=== PATIENT | male | born 1975 | race Caucasian/White ===

== ENCOUNTER 2017-09-27 23:03 | Emergency (ER) | payer SELFPAY ==
[2017-09-27 23:04] VITALS: BP 118/59; PULSE 113; RESP 16; TEMP 37.3; O2SAT 96; BMI 29.4
[2017-09-27 23:05] VITALS: BP 118/59; PULSE 113; RESP 16; TEMP 37.3; O2SAT 96; BMI 29.4
--- NOTE | 2017-09-27 23:08 | ED.SEIZURE ---
HPI - Seizure General Chief Complaint: Seizure Stated Complaint: Seizure Time Seen by Provider: 09/27/17 23:05 Source: patient and EMS Mode of arrival: EMS Limitations: no limitations History of Present Illness HPI Narrative: Patient is a 41 year male presents after a witnessed seizure. He was at the [employer], a local [place] where he works. He was outside smoking a cigarette when the he had full seizure. He was lowered to the ground postictal for EMS. Glucose was he 150 for them. No head injury. He says he has not started any new medications no drugs or alcohol. He does admit to drinking but on he does not drink every day. MD complaint: seizure Related Data Allergies Allergy/AdvReac Type Severity Reaction Status Date / Time No Known Drug Allergies Allergy Verified 09/28/17 00:00 Review of Systems Review of Systems All systems reviewed & are unremarkable except as noted in HPI and below Constitutional Denies chills, Denies fever(s), Denies lethargy and Denies weakness Eyes Denies change in vision, Denies eye discharge, Denies irritation and Denies loss of vision ENT Ears, Nose, Mouth, and Throat: Denies dizziness Gastrointestinal Gastrointestinal: Denies abdominal pain, Denies change in bowel habits, Denies diarrhea, Denies nausea and Denies vomiting Genitourinary Denies urinary incontinence Integumentary/Breasts Comments: Abrasions on right knee Neurologic Reports as per HPI, Denies dizziness, Denies loss of vision, Reports convulsions, Reports seizure-like activity and Denies weakness PFSH Social History alcohol intake: current Exam Initial Vital Signs Initial Vital Signs: Vital Signs Temperature 99.1 F 09/27/17 23:04 Pulse Rate 113 H 09/27/17 23:04 Respiratory Rate 16 09/27/17 23:04 Blood Pressure 118/59 L 09/27/17 23:04 Pulse Oximetry 96 09/27/17 23:04 GENERAL: Alert well-appearing HEENT: Head atraumatic,EOMI, pupils reactive, face symmetric, neck is supple no vertebral tenderness CARDIOVASCULAR: Regular rate and rhythm without murmurs, rubs or gallops. RESPIRATORY: Breath sounds equal bilaterally, no wheezes rales or rhonchi. ABDOMEN: Soft, nontender. Normoactive bowel sounds all 4 quadrants. No guarding or rebound. EXTREMITIES: Normal range of motion, no clubbing or edema. Neurovascularly intact NEUROLOGICAL: Alert and oriented x4.Normal gait and speech. Cranial nerves II through XII grossly intact. [Good [id number], good [id number], strength equal bilaterally, no dysarthria or aphasia, sensation in tact to soft touch bilaterally, no visual changes, no facial droop] SKIN: Warm, dry, no laceration, no petechiae, no rashes or lesions. Skin abrasion noted on right knee Course Orders Ordered: Discontinued Medications Sodium Chloride (Normal Saline 0.9%) 1,000 mls @ 1,000 mls/hr IV BOLUS ONE Stop: 09/28/17 00:04 Last Infusion: 09/28/17 00:40 Dose: 1,000 mls/hr Admin: 09/27/17 23:30 Dose: 1,000 mls/hr Sodium Chloride (Normal Saline 0.9%) 1,000 mls @ 1,000 mls/hr IV BOLUS ONE Stop: 09/28/17 00:37 Last Infusion: 09/28/17 02:16 Dose: 1,000 mls/hr Admin: 09/28/17 00:50 Dose: 1,000 mls/hr Vital Signs - 8 hr 09/27/17 23:04 09/27/17 23:05 09/28/17 01:59 Temperature 99.1 F 99.1 F Pulse Rate 113 H 113 H 94 H Respiratory Rate 16 16 Blood Pressure 118/59 L 118/59 L Blood Pressure [Left Arm] 147/71 H Pulse Oximetry 96 96 MDM - Seizure Lab Data Result diagrams: 09/27/17 22:45 09/27/17 22:45 Lab Results 09/27/17 09/27/17 09/28/17 Range/Units 22:45 22:45 01:20 WBC 10.8 (4.5-11.0) X10^3/uL RBC 3.39 L (4.5-5.9) X10^6/uL Hgb 11.9 L (13.5-17.5) g/dL Hct 35.9 L (41-53) % MCV 105.9 H (80-100) fL MCH 35.1 H (26-34) PG MCHC 33.1 (30-36) % RDW 14.6 (11.6-14.8) % Plt Count 43 L (150-400) X10^3/uL Neut % (Auto) 59.6 (50-75) % Lymph % (Auto) 27.5 (25-40) % [place] % (Auto) 11.5 (3-14) % Eos % (Auto) 0.5 L (2-4) % Baso % (Auto) 0.9 (0-2) % Neut # (Auto) 6500 H (1203-1794) /uL Plt Morphology Comment Large platelets seen RBC Morphology Not Reportable Macrocytosis 1+ H Sodium 144 (137-145) mmol/L Potassium 3.6 (3.4-5.1) mmol/L Chloride 103 (98-107) mmol/L Carbon Dioxide 14 L (22-32) mmol/L BUN 14 (9-20) mg/dL Creatinine 0.80 (0.66-1.25) mg/dL Estimated GFR > 60.0 (>60) mL/min BUN/Creatinine Ratio 17.5 (6-22) Glucose 128 H (70-100) mg/dL Calcium 9.8 (8.4-10.2) mg/dL Urine Color Urine Appearance Urine pH (4.5-8.0) Ur Specific [place] (1.000-1.035) Urine Protein (Negative) Urine Glucose (UA) (Normal) g/dL Urine Ketones (NEGATIVE) Urine Occult Blood (Negative) Urine Nitrate (Negative) Urine Bilirubin (NEGATIVE) Urine Urobilinogen (0.2) E.U./dL Ur Leukocyte Esterase (NEGATIVE) Urine RBC (0-5/HPF) Urine WBC (0-5/HPF) Ur Squamous Epith Cells Amorphous Sediment Urine Bacteria (None) Hyaline Casts (None) Ur Culture Indicated? Micro UA Comment Urine Opiates Screen Negative (Negative) Ur Oxycodone Screen Negative (Negative) Urine Methadone Screen Negative (Negative) Ur Barbiturates Screen Negative (Negative) U Tricyclic Antidepress Negative (Negative) Ur Phencyclidine Scrn Negative (Negative) Ur Amphetamines Screen Negative (Negative) U Methamphetamines Scrn Negative (Negative) Ur MDMA Scrn (Ecstasy) Negative (Negative) U Benzodiazepines Scrn Negative (Negative) Urine Cocaine Screen Negative (Negative) U Marijuana (THC) Screen Negative (Negative) Ethyl Alcohol < 10 mg/dL 09/28/17 Range/Units 01:20 WBC (4.5-11.0) X10^3/uL RBC (4.5-5.9) X10^6/uL Hgb (13.5-17.5) g/dL Hct (41-53) % MCV (80-100) fL MCH (26-34) PG MCHC (30-36) % RDW (11.6-14.8) % Plt Count (150-400) X10^3/uL Neut % (Auto) (50-75) % Lymph % (Auto) (25-40) % [place] % (Auto) (3-14) % Eos % (Auto) (2-4) % Baso % (Auto) (0-2) % Neut # (Auto) (9130-4509) /uL Plt Morphology Comment RBC Morphology Macrocytosis Sodium (137-145) mmol/L Potassium (3.4-5.1) mmol/L Chloride (98-107) mmol/L Carbon Dioxide (22-32) mmol/L BUN (9-20) mg/dL Creatinine (0.66-1.25) mg/dL Estimated GFR (>60) mL/min BUN/Creatinine Ratio (6-22) Glucose (70-100) mg/dL Calcium (8.4-10.2) mg/dL Urine Color Yellow Urine Appearance Clear Urine pH 7.0 (4.5-8.0) Ur Specific [place] 1.020 (1.000-1.035) Urine Protein 1+ H (Negative) Urine Glucose (UA) Negative (Normal) g/dL Urine Ketones Negative (NEGATIVE) Urine Occult Blood Trace-lysed (Negative) Urine Nitrate Negative (Negative) Urine Bilirubin Negative (NEGATIVE) Urine Urobilinogen 2.0 H (0.2) E.U./dL Ur Leukocyte Esterase Negative (NEGATIVE) Urine RBC 0-1/hpf (0-5/HPF) Urine WBC 0-1/hpf (0-5/HPF) Ur Squamous Epith Cells 0-1 /hpf Amorphous Sediment 1+ Urine Bacteria Occasional (0-1) (None) Hyaline Casts 0-1/lpf (None) Ur Culture Indicated? Cult not indicated Micro UA Comment Not Reportable Urine Opiates Screen (Negative) Ur Oxycodone Screen (Negative) Urine Methadone Screen (Negative) Ur Barbiturates Screen (Negative) U Tricyclic Antidepress (Negative) Ur Phencyclidine Scrn (Negative) Ur Amphetamines Screen (Negative) U Methamphetamines Scrn (Negative) Ur MDMA Scrn (Ecstasy) (Negative) U Benzodiazepines Scrn (Negative) Urine Cocaine Screen (Negative) U Marijuana (THC) Screen (Negative) Ethyl Alcohol mg/dL MDM Narrative Medical decision making narrative: Patient is adamant that he does not drink on daily. However his MCV is 105 and he is thrombocytopenic. His states that he has signs and symptoms of gastritis. He has no hematemesis today. He initially was shaking his he said he was cold on he was given warm blankets no longer shaking. Continues to deny alcoholism. We discussed alcohol withdrawal seizures. He does not think this is what that is. All warning signs are discussed with he and his . They verbally understand. Discharge Plan Departure Patient Disposition: Home, Self-Care Clinical Impression: New onset seizure Discharge Date/Time: 09/28/17 02:10 Interventions: ED Discharge Assessment Last Done: 09/28/17 03:01 Instructions: DI for Seizure Disorder -- Adult Activity Restrictions/Additional Instructions: CANNOT DRIVE UNTIL CLEARED BY PRIMARY CARE PROVIDER AND/OR NEUROLOGY *You have been diagnosed with seizure *What to do: Alcohol withdrawal is most common cause of seizures and can be deadly. If you should have more seizures you will need further evaluation such as CT scan and evaluation by Neurology. Be sure to sleep at least 8 hr every night and eat frequent regular meals. *Continue to take medications as directed *Follow up with your primary care provider in 2-3 days *Return to ER if you should have recurrent seizure or any new, worsening or concerning symptoms Referrals: [facility] [Outside]
[2017-09-27 23:21] LABS: Basophils Percent Auto 0.9 % (0-2); Eosinophils Percent Auto 0.5 % (2-4); Hematocrit 35.9 % (41-53); Hemoglobin 11.9 g/dL (13.5-17.5); Lymphocytes Percent Auto 27.5 % (25-40); Mean Corpuscular HGB Conc 33.1 % (30-36); Mean Corpuscular Hemoglobin 35.1 PG (26-34); Mean Corpuscular Volume 105.9 fL (80-100); Monocytes Percent Auto 11.5 % (3-14); Neutrophils Absolute Auto 6500 /uL (3000-5900); Neutrophils Percent Auto 59.6 % (50-75); Platelet Count 43 X10^3/uL (150-400); Red Blood Cell Count 3.39 X10^6/uL (4.5-5.9); Red Cell Distribution Width 14.6 % (11.6-14.8); White Blood Cell Count 10.8 X10^3/uL (4.5-11.0)
[2017-09-27 23:24] LABS: Add Manual Diff / Slide Review SLIDE REVIEW
[2017-09-27 23:26] LABS: BUN Creatinine Ratio 17.5 (6-22); Blood Urea Nitrogen 14 mg/dL (9-20); Calcium 9.8 mg/dL (8.4-10.2); Carbon Dioxide 14 mmol/L (22-32); Chloride 103 mmol/L (98-107); Estimated Glomerular Filt Rate > 60.0 mL/min (>60); Ethanol (ETOH) < 10 mg/dL; Glucose 128 mg/dL (70-100); Sodium 144 mmol/L (137-145)
[2017-09-27 23:27] LABS: HEMOLYSIS 80 (0-50)
[2017-09-27 23:28] LABS: Potassium 3.6 mmol/L (3.4-5.1)
[2017-09-27] MEDS: SODIUM CHLORIDE 0.9% 1,000 ML 1000 ML IV (23:30)
[2017-09-27 23:47] LABS: Macrocytosis 1+
[2017-09-27 23:48] LABS: Platelet Morphology Comment LARGE PLATELETS SEEN
[2017-09-28] MEDS: SODIUM CHLORIDE 0.9% 1,000 ML 1000 ML IV (00:50)
[2017-09-28 01:45] LABS: Appearance Urine UA CLEAR; Bilirubin Urine UA NEGATIVE (NEGATIVE); Color Urine UA YELLOW; Glucose Urine UA NEGATIVE (Normal); Ketones Urine UA NEGATIVE (NEGATIVE); Leukocyte Esterase Urine UA NEGATIVE (NEGATIVE); Nitrite Urine UA Negative (Negative); Occult Blood Urine UA TRACE-LYSED (Negative); Protein Urine UA 1+ (Negative)
[2017-09-28 01:46] LABS: Amorphous Sediment Urine 1+; Bacteria Urine Occasional (0-1); Culture Indicated Urine Cult Not Indicated; Hyaline Casts Urine 0-1/LPF; RBC Urine 0-1/HPF (0-5/HPF); Squamous Epithelial Cell Urine 0-1 /HPF; WBC Urine 0-1/HPF (0-5/HPF)
[2017-09-28 01:55] LABS: Urine Amphetamines Negative (Negative); Urine Barbiturates Negative (Negative); Urine Benzodiazepines Negative (Negative); Urine Cocaine Negative (Negative); Urine MDMA Negative (Negative); Urine Methadone Negative (Negative); Urine Methamphetamines Negative (Negative); Urine Morphine/Opi cutoff 2000 Negative (Negative); Urine Oxycodone Negative (Negative); Urine Phencyclidine Negative (Negative); Urine Tetrahydrocannabinol Negative (Negative); Urine Tricyclic Antidepressant Negative (Negative)
[2017-09-28 01:59] VITALS: BP 147/71; PULSE 94
== END 2017-09-28 02:10 | disposition home or self-care (01) ==
PROVIDERS: Emergency Provider Emergency Medicine
DX: R56.9 Unspecified convulsions (principal)
CPT/HCPCS: 36591; 80048; 80305; 80320; 81001; 81003; 85025; 96360; 96361; 99283; 99284

== ENCOUNTER 2017-11-20 01:07 | Inpatient (IN) | payer OTHER, MEDICAID, SELFPAY ==
[2017-11-20] VITALS (18 sets, daily range): BP systolic 114–174; BP diastolic 53–110; PULSE 85–128; RESP 10–20; TEMP 36.8–37.5; O2SAT 90–100; BMI 28.5; BMI 27.4
--- NOTE | 2017-11-20 | DI.US.S_ITS ---
PROCEDURE: US ABDOMEN COMPLETE INDICATIONS: cirrhosis TECHNIQUE: Real-time scanning was performed of the abdominal and retroperitoneal organs, with image documentation. Study was limited by the degree of cooperation and excessive bowel gas COMPARISON: None. FINDINGS: Liver: The liver measures 16.9 cm and is hyperechoic in echotexture. Gallbladder: Gallbladder is clear with normal wall thickness. Biliary ducts: Intrahepatic bile ducts are non-dilated. Extrahepatic bile duct caliber measures 5 mm. Normal is 6-7 mm or less in diameter, or 10 mm or less post-cholecystectomy. Pancreas: Pancreas is obscured by bowel gas Spleen: Spleen is obscured by bowel gas Kidneys: The right kidney measures approximately 12.2 cm without obstruction the left kidney is obscured by bowel gas Aorta: Non-visualized secondary to bowel gas Iliacs: Obscured by bowel gas IVC: Not seen secondary to bowel gas Miscellaneous: No free abdominal fluid. IMPRESSION: 1. Hepatic steatosis. 2. Normal appearing gallbladder and common bile duct. 3. Right kidney is within normal limits, remainder of exam is obscured by bowel gas Dictated by: Didier Schultz M.D. on 11/20/2017 at 14:59 Approved by: Didier Schultz M.D. on 11/20/2017 at 15:03
[2017-11-20 01:34] LABS: Add Manual Diff / Slide Review NO; Basophils Percent Auto 0.8 % (0-2); Eosinophils Percent Auto 0.8 % (2-4); Lymphocytes Percent Auto 15.5 % (25-40); Mean Corpuscular HGB Conc 32.2 % (30-36); Mean Corpuscular Hemoglobin 29.5 PG (26-34); Mean Corpuscular Volume 91.8 fL (80-100); Monocytes Percent Auto 10.8 % (3-14); Neutrophils Absolute Auto 5900 /uL (3000-5900); Neutrophils Percent Auto 72.1 % (50-75); Platelet Count 63 X10^3/uL (150-400); Red Blood Cell Count 2.36 X10^6/uL (4.5-5.9); Red Cell Distribution Width 15.6 % (11.6-14.8); White Blood Cell Count 8.2 X10^3/uL (4.5-11.0)
[2017-11-20] MEDS: LORazepam 2 MG/ML SYRINGE IV ×2 (01:34→08:51)
[2017-11-20 01:38] LABS: Alanine Aminotransferase 123 IU/L (21-72); Albumin 3.7 g/dL (3.5-5.0); Albumin Globulin Ratio 0.9 (1.0-2.8); Alkaline Phosphatase 80 U/L (38-126); Aspartate Aminotransferase 259 IU/L (17-59); BUN Creatinine Ratio 13.8 (6-22); Bilirubin Total 2.9 mg/dL (0.2-1.3); Blood Urea Nitrogen 11 mg/dL (9-20); Calcium 8.8 mg/dL (8.4-10.2); Carbon Dioxide 22 mmol/L (22-32); Chloride 102 mmol/L (98-107); Estimated Glomerular Filt Rate > 60.0 mL/min (>60); Ethanol (ETOH) < 10 mg/dL; Globulin 3.9 g/dL (1.7-4.1); Glucose 114 mg/dL (70-100); HEMOLYSIS < 15 (0-50); Lipase 232 U/L (23-300); Magnesium 1.6 mg/dL (1.6-2.3); Potassium 3.5 mmol/L (3.4-5.1); Sodium 135 mmol/L (137-145); Total Protein 7.6 g/dL (6.3-8.2)
[2017-11-20 01:42] LABS: Hematocrit 21.6 % (41-53)
[2017-11-20 01:46] LABS: Urine Amphetamines Negative (Negative); Urine Barbiturates Negative (Negative); Urine Benzodiazepines Negative (Negative); Urine Cocaine Negative (Negative); Urine MDMA Negative (Negative); Urine Methadone Negative (Negative); Urine Methamphetamines Negative (Negative); Urine Morphine/Opi cutoff 2000 Negative (Negative); Urine Oxycodone Negative (Negative); Urine Phencyclidine Negative (Negative); Urine Tetrahydrocannabinol Positive (Negative); Urine Tricyclic Antidepressant Negative (Negative)
[2017-11-20] MEDS: LORazepam 2 MG/ML SYRINGE 4 MG IV ×10 (02:08→22:29)
[2017-11-20] MEDS: MAGNESIUM SULFATE 2 GM, FOLIC ACID 1 MG, THIAMINE 100 MG, MULTIVITAMIN 10 ML in SODIUM ... IV (02:26)
[2017-11-20] MEDS: LORazepam 2 MG/ML SYRINGE 8 MG IV (02:33)
[2017-11-20] MEDS: PANTOPRAZOLE 40 MG VIAL IV ×3 (02:36→20:48)
--- NOTE | 2017-11-20 02:49 | PC.NURSE ---
pt had no response to first dose of ativan, provider notified and order received for 4mg ativan. 30 min after 4mg ativan given pt still getting tangled in monitor wires, speaking to people not in the room, pt mumbling incoherently. provider notified and additional 8mg ativan ordered. seizure precautions started. pads on stretcher and suction available.
--- NOTE | 2017-11-20 02:52 | ED.ALCOHOL ---
HPI - Alcohol General Chief Complaint: Toxicology Problem Stated Complaint: Detox Time Seen by Provider: 11/20/17 01:27 Source: patient, old records reviewed and police Mode of arrival: ambulatory Limitations: altered mental status History of Present Illness HPI narrative: Patient is a 42-year-old brought in voluntarily by police. Police report that he was found wondering trying to get into people's cars. He says police were called because he made his stepdaughter mad. He is obviously having hallucinations stating that there is water coming down from the ceiling. He reports his last drink of alcohol was 4 days ago. He drinks a 5th of alcohol daily and has for the last 2 years. He was seen evaluated in September for a seizure thought to be an alcohol withdrawal seizure though the patient denied. He currently is an extremely poor historian and has obvious tremors. MD complaint: alcohol withdrawal Related Data Allergies Allergy/AdvReac Type Severity Reaction Status Date / Time No Known Drug Allergies Allergy Verified 09/28/17 00:00 Review of Systems Review of Systems unobtainable due to mental condition (Hallucinations) [facility] Medical History Alcoholism (Acute) Social History alcohol intake: current Exam Initial Vital Signs Initial Vital Signs: Vital Signs Temperature 98.9 F 11/20/17 01:18 Pulse Rate 128 H 11/20/17 01:18 Respiratory Rate 18 11/20/17 01:18 Blood Pressure 174/78 H 11/20/17 01:18 Pulse Oximetry 100 11/20/17 01:18 Const General: anxious Nutritional Appearance: average body habitus Orientation: alert and awake Limitations: altered mental status HENMT Head: normal to inspection and normocephalic Eyes General: appearance normal, both eyes and all related structures Neck Neck: normal visual inspection, full ROM and no meningeal signs Chest Chest: normal inspection of the chest Resp Effort & Inspection: normal respiratory effort Auscultation: clear to auscultation bilaterally, no rhonchi and no wheezes Cardio Rate: tachycardic Rhythm: regular rhythm Heart Sounds: S1 normal and S2 normal GI Inspection: normal to inspection Palpation: soft, No tender and No ascites Rectal Exam: visual inspection normal and heme positive stool Skin General: ecchymosis (Right thigh) Lesions: no lesions Wounds: no wounds Neuro General: alert, awake and oriented (Person and year and place) Cranial Nerves: CN's II-XI intact bilaterally Speech: speech normal Motor: asterixis Extrem General: normal to inspection, full ROM and capillary refill normal Psych Speech and Movement: agitated and restless Thought Content: hallucinations Course Orders Ordered: ED Orders 11/20/17 EKG-12 Lead Routine 11/20/17 01:20 Complete Blood Count AUTO DIFF Stat Comprehensive Metabolic Panel Stat Ethanol (ETOH) Stat Lipase Stat Magnesium Stat Partial Thromboplastin Time Stat Prothrombin Time INR Stat 11/20/17 01:35 Urine Drug Screen, Rapid Stat 11/20/17 02:11 Packed Cells Stat Type and Screen Stat Magnesium Sulfate 2 gm/ Folic Acid 1 mg/ Thiamine HCl 100 mg / Multivitamins 10 ml/ Sodium Chloride 1,015.2 mls @ 125 mls/hr IV NOW ONE Stop: 11/20/17 09:33 Last Admin: 11/20/17 02:26 Dose: 125 mls/hr Discontinued Medications Lorazepam (Ativan) 2 mg IV NOW ONE Stop: 11/20/17 01:27 Last Admin: 11/20/17 01:34 Dose: 2 mg Lorazepam (Ativan) 4 mg IV NOW ONE Stop: 11/20/17 02:05 Last Admin: 11/20/17 02:08 Dose: 4 mg Lorazepam (Ativan) 8 mg IV NOW ONE Stop: 11/20/17 02:28 Last Admin: 11/20/17 02:33 Dose: 8 mg Pantoprazole Sodium (Protonix) 40 mg IV NOW ONE Stop: 11/20/17 02:29 Last Admin: 11/20/17 02:36 Dose: 40 mg Vital Signs - 8 hr 11/20/17 01:18 11/20/17 03:06 Temperature 98.9 F Pulse Rate 128 H 114 H Respiratory Rate 18 14 Blood Pressure 174/78 H Blood Pressure [Left Arm] 114/66 Pulse Oximetry 100 96 MDM - Alcohol Differential Diagnosis Differential diagnosis: Likely alcohol withdrawal delirium Lab Data Result diagrams: 11/20/17 01:20 11/20/17 01:20 Labs: Lab Results 11/20/17 11/20/17 11/20/17 Range/Units 01:20 01:20 01:20 WBC 8.2 (4.5-11.0) X10^3/uL RBC 2.36 L (4.5-5.9) X10^6/uL Hgb 7.0 L (13.5-17.5) g/dL Hct 21.6 L (41-53) % MCV 91.8 (80-100) fL MCH 29.5 (26-34) PG MCHC 32.2 (30-36) % RDW 15.6 H (11.6-14.8) % Plt Count 63 L (150-400) X10^3/uL Neut % (Auto) 72.1 (50-75) % Lymph % (Auto) 15.5 L (25-40) % [place] % (Auto) 10.8 (3-14) % Eos % (Auto) 0.8 L (2-4) % Baso % (Auto) 0.8 (0-2) % Neut # (Auto) 5900 (0010-4941) /uL PT 24.2 H (10.1-12.7) SECONDS INR 2.2 H (0.9-1.3) APTT 28 (26.4-36.2) SECONDS Sodium 135 L (137-145) mmol/L Potassium 3.5 (3.4-5.1) mmol/L Chloride 102 (98-107) mmol/L Carbon Dioxide 22 (22-32) mmol/L BUN 11 (9-20) mg/dL Creatinine 0.80 (0.66-1.25) mg/dL Estimated GFR > 60.0 (>60) mL/min BUN/Creatinine Ratio 13.8 (6-22) Glucose 114 H (70-100) mg/dL Calcium 8.8 (8.4-10.2) mg/dL Magnesium 1.6 (1.6-2.3) mg/dL Total Bilirubin 2.9 H (0.2-1.3) mg/dL AST 259 H (17-59) IU/L ALT 123 H (21-72) IU/L Alkaline Phosphatase 80 (38-126) U/L Total Protein 7.6 (6.3-8.2) g/dL Albumin 3.7 (3.5-5.0) g/dL Globulin 3.9 (1.7-4.1) g/dL Albumin/Globulin Ratio 0.9 L (1.0-2.8) Lipase 232 (23-300) U/L Urine Opiates Screen (Negative) Ur Oxycodone Screen (Negative) Urine Methadone Screen (Negative) Ur Barbiturates Screen (Negative) U Tricyclic Antidepress (Negative) Ur Phencyclidine Scrn (Negative) Ur Amphetamines Screen (Negative) U Methamphetamines Scrn (Negative) Ur MDMA Scrn (Ecstasy) (Negative) U Benzodiazepines Scrn (Negative) Urine Cocaine Screen (Negative) U Marijuana (THC) Screen (Negative) Ethyl Alcohol < 10 mg/dL Blood Type Antibody Screen Crossmatch 11/20/17 11/20/17 Range/Units 01:35 02:11 WBC (4.5-11.0) X10^3/uL RBC (4.5-5.9) X10^6/uL Hgb (13.5-17.5) g/dL Hct (41-53) % MCV (80-100) fL MCH (26-34) PG MCHC (30-36) % RDW (11.6-14.8) % Plt Count (150-400) X10^3/uL Neut % (Auto) (50-75) % Lymph % (Auto) (25-40) % [place] % (Auto) (3-14) % Eos % (Auto) (2-4) % Baso % (Auto) (0-2) % Neut # (Auto) (4929-6970) /uL PT (10.1-12.7) SECONDS INR (0.9-1.3) APTT (26.4-36.2) SECONDS Sodium (137-145) mmol/L Potassium (3.4-5.1) mmol/L Chloride (98-107) mmol/L Carbon Dioxide (22-32) mmol/L BUN (9-20) mg/dL Creatinine (0.66-1.25) mg/dL Estimated GFR (>60) mL/min BUN/Creatinine Ratio (6-22) Glucose (70-100) mg/dL Calcium (8.4-10.2) mg/dL Magnesium (1.6-2.3) mg/dL Total Bilirubin (0.2-1.3) mg/dL AST (17-59) IU/L ALT (21-72) IU/L Alkaline Phosphatase (38-126) U/L Total Protein (6.3-8.2) g/dL Albumin (3.5-5.0) g/dL Globulin (1.7-4.1) g/dL Albumin/Globulin Ratio (1.0-2.8) Lipase (23-300) U/L Urine Opiates Screen Negative (Negative) Ur Oxycodone Screen Negative (Negative) Urine Methadone Screen Negative (Negative) Ur Barbiturates Screen Negative (Negative) U Tricyclic Antidepress Negative (Negative) Ur Phencyclidine Scrn Negative (Negative) Ur Amphetamines Screen Negative (Negative) U Methamphetamines Scrn Negative (Negative) Ur MDMA Scrn (Ecstasy) Negative (Negative) U Benzodiazepines Scrn Negative (Negative) Urine Cocaine Screen Negative (Negative) U Marijuana (THC) Screen Positive H (Negative) Ethyl Alcohol mg/dL Blood Type A Positive Antibody Screen Negative Crossmatch See Detail ECG Data Attestation: I personally reviewed and interpreted this ECG as follows: Prior ECG tracings: not available for review Interpretation: Sinus tachycardia rate 121. None ST depression noted in precordial leads no acute ST elevations no priors to compare MDM Narrative Medical decision making narrative: Initial [id number] Patient is awake and alert but obviously hallucinating and has diffuse tremors. Immediately IV fluids started and 2 mg of Ativan given. He continues to pull out his lines hallucinate and be agitated. For mg of Ativan given. Been antibiotics started. His heart rate increased to the 150s, and now talking more nonsense, continuing to pull at IV lines. 8 mg of Ativan given. Finally he has become sonorous but does still awake and cough. Noted to be anemic with significant decrease in his hemoglobin and hematocrit. He did say he was having some dark stools. He is guaiac positive. I attempted to call contact of listed in the computer however the name did not match the phone number. I did not leave a message. Police said that family is aware of where he is. Patient's heart rate improved after final dose of Ativan in the 114. He is in sinus rhythm. Dr. Aburto has been updated on patient's symptoms and test results agrees with ICU admission. Discussion with Dr. Aburto about blood transfusion. His hemoglobin is under 8 he remains tachycardic despite now no longer tremorous or anxious. Attempted calling the family to get consent, patient does not have capacity to make informed decisions. Blood transfusion will be started with implied consent. Discharge Plan Departure Patient Disposition: Admitted As Inpatient Clinical Impression: Alcohol withdrawal delirium, Acute GI bleeding, Anemia Admit Date/Time: 11/20/17 03:34 Admit Provider: Sunday Aburto
--- NOTE | 2017-11-20 02:54 | PC.NURSE ---
bloodwork shows anemia, pt asked about blood in stool and stated he has seen blood in stool for couple weeks. provider ordered protonix and type and screen.
[2017-11-20 03:01] LABS: INR 2.2 (0.9-1.3); Prothrombin Time 24.2 SECONDS (10.1-12.7)
[2017-11-20 03:04] LABS: PTT Partial Thromboplastin Tim 28 SECONDS (26.4-36.2)
--- NOTE | 2017-11-20 03:07 | PC.NURSE ---
pt sleeping, loudly deeply snoring.
--- NOTE | 2017-11-20 03:21 | PC.NURSE ---
second line placed for blood transfusion
--- NOTE | 2017-11-20 05:38 | PM.HP.1 ---
History of Present Illness Date Patient Seen: 11/20/17 Time Patient Seen: 04:35 Chief complaint: Detox Narrative: Patient was brought in by the police department. Patient was found in a confused state appearing to try and break in a car. Patient actually walked in to the emergency room. No evidence or suspicion of head trauma. Imaging was not done by ER physician on admission. Patient was noted to be delirious upon arrival to the ER. Patient's hemoglobin was 7.0 and provided transfusion obtuse 2 units of packed RBC. Patient was admitted to the ICU for alcohol withdrawal syndrome treatment. Patient History Medical History Alcoholism (Acute) Family & Social History Family History: Reviewed 11/20/17 by Sunday Aburto MD Social History: household members other Safety & Behavioral: Feels Safe in Current Yes Environment Been Physically Hurt or Unwilling to Answer Threatened By a Person Suicidal Ideation Description None Suicide Plan Description No Plan Tobacco & Substance use: Smoking Status Unknown if ever smoked alcohol intake current alcohol intake frequency 3 or more drinks per day Substance Use Type marijuana Meds Allergies Allergy/AdvReac Type Severity Reaction Status Date / Time No Known Drug Allergies Allergy Verified 09/28/17 00:00 Review of Systems Review of Systems Patient is in a comatose state unable to answer questions Exam Vital Signs (past 8 hours): - 11/20/17 01:18 11/20/17 03:06 11/20/17 04:12 Temperature 98.9 F 98.4 F Pulse Rate 128 H 114 H 103 H Respiratory Rate 18 14 20 Blood Pressure 174/78 H 133/61 H Blood Pressure [Left Arm] 114/66 Pulse Oximetry 100 96 100 11/20/17 04:52 11/20/17 05:08 Temperature 99.5 F 99.3 F Pulse Rate 103 H 110 H Respiratory Rate 14 15 Blood Pressure 133/61 H 154/110 H Blood Pressure [Left Arm] Pulse Oximetry Oxygen Delivery Method Room Air Narrative Exam Narrative: General appearance Patient in delirium tremens alcohol withdrawal syndrome. Skin No rashes or lesions evident nonjaundiced Eyes pupils are equal round and reactive to light Respiratory Upper airway transmitted sounds noted fair air movement is noted no crackles at bases noted Cardiovascular Tachycardia noted regular rhythm no murmurs pulses +3 to extremities Gastrointestinal Abdomen is soft nonprotuberant positive bowel sounds noted no bruits Musculoskeletal Motor strength cannot be assessed. Range of motion passively appears normal. No clubbing noted Neurologic Cranial nerve assessment cannot be assessed at this time. No lateralizing neurologic deficit noted. Patient in delirium tremens Lymph nodes No lymphadenopathy to neck or axilla Objective Labs Result Diagrams: 11/20/17 01:20 11/20/17 01:20 Labs: Laboratory Results - last 24 hr 11/20/17 11/20/17 11/20/17 01:20 01:20 01:20 WBC 8.2 RBC 2.36 L Hgb 7.0 L Hct 21.6 L MCV 91.8 MCH 29.5 MCHC 32.2 RDW 15.6 H Plt Count 63 L Neut % (Auto) 72.1 Lymph % (Auto) 15.5 L [place] % (Auto) 10.8 Eos % (Auto) 0.8 L Baso % (Auto) 0.8 Neut # (Auto) 5900 PT 24.2 H INR 2.2 H APTT 28 Sodium 135 L Potassium 3.5 Chloride 102 Carbon Dioxide 22 BUN 11 Creatinine 0.80 Estimated GFR > 60.0 BUN/Creatinine Ratio 13.8 Glucose 114 H Calcium 8.8 Magnesium 1.6 Total Bilirubin 2.9 H AST 259 H ALT 123 H Alkaline Phosphatase 80 Total Protein 7.6 Albumin 3.7 Globulin 3.9 Albumin/Globulin Ratio 0.9 L Lipase 232 Nasal Screen MRSA (PCR) Urine Opiates Screen Ur Oxycodone Screen Urine Methadone Screen Ur Barbiturates Screen U Tricyclic Antidepress Ur Phencyclidine Scrn Ur Amphetamines Screen U Methamphetamines Scrn Ur MDMA Scrn (Ecstasy) U Benzodiazepines Scrn Urine Cocaine Screen U Marijuana (THC) Screen Ethyl Alcohol < 10 Blood Type Antibody Screen Crossmatch 11/20/17 11/20/17 11/20/17 01:35 02:11 04:10 WBC RBC Hgb Hct MCV MCH MCHC RDW Plt Count Neut % (Auto) Lymph % (Auto) [place] % (Auto) Eos % (Auto) Baso % (Auto) Neut # (Auto) PT INR APTT Sodium Potassium Chloride Carbon Dioxide BUN Creatinine Estimated GFR BUN/Creatinine Ratio Glucose Calcium Magnesium Total Bilirubin AST ALT Alkaline Phosphatase Total Protein Albumin Globulin Albumin/Globulin Ratio Lipase Nasal Screen MRSA (PCR) Negative for mrsa Urine Opiates Screen Negative Ur Oxycodone Screen Negative Urine Methadone Screen Negative Ur Barbiturates Screen Negative U Tricyclic Antidepress Negative Ur Phencyclidine Scrn Negative Ur Amphetamines Screen Negative U Methamphetamines Scrn Negative Ur MDMA Scrn (Ecstasy) Negative U Benzodiazepines Scrn Negative Urine Cocaine Screen Negative U Marijuana (THC) Screen Positive H Ethyl Alcohol Blood Type A Positive Antibody Screen Negative Crossmatch See Detail Assessment & Plan Plan: Assessment/Plan Narrative: 1. Delirium tremens alcohol withdrawal syndrome Ativan to be provided in 2-4 mg doses with CIWA score between 8-20. Repeat CIWA score every 1-2 hours. Per CIWA score exceeding 20 phenobarbital at 130 mg IV every 30 min to be repeated as necessary. Neurologic checks every 2 hr. Continuous oximetry to monitor. Greene catheter to gravity. Haldol to be avoided since potentially lowers seizure threshold. If patient maintains a CIWA score less than 848 consecutive hours without Ativan administration then the CIWA protocol can be discontinued. Due to risk of infection in patients with cirrhosis and GI bleeding Cipro 400 mg IV q.12 hours provided. 2. Acute GI bleeding Initial hemoglobin 7.0 when seen in the emergency room. Patient given 2 units of packed RBCs by ER physician. In view of alcohol history and suspected cirrhosis and esophageal varices will provide octreotide with a 50 mcg loading dose and 50 mcg infusion per hour this is to be continued for the next 2-5 days. Hemoglobin hematocrit repeat every 4 hr. Protonix 40 mg IV q.12 hours 3. Alcohol abuse Note patient with elevated INR on admission reflective of acute hepatic dysfunction. Note albumin level 3.7 on admission. Will continue to monitor labs every morning Times spent to manage patient admission is 80 min Time Spent With Patient Time with patient: Greater than 35 minutes (80 min) Quality VTE Deep Vein Thrombosis/Pulmonary Embolism Present on Admission: No
[2017-11-20] MEDS: PHENobarbital sodium 130 MG/ML VIAL IV ×6 (05:55→14:31)
[2017-11-20] MEDS: OCTREOTIDE 500 MCG in SODIUM CHLORIDE 0.9% 100 ML 10.1 ML IV (08:30)
[2017-11-20] MEDS: CIPROFLOXACIN 400 MG/200 ML PIGGYBACK 200 MG IV (08:31)
[2017-11-20] MEDS: OCTREOTIDE 100 MCG/ML VIAL 50 MCG IV (10:08)
[2017-11-20 11:04] LABS: Hematocrit 23.6 % (41-53); Hemoglobin 7.9 g/dL (13.5-17.5)
--- NOTE | 2017-11-20 11:09 | RT ---
shift supervisor film processing RT Nan identified patient as possibly needing an RT consult. Spoke with RN Linsey who says there are no needs at this time. Patient resting peacefully. On 2 liters nasal cannula with a sat of 95 while sleeping. Patient is snoring but easily arousable. No issues with secretion clearance. BBS clear.
[2017-11-20 11:31] LABS: Magnesium 2.3 mg/dL (1.6-2.3)
[2017-11-20] MEDS: SODIUM CHLORIDE 0.9% 1,000 ML 150 ML IV ×2 (11:47→18:02)
--- NOTE | 2017-11-20 12:09 | CM.DANOTE ---
Reviewed EMR: Patient admitted for alcohol withdrawal. MIS check: Not in system. Patient had ER visit in September for seizure thought to be alcohol withdrawal which patient denied. No other visits found. Patient currently with CIWA of 25. Not appropriate for CD assessment. SW to try again tomorrow.
--- NOTE | 2017-11-20 14:52 | PC.NURSE ---
pt becomes easily agitated and scores a ciwa of 25 x 2 this shift- receiving doses of both iv loraz and iv phenobarb-frequently for his behavior and inability to reason with pt. lungs clear, no edema, dangelo patent and banana bag completed infusion -abd u/s completed -remains npo
[2017-11-21 00:02] VITALS: BP 145/85; PULSE 90; RESP 12; TEMP 37.4; O2SAT 100
[2017-11-21] MEDS: LORazepam 2 MG/ML SYRINGE 4 MG IV ×12 (00:04→19:19)
[2017-11-21] MEDS: SODIUM CHLORIDE 0.9% 1,000 ML 150 ML IV ×2 (01:15→17:24)
[2017-11-21 04:00] VITALS: BP 148/57; PULSE 93; RESP 19; TEMP 37.1; O2SAT 100
[2017-11-21] MEDS: LORazepam 2 MG/ML SYRINGE IV ×2 (05:06→06:09)
[2017-11-21 05:13] LABS: Add Manual Diff / Slide Review NO; Basophils Percent Auto 0.8 % (0-2); Eosinophils Percent Auto 1.4 % (2-4); Hemoglobin 8.5 g/dL (13.5-17.5); Lymphocytes Percent Auto 15.8 % (25-40); Mean Corpuscular HGB Conc 32.8 % (30-36); Mean Corpuscular Hemoglobin 29.9 PG (26-34); Monocytes Percent Auto 9.5 % (3-14); Neutrophils Absolute Auto 5700 /uL (3000-5900); Neutrophils Percent Auto 72.5 % (50-75); Platelet Count 50 X10^3/uL (150-400); Red Blood Cell Count 2.86 X10^6/uL (4.5-5.9); Red Cell Distribution Width 15.7 % (11.6-14.8); White Blood Cell Count 7.8 X10^3/uL (4.5-11.0)
[2017-11-21 05:20] LABS: Alanine Aminotransferase 97 IU/L (21-72); Albumin 2.7 g/dL (3.5-5.0); Albumin Globulin Ratio 0.8 (1.0-2.8); Alkaline Phosphatase 55 U/L (38-126); Aspartate Aminotransferase 186 IU/L (17-59); Bilirubin Total 3.1 mg/dL (0.2-1.3); Blood Urea Nitrogen 9 mg/dL (9-20); Calcium 7.4 mg/dL (8.4-10.2); Carbon Dioxide 25 mmol/L (22-32); Chloride 107 mmol/L (98-107); Estimated Glomerular Filt Rate > 60.0 mL/min (>60); Globulin 3.4 g/dL (1.7-4.1); Glucose 103 mg/dL (70-100); HEMOLYSIS < 15 (0-50); Potassium 3.4 mmol/L (3.4-5.1); Sodium 137 mmol/L (137-145); Total Protein 6.1 g/dL (6.3-8.2)
--- NOTE | 2017-11-21 06:50 | PC.NURSE ---
NOC Shift: Pt continues to have CIWA scores 15 to 22 controlled with Ativan 2 to 4mg IV per CIWA scale per Dr. Patel. Pt becoming more appropriate at times, able to follow direction, calm with direction. Able to sit up and feed self w/cues. VSS, SR on tele. No active bleeding noted thru shift H&H improved this AM with RBC transfusion yesterday. Remains ICU status.
[2017-11-21 07:33] VITALS: BP 148/74; PULSE 93; RESP 12; O2SAT 99
[2017-11-21] MEDS: SODIUM CHLORIDE 0.9% 1,000 ML 50 ML IV (08:57)
[2017-11-21] MEDS: PANTOPRAZOLE 40 MG VIAL IV (10:20)
[2017-11-21 10:55] VITALS: BP 142/85; PULSE 104; RESP 16; TEMP 38.2; O2SAT 100
--- NOTE | 2017-11-21 11:07 | PC.NURSE ---
PT RECEIVING IV LORAZ ALMOST Q 1.5 HOURS THIS AM DUE TO INCREASED AGITATION AND UNWILLINGNESS TO COOPERATE WITH CARE PLAN OF ETOH WITHDRAWL- CARROLL OF CASE MGMT SPOKE WITH PT FOR APPROX 20-25 MINUTES - THEN HE BECAME DISGRUNTLED AND ATTEMPTED TO LEAVE BY GETTING UP FROM BED X 2 AND STUMBLING FORWARD - HE MANIPULATED IV TUBING _ RIPPING OR BITING IT -RESULTING IN BLOOD SPEWING OVER BEDDING AND FLOOR, IV SITE MAINTAINED AND REQUIRED NEW DRESSING AND NEW TUBING SET UP, NS CONTINUES TO INFUSE- TAKING DIET WELL NO NAUSEA- UPDATE TO ERAN AT BEDSIDE
--- NOTE | 2017-11-21 11:53 | CM.DANOTE ---
Discharge Planning/Care Management CM Discharge Assessment Start: 11/21/17 11:47 Freq: Status: Active Protocol: Document 11/21/17 11:47 (Rec: 11/21/17 11:48 [id number]) Discharge Planning Assessment Assigned Top Stitcher [employer]AMP CLEANER Advance Directives? No History Provided By Patient Significant Other Medical Record Has Patient been admitted in last 30 No days? Prior Living Arrangements House Household Members significant other family children other Comment Mother, Fiance and stepdaughter/15. Type of transporation used prior to Drives own vehicle admit Independent with ADL's Yes Is patient alert and oriented? Yes Discharge Plan Home Referrals Initiated None needed Additional Comment Home w/ OP CD services vs IP CD Whiteboard Updated in Patient Room with Yes name and ext. # of Top Stitcher Review Status In Process Next Review Date 11/22/17 Next Review Type Continued Stay Review Counter Tacker Consult Start: 11/21/17 11:48 Freq: Status: Active Protocol: Document 11/21/17 11:48 (Rec: 11/21/17 11:53 [id number]) Counter Tacker Consult [employer] CLE[employer]ER Assessment Type Substance Abuse Reason for CARBON LAMP CLEANER Referral Patient is a 42-year-old brought in voluntarily by police, having hallucinations stating that there is water coming down from the ceiling. Patient drinks a 5th of alcohol daily and has for the last 2 years. Referred by ED Presenting Problem alcohol withdrawal VOA/CMS check Yes: Not in system Suicidal thoughts No Past Suicidal thoughts No Current Suicidal thoughts No Prior Suicide attempts No Current plan for self harm No Access to guns and weapons No Thoughts of harm to others No Past thoughts of harm to others No Current thoughts of harming others No Prior attempts to harm others No Current plan to harm others No Current Risk factors Financial difficulties Marital and family difficulties Risk factor comments Works at [email or web address]. No [place], family difficulties with fiance and 15 year old step- daughter. Relevant Medical History Brought into ED on 09/27 after a witnessed seizure thought to be due to alcohol withdrawal, patient denied. Crisis Plan to be determined Additional Comment Still pending. Call from ICU/patient may be ready for assessment: Met with patient: Patient was sitting up in bed. Notified patient of SW role and patient understood. Patient was able to tell SW where he was and why he was at . Patient unsure of date. Throughout conversation patient remained alert and goal oriented. Speech was slurred and short. Patient stayed on topic and participated in assessment. Patient stated he has had a long history with CD beginning when he was young in [place]. 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 Roughly 7 years ago he moved to [place] and shortly was arrested for a DUI. Patient stated he has always been able to control how much he drinks. In past 7 years patient reports he has done AA multiple times with no success. Denies any IP/OP Services. He has tried quitting cold turkey often. Patient states his seizure in September was from another time he had tried to stop drinking. Patient said his fiance has started asking him to slow down with drinking about two months ago. Patient is unsure why his fiance is asking him now to stop as he doesn't see what she sees. While discussing this admission, Patient's last memory was on Monday going to work: He reports that he works at the [employer] from [id number] and has an end of shift drink everyday. He left work and went home and had a 5th of Butch. Originally patient stated he only had 2-3 shots, but then said he always drinks the whole bottle. He woke up Monday wanting to quit drinking and but doesn't remember after that but does remembers agreeing to go to the hospital. ED reports states patient was brought in by police voluntarily after being found trying to break into cars. MH: Denies any current or past thoughts or plans to harm himself or others. Legal: patient denies any current legal troubles. Family: Patient lives with his mom, pedro and step-daughter/15. Assessment: Discussed OP/IP with patient. Patient began to speak about his time in [place] and past experiences with AA. Refuses to do either. Patient originally states he may be agreeable to IP CD, but wanted to talk to hannahmathew first. Patient was starting to become more agitated during conversation and asked SW to get him some clothes. Patient began shuffling in the bed and asking to go home. SW notified RN. SW called pedro who stated she is willing to support any decision patient makes, but is worried about the financial aspect of OP/IP services. Patient is currently self-pay pending review from admissions for possible [facility] qualification. Pedro reports they do have difficulty with there 15 years old daughter but nothing out of the realm of being 15 and hating everyone. Pedro reports on Monday morning patient was wanting to stop drinking and she brought him pedialyte and chicken noodle soup. She works often and comes home after patient is asleep. She said patient does throw up often and she finds empty bottles of whiskey under the bed. Plan: Crisis line reports two open male CD beds reserved for involuntary patients. They recommended SW call the [facility] line at to access those beds. At this time SW is unsure if patient qualifies for [facility] and/or willing to enter IP CD. Patients CIWA increased to 22. SW would need to reassess patient when CIWA returns low.
[2017-11-21 12:07] VITALS: BMI 27.4
[2017-11-21 16:00] VITALS: BP 140/78; PULSE 92; RESP 12; TEMP 36.3; O2SAT 98
--- NOTE | 2017-11-21 17:51 | P.PN_ITS ---
Subjective Date Patient Seen: 11/21/17 Time Patient Seen: 11:47 Interval history: THIS GENTLEMAN IS ADMITTED WITH A HISTORY OF I A.M. ACUTE INTOXICATION WITH ALCOHOL TREATED WITH IV ATIVAN AND IV PHENOBARBITAL AND HAS IMPROVED QUITE A BIT DAYS MORE COMMUNICATIVE DOES NOT HAVE ANY SHAKES HE HAD SEVERE ANEMIA REQUIRING BLOOD TRANSFUSION ALSO HAS ACUTE HEPATITIS WITH BLACK CONTINUE TO MONITOR HIS LABS AND DISCHARGE DISPOSITION BASED ON THE Exam Vital Signs (past 8 hours): - 11/21/17 10:55 11/21/17 16:00 Temperature 100.7 F H 97.3 F L Pulse Rate 104 H 92 H Respiratory Rate 16 12 Blood Pressure 142/85 H 140/78 H Pulse Oximetry 100 98 Oxygen Delivery Method Nasal Cannula Oxygen Flow Rate 0 Const General: cooperative, healthy appearing, comfortable and well developed Orientation: alert and awake [facility] Head: normal to inspection, normocephalic and atraumatic Eyes General: appearance normal, both eyes and all related structures Eyelids: eyelids normal Conjunctivae: conjunctivae normal Sclera: sclerae normal Pupils: PERRL EOM: EOM intact bilaterally Neck Neck: normal visual inspection Resp Effort & Inspection: normal respiratory effort and able to speak in complete sentences Auscultation: clear to auscultation bilaterally Cardio Palpation: normal PMI Rate: tachycardic Rhythm: regular rhythm Heart Sounds: S1 normal and S2 normal GI Inspection: normal to inspection Palpation: soft Back/Spine/Pelvis Back: normal to inspection Skin General: no rashes or lesions noted Neuro General: alert, awake and oriented x3 Cranial Nerves: CN's II-XI intact bilaterally Cognition: normal cognition Speech: speech normal Motor: muscle tone normal throughout Sensory Exam: no sensory deficits noted Extrem General: normal to inspection and no calf tenderness Psych Appearance: grossly normal Mood: congruent mood Affect: normal affect Attitude: cooperative Thought Process: normal Thought Content: normal Judgment: judgment good Objective Labs Result Diagrams: 11/21/17 04:34 11/21/17 04:34 Labs: Laboratory Results - last 24 hr 11/21/17 11/21/17 04:34 04:34 WBC 7.8 RBC 2.86 L Hgb 8.5 L Hct 26.0 L MCV 91.0 MCH 29.9 MCHC 32.8 RDW 15.7 H Plt Count 50 L Neut % (Auto) 72.5 Lymph % (Auto) 15.8 L [place] % (Auto) 9.5 Eos % (Auto) 1.4 L Baso % (Auto) 0.8 Neut # (Auto) 5700 Sodium 137 Potassium 3.4 Chloride 107 Carbon Dioxide 25 BUN 9 Creatinine 0.60 L Estimated GFR > 60.0 BUN/Creatinine Ratio 15.0 Glucose 103 H Calcium 7.4 L Total Bilirubin 3.1 H AST 186 H ALT 97 H Alkaline Phosphatase 55 Total Protein 6.1 L Albumin 2.7 L Globulin 3.4 Albumin/Globulin Ratio 0.8 L Assessment & Plan Plan: Assessment/Plan Narrative: 1. ACUTE ALCOHOLIC INTOXICATION S RECEIVED IV ATIVAN AND PHENOBARBITAL AND TIME IN MULTI VITAMINS AND IV FLUIDS IS MUCH IMPROVED 2. ACUTE HEPATITIS WILL CHECK HIS LIVER PROFILE AND INR 3. ANEMIA CONTINUE TO MONITOR THE HEMOGLOBIN Time Spent With Patient Time with patient: 25 - 35 minutes Quality VTE Deep Vein Thrombosis/Pulmonary Embolism Present on Admission: No
[2017-11-21] MEDS: HALOPERIDOL 5 MG/ML VIAL IV (19:04)
--- NOTE | 2017-11-22 00:11 | PC.NURSE ---
chelsie note pt heard snoring, then was standing at side of bed with bed alarm ringing. Pt very unsteady on feet. Pt says he wants to go home, that we are not doing anything for him, he is just going to go home and lay down, he as already been here for 7 hours. Pt knows he is at [facility], but is completely disoriented to time. Pt does not understand that he is in alcohol withdrawl. 4 mg IV ativan given for CIWA score of 19. Pt found on his knees once, next to bed, with bed alarm ringing. Pt does not understand that his gait is impaired. Called hospitalist to inform of above. New order for haldol seen. Pt still impulsive, gets OOB, unsteady on feet. Pt annoyed that he is not allowed to leave, but he gets back in bed on his own. Mentation clearing some. Pt drinking water with no s/s aspiration, but is uncoordinated, dropped water bottle. Pt up to BSC twice, only flatus, no stool.
[2017-11-22 00:14] VITALS: BP 150/84; PULSE 101; RESP 15; TEMP 38; O2SAT 98
[2017-11-22] MEDS: SODIUM CHLORIDE 0.9% 1,000 ML 150 ML IV ×2 (00:19→06:48)
[2017-11-22] MEDS: PANTOPRAZOLE 40 MG VIAL IV ×3 (00:19→22:07)
[2017-11-22] MEDS: LORazepam 2 MG/ML SYRINGE 4 MG IV (00:20)
[2017-11-22 04:02] VITALS: BP 138/72; PULSE 95; RESP 16; TEMP 37; O2SAT 95
[2017-11-22 05:08] LABS: Add Manual Diff / Slide Review NO; Basophils Percent Auto 1.1 % (0-2); Eosinophils Percent Auto 1.9 % (2-4); Hematocrit 24.8 % (41-53); Hemoglobin 8.1 g/dL (13.5-17.5); Lymphocytes Percent Auto 15.9 % (25-40); Mean Corpuscular HGB Conc 32.8 % (30-36); Mean Corpuscular Hemoglobin 29.8 PG (26-34); Mean Corpuscular Volume 90.9 fL (80-100); Monocytes Percent Auto 13.7 % (3-14); Neutrophils Absolute Auto 4500 /uL (3000-5900); Neutrophils Percent Auto 67.4 % (50-75); Platelet Count 55 X10^3/uL (150-400); Red Blood Cell Count 2.72 X10^6/uL (4.5-5.9); Red Cell Distribution Width 16.2 % (11.6-14.8); White Blood Cell Count 6.6 X10^3/uL (4.5-11.0)
[2017-11-22 05:16] LABS: INR 2.3 (0.9-1.3); Prothrombin Time 25.9 SECONDS (10.1-12.7)
[2017-11-22 05:23] LABS: Alanine Aminotransferase 84 IU/L (21-72); Albumin 2.5 g/dL (3.5-5.0); Albumin Globulin Ratio 0.7 (1.0-2.8); Alkaline Phosphatase 59 U/L (38-126); Aspartate Aminotransferase 127 IU/L (17-59); BUN Creatinine Ratio 11.7 (6-22); Bilirubin Total 2.3 mg/dL (0.2-1.3); Blood Urea Nitrogen 7 mg/dL (9-20); Calcium 6.9 mg/dL (8.4-10.2); Carbon Dioxide 26 mmol/L (22-32); Chloride 104 mmol/L (98-107); Estimated Glomerular Filt Rate > 60.0 mL/min (>60); Globulin 3.4 g/dL (1.7-4.1); Glucose 103 mg/dL (70-100); HEMOLYSIS < 15 (0-50); Potassium 3.1 mmol/L (3.4-5.1); Sodium 136 mmol/L (137-145); Total Protein 5.9 g/dL (6.3-8.2)
[2017-11-22 05:24] LABS: Alanine Aminotransferase 79 IU/L (21-72); Albumin 2.4 g/dL (3.5-5.0); Albumin Globulin Ratio 0.8 (1.0-2.8); Alkaline Phosphatase 60 U/L (38-126); Aspartate Aminotransferase 123 IU/L (17-59); Bilirubin Conjugated 0.1 md/dL (0.0-0.3); Bilirubin Total 2.3 mg/dL (0.2-1.3); Globulin 3.2 g/dL (1.7-4.1); HEMOLYSIS < 15 (0-50); Total Protein 5.6 g/dL (6.3-8.2)
--- NOTE | 2017-11-22 06:54 | PC.NURSE ---
NOC Shift: Pt slept through most of shift following one dosage of Ativan for CIWA of 19. Wakes to name w/a start, orients with cues to place, RN. Sat up to eat some food, drink the went back to sleep. SR IESHA on tele. Had 1:1 sitter thru shift, not needed at this time. Continue to monitor.
--- NOTE | 2017-11-22 10:08 | CM.DPC ---
Addendum entered by ODALIS Case 11/22/17 14:52: ADD: Per RN, AD Counselors met bedside with pt and were able to help get the pt connected with [employer] for medical insurance. SW called [facility] at 1430 and still no open male detox beds. Plan: SW to continue calling [facility] towards getting a pt a detox bed for discharge likely tomorrow and CD resources and supports for ongoing ETOH needs. BF Original Note: Addendum entered by ODALIS Case 11/22/17 11:35: ADD: SW met bedside with pt and explained role and pt was sitting bedside slowly eating breakfast and pt confirmed that he recalled speaking with SW yesterday regarding CD resources and treatment. Pt confirms that he cannot financially afford to pay privately for treatment and would be agreeable to [facility] Counselors determining if he qualifies for Medicaid or [employer]. SW called and emailed [facility] Counsel[facility] group and asked if they can see the pt today for insurance barriers. Pt states that his preference would be outpt treatment for ETOH rather than Inpt tx if he is able to get onto insurance. SW discussed [facility] for detox and support with possible outpt or inpt treatment and SW confirmed that [facility] is free and available for anyone in the community who needs their services. Pt states that he would be willing to consider [facility] at d/c to help with additional support and stabilization. SW provided him with the brochure and called [facility] and currently they do not have any male detox beds but anticipate openings later this afternoon. SW discussed DPOA and pt confirms that he does not have DPOA assigned and SW discussed the importance and provided pt with DPOA brochure and pwk to review at his convenience. Pt states his will be bedside after work today around 1600. SW updated RN and pt may be stable for d/c this afternoon if he remains stable. Plan: LARS to follow closely for [facility] Counsel[facility] to hopefully determine if pt qualifies for health insurance and to call [facility] this afternoon to determine if any open male detox beds available. ODALIS Case Original Note: DCP Cont: Per MD and RN, holding some of pt's meds today to help pt to become more alert towards determining d/c planning needs and ambulation. Per RN, likely best for bedside discussion regarding CD resources later this morning when pt more alert. Plan: SW to meet bedside with pt for ongoing discussion of CD resources and ETOH treatment later today when pt more alert. ODALIS Case
[2017-11-22 10:39] VITALS: PULSE 96; RESP 12; O2SAT 95
[2017-11-22 10:50] VITALS: BP 134/68; PULSE 80; RESP 20; O2SAT 95
--- NOTE | 2017-11-22 10:56 | PC.NURSE ---
pt waking up and seems clumsy but able to feed self and is fairly easy to direct- he is quiet and he is hopeful to be d/c'd today- speaking with firewall engineer at present-will remove dangelo catheter following this discussion and increase mobility\
[2017-11-22] MEDS: POTASSIUM CHLORIDE 20 MEQ TAB 40 MEQ PO (11:39)
[2017-11-22] MEDS: SODIUM CHLORIDE 0.9% 1,000 ML 75 ML IV (13:33)
[2017-11-22 15:35] VITALS: BP 123/74; PULSE 107; RESP 20; TEMP 37.8; O2SAT 99
--- NOTE | 2017-11-22 17:15 | PM.PN.1 ---
Subjective Date Patient Seen: 11/22/17 Time Patient Seen: 11:15 Interval history: IN WITH ALCOHOL INTOXICATION AND ALSO SOME SEIZURE-LIKE ACTIVITIES WAS GIVEN IV ATIVAN AND PHENOBARBITAL AND IMPROVED QUITE A BIT TODAY HE IS MOSTLY SLEEPY BUT ANSWERS QUESTIONS NOT IN ANY DISTRESS OR ANY PAIN Exam Vital Signs (past 8 hours): - 11/22/17 10:39 11/22/17 10:50 11/22/17 15:35 Temperature 100.1 F H Pulse Rate 96 H 80 107 H Respiratory Rate 12 20 20 Blood Pressure 134/68 H 123/74 H Pulse Oximetry 95 95 99 Oxygen Delivery Method Room Air Oxygen Flow Rate 0 Const General: cooperative Other: SLEEPY BUT AROUSABLE HENMT Head: normal to inspection, normocephalic and atraumatic Ears: hearing grossly normal bilaterally Nose: external nose normal Face and sinus: normal facial exam Eyes General: appearance normal, both eyes and all related structures Alignment and Position: alignment normal Eyelids: eyelids normal Conjunctivae: conjunctivae normal Sclera: sclerae normal Pupils: PERRL EOM: EOM intact bilaterally Chest Chest: normal inspection of the chest Resp Effort & Inspection: normal respiratory effort and able to speak in complete sentences Auscultation: clear to auscultation bilaterally Cardio Rate: regular rate Rhythm: regular rhythm Heart Sounds: S1 normal and S2 normal GI Inspection: normal to inspection Palpation: soft Back/Spine/Pelvis Back: normal to inspection and No back tenderness Skin General: no rashes or lesions noted Neuro General: other (SLEEPY BUT AROUSABLE NIL FOCAL DEFICITS) Extrem General: normal to inspection Objective Labs Result Diagrams: 11/22/17 04:44 11/22/17 04:44 Labs: Laboratory Results - last 24 hr 11/22/17 11/22/17 11/22/17 04:44 04:44 04:44 WBC 6.6 RBC 2.72 L Hgb 8.1 L Hct 24.8 L MCV 90.9 MCH 29.8 MCHC 32.8 RDW 16.2 H Plt Count 55 L Neut % (Auto) 67.4 Lymph % (Auto) 15.9 L [place] % (Auto) 13.7 Eos % (Auto) 1.9 L Baso % (Auto) 1.1 Neut # (Auto) 4500 PT 25.9 H INR 2.3 H Sodium 136 L Potassium 3.1 L Chloride 104 Carbon Dioxide 26 BUN 7 L Creatinine 0.60 L Estimated GFR > 60.0 BUN/Creatinine Ratio 11.7 Glucose 103 H Calcium 6.9 L Total Bilirubin 2.3 H Conjugated Bilirubin Unconjugated Bilirubin AST 127 H ALT 84 H Alkaline Phosphatase 59 Total Protein 5.9 L Albumin 2.5 L Globulin 3.4 Albumin/Globulin Ratio 0.7 L 11/22/17 04:44 WBC RBC Hgb Hct MCV MCH MCHC RDW Plt Count Neut % (Auto) Lymph % (Auto) [place] % (Auto) Eos % (Auto) Baso % (Auto) Neut # (Auto) PT INR Sodium Potassium Chloride Carbon Dioxide BUN Creatinine Estimated GFR BUN/Creatinine Ratio Glucose Calcium Total Bilirubin 2.3 H Conjugated Bilirubin 0.1 Unconjugated Bilirubin 1.0 AST 123 H ALT 79 H Alkaline Phosphatase 60 Total Protein 5.6 L Albumin 2.4 L Globulin 3.2 Albumin/Globulin Ratio 0.8 L Assessment & Plan Plan: Assessment/Plan Narrative: Alcohol Withdrawl improving will monitor lytes and liver profile Time Spent With Patient Time with patient: less than 15 minutes Quality VTE Deep Vein Thrombosis/Pulmonary Embolism Present on Admission: No
--- NOTE | 2017-11-22 19:27 | PC.NURSE ---
1915-Patient assisted to the BS. Patient is very unsteady on his feet. Patient able to follow simple direction but he is tremulous and his movements are jerky. Patient shruthi is at bedside. She states patient is getting frustrated and agitated that she could not take him with her when she was leaving. Akua Meredith will medicate per protocol.
[2017-11-22 19:31] VITALS: BP 111/67; PULSE 86; RESP 18; TEMP 37.2
[2017-11-23 00:10] VITALS: BP 137/76; PULSE 91; RESP 20; TEMP 37.3; O2SAT 97
[2017-11-23] MEDS: LORazepam 2 MG/ML SYRINGE IV (00:10)
[2017-11-23] MEDS: SODIUM CHLORIDE 0.9% 1,000 ML 75 ML IV (03:18)
[2017-11-23 05:46] LABS: Add Manual Diff / Slide Review NO; Basophils Percent Auto 1.6 % (0-2); Eosinophils Percent Auto 1.5 % (2-4); Hematocrit 24.6 % (41-53); Mean Corpuscular HGB Conc 32.7 % (30-36); Mean Corpuscular Hemoglobin 29.7 PG (26-34); Mean Corpuscular Volume 90.7 fL (80-100); Monocytes Percent Auto 16.2 % (3-14); Neutrophils Absolute Auto 3200 /uL (3000-5900); Neutrophils Percent Auto 57.7 % (50-75); Platelet Count 62 X10^3/uL (150-400); Red Blood Cell Count 2.71 X10^6/uL (4.5-5.9); Red Cell Distribution Width 15.6 % (11.6-14.8); White Blood Cell Count 5.6 X10^3/uL (4.5-11.0)
[2017-11-23 05:54] LABS: Alanine Aminotransferase 76 IU/L (21-72); Albumin 2.5 g/dL (3.5-5.0); Albumin Globulin Ratio 0.8 (1.0-2.8); Alkaline Phosphatase 58 U/L (38-126); Aspartate Aminotransferase 104 IU/L (17-59); Bilirubin Total 2.1 mg/dL (0.2-1.3); Bilirubin Unconjugated 1.1 mg/dL (0.0-1.1); Blood Urea Nitrogen 6 mg/dL (9-20); Carbon Dioxide 25 mmol/L (22-32); Chloride 106 mmol/L (98-107); Estimated Glomerular Filt Rate > 60.0 mL/min (>60); Globulin 3.3 g/dL (1.7-4.1); Glucose 81 mg/dL (70-100); HEMOLYSIS < 15 (0-50); Potassium 3.5 mmol/L (3.4-5.1); Sodium 136 mmol/L (137-145); Total Protein 5.8 g/dL (6.3-8.2)
[2017-11-23 08:21] VITALS: BP 140/87; PULSE 87; RESP 16; TEMP 37.8; O2SAT 100
--- NOTE | 2017-11-23 08:49 | PM.PN.1 ---
Subjective Date Patient Seen: 11/23/17 Time Patient Seen: 16:52 Interval history: This gentleman is admitted with acute alcoholic intoxication and seizure like symptoms was treated with IV Ativan and IV phenobarbital and and this slowly recovered from his acute alcoholic intoxication Appears in no acute distress now but did not communicate with me at all today his fimathewe was his bedside and said he did talk to her Exam Vital Signs (past 8 hours): - 11/23/17 08:21 Temperature 100.1 F H Pulse Rate 87 Respiratory Rate 16 Blood Pressure 140/87 H Pulse Oximetry 100 Oxygen Delivery Method Room Air Oxygen Flow Rate 0 Const General: cooperative, healthy appearing, comfortable and well developed Orientation: alert and awake HENNY Head: normal to inspection, normocephalic and atraumatic Ears: hearing grossly normal bilaterally Nose: external nose normal Face and sinus: normal facial exam Eyes General: appearance normal, both eyes and all related structures Eyelids: eyelids normal Conjunctivae: conjunctivae normal Sclera: sclerae normal Pupils: PERRL EOM: EOM intact bilaterally Neck Neck: normal visual inspection Thyroid: thyroid normal Resp Effort & Inspection: normal respiratory effort and able to speak in complete sentences Auscultation: clear to auscultation bilaterally Cardio Rate: regular rate Rhythm: regular rhythm Heart Sounds: S1 normal and S2 normal GI Inspection: normal to inspection Palpation: soft Back/Spine/Pelvis Back: normal to inspection and No back tenderness Skin General: no rashes or lesions noted Neuro General: alert and awake Motor: muscle tone normal throughout Extrem Left lower extremity: normal to inspection Objective Labs Result Diagrams: 11/23/17 05:22 11/23/17 05:22 Labs: Laboratory Results - last 24 hr 11/23/17 11/23/17 05:22 05:22 WBC 5.6 RBC 2.71 L Hgb 8.0 L Hct 24.6 L MCV 90.7 MCH 29.7 MCHC 32.7 RDW 15.6 H Plt Count 62 L Neut % (Auto) 57.7 Lymph % (Auto) 23.0 L Mcdonough % (Auto) 16.2 H Eos % (Auto) 1.5 L Baso % (Auto) 1.6 Neut # (Auto) 3200 Sodium 136 L Potassium 3.5 Chloride 106 Carbon Dioxide 25 BUN 6 L Creatinine 0.50 L Estimated GFR > 60.0 BUN/Creatinine Ratio 12.0 Glucose 81 Calcium 7.0 L Total Bilirubin 2.1 H Conjugated Bilirubin 0.0 Unconjugated Bilirubin 1.1 AST 104 H ALT 76 H Alkaline Phosphatase 58 Total Protein 5.8 L Albumin 2.5 L Globulin 3.3 Albumin/Globulin Ratio 0.8 L Assessment & Plan Plan: Assessment/Plan Narrative: Acute on Chronic Anemia 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
[2017-11-23] MEDS: PANTOPRAZOLE 40 MG VIAL IV ×2 (10:04→19:50)
--- NOTE | 2017-11-23 11:34 | CM.DPC ---
DCP Cont: Per MD, pt is medically stabilizing but still quite unsteady and PT ordered to eval pt's ability to mobilize. SW called [facility] again to inquire about an open male detox bed and currently they are still full. SW met bedside with pt and explained role again and pt was sleeping soundly and still seemed to have difficulty with movements but was able to communicate and stated that he would like to go home today. SW discussed needing to make sure that he was safe with mobility prior to d/c. SW updated pt that [facility] is still full and pt states that he is agreeable to SW setting up a CD assessment in the outpt setting towards getting enrolled in either outpt or inpt treatment pending the assessment. Pt states that his shruthi works evenings and therefore could be available during the day to provide transport to CD assessment and pt confirms that if assessment is scheduled that he would follow through with the appointment. Pt confirms that he is not interested in SW pursuing Inpt CD tx at this time. SW provided the pt with the information for outpt CD assessment providers and the information for [facility] in [place] and their address and hours for Walk In CD assessment protocol. Pt agreeable with SW contacting his fimathew with this information. SW attempted to call [facility] and left voicemail requesting call back. Pt has [facility] detox and [facility] brochures bedside for follow up after discharge. Plan: SW to follow for PT eval to determine if pt safe for d/c home today with shruthi. SW following for return call from [facility] to update her on the CD assessment towards enrolling in CD treatment and information on [facility]. ODALIS Case
--- NOTE | 2017-11-23 14:19 | PT.IIE ---
Current Diagnoses Alcohol dependence with withdrawal delirium (11/20/17) Medical History (Last Reviewed 11/20/17 @ 05:38 by Sunday Aburto MD) Alcoholism (Acute) Physical Therapy Inpatient Evaluation/Re-Eval M1 PT/OT-IP Prior Functional Status Start: 11/23/17 15:26 Freq: NEEDED Status: Active Protocol: Document 11/23/17 14:19 MDD (Rec: 11/23/17 15:43 MDD [id number]) Medical Review Prior Functional Status Medical History Reviewed Yes Communication normal Mobility and Gait independent with no AD Activities of Daily Living and IADL's independent Social History Household Members significant other family children other Living Arrangements Apartment/Condo Number of Floors (Floors) 3 or More Floors Number of Stairs To Enter/Railing? Pt lives in 3rd floor apartment (requiring 3 flights of stairs with B handrails - unknown total number). 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 He makes some mention of hitting his head, but is unable to further explain. M2 PT-IP Current Condition Start: 11/23/17 15:26 Freq: NEEDED Status: Active Protocol: Document 11/23/17 14:19 MDD (Rec: 11/23/17 15:43 MDD [id number]) Physical Therapy Current Condition Current Condition Evaluation Date 11/23/17 Treatment Diagnosis acute alcohol intoxication Onset Date 11/20/17 Precautions Other Precautions dangelo catheter M3 PT-IP Subjective Start: 11/23/17 15:26 Freq: NEEDED Status: Active Protocol: Document 11/23/17 14:19 MDD (Rec: 11/23/17 15:43 MDD [id number]) Subjective Physical Therapy Visit Type Type Initial Evaluation Visit Start Time 14:00 Visit Stop Time 14:19 Total Visit Minutes 19 Therapy Pain Assessment Pain Present Pain Present Denied Pain M4 PT-IP Mobility and Gait Start: 11/23/17 15:26 Freq: NEEDED Status: Active Protocol: Document 11/23/17 14:19 MDD (Rec: 11/23/17 15:43 MDD [id number]) PT-Bed Mobility Assessment Rolling Type of Rolling Roll to Left Level of Assist Standby Assistance Supine to Sit Supine to Sit Standby Assistance Scooting Scooting to Edge of Bed Contact Guard Assistance PT-Transfer Assessment Sit to and From Stand Sit to and from Stand Contact Guard Assistance Equipment Transfer Assistive Device Gait Belt Front Wheeled Walker Transfer Ability Level of Assist Moderate Assistance Comments Mobility Comments Pt very unsteady on his feet Gait Assessment Gait Gait Assistance Required: Moderate Assistance Distance (Feet) (feet) 10 Assistive Devices Assistive Device Gait Belt Front Wheeled Walker Gait Deviations General Gait Pattern Ataxic Decreased Feet Clearance Flexed Trunk Wide Based Gait Factors Limiting Gait Function Factors Limiting Gait Function Difficulty Following Directions Incoordination Poor Balance Poor Safety Awareness Comments Gait Comments Pt very impulsive with gait, has difficulty following direction, difficulty coordinating movement with use of walker. Heavy assist with walker positioning. PT-Balance Assessment Sitting Balance and Reactions Static Sitting Balance Ability Good Dynamic Sitting Balance Ability Fair Standing Balance and Reactions Static Standing Balance Ability Fair Dynamic Standing Balance Ability Poor Device Used FWW Balance Tests Romberg 30 seconds flexed posture, increased postural sway CGA M5 PT-IP Objective Assessments Start: 11/23/17 15:26 Freq: NEEDED Status: Active Protocol: Document 11/23/17 14:19 MDD (Rec: 11/23/17 15:43 [facility] [id number]) Orientation Orientation/Cognition Level of Alertness Confusional State Orientation Name Date Situation Language Function Ability Garbled Speech Safety Awareness Decreased Safety Awareness Gross Range of Motion Lower Extremity ROM Assessment Within Functional Limits Strength Lower Extremity Strength Assessment Within Functional Limits Coordination Assessment Assessment Finger to Nose Test Minimal Impairment Heel on Mcpherson Test Moderate Impairment M6 PT-IP Treatment Start: 11/23/17 15:26 Freq: NEEDED Status: Active Protocol: Document 11/23/17 14:19 MDD (Rec: 11/23/17 15:43 [facility] [id number]) Physical Therapy Treatment Education Education Provided Precautions Safety M7 PT-IP Assessment and Plan Start: 11/23/17 15:26 Freq: NEEDED Status: Active Protocol: Document 11/23/17 14:19 MDD (Rec: 11/23/17 15:43 [facility] [id number]) PT Summary Assessment and Plan Potential Rehabilitation Potential Fair Status of Condition at Evaluation Evolving Summary Impairments Strength Balance Coordination Cognition Transfers Gait Progress Towards Goals Slow Progress due to Medical Issues Assessment Summary Pt demonstrates severe balance deficits this day. Requires mod-max A for safety with gait for short distances using FWW . Pt is very impulsive and does not seem aware of these deficits. He presents with very high fall risk. Advise bed and chair alarms. Nursing advised to assist with transfers only, no gait at this time. This is well below pt's prior functional baseline. He is not considered safe to d/c home at this time. Goals Bed Mobility Goal Independent Transfer Goal Independent Gait Goal Independent Gait Distance 100 feet Other Goals Ascend/descend 3 flights of stairs with B railings. Days to Meet Goals 3 Frequency of Treatment Frequency Of Treatment Once a Day Treatment Plan Physical Therapy Treatment Plan Transfer Training Gait Training Therapeutic Exercise Coordination Retraining Recommendations To Nursing Amount of Assist Needed 1 Person Assist Discharge Recommendations PT Discharge Recommendations Home SNF Rehab Other Discharge Recommendations Pt unsafe to return home currently, but may improve significantly as medical condition stabilizes and he clears cognitively.
[2017-11-23 15:05] VITALS: BP 138/79; PULSE 90; RESP 16; TEMP 36.4; O2SAT 100
[2017-11-23] MEDS: PHYTONADIONE (VIT K1) 5 MG TABLET PO (19:49)
[2017-11-23] MEDS: SODIUM CHLORIDE 0.9% FLUSH 10 ML IV (19:51)
[2017-11-23 20:20] VITALS: BP 154/88; PULSE 98; RESP 20; TEMP 37; O2SAT 100
--- NOTE | 2017-11-23 22:36 | PC.NURSE ---
Addendum entered by Cher Wisdom R.N. 11/23/17 23:29: this ad writer noticed an error to an earlier CIWA @ 2030 documentation. It reads 9 and should be an 8. Pt refused ativan for this CIWA score of 8. Original Note: Addendum entered by Cher Wisdom R.N. 11/23/17 22:40: 2135- pt found on knees next to bed, urine on floor. Put pt on BSC, changed gown and bed linen. Found bruise to left side of forehead with swelling. Denied pain. Bed alarm on, but pt able to put side rail down and get OOB indep, once feet hit floor unable to stand. Noncompliant with call light or calling out. Rocco Duarte notified of fall, QMM filed. Pt informed if tries to get OOB, would call rashid Durham to come and sit overnight with pt. Unknown if pt processed this information. Original Note: Ivonne shift- Pt quite impulsive whten needing to urinate, will take bed railing down and get OOB quickly, unable to stand or walk indep, 2-3PA, FWW with cueing, gait belt, four times this shift, with bedding changed and gown. 3 small BM's this shift, dark green in color. LFA IV drsg replaced. Demonstrates no coordination with FWW, or walking, needs to be held up by staff.
[2017-11-24 01:37] VITALS: BP 113/63; PULSE 93; RESP 16; TEMP 37; O2SAT 99
[2017-11-24 03:58] LABS: Add Manual Diff / Slide Review NO; Basophils Percent Auto 3.3 % (0-2); Eosinophils Percent Auto 3.9 % (2-4); Hematocrit 26.6 % (41-53); Hemoglobin 8.6 g/dL (13.5-17.5); INR 2.3 (0.9-1.3); Lymphocytes Percent Auto 22.9 % (25-40); Mean Corpuscular HGB Conc 32.5 % (30-36); Mean Corpuscular Hemoglobin 29.6 PG (26-34); Mean Corpuscular Volume 90.9 fL (80-100); Monocytes Percent Auto 17.5 % (3-14); Neutrophils Absolute Auto 2400 /uL (3000-5900); Neutrophils Percent Auto 52.4 % (50-75); Platelet Count 73 X10^3/uL (150-400); Red Blood Cell Count 2.92 X10^6/uL (4.5-5.9); Red Cell Distribution Width 15.5 % (11.6-14.8); White Blood Cell Count 4.5 X10^3/uL (4.5-11.0)
[2017-11-24 04:02] LABS: Alanine Aminotransferase 73 IU/L (21-72); Albumin 2.8 g/dL (3.5-5.0); Albumin Globulin Ratio 0.8 (1.0-2.8); Alkaline Phosphatase 74 U/L (38-126); Aspartate Aminotransferase 107 IU/L (17-59); Bilirubin Total 1.9 mg/dL (0.2-1.3); Bilirubin Unconjugated 0.9 mg/dL (0.0-1.1); Globulin 3.5 g/dL (1.7-4.1); HEMOLYSIS < 15 (0-50); Total Protein 6.3 g/dL (6.3-8.2)
[2017-11-24 06:49] VITALS: BP 137/87; PULSE 93; RESP 18; TEMP 37.3; O2SAT 100
[2017-11-24] MEDS: PANTOPRAZOLE 40 MG VIAL IV ×2 (09:45→22:43)
--- NOTE | 2017-11-24 13:30 | PT.IPTN ---
Current Diagnoses Alcohol dependence with withdrawal delirium (11/20/17) Physical Therapy Treatment Note M2 PT-IP Current Condition Start: 11/23/17 15:26 Freq: NEEDED Status: Active Protocol: Document 11/23/17 14:19 MDD (Rec: 11/23/17 15:43 MDD [id number]) Physical Therapy Current Condition Current Condition Evaluation Date 11/23/17 Treatment Diagnosis acute alcohol intoxication Onset Date 11/20/17 Precautions Other Precautions dangelo catheter M3 PT-IP Subjective Start: 11/23/17 15:26 Freq: NEEDED Status: Active Protocol: Document 11/24/17 13:30 MDD (Rec: 11/24/17 15:44 MDD [id number]) Subjective Physical Therapy Visit Type Type Administrative Note Notes Nursing reports pt is not appropriate for PT this day. He has been sleeping most of the day, gets up to urinate and returns to bed. Very unsteady on his feet and not cognitively at baseline. PT will continue to moniter and assess for appropriateness of treatment tomorrow. M4 PT-IP Mobility and Gait Start: 11/23/17 15:26 Freq: NEEDED Status: Active Protocol: Document 11/23/17 14:19 MDD (Rec: 11/23/17 15:43 MDD [id number]) PT-Bed Mobility Assessment Rolling Type of Rolling Roll to Left Level of Assist Standby Assistance Supine to Sit Supine to Sit Standby Assistance Scooting Scooting to Edge of Bed Contact Guard Assistance PT-Transfer Assessment Sit to and From Stand Sit to and from Stand Contact Guard Assistance Equipment Transfer Assistive Device Gait Belt Front Wheeled Walker Transfer Ability Level of Assist Moderate Assistance Comments Mobility Comments Pt very unsteady on his feet Gait Assessment Gait Gait Assistance Required: Moderate Assistance Distance (Feet) (feet) 10 Assistive Devices Assistive Device Gait Belt Front Wheeled Walker Gait Deviations General Gait Pattern Ataxic Decreased Feet Clearance Flexed Trunk Wide Based Gait Factors Limiting Gait Function Factors Limiting Gait Function Difficulty Following Directions Incoordination Poor Balance Poor Safety Awareness Comments Gait Comments Pt very impulsive with gait, has difficulty following direction, difficulty coordinating movement with use of walker. Heavy assist with walker positioning. PT-Balance Assessment Sitting Balance and Reactions Static Sitting Balance Ability Good Dynamic Sitting Balance Ability Fair Standing Balance and Reactions Static Standing Balance Ability Fair Dynamic Standing Balance Ability Poor Device Used FWW Balance Tests Romberg 30 seconds flexed posture, increased postural sway CGA M5 PT-IP Objective Assessments Start: 11/23/17 15:26 Freq: NEEDED Status: Active Protocol: Document 11/23/17 14:19 MDD (Rec: 11/23/17 15:43 MDD [id number]) Orientation Orientation/Cognition Level of Alertness Confusional State Orientation Name Date Situation Language Function Ability Garbled Speech Safety Awareness Decreased Safety Awareness Gross Range of Motion Lower Extremity ROM Assessment Within Functional Limits Strength Lower Extremity Strength Assessment Within Functional Limits Coordination Assessment Assessment Finger to Nose Test Minimal Impairment Heel on Mcpherson Test Moderate Impairment M6 PT-IP Treatment Start: 11/23/17 15:26 Freq: NEEDED Status: Active Protocol: Document 11/23/17 14:19 MDD (Rec: 11/23/17 15:43 MDD [id number]) Physical Therapy Treatment Education Education Provided Precautions Safety M7 PT-IP Assessment and Plan Start: 11/23/17 15:26 Freq: NEEDED Status: Active Protocol: Document 11/23/17 14:19 MDD (Rec: 11/23/17 15:43 [facility] [id number]) PT Summary Assessment and Plan Potential Rehabilitation Potential Fair Status of Condition at Evaluation Evolving Summary Impairments Strength Balance Coordination Cognition Transfers Gait Progress Towards Goals Slow Progress due to Medical Issues Assessment Summary Pt demonstrates severe balance deficits this day. Requires mod-max A for safety with gait for short distances using FWW . Pt is very impulsive and does not seem aware of these deficits. He presents with very high fall risk. Advise bed and chair alarms. Nursing advised to assist with transfers only, no gait at this time. This is well below pt's prior functional baseline. He is not considered safe to d/c home at this time. Goals Bed Mobility Goal Independent Transfer Goal Independent Gait Goal Independent Gait Distance 100 feet Other Goals Ascend/descend 3 flights of stairs with B railings. Days to Meet Goals 3 Frequency of Treatment Frequency Of Treatment Once a Day Treatment Plan Physical Therapy Treatment Plan Transfer Training Gait Training Therapeutic Exercise Coordination Retraining Recommendations To Nursing Amount of Assist Needed 1 Person Assist Discharge Recommendations PT Discharge Recommendations Home SNF Rehab Other Discharge Recommendations Pt unsafe to return home currently, but may improve significantly as medical condition stabilizes and he clears cognitively.
--- NOTE | 2017-11-24 14:34 | DI.CT.S_ITS ---
PROCEDURE: CT HEAD/BRAIN WO CON INDICATIONS: fall, bump on right frontal head TECHNIQUE: Noncontrast 4.5 mm thick angled axial sections acquired from the foramen magnum to the vertex, with coronal and sagittal reformats. For radiation dose reduction, the following was used: automated exposure control, adjustment of mA and/or kV according to patient size. COMPARISON: None. FINDINGS: Image quality: Excellent. CSF spaces: Basal cisterns are patent. No extra-axial fluid collections. Ventricles are normal in size and shape. Brain: No midline shift. No intracranial masses or hemorrhage. Geller-white matter interface is normal. Skull and face: Calvarium and visualized facial bones are intact, without suspicious lesions. Sinuses: Right posterior maxillary sinus retention cyst. Visualized sinuses and mastoids are otherwise clear. IMPRESSION: No acute intracranial abnormality. Dictated by: Anthony Monteiro M.D. on 11/24/2017 at 15:03 Approved by: Anthony Monteiro M.D. on 11/24/2017 at 15:04
[2017-11-24 15:45] VITALS: BP 128/76; PULSE 88; RESP 12; TEMP 37.3; O2SAT 99
--- NOTE | 2017-11-24 16:54 | PT.IPTN ---
Current Diagnoses Alcohol dependence with withdrawal delirium (11/20/17) Physical Therapy Treatment Note M2 PT-IP Current Condition Start: 11/23/17 15:26 Freq: NEEDED Status: Active Protocol: Document 11/23/17 14:19 MDD (Rec: 11/23/17 15:43 MDD [id number]) Physical Therapy Current Condition Current Condition Evaluation Date 11/23/17 Treatment Diagnosis acute alcohol intoxication Onset Date 11/20/17 Precautions Other Precautions dangelo catheter M3 PT-IP Subjective Start: 11/23/17 15:26 Freq: NEEDED Status: Active Protocol: Document 11/24/17 16:00 LJ (Rec: 11/24/17 16:53 LJ [email or web address]) Subjective Physical Therapy Visit Type Type Treatment Note Visit Start Time 16:00 Visit Stop Time 16:30 Total Visit Minutes 30 Therapy Pain Assessment Pain When Pain Assessed During Mobility Pain Present Pain Present Denied Pain M4 PT-IP Mobility and Gait Start: 11/23/17 15:26 Freq: NEEDED Status: Active Protocol: Document 11/24/17 16:00 LJ (Rec: 11/24/17 16:53 LJ [id number]) PT-Bed Mobility Assessment Rolling Type of Rolling Log Rolling Level of Assist Standby Assistance Sit to Supine Sit to Supine Standby Assistance 1 Person Assistance Scooting Scooting Up and Down in Bed Standby Assistance PT-Transfer Assessment Sit to and From Stand Sit to and from Stand Contact Guard Assistance 1 Person Assistance Equipment Transfer Assistive Device Gait Belt Front Wheeled Walker Orthotic/Prosthetic Devices or Brace: No Transfers Transfer Destination Bed Transfer Technique Lateral Scoot Transfer Ability Level of Assist Contact Guard Assistance 1 Person Assistance Gait Assessment Gait Gait Assistance Required: Moderate Assistance 1 Person Assist Assistive Devices Assistive Device Gait Belt Front Wheeled Walker Gait Deviations General Gait Pattern Decreased Stride Length Decreased Feet Clearance Narrow Based Gait Factors Limiting Gait Function Factors Limiting Gait Function Decreased Activity Tolerance Difficulty Following Directions Incoordination Poor Balance Poor Safety Awareness Comments Gait Comments Pt able to ambulate with mod to max cues for foot positioning, lifting knees, and direction to avoid running into pinon and furniture. Pt unsteady requiring tactile adjustment by therapist. Gait distance 40' out of room and back. PT-Balance Assessment Sitting Balance and Reactions Static Sitting Balance Ability Fair Dynamic Sitting Balance Ability Poor Standing Balance and Reactions Static Standing Balance Ability Fair Dynamic Standing Balance Ability Fair Comments Other Balance Tests/Deviations/Treatment Pt lost balance at EOB during : TKEs. When questioned he was able to verbalize that he felt off balance and was able to self correct with tactile cues . M5 PT-IP Objective Assessments Start: 11/23/17 15:26 Freq: NEEDED Status: Active Protocol: Document 11/23/17 14:19 MDD (Rec: 11/23/17 15:43 MDD [id number]) Orientation Orientation/Cognition Level of Alertness Confusional State Orientation Name Date Situation Language Function Ability Garbled Speech Safety Awareness Decreased Safety Awareness Gross Range of Motion Lower Extremity ROM Assessment Within Functional Limits Strength Lower Extremity Strength Assessment Within Functional Limits Coordination Assessment Assessment Finger to Nose Test Minimal Impairment Heel on Mcpherson Test Moderate Impairment M6 PT-IP Treatment Start: 11/23/17 15:26 Freq: NEEDED Status: Active Protocol: Document 11/24/17 16:00 LJ (Rec: 11/24/17 16:53 LJ [id number]) Physical Therapy Treatment Exercises Exercises Ankle Pumps Gluteal Sets Quad Sets Heel Slides Straight Leg Raises Seated Knee Flexion/Extension Education Education Provided Safety Other Treatments Other Treatment Performed Pt weak and unable to perform SLRs independently. Performed bridging x 2 for positioning in bed. M7 PT-IP Assessment and Plan Start: 11/23/17 15:26 Freq: NEEDED Status: Active Protocol: Document 11/24/17 16:00 LJ (Rec: 11/24/17 16:53 LJ [id number]) PT Summary Assessment and Plan Potential Rehabilitation Potential Fair Status of Condition at Evaluation Unstable Summary Impairments Strength Balance Coordination Cognition Gait Activity Tolerance Progress Towards Goals Slow Progress due to Medical Issues Assessment Summary Pt willing to participate in treatment. Loss of balance in sitting at EOB x2 when performing LE exercises. Gait performance was unsteady requiring mod-max cues for step length and direction as well as navigating. Pt closed eyes often during gait and fell asleep during bed mobility exercises. Able to rouse back to wakefulness. Instructed pt to remain in bed and not attempt to get up without assistance. Frequency of Treatment Frequency Of Treatment Once a Day Treatment Plan Physical Therapy Treatment Plan Bed Mobility Training Transfer Training Gait Training Therapeutic Exercise Balance Retraining Coordination Retraining Recommendations To Nursing Amount of Assist Needed 2 Person Assist
--- NOTE | 2017-11-24 17:54 | P.PN_ITS ---
Subjective Date Patient Seen: 11/24/17 Time Patient Seen: 09:20 Interval history: This is a 42-year-old alcoholic male presenting with use acute alcohol withdrawal symptoms and alcohol withdrawal seizures. Consult is a good symptom control, remains essentially bedridden and somnolent. Sitter is present at the bedside. It remains intermittently impulsive, and trying to get out of bed unattended. Exam Vital Signs (past 8 hours): - 11/24/17 15:45 Temperature 99.1 F Pulse Rate 88 Respiratory Rate 12 Blood Pressure 128/76 H Pulse Oximetry 99 Oxygen Delivery Method Room Air Oxygen Flow Rate 0 Narrative Exam Narrative: Constitutional: Well-developed overweight male resting in his bed elevated he is somnolent but is responsive to verbal stimulation HEENT: Somewhat dry oral mucosa otherwise unremarkable Neck: Supple, no lymphadenopathy, no jugular venous distention Pulmonary: Distant breath sounds, no rales, crepitations or wheezing Cardiovascular: Regular rhythm and rate, no murmur Gastrointestinal: Abdomen is soft, nontender, nondistended, bowel sounds present, no discernible organomegaly Extremities: Warm to touch, no edema Neurological: Remains nonfocal, no seizure activity since admission. Skin: No skin lesions, no rashes Objective Labs Result Diagrams: 11/24/17 03:42 11/23/17 05:22 Labs: Laboratory Results - last 24 hr 11/24/17 11/24/17 11/24/17 03:42 03:42 03:42 WBC 4.5 RBC 2.92 L Hgb 8.6 L Hct 26.6 L MCV 90.9 MCH 29.6 MCHC 32.5 RDW 15.5 H Plt Count 73 L Neut % (Auto) 52.4 Lymph % (Auto) 22.9 L Johnston % (Auto) 17.5 H Eos % (Auto) 3.9 Baso % (Auto) 3.3 H Neut # (Auto) 2400 L PT 26.0 H INR 2.3 H Total Bilirubin 1.9 H Conjugated Bilirubin 0.0 Unconjugated Bilirubin 0.9 AST 107 H ALT 73 H Alkaline Phosphatase 74 Ammonia Total Protein 6.3 Albumin 2.8 L Globulin 3.5 Albumin/Globulin Ratio 0.8 L 11/24/17 03:42 WBC RBC Hgb Hct MCV MCH MCHC RDW Plt Count Neut % (Auto) Lymph % (Auto) Johnston % (Auto) Eos % (Auto) Baso % (Auto) Neut # (Auto) PT INR Total Bilirubin Conjugated Bilirubin Unconjugated Bilirubin AST ALT Alkaline Phosphatase Ammonia 22.0 Total Protein Albumin Globulin Albumin/Globulin Ratio Assessment & Plan Plan: Assessment/Plan Narrative: 1. Acute alcohol withdrawal of his alcohol withdrawal seizures: Essentially resolved 2. Alcoholism, chronic ongoing problem 3. Major depression 4. Obesity 5. Alcoholic steatohepatitis /possible liver cirrhosis is impaired synthetic function. On admission with elevated INR level 6. Chronic thrombocytopenia 7. Anemia, acute on chronic, microcytic: Required PRBC transfusion on admission Plan: 1. Continue current management per CIWA A protocol, symptomatic and supportive care 2. Case management consult regarding disposition options. Quality VTE Deep Vein Thrombosis/Pulmonary Embolism Present on Admission: No
[2017-11-24] MEDS: SODIUM CHLORIDE 0.9% 1,000 ML 75 ML IV (22:43)
[2017-11-24 23:17] VITALS: BP 127/81; PULSE 91; RESP 18; TEMP 37.2; O2SAT 97
[2017-11-25 06:41] LABS: Add Manual Diff / Slide Review NO; Basophils Percent Auto 2.6 % (0-2); Eosinophils Percent Auto 2.6 % (2-4); Hemoglobin 8.5 g/dL (13.5-17.5); Lymphocytes Percent Auto 21.6 % (25-40); Mean Corpuscular HGB Conc 32.8 % (30-36); Mean Corpuscular Hemoglobin 29.5 PG (26-34); Monocytes Percent Auto 19.9 % (3-14); Neutrophils Absolute Auto 2400 /uL (3000-5900); Neutrophils Percent Auto 53.3 % (50-75); Platelet Count 78 X10^3/uL (150-400); Red Blood Cell Count 2.89 X10^6/uL (4.5-5.9); Red Cell Distribution Width 15.7 % (11.6-14.8); White Blood Cell Count 4.5 X10^3/uL (4.5-11.0)
[2017-11-25 06:43] LABS: INR 2.3 (0.9-1.3); Prothrombin Time 25.9 SECONDS (10.1-12.7)
[2017-11-25 06:46] LABS: Alanine Aminotransferase 70 IU/L (21-72); Albumin 2.5 g/dL (3.5-5.0); Albumin Globulin Ratio 0.7 (1.0-2.8); Alkaline Phosphatase 67 U/L (38-126); Aspartate Aminotransferase 104 IU/L (17-59); Bilirubin Total 1.8 mg/dL (0.2-1.3); Blood Urea Nitrogen 6 mg/dL (9-20); Calcium 7.5 mg/dL (8.4-10.2); Carbon Dioxide 29 mmol/L (22-32); Chloride 105 mmol/L (98-107); Estimated Glomerular Filt Rate > 60.0 mL/min (>60); Globulin 3.4 g/dL (1.7-4.1); Glucose 89 mg/dL (70-100); HEMOLYSIS < 15 (0-50); Magnesium 1.8 mg/dL (1.6-2.3); Potassium 3.4 mmol/L (3.4-5.1); Sodium 139 mmol/L (137-145); Total Protein 5.9 g/dL (6.3-8.2)
[2017-11-25 07:00] VITALS: BP 144/75; PULSE 78; RESP 14; TEMP 36.6; O2SAT 100
[2017-11-25] MEDS: PANTOPRAZOLE 40 MG VIAL IV ×2 (09:08→21:29)
[2017-11-25] MEDS: SODIUM CHLORIDE 0.9% 1,000 ML 75 ML IV (12:07)
--- NOTE | 2017-11-25 13:12 | PC.NURSE ---
Pt mostly sleeping. Not participating in conversation, standing to use urinal. CIWA score = 2.
--- NOTE | 2017-11-25 14:20 | PT.IPTN ---
Current Diagnoses Alcohol dependence with withdrawal delirium (11/20/17) Physical Therapy Treatment Note M2 PT-IP Current Condition Start: 11/23/17 15:26 Freq: NEEDED Status: Active Protocol: Document 11/23/17 14:19 MDD (Rec: 11/23/17 15:43 MDD [id number]) Physical Therapy Current Condition Current Condition Evaluation Date 11/23/17 Treatment Diagnosis acute alcohol intoxication Onset Date 11/20/17 Precautions Other Precautions dangelo catheter M3 PT-IP Subjective Start: 11/23/17 15:26 Freq: NEEDED Status: Active Protocol: Document 11/25/17 14:20 GGD (Rec: 11/25/17 16:13 GGD [id number]) Subjective Physical Therapy Visit Type Type Treatment Note Visit Start Time 14:20 Visit Stop Time 14:35 Total Visit Minutes 15 Physical Therapy Visit Comments Patient Comments Pt willing to get up and walk. M4 PT-IP Mobility and Gait Start: 11/23/17 15:26 Freq: NEEDED Status: Active Protocol: Document 11/25/17 14:20 GGD (Rec: 11/25/17 16:13 GGD [id number]) PT-Bed Mobility Assessment Rolling Level of Assist Standby Assistance Sit to Supine Sit to Supine Standby Assistance Scooting Scooting to Edge of Bed Standby Assistance PT-Transfer Assessment Sit to and From Stand Sit to and from Stand Contact Guard Assistance 1 Person Assistance Equipment Transfer Assistive Device Gait Belt Front Wheeled Walker Transfers Transfer Destination Bed Transfer Ability Level of Assist Contact Guard Assistance 1 Person Assistance Gait Assessment Gait Gait Assistance Required: Contact Guard Assist Distance (Feet) (feet) 70 Assistive Devices Assistive Device None Gait Belt Front Wheeled Walker Gait Deviations General Gait Pattern Decreased Stride Length Decreased Feet Clearance Narrow Based Gait Factors Limiting Gait Function Factors Limiting Gait Function Decreased Activity Tolerance Difficulty Following Directions Incoordination Poor Balance Poor Safety Awareness Comments Gait Comments Pt ambulated 35 feet with FWW and then 35 feet without FWW. He need min A for FWW management and cues. He need close CGA for gait without assistive device. Stair Climbing Assessment Evaluation Level of Assist On Stairs Contact Guard Assistance Devices Stair Climbing Assistive Devices Right Railing Technique/Endurance Stair Climbing Direction Ascend and Descend Stair Climbing Technique Step to Step Number of Steps Climbed 3 Query Text: Stair Climbing Set # Repetitions (reps) 1 Comments Stair Climbing Comments Pt needed cues for stair mobility. He was unable to recall number of stairs or hand rails at home. M5 PT-IP Objective Assessments Start: 11/23/17 15:26 Freq: NEEDED Status: Active Protocol: Document 11/23/17 14:19 MDD (Rec: 11/23/17 15:43 MDD [id number]) Orientation Orientation/Cognition Level of Alertness Confusional State Orientation Name Date Situation Language Function Ability Garbled Speech Safety Awareness Decreased Safety Awareness Gross Range of Motion Lower Extremity ROM Assessment Within Functional Limits Strength Lower Extremity Strength Assessment Within Functional Limits Coordination Assessment Assessment Finger to Nose Test Minimal Impairment Heel on Mcpherson Test Moderate Impairment M6 PT-IP Treatment Start: 11/23/17 15:26 Freq: NEEDED Status: Active Protocol: Document 11/24/17 16:00 LJ (Rec: 11/24/17 16:53 LJ [email or web address]) Physical Therapy Treatment Exercises Exercises Ankle Pumps Gluteal Sets Quad Sets Heel Slides Straight Leg Raises Seated Knee Flexion/Extension Education Education Provided Safety Other Treatments Other Treatment Performed Pt weak and unable to perform SLRs independently. Performed bridging x 2 for positioning in bed. M7 PT-IP Assessment and Plan Start: 11/23/17 15:26 Freq: NEEDED Status: Active Protocol: Document 11/25/17 14:20 GGD (Rec: 11/25/17 16:13 GGD [id number]) PT Summary Assessment and Plan Summary Assessment Summary Pt was unsteady with gait, but no LOB. He had diffculty managing FWW with gait and walked into pinon even after cuing. He did better with ambulation without assistive device, but was unsteady and is a fall risk. He not safe to go home alone. Frequency of Treatment Frequency Of Treatment Once a Day Treatment Plan Physical Therapy Treatment Plan Bed Mobility Training Transfer Training Gait Training Therapeutic Exercise Balance Retraining Coordination Retraining Recommendations To Nursing Amount of Assist Needed 1 Person Assist Discharge Recommendations PT Discharge Recommendations Home with 31/10 Assist SNF Rehab
[2017-11-25 15:08] VITALS: BP 140/85; PULSE 83; RESP 16; TEMP 37.2; O2SAT 100
--- NOTE | 2017-11-25 16:14 | OT.IP.EVAL ---
Current Diagnoses Alcohol dependence with withdrawal delirium (11/20/17) Past Medical History (Last Reviewed 11/20/17 @ 05:38 by Sunday Aburto MD) Alcoholism (Acute) Occupational Therapy Inpatient Evaluation/Re-Eval M1 PT/OT-IP Prior Functional Status Start: 11/23/17 15:26 Freq: NEEDED Status: Active Protocol: Document 11/23/17 14:19 MDD (Rec: 11/23/17 15:43 MDD [id number]) Medical Review Prior Functional Status Medical History Reviewed Yes Communication normal Mobility and Gait independent with no AD Activities of Daily Living and IADL's independent Social History Household Members significant other family children other Living Arrangements Apartment/Condo Number of Floors (Floors) 3 or More Floors Number of Stairs To Enter/Railing? Pt lives in 3rd floor apartment (requiring 3 flights of stairs with B handrails - unknown total number). 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 He makes some mention of hitting his head, but is unable to further explain. M1 PT/OT-IP Prior Functional Status Start: 11/25/17 15:41 Freq: NEEDED Status: Active Protocol: Document 11/25/17 15:45 [facility] (Rec: 11/25/17 16:14 [facility] [id number]) Medical Review Prior Functional Status Medical History Reviewed Yes Communication normal Mobility and Gait independent with no AD Activities of Daily Living and IADL's independent Social History Household Members significant other family children other Living Arrangements Apartment/Condo Number of Floors (Floors) 3 or More Floors Number of Stairs To Enter/Railing? Pt lives in 3rd floor apartment (requiring 3 flights of stairs with B handrails - unknown total number). 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 He makes some mention of hitting his head, but is unable to further explain. M2 OT-IP Current Condition Start: 11/25/17 15:41 Freq: Status: Active Protocol: Document 11/25/17 15:45 [facility] (Rec: 11/25/17 16:14 [facility] [email or web address]) Occupational Therapy Current Condition Current Condition Evaluation Date 11/25/17 Treatment Diagnosis Acute Alcohol Intoxication Diagnosis Onset Date 11/20/17 Post Operative Precautions Other Precautions dangelo catheter M3 OT- IP Subjective and Pain Start: 11/25/17 15:41 Freq: Status: Active Protocol: Document 11/25/17 15:45 [facility] (Rec: 11/25/17 16:14 [facility] [id number]) OT- Subjective Occupational Therapy Visit Type Type Initial Evaluation Visit Start Time 15:15 Visit Stop Time 15:35 Total Visit Minutes 20 Occupational Therapy Visit Comments Patient Comments Pt feels that he is not back to baseline. Complained of blurred vision. OT Pain Assessment Pain When Pain Assessed At Rest Pain Present Pain Present Denied Pain M4 OT- IP ADL's Start: 11/25/17 15:41 Freq: Status: Active Protocol: Document 11/25/17 15:45 [facility] (Rec: 11/25/17 16:14 [facility] [id number]) OT ADL-Grooming General Evaluation Grooming Ability Standby Assistance Areas Needing Assistance Retrieving/Set-up of Grooming Items Comments OT Grooming Comments Vc to point out items on the counter, assist to open toothpaste. Pt tends to sway backwards and needing from CGA to MODA having frequent loss of balance. OT ADL-Oral Care General Eval Oral Care Ability Standby Assistance Areas of Assistance Retrieving/Set-Up of Items OT ADL-Dressing General Eval Lower Body Dressing Ability Minimal Assistance Comments OT Dressing Comments Pt needing assist for orientation for brief, assist to help get over his feet, and MODA for balance while standing to pull up brief over his hips. OT ADL-Toileting General Evaluation Toileting Ability Total Assistance Areas Needing Assistance Manage Clothing Comments OT Toileting Comments Pt not aware that he needed to have brief changed as brief was very saturated. M6 OT- IP Functional Cognition Start: 11/25/17 15:41 Freq: Status: Active Protocol: Document 11/25/17 15:45 [facility] (Rec: 11/25/17 16:14 [facility] [id number]) Cognitive Factors Limiting Selfcare Function Cognitive Ability Level of Alertness Alert Confusional State Patient Orientation Name Attention Span Ability Capable of Focused Attention Unable to Sustain Attention Ability to Follow Commands Able to Follow One Step Commands with Increased Time Able to Follow One Step Commands with Repetition Memory Description Short Term Impaired Working Impaired Safety Awareness Underestimates Need for Assistance Problem Solving Ability Unable to Identify Errors Needs Assist to Identify Solutions Cognitive Comments Cognitive Assessment Comments Pt easily distracted and needing step by step commands to get through task of ADl's for completeness and for safety awareness. OT- Vision and Hearing OT- Hearing Assessment OT- Hearing Assessment WFL OT- Vision Assessment Vision History Blurred Vision Visual Attentiveness Impaired Occular Pursuits Impaired Horizontal Vision Assessment Comments Delayed response for scanning, not able to read the clock and reading the time backwards . M7 OT- IP Mobility and Balance Start: 11/25/17 15:41 Freq: Status: Active Protocol: Document 11/25/17 15:45 [facility] (Rec: 11/25/17 16:14 [facility] [id number]) OT- Bed Mobility Assessment Rolling Type of Rolling Roll to Left Level of Assistance Standby Assistance Supine to Sit Supine to Sit Assist Standby Assistance Sit to Supine Sit to Supine Assist Standby Assistance Scooting Scooting to Edge of Bed Standby Assistance Scooting Up and Down in Bed Standby Assistance OT-Transfer Assessment Sit to and From Stand Sit to and from Stand Standby Assistance Contact Guard Assistance Minimal Assistance Transfers Transfer Ability Contact Guard Assistance Minimal Assistance Moderate Assistance Technique Transfer Destination Bed Transfer Technique Stand Step Pivot Devices Transfer Assistive Devices None Gait Belt Front Wheeled Walker Comments Mobility Comments Pt not wanting to use the walker and from CGA to MODA as having lose of balance and not able to correct himself and needing therapist to assist for safety. OT- Balance Assessment Sitting Balance and Reactions Static Sitting Balance Ability Normal Dynamic Sitting Balance Ability Fair Standing Balance and Reactions Static Standing Balance Ability Poor Dynamic Standing Balance Ability Poor M8 OT- IP Objective Assessments Start: 11/25/17 15:41 Freq: Status: Active Protocol: Document 11/25/17 15:45 [facility] (Rec: 11/25/17 16:14 [facility] [id number]) OT Gross Range of Motion Upper Extremity Range of Motion Assessment Within Functional Limits OT Strength Upper Extremity Strength Assessment Within Functional Limits OT- Coordination Assessment Upper Extremity Finger to Nose Test Bilateral UE Impaired Comments Coordination Comments Not able to unscrew cap of toothpaste, increased time for finger to thumb opposition. OT-Muscle Tone Assessment Muscle Tone WNL Yes M9 OT- IP Assessment and Plan Start: 11/25/17 15:41 Freq: Status: Active Protocol: Document 11/25/17 15:45 [facility] (Rec: 08/18/18 16:14 [facility] [email or web address]) OT Summary Assessment and Plan Potential Rehabilitation Potential Fair Analytic Complexity at Evaluation Moderate Summary OT Impairments Range of Motion Strength Balance Coordination Functional Cognition Functional Mobility Grooming Dressing Toileting Bathing Toilet Transfers Shower Transfers Progress Towards Goals Slow Progress due to Medical Issues Slow Progress due to Activity Tolerance Slow Progress due to Cognition Assessment Summary Pt MOD complexity and main barriers are decreased safety awareness, balance, and now needing extensive assist for all ADl and functional mobility. Pt is a high risk of fall and would require 24/7 assist at all times at this time which if fall from his baseline of being independent and no device. Goals Grooming Goal Independent Dressing Goal Standby Assistance Toileting Goal Independent Bathing Goal Contact Guard Assistance Toilet Transfer Goal Independent Shower Transfer Goal Contact Guard Assistance Patient/Caregiver Education Goal Caregiver Independent Assisting Patient Days to Meet Goals 7 Frequency of Treatment Frequency Of Treatment Once a Day Treatment Plan OT Treatment Plan ADL Training Functional Cognition Training Functional Mobility Patient/Family Education Discharge Planning Discharge Recommendations OT Discharge Recommendations Home with 24/7 Assist SNF Rehab Home Equipment Needs To be determined pending progress, as currently far from baseline.
--- NOTE | 2017-11-25 19:33 | PM.PN.1 ---
Subjective Date Patient Seen: 11/25/17 Time Patient Seen: 12:45 Interval history: This is a 42-year-old alcoholic male presenting with use acute alcohol withdrawal symptoms and alcohol withdrawal seizures. Currently with a good symptom control, remains essentially bedridden and somnolent. No new episodes of seizure activity or signs of delirium tremens. Patient remains intermittently impulsive, and trying to get out of bed unattended. He still spends most of the time sleeping but with increased intervals of being awake for meals and getting out of bed to commode. Sitter is still present at the bedside. Exam Vital Signs (past 8 hours): - 11/25/17 15:08 Temperature 98.9 F Pulse Rate 83 Respiratory Rate 16 Blood Pressure 140/85 H Pulse Oximetry 100 Oxygen Delivery Method Room Air Oxygen Flow Rate 0 Narrative Exam Narrative: Constitutional: Well-developed obese and ill appearing male resting in his bed . He sleeps most of the time but is only responds to verbal stimulation, able to communicate. HEENT: with moist oral mucosa otherwise unremarkable Neck: Supple, no lymphadenopathy, no jugular venous distention Pulmonary: Distant breath sounds, no rales, crepitations or wheezing Cardiovascular: Regular rhythm and rate, no murmur Gastrointestinal: Abdomen is soft, nontender, nondistended, bowel sounds present, no discernible organomegaly Extremities: Warm to touch, no edema Neurological: Remains nonfocal, no seizure activity since admission. Skin: No skin lesions, no rashes Objective Labs Result Diagrams: 11/25/17 06:20 11/25/17 06:20 Labs: Laboratory Results - last 24 hr 11/25/17 11/25/17 11/25/17 06:20 06:20 06:20 WBC 4.5 RBC 2.89 L Hgb 8.5 L Hct 26.0 L MCV 90.0 MCH 29.5 MCHC 32.8 RDW 15.7 H Plt Count 78 L Neut % (Auto) 53.3 Lymph % (Auto) 21.6 L Wagoner % (Auto) 19.9 H Eos % (Auto) 2.6 Baso % (Auto) 2.6 H Neut # (Auto) 2400 L PT 25.9 H INR 2.3 H Sodium 139 Potassium 3.4 Chloride 105 Carbon Dioxide 29 BUN 6 L Creatinine 0.50 L Estimated GFR > 60.0 BUN/Creatinine Ratio 12.0 Glucose 89 Calcium 7.5 L Magnesium 1.8 Total Bilirubin 1.8 H AST 104 H ALT 70 Alkaline Phosphatase 67 Total Protein 5.9 L Albumin 2.5 L Globulin 3.4 Albumin/Globulin Ratio 0.7 L Assessment & Plan Plan: Assessment/Plan Narrative: 1. Acute alcohol withdrawal with alcohol withdrawal seizures: Essentially resolved; no new episodes of seizure activity since admission, noted signs of acute alcohol withdrawal. 2. Alcoholism, chronic ongoing problem: Currently with clinical symptoms of evolving liver cirrhosis, Vernicke Korsakoff encephalopathy,central and peripheral neuropathy affective his gait and ambulation. Continue thiamine supplemention, symptomatic and supportive care, daily PT/OT. Social work consult regarding disposition options. 3. Major depression: As above. His current behavior manifesting as a voluntarily bedridden status with somnolence is suggestive of uncontrolled problem. Patient might benefit from cognitive and psychiatric evaluation 4. Obesity: with clinically suspected sleep apnea, mild benefit from outpatient sleep study when medically stable 5. Alcoholic steatohepatitis /possible evolving alcohol liver cirrhosis with impaired synthetic function: With persistently elevated INR level. Low levels of protein and albumin Continue current symptomatic and supportive 6. Chronic thrombocytopenia: Secondary to above, persistent, complications no signs of occult bleeding 7. Anemia, acute on chronic, microcytic: Required PRBC transfusion on admission. Currently with relativelty stable hemoglobin and hematocrit levels. 8. Deconditioning/debility: Anticipated placement to skilled nurse facility Time Spent With Patient Time with patient: 25 - 35 minutes Quality VTE Deep Vein Thrombosis/Pulmonary Embolism Present on Admission: No
[2017-11-25 23:11] VITALS: BP 147/87; PULSE 86; RESP 12; TEMP 37.1; O2SAT 98
[2017-11-26] MEDS: SODIUM CHLORIDE 0.9% 1,000 ML 75 ML IV (00:51)
--- NOTE | 2017-11-26 03:45 | PC.NURSE ---
shift note Pt has been resting bed, drowsy, difficult to rouse till about 0300. AOx3. Currently, pt sitting in bed, watching TV. No complaints. No N/V CIWA scores 1 and 1 during shift, only noticed slight tremor that is not visible but felt when holding pt's arms.
[2017-11-26 07:00] VITALS: BP 135/79; PULSE 78; RESP 19; TEMP 37.5; O2SAT 99
[2017-11-26] MEDS: PANTOPRAZOLE 20 MG TABLET PO (10:27)
--- NOTE | 2017-11-26 13:22 | PM.PN.1 ---
Subjective Date Patient Seen: 11/26/17 Time Patient Seen: 10:00 Interval history: This is a 42-year-old alcoholic male presenting with use acute alcohol withdrawal symptoms and alcohol withdrawal seizures. Currently with a good symptom control, No new episodes of seizure activity or signs of delirium tremens. With better mentation, OOB and ambulating with assistance, resumed PO intake and tolerating it well. Exam Vital Signs (past 8 hours): - 11/26/17 07:00 Temperature 99.5 F Pulse Rate 78 Respiratory Rate 19 Blood Pressure 135/79 H Pulse Oximetry 99 Oxygen Delivery Method Room Air Oxygen Flow Rate 0 Narrative Exam Narrative: Constitutional: Well-developed obese male resting in NAD . He significantly improved mentation, he is out of bed and ambulating with assistance, and resumed oral intake and tolerated well.. HEENT: with moist oral mucosa otherwise unremarkable Neck: Supple, no lymphadenopathy, no jugular venous distention Pulmonary: Distant breath sounds, no rales, crepitations or wheezing Cardiovascular: Regular rhythm and rate, no murmur Gastrointestinal: Abdomen is soft, nontender, nondistended, bowel sounds present, no discernible organomegaly Extremities: Warm to touch, no edema Neurological: Remains nonfocal, no seizure activity since admission. Skin: No skin lesions, no rashes Objective Imaging CT scan - head: Radiologist's impression: IMPRESSION: No acute intracranial abnormality. Dictated by: Anthony Monteiro M.D. on 11/24/2017 at 15:03 Approved by: Anthony Monteiro M.D. on 11/24/2017 at 15:04 US - abdomen: Radiologist's impression: IMPRESSION: 1. Hepatic steatosis. 2. Normal appearing gallbladder and common bile duct. 3. Right kidney is within normal limits, remainder of exam is obscured by bowel gas Dictated by: Didier Schultz M.D. on 11/20/2017 at 14:59 Approved by: Didier Schultz M.D. on 11/20/2017 at 15:03 Labs Result Diagrams: 11/25/17 06:20 11/25/17 06:20 Labs: Laboratory Results - last 24 hr 11/26/17 05:50 Ammonia 26.0 Assessment & Plan Plan: Assessment/Plan Narrative: 1. Acute alcohol withdrawal with alcohol withdrawal seizures: Essentially resolved; no new episodes of seizure activity since admission, no signs of acute alcohol withdrawal. 2. Alcoholism, chronic ongoing problem: Currently with clinical symptoms of resolving Vernicke Korsakoff encephalopathy, central and peripheral neuropathy affective his gait and ambulation. Continue thiamine supplemention, symptomatic and supportive care, daily PT/OT. Social work consult regarding disposition options. 3. Major depression: As above. Patient might benefit from cognitive and psychiatric evaluation 4. Obesity: with clinically suspected sleep apnea, mild benefit from outpatient sleep study when medically stable 5. Alcoholic steatohepatitis /possible evolving alcohol liver cirrhosis with impaired synthetic function: With persistently elevated INR level. Low levels of protein and albumin Continue current symptomatic and supportive 6. Chronic thrombocytopenia: Secondary to above, persistent, complications no signs of occult bleeding 7. Anemia, acute on chronic, microcytic: Required PRBC transfusion on admission. Currently with relativelty stable hemoglobin and hematocrit levels. 8. Deconditioning/debility: anticipate possible discharge home with HH, PT/OT Time Spent With Patient Time with patient: 25 - 35 minutes Quality VTE Deep Vein Thrombosis/Pulmonary Embolism Present on Admission: No
--- NOTE | 2017-11-26 14:09 | PC.NURSE ---
day shift pt denies pain. awake more today than previously. able to take shower this afternoon with DECK MECHANIC assistance. walked several times in the hallways, after the first time able to walk without FWW. pt in chair with chair alarm in place. call light within reach. pt able to verbalize that he will use call light. sitter d/c. will continue to monitor.
--- NOTE | 2017-11-26 14:15 | PT.IPTN ---
Current Diagnoses Alcohol dependence with withdrawal delirium (11/20/17) Physical Therapy Treatment Note M2 PT-IP Current Condition Start: 11/23/17 15:26 Freq: NEEDED Status: Active Protocol: Document 11/26/17 14:15 RCC (Rec: 11/26/17 15:26 RCC [id number]) Physical Therapy Current Condition Current Condition Evaluation Date 11/23/17 Treatment Diagnosis acute alcohol intoxication Onset Date 11/20/17 Precautions Other Precautions dangelo catheter M3 PT-IP Subjective Start: 11/23/17 15:26 Freq: NEEDED Status: Active Protocol: Document 11/26/17 14:15 RCC (Rec: 11/26/17 15:26 RCC [id number]) Subjective Physical Therapy Visit Type Type Treatment Note Visit Start Time 14:00 Visit Stop Time 14:15 Total Visit Minutes 15 Number of IT SUPPORT MANAGER Visits 0 Physical Therapy Visit Comments Patient Comments pt notes that his balance still feels off, and his hip flexors feel like jello after this walk. M4 PT-IP Mobility and Gait Start: 11/23/17 15:26 Freq: NEEDED Status: Active Protocol: Document 11/26/17 14:15 RCC (Rec: 11/26/17 15:26 RCC [id number]) PT-Transfer Assessment Sit to and From Stand Sit to and from Stand Standby Assistance Equipment Transfer Assistive Device Gait Belt Transfers Transfer Destination Chair Transfer Technique Stand Step Pivot Transfer Ability Level of Assist Contact Guard Assistance Comments Mobility Comments ataxic movements, still legged (decreased knee ROM with stepping). Gait Assessment Gait Gait Assistance Required: Contact Guard Assist Distance (Feet) (feet) 500 Assistive Devices Assistive Device Gait Belt Gait Deviations General Gait Pattern Ataxic Decreased Feet Clearance Wide Based Gait Factors Limiting Gait Function Factors Limiting Gait Function Decreased Activity Tolerance Decreased Strength Poor Balance Poor Safety Awareness Comments Gait Comments Pt ambulated close to the pinon for preparation for potential falling, and demonstrated ataxic movement, but did not have loss of balance with gait. M5 PT-IP Objective Assessments Start: 11/23/17 15:26 Freq: NEEDED Status: Active Protocol: Document 11/23/17 14:19 MDD (Rec: 11/23/17 15:43 MDD [id number]) Orientation Orientation/Cognition Level of Alertness Confusional State Orientation Name Date Situation Language Function Ability Garbled Speech Safety Awareness Decreased Safety Awareness Gross Range of Motion Lower Extremity ROM Assessment Within Functional Limits Strength Lower Extremity Strength Assessment Within Functional Limits Coordination Assessment Assessment Finger to Nose Test Minimal Impairment Heel on Mcpherson Test Moderate Impairment M6 PT-IP Treatment Start: 11/23/17 15:26 Freq: NEEDED Status: Active Protocol: Document 11/24/17 16:00 LJ (Rec: 11/24/17 16:53 LJ [id number]) Physical Therapy Treatment Exercises Exercises Ankle Pumps Gluteal Sets Quad Sets Heel Slides Straight Leg Raises Seated Knee Flexion/Extension Education Education Provided Safety Other Treatments Other Treatment Performed Pt weak and unable to perform SLRs independently. Performed bridging x 2 for positioning in bed. M7 PT-IP Assessment and Plan Start: 11/23/17 15:26 Freq: NEEDED Status: Active Protocol: Document 11/26/17 14:15 RCC (Rec: 11/26/17 15:26 RCC [id number]) PT Summary Assessment and Plan Summary Impairments Strength Balance Gait Activity Tolerance Assessment Summary Pt continues to have unsteady gait with increased risk for falls. Pt did not require an assistive device this session, but does ambulate close to pinon and objects to attempt to grab at them if necessary when losing balance. Pt is more indep. and is not longer 1:1 with nursing staff. Goals Bed Mobility Goal Independent Transfer Goal Independent Gait Goal Independent Gait Distance 100 feet Other Goals Ascend/descend 3 flights of stairs with B railings. Days to Meet Goals 3 Frequency of Treatment Frequency Of Treatment Once a Day Recommendations To Nursing Amount of Assist Needed 1 Person Assist Discharge Recommendations PT Discharge Recommendations Home with 24/ Assist SNF Rehab
--- NOTE | 2017-11-26 15:21 | CM.DPC ---
DCP Cont: Pt up and walking the halls today. Dr Barnes will likely keep pt until tomorrow. Once medically cleared, pt will DC home with spouse and w/outpt CD resources (that have already been provided). SONIA
[2017-11-26 16:23] VITALS: BP 131/67; PULSE 85; RESP 17; TEMP 37.1; O2SAT 100
[2017-11-26 23:44] VITALS: BP 120/65; PULSE 77; RESP 12; TEMP 36.8; O2SAT 99
[2017-11-27 06:16] LABS: Add Manual Diff / Slide Review NO; Basophils Percent Auto 2.2 % (0-2); Eosinophils Percent Auto 2.1 % (2-4); Hematocrit 26.1 % (41-53); Hemoglobin 8.5 g/dL (13.5-17.5); Mean Corpuscular HGB Conc 32.6 % (30-36); Mean Corpuscular Hemoglobin 29.1 PG (26-34); Mean Corpuscular Volume 89.1 fL (80-100); Monocytes Percent Auto 16.9 % (3-14); Neutrophils Absolute Auto 3200 /uL (3000-5900); Neutrophils Percent Auto 58.8 % (50-75); Platelet Count 87 X10^3/uL (150-400); Red Blood Cell Count 2.94 X10^6/uL (4.5-5.9); Red Cell Distribution Width 15.7 % (11.6-14.8); White Blood Cell Count 5.4 X10^3/uL (4.5-11.0)
[2017-11-27 06:23] LABS: Alanine Aminotransferase 71 IU/L (21-72); Albumin 2.6 g/dL (3.5-5.0); Albumin Globulin Ratio 0.7 (1.0-2.8); Alkaline Phosphatase 69 U/L (38-126); Aspartate Aminotransferase 123 IU/L (17-59); BUN Creatinine Ratio 11.7 (6-22); Bilirubin Total 1.7 mg/dL (0.2-1.3); Blood Urea Nitrogen 7 mg/dL (9-20); Calcium 7.9 mg/dL (8.4-10.2); Carbon Dioxide 29 mmol/L (22-32); Chloride 103 mmol/L (98-107); Estimated Glomerular Filt Rate > 60.0 mL/min (>60); Globulin 3.5 g/dL (1.7-4.1); Glucose 152 mg/dL (70-100); HEMOLYSIS < 15 (0-50); Magnesium 1.7 mg/dL (1.6-2.3); Potassium 3.7 mmol/L (3.4-5.1); Sodium 139 mmol/L (137-145); Total Protein 6.1 g/dL (6.3-8.2)
[2017-11-27] MEDS: PANTOPRAZOLE 20 MG TABLET PO (06:37)
[2017-11-27 07:25] VITALS: BP 127/72; PULSE 76; RESP 16; TEMP 36.7; O2SAT 100
[2017-11-27] MEDS: THIAMINE 100 MG TABLET PO (09:36)
--- NOTE | 2017-11-27 10:53 | OT.IP.TRT ---
Current Diagnoses Alcohol dependence with withdrawal delirium (11/20/17) Occupational Therapy Treatment Note M2 OT-IP Current Condition Start: 11/25/17 15:41 Freq: Status: Active Protocol: Document 11/25/17 15:45 [facility] (Rec: 11/25/17 16:14 [facility] [id number]) Occupational Therapy Current Condition Current Condition Evaluation Date 11/25/17 Treatment Diagnosis Acute Alcohol Intoxication Diagnosis Onset Date 11/20/17 Post Operative Precautions Other Precautions dangelo catheter M3 OT- IP Subjective and Pain Start: 11/25/17 15:41 Freq: Status: Active Protocol: Document 11/27/17 10:43 [facility] (Rec: 11/27/17 10:53 [facility] [id number]) OT- Subjective Occupational Therapy Visit Type Type Treatment Note Visit Start Time 08:55 Visit Stop Time 09:05 Total Visit Minutes 10 Occupational Therapy Visit Comments Patient Comments Pt states feels that he is thinking better but still groogy. Pt not wanting to get up but willing to do cognitive assessment of SLUMS. OT Pain Assessment Pain When Pain Assessed At Rest Pain Present Pain Present Denied Pain M4 OT- IP ADL's Start: 11/25/17 15:41 Freq: Status: Active Protocol: Document 11/25/17 15:45 [facility] (Rec: 11/25/17 16:14 [facility] [id number]) OT ADL-Grooming General Evaluation Grooming Ability Standby Assistance Areas Needing Assistance Retrieving/Set-up of Grooming Items Comments OT Grooming Comments Vc to point out items on the counter, assist to open toothpaste. Pt tends to sway backwards and needing from CGA to MODA having frquent loss of balance. OT ADL-Oral Care General Eval Oral Care Ability Standby Assistance Areas of Assistance Retrieving/Set-Up of Items OT ADL-Dressing General Eval Lower Body Dressing Ability Minimal Assistance Comments OT Dressing Comments Pt needing assist for orientation for brief, assist to help get over his feet, and MODA for balance while standing to pull up brief over his hips. OT ADL-Toileting General Evaluation Toileting Ability Total Assistance Areas Needing Assistance Manage Clothing Comments OT Toileting Comments Pt not aware that he needed to have brief changed as brief was very saturated. M6 OT- IP Functional Cognition Start: 11/25/17 15:41 Freq: Status: Active Protocol: Document 11/27/17 10:43 [facility] (Rec: 11/27/17 10:53 [facility] [id number]) Cognitive Factors Limiting Selfcare Function Cognitive Ability Level of Alertness Alert Patient Orientation Name Age Birthday Month Date Year Day of Week Place Situation Attention Span Ability Capable of Focused Attention Capable of Sustained Attention Ability to Follow Commands Able to Follow Multi-Step Commands Memory Description Short Term Impaired Working Impaired Safety Awareness Underestimates Need for Assistance Problem Solving Ability Unable to Identify Errors Needs Assist to Identify Solutions Executive Function Ability Unable to Remember Details Cognitive Tests SLUMS Pt scored 19/30 which implies cognitive deficit and would benefit from assist at home with medication, money management, and safety awareness. Cognitive Comments Cognitive Assessment Comments Pt would benefit from assist at home due to decreased safety awareness and short term memory. M8 OT- IP Objective Assessments Start: 11/25/17 15:41 Freq: Status: Active Protocol: Document 11/25/17 15:45 [facility] (Rec: 11/25/17 16:14 [facility] [id number]) OT Gross Range of Motion Upper Extremity Range of Motion Assessment Within Functional Limits OT Strength Upper Extremity Strength Assessment Within Functional Limits OT- Coordination Assessment Upper Extremity Finger to Nose Test Bilateral UE Impaired Comments Coordination Comments Not able to unscrew cap of toothpaste, increased time for finger to thumb opposition. OT-Muscle Tone Assessment Muscle Tone WNL Yes M9 OT- IP Assessment and Plan Start: 11/25/17 15:41 Freq: Status: Active Protocol: Document 11/27/17 10:43 [facility] (Rec: 11/27/17 10:53 [facility] [id number]) OT Summary Assessment and Plan Summary Progress Towards Goals Slow Progress due to Medical Issues Slow Progress due to Cognition Assessment Summary Pt doing better with following commands however would benefit from 24/7 assist due to decreased STM, safety awareness, and still a little unstable on his feet during dynamic movements. Goals Grooming Goal Independent Dressing Goal Standby Assistance Toileting Goal Independent Bathing Goal Standby Assistance Toilet Transfer Goal Independent Shower Transfer Goal Standby Assistance Patient/Caregiver Education Goal Caregiver Independent Assisting Patient Days to Meet Goals 2 Frequency of Treatment Frequency Of Treatment Once a Day Treatment Plan OT Treatment Plan ADL Training Functional Cognition Training Functional Mobility Patient/Family Education Discharge Planning Other Treatment Recommendations and Next Family training, shower. Treatment Focus Discharge Recommendations OT Discharge Recommendations Home with 24/7 Assist
--- NOTE | 2017-11-27 11:56 | P.DS_ITS ---
History of Present Illness Date Patient Seen: 11/27/17 Time Patient Seen: 08:45 Chief complaint: DT and alcohol w/al seizures Narrative: This is a 42-year-old alcoholic male presenting with acute alcohol withdrawal symptoms and alcohol withdrawal seizures. Currently with a good symptom control, No new episodes of seizure activity or signs of delirium tremens. With better mentation, OOB and ambulating with assistance, resumed PO intake and tolerating it well. Discharge Providers Date of admission: 11/20/17 03:34 Consults: 11/20/17 04:28 Consult to Slasher Tender Helper Routine Comment: 11/20/17 04:33 Consult to Dietitian, Adult Routine Comment: Reason For Exam: ETOH 11/23/17 09:45 Consult to Physical Therapy Evaluate & Treat Comment: Physician Instructions: Evaluate and Treat 11/25/17 14:51 Consult to Occupational Therapy Evaluate & Treat Comment: Physician Instructions: Evaluate and treat 11/26/17 13:31 Consult to Speech Therapy Evaluate & Treat Comment: Physician Instructions: cogntiive evaluation Discharge provider: Wilbert Barnes MD Summary Discharge Diagnosis: 1. Acute alcohol withdrawal with alcohol withdrawal seizures: Essentially resolved; no new episodes of seizure activity since admission, no signs of acute alcohol withdrawal. 2. 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 Continue thiamine supplemention, strongly encouraged to quit drinking. 3. Major depression: As above. Started on tx with Zoloft. 4. Obesity: with clinically suspected sleep apnea, mild benefit from outpatient sleep study per PCP referral. 5. Alcoholic steatohepatitis /possible evolving alcohol liver cirrhosis with impaired synthetic function: With elevated INR level at 2.0-2.5 level. Low levels of protein and albumin. Management as above. 6. Chronic thrombocytopenia: Secondary to above, persistent, no signs of occult bleeding 7. Anemia, acute on chronic, macrocytic: Required PRBC transfusion on admission. Currently with stable hemoglobin and hematocrit levels. 8. Deconditioning/debility: anticipate possible discharge home with HH, PT/OT Hospital Course: This is a 42-year-old alcoholic male presenting with use acute alcohol withdrawal symptoms and alcohol withdrawal seizures. While in hospital managed by acute alcohol withdrawal protocol with good response. No seizure activity since admission. No signs of ongoing alcohol withdrawal at the time of discharge. Case management to provide with resources available in the community for alcoholics Status at Discharge Functional status at discharge: independent ambulation Overall status at discharge: patient is progressing back to baseline Time Spent with Patient Greater than 30 minutes Exam Vital Signs (past 8 hours): - 11/27/17 07:25 Temperature 98.0 F Pulse Rate 76 Respiratory Rate 16 Blood Pressure 127/72 H Pulse Oximetry 100 Oxygen Delivery Method Room Air Oxygen Flow Rate 0 Narrative Exam Narrative: Constitutional: Well-developed obese male in NAD . He is out of bed and ambulating , and resumed oral intake and tolerated well.. HEENT: with moist oral mucosa otherwise unremarkable Neck: Supple, no lymphadenopathy, no jugular venous distention Pulmonary: Distant breath sounds, no rales, crepitations or wheezing Cardiovascular: Regular rhythm and rate, no murmur Gastrointestinal: Abdomen is soft, nontender, nondistended, bowel sounds present, no discernible organomegaly Extremities: Warm to touch, no edema Neurological: Remains nonfocal, no seizure activity since admission. Skin: No skin lesions, no rashes Objective Imaging US - abdomen: Radiologist's impression: US - abdomen: Radiologist's impression: IMPRESSION: 1. Hepatic steatosis. 2. Normal appearing gallbladder and common bile duct. 3. Right kidney is within normal limits, remainder of exam is obscured by bowel gas Dictated by: Didier Schultz M.D. on 11/20/2017 at 14:59 Approved by: Didier Schultz M.D. on 11/20/2017 at 15:03 Labs Result Diagrams: 11/27/17 05:56 11/27/17 05:56 Labs: Laboratory Results - last 24 hr 11/27/17 11/27/17 05:56 05:56 WBC 5.4 RBC 2.94 L Hgb 8.5 L Hct 26.1 L MCV 89.1 MCH 29.1 MCHC 32.6 RDW 15.7 H Plt Count 87 L Neut % (Auto) 58.8 Lymph % (Auto) 20.0 L Faulkner % (Auto) 16.9 H Eos % (Auto) 2.1 Baso % (Auto) 2.2 H Neut # (Auto) 3200 Sodium 139 Potassium 3.7 Chloride 103 Carbon Dioxide 29 BUN 7 L Creatinine 0.60 L Estimated GFR > 60.0 BUN/Creatinine Ratio 11.7 Glucose 152 H Calcium 7.9 L Magnesium 1.7 Total Bilirubin 1.7 H AST 123 H ALT 71 Alkaline Phosphatase 69 Total Protein 6.1 L Albumin 2.6 L Globulin 3.5 Albumin/Globulin Ratio 0.7 L Discharge Plan Discharge Plan Patient Disposition: Home Discharge comment: Strongly encouraged to quit drinking. Patient to resume follow up with his PCP next week Provider Discharge Instructions Diet: Diet as Tolerated Activity: as tolerated Discharge Data Attending Provider: Sunday Aburto Admit Date/Time: 11/20/17 03:34 Quality VTE Deep Vein Thrombosis/Pulmonary Embolism Present on Admission: No
--- NOTE | 2017-11-27 12:05 | OT.IP.TRT ---
Current Diagnoses Alcohol dependence with withdrawal delirium (11/20/17) Occupational Therapy Treatment Note M2 OT-IP Current Condition Start: 11/25/17 15:41 Freq: Status: Active Protocol: Document 11/25/17 15:45 [facility] (Rec: 11/25/17 16:14 [facility] [id number]) Occupational Therapy Current Condition Current Condition Evaluation Date 11/25/17 Treatment Diagnosis Acute Alcohol Intoxication Diagnosis Onset Date 11/20/17 Post Operative Precautions Other Precautions dangelo catheter M3 OT- IP Subjective and Pain Start: 11/25/17 15:41 Freq: Status: Active Protocol: Document 11/27/17 11:56 [facility] (Rec: 11/27/17 12:05 [facility] [id number]) OT- Subjective Occupational Therapy Visit Type Type Treatment Note Visit Start Time 11:15 Visit Stop Time 11:55 Total Visit Minutes 40 Occupational Therapy Visit Comments Patient Comments Pt's in for family training , therefore another OT session added for the day as pt being discharged today. OT Pain Assessment Pain When Pain Assessed At Rest Pain Present Pain Present Denied Pain M4 OT- IP ADL's Start: 11/25/17 15:41 Freq: Status: Active Protocol: Document 11/27/17 11:56 [facility] (Rec: 11/27/17 12:05 [facility] [id number]) OT ADL-Grooming General Evaluation Grooming Ability Independent OT ADL-Dressing General Eval Upper Body Dressing Ability Standby Assistance Comments OT Dressing Comments Pt able to realize that he has to sit before donning brief, for [facility]. Pt's to bring in clean clothes later. OT ADL-Toileting General Evaluation Toileting Ability Standby Assistance OT ADL-Bathing Bathing Type Bathing Type Shower General Evaluation Bathing Ability Standby Assistance Devices Bathing Equipment Shower Chair with Arms Grab Bars Comments OT Bathing Comments Pt needing to sit for part of the shower. M6 OT- IP Functional Cognition Start: 11/25/17 15:41 Freq: Status: Active Protocol: Document 11/27/17 11:56 [facility] (Rec: 11/27/17 12:05 [facility] [id number]) Cognitive Factors Limiting Selfcare Function Cognitive Ability Level of Alertness Alert Patient Orientation Name Age Birthday Month Date Year Day of Week Place Situation Attention Span Ability Capable of Focused Attention Capable of Sustained Attention Ability to Follow Commands Able to Follow Multi-Step Commands Memory Description Short Term Impaired Working Impaired Safety Awareness Underestimates Need for Assistance Problem Solving Ability Unable to Identify Errors Needs Assist to Identify Solutions Executive Function Ability Unable to Remember Details Cognitive Comments Cognitive Assessment Comments Spoke to regarding pt may benefit from doing cognitive games, have assist with IADL's. Later spoke to pt and suggested outpt MANAGER FILTER and OT. OT- Vision and Hearing OT- Hearing Assessment OT- Hearing Assessment WFL M7 OT- IP Mobility and Balance Start: 11/25/17 15:41 Freq: Status: Active Protocol: Document 11/27/17 11:56 [facility] (Rec: 11/27/17 12:05 [facility] [id number]) OT-Transfer Assessment Sit to and From Stand Sit to and from Stand Independent Transfers Transfer Ability Independent Comments Mobility Comments Able to do stairs with use of one rail with SBA. Pt has three flights at home and suggested to rest in between and use both rails. safety belt given to pt and showed how she can assist if needed. OT- Balance Assessment Sitting Balance and Reactions Static Sitting Balance Ability Normal Dynamic Sitting Balance Ability Normal Standing Balance and Reactions Static Standing Balance Ability Good Dynamic Standing Balance Ability Fair M8 OT- IP Objective Assessments Start: 11/25/17 15:41 Freq: Status: Active Protocol: Document 11/25/17 15:45 [facility] (Rec: 11/25/17 16:14 [facility] [id number]) OT Gross Range of Motion Upper Extremity Range of Motion Assessment Within Functional Limits OT Strength Upper Extremity Strength Assessment Within Functional Limits OT- Coordination Assessment Upper Extremity Finger to Nose Test Bilateral UE Impaired Comments Coordination Comments Not able to unscrew cap of toothpaste, increased time for finger to thumb opposition. OT-Muscle Tone Assessment Muscle Tone WNL Yes M9 OT- IP Assessment and Plan Start: 11/25/17 15:41 Freq: Status: Active Protocol: Document 11/27/17 11:56 [facility] (Rec: 11/27/17 12:05 [facility] [id number]) OT Summary Assessment and Plan Summary Progress Towards Goals Slow Progress due to Medical Issues Slow Progress due to Cognition Assessment Summary Pt doing much better with mobility and main barrier is STM, problem solving, and dynamic balance. Pt would benefit from 24/7 assist at home initially and also outpt MANAGER FILTER and OT. Goals Days to Meet Goals 1 Frequency of Treatment Frequency Of Treatment Once a Day Discharge Recommendations OT Discharge Recommendations Home with 24/7 Assist
--- NOTE | 2017-11-27 12:59 | CM.DPC ---
DCP Discharge Home with Resources Per MD, pt is medically stable to d/c home today. Per PT/OT, pt has progressed and practiced stair training with spouse/fiance present and pt stable for d/c home. SW met bedside with pt and spouse/fiance and explained role and pt did not remember this SW from last week. SW discussed possible option of Inpt CD tx and [facility] for further stabilization and pt states that his preference is to d/c home today and both pt and fiance are agreeable with this plan and feel that pt is stable enough for d/c home. SW discussed previous plan of outpt CD Assessment at possibly [facility] in [place] and pt states he is still agreeable to getting a CD Assessment towards recommendations for alcohol treatment. SW reminded them of the walk-in hours for [facility] and provided them with the brochures for [facility] and [facility] again and fiance is agreeable to providing the transportation to the assessment and is appreciative and supportive of treatment and support for the pt. LARS updated RN. Plan: Patient to d/c home later today via [facility] POV and they have resource information for following up on completing a CD assessment towards treatment recommendations. Agnes Miles, INVASIVE MANAGER
--- NOTE | 2017-11-27 14:06 | PC.NURSE ---
Patient resting in bed comfortably. Patient showered with OT, waiting for his significant other to bring him back some clothes, patient was cleared by PT and was able to complete stairs. IV was discontinued intact, and patient waiting for his girlfriend to come back to pick him up. Will need to wait for her to review discharge instructions.
--- NOTE | 2017-11-27 15:44 | PT.IPTN ---
Current Diagnoses Alcohol dependence with withdrawal delirium (11/20/17) Physical Therapy Treatment Note M2 PT-IP Current Condition Start: 11/23/17 15:26 Freq: NEEDED Status: Active Protocol: Document 11/26/17 14:15 RCC (Rec: 11/26/17 15:26 RCC [id number]) Physical Therapy Current Condition Current Condition Evaluation Date 11/23/17 Treatment Diagnosis acute alcohol intoxication Onset Date 11/20/17 Precautions Other Precautions dangelo catheter M3 PT-IP Subjective Start: 11/23/17 15:26 Freq: NEEDED Status: Active Protocol: Document 11/27/17 10:40 LJ (Rec: 11/27/17 15:43 LJ [email or web address]) Subjective Physical Therapy Visit Type Type Treatment Note Visit Start Time 10:40 Visit Stop Time 11:05 Total Visit Minutes 25 Therapy Pain Assessment Pain When Pain Assessed During Mobility Pain Present Pain Present Denied Pain M4 PT-IP Mobility and Gait Start: 11/23/17 15:26 Freq: NEEDED Status: Active Protocol: Document 11/27/17 10:40 LJ (Rec: 11/27/17 15:43 LJ [email or web address]) Gait Assessment Gait Deviations General Gait Pattern Decreased Stride Length Decreased Feet Clearance Factors Limiting Gait Function Factors Limiting Gait Function Decreased Strength Comments Gait Comments Pt performed balance test with no LOB and demonstrated understanding of all instructions. PT-Balance Assessment Sitting Balance and Reactions Static Sitting Balance Ability Good Dynamic Sitting Balance Ability Good Standing Balance and Reactions Static Standing Balance Ability Normal Dynamic Standing Balance Ability Good Balance Tests Escobar Balance Test Score 56/56 Query Text:Score Comments Other Balance Tests/Deviations/Treatment Pt performed well on Escobar : Balance test and requires no AD for discharge M5 PT-IP Objective Assessments Start: 11/23/17 15:26 Freq: NEEDED Status: Active Protocol: Document 11/23/17 14:19 MDD (Rec: 11/23/17 15:43 MDD [id number]) Orientation Orientation/Cognition Level of Alertness Confusional State Orientation Name Date Situation Language Function Ability Garbled Speech Safety Awareness Decreased Safety Awareness Gross Range of Motion Lower Extremity ROM Assessment Within Functional Limits Strength Lower Extremity Strength Assessment Within Functional Limits Coordination Assessment Assessment Finger to Nose Test Minimal Impairment Heel on Mcpherson Test Moderate Impairment M6 PT-IP Treatment Start: 11/23/17 15:26 Freq: NEEDED Status: Active Protocol: Document 11/24/17 16:00 LJ (Rec: 11/24/17 16:53 HEMAL [email or web address]) Physical Therapy Treatment Exercises Exercises Ankle Pumps Gluteal Sets Quad Sets Heel Slides Straight Leg Raises Seated Knee Flexion/Extension Education Education Provided Safety Other Treatments Other Treatment Performed Pt weak and unable to perform SLRs independently. Performed bridging x 2 for positioning in bed. M7 PT-IP Assessment and Plan Start: 11/23/17 15:26 Freq: NEEDED Status: Active Protocol: Document 11/27/17 10:40 HEMAL (Rec: 11/27/17 15:43 HEMAL [email or web address]) PT Summary Assessment and Plan Potential Rehabilitation Potential Good Status of Condition at Evaluation Stable Goals Bed Mobility Goal Independent Transfer Goal Independent Gait Goal Independent Frequency of Treatment Frequency Of Treatment Once a Day Recommendations To Nursing Amount of Assist Needed Independent Discharge Recommendations PT Discharge Recommendations Home with 31/10 Assist SNF Rehab
--- NOTE | 2017-11-27 15:51 | PC.NURSE ---
Discharge instructions and home care handouts reviewed with patient and his significant other. They state understanding and have no further questions or concerns at this time. IV dc'd intact. Prescriptions (3) given to patient to fill at pharmacy of choice. Patient's significant other instructed to call [facility] tonight or tomorrow to schedule a follow up appointment with PCP for next week. Patient states he has all the paperwork for his outpatient therapies. Patient escorted out via wheelchair with all belongings by DIRECTOR OF RESOURCE DEVELOPMENT to go home.
== END 2017-11-27 15:57 | disposition home or self-care (01) | DRG 775 ==
LOC: ED 03:33 → ICU 06:40 → AC 11-23 15:13
PROVIDERS: Hospitalist; Internal Medicine; Admitting Provider Internal Medicine; Emergency Provider Emergency Medicine; Visit Provider Internal Medicine
DX: F10.231 Alcohol dependence with withdrawal delirium (principal); K29.21 Alcoholic gastritis with bleeding; D62 Acute posthemorrhagic anemia; K72.01 Acute and subacute hepatic failure with coma; K70.10 Alcoholic hepatitis without ascites; F32.9 Major depressive disorder, single episode, unspecified; D50.9 Iron deficiency anemia, unspecified; G40.89 Other seizures; W06.XXXA Fall from bed, initial encounter; Y92.230 Patient room in hospital as the place of occurrence of the external cause; D69.59 Other secondary thrombocytopenia; F10.251 Alcohol dependence with alcohol-induced psychotic disorder with hallucinations; K70.30 Alcoholic cirrhosis of liver without ascites; G62.1 Alcoholic polyneuropathy; G47.30 Sleep apnea, unspecified; D69.6 Thrombocytopenia, unspecified
CPT/HCPCS: 36415; 36430; 36591; 70450; 76700; 80053; 80076; 80305; 80320; 82140; 83690; 83735; 85014; 85018; 85025; 85610; 85730; 86850; 86900; 86901; 86927; 87797; 93005; 93010; 96374; 96375; 96376; 97110; 97112; 97116; 97127; 97161; 97166; 97530; 97535; 99283; 99284; P9016; C9113; J0744; J1630; J2060; J2354; J2560; J3475

== ENCOUNTER 2018-01-03 07:17 | Emergency (ER) | payer OTHER, MEDICAID, SELFPAY ==
[2017-11-20 13:53] VITALS: BMI 27.4
[2018-01-03] VITALS (11 sets, daily range): BP systolic 118–179; BP diastolic 48–89; PULSE 83–148; RESP 12–26; TEMP 36.9; O2SAT 96–100
--- NOTE | 2018-01-03 07:26 | ED.FALL ---
HPI - Fall General Chief Complaint: Trauma Stated Complaint: seizure/ETOH Time Seen by Provider: 01/03/18 07:25 Source: EMS Mode of arrival: EMS Limitations: altered mental status History of Present Illness HPI Narrative: 42-year-old male brought in by EMS after they were called for the patient being found down on the side of the road. This was an unwitnessed fall. He was found by people passing by. When EMS arrived they noted the patient to be a known alcoholic and known to have had alcohol withdrawal seizures. Patient did have a hematoma on the left side of his head. They placed him in a cervical collar. On the way to the hospital the patient appeared to have seizure-like activity. He was given 5 mg of Versed IV which stop the activity. Unknown length of time patient was down. Related Data Previous Rx's Medication Instructions Recorded pantoprazole 20 mg PO 0700 #30 tab 11/27/17 sertraline 50 mg PO DAILY #30 tab 11/27/17 thiamine HCl (vitamin B1) 100 mg PO DAILY #30 tab 11/27/17 Allergies Allergy/AdvReac Type Severity Reaction Status Date / Time No Known Drug Allergies Allergy Verified 01/03/18 07:28 Review of Systems Review of Systems unobtainable due to mental condition Exam Initial Vital Signs Initial Vital Signs: Vital Signs Temperature 98.5 F 01/03/18 07:29 Pulse Rate 148 H 01/03/18 07:29 Respiratory Rate 26 H 01/03/18 07:29 Blood Pressure 146/70 H 01/03/18 07:29 Pulse Oximetry 96 01/03/18 07:29 Const General: well developed and well groomed Orientation: obtunded Limitations: altered mental status HENMT Head: contusion (5 cm round contusion left parietal area. Abrasions overlying this area. No active bleeding.) and No palpable skull fracture Ears: TM's normal bilaterally Nose: external nose normal Mouth: moist mucous membranes Eyes Other: Pupils 4 mm minimally reactive bilateral Neck Other: In cervical collar placed by EMS Chest Chest: No crepitus Resp Effort & Inspection: normal respiratory effort Auscultation: rhonchi (Bilateral) Other: Patient is maintaining airway on his own. Cardio Rate: tachycardic Rhythm: regular rhythm Pulses: radial pulses present bilaterally GI Inspection: non-distended Palpation: soft and No rigid Other: Somewhat decreased rectal tone which could be secondary to the Versed. No gross blood External: normal external exam and circumcised Back/Spine/Pelvis Back: No crepitance Cervical Spine: No step off deformity Thoracic/Lumbar Spine: other (No step-off deformities) Skin Trauma: abrasion (Left parietal region of scalp) Neuro Other: Patient is nonresponsive to painful stimuli. Has not moved his extremities to command or spontaneously. Extrem General: capillary refill normal Other: No gross deformities Psych Appearance: grossly normal [facility] Medical History Alcoholism (Acute) Surgical History No pertinent past surgical history (Acute) Social History household members: significant other, family, children and other Smoking Status: Unknown if ever smoked alcohol intake: current Procedures Intubation Time out performed: Yes sedative: Etomidate Mg Given: 20 paralytic: Succinylcholine Mg Given: 120 Laryngoscope: Titus ET Tube Size: 7.5 ET Tube Uncuffed: No Tube Secured Depth (cm): 23 Tube Secured Location: teeth Tube Placement Confirmation: Visualized tube passing through cords, Equal breath sounds bilaterally, No breath sounds over epigastrium, Confirmation by capnometry and Chest Xray Patient Tolerated Procedure: Well and No complications Intubation Complications: none Scores GCS Vijay coma scale eye opening: None [place]ijay coma scale verbal response: Sounds [place] coma scale motor response: None [place] coma scale total score: 4 Course Orders Ordered: ED Orders 01/03/18 07:25 XR chest 1V Stat 01/03/18 07:30 CT cervical spine wo con Stat CT head/brain wo con Stat 01/03/18 07:31 EKG-12 Lead Stat 01/03/18 08:01 CT facial bones wo con Stat 01/03/18 08:36 XR chest 1V Stat 01/03/18 08:40 Acetaminophen Stat Arterial Blood Gas Stat Complete Blood Count AUTO DIFF Stat Comprehensive Metabolic Panel Stat Ethanol (ETOH) Stat Lipase Stat Partial Thromboplastin Time Stat Prothrombin Time INR Stat Salicylate Stat Type and Screen Stat Discontinued Medications Sodium Chloride (Normal Saline 0.9%) 1,000 mls @ 1,000 mls/hr IV BOLUS ONE Stop: 01/03/18 08:15 Last Admin: 01/03/18 07:42 Dose: 1,000 mls/hr Vital Signs - 8 hr 01/03/18 07:29 01/03/18 08:00 01/03/18 08:15 Temperature 98.5 F Pulse Rate 148 H 122 H 119 H Respiratory Rate 26 H 25 H 22 Blood Pressure 146/70 H Blood Pressure [Left Arm] 179/89 H 164/66 H Pulse Oximetry 96 98 MDM - Fall Medical Records Attestation: I reviewed the patient's medical records. Lab Data Result diagrams: 01/03/18 08:40 01/03/18 08:40 Imaging Data Chest x-ray: Radiologist's impression: [address] [address] XRay Report Signed Patient: Geovani Melendez [facility]#: [id number] : 1975Acct:[id number] Age/Sex: 42 / MDate of Service: 01/03/18 Loc: ED Accession Number: [id number] Procedure: XR chest 1V Ordering Provider: Prince Beth D.O. PROCEDURE: XR CHEST 1V INDICATIONS: fall TECHNIQUE: One view of the chest was acquired. COMPARISON: None. FINDINGS: Surgical changes and devices: None. Lungs and pleura: No pleural effusions or pneumothorax. Lungs are clear. Mediastinum: Mediastinal contours appear normal. Heart size is normal. Bones and chest wall: No suspicious bony lesions. Overlying soft tissues appear unremarkable. IMPRESSION: No acute process. Dictated by: Anthony Monteiro M.D. on 01/03/2018 at 8:24 Approved by: Anthony Monteiro M.D. on 01/03/2018 at 8:24 CT cervical spine: Radiologist's impression: [address] [address] [address] Scan Report Signed Patient: Geovani Melendez [facility]#: [id number] : 1975Acct:[id number] Age/Sex: 42 / MDate of Service: 01/03/18 Loc: ED Accession Number: [id number] Procedure: CT cervical spine wo con Ordering Provider: Prince Beth D.O. PROCEDURE: CT CERVICAL SPINE WO CON INDICATIONS: Fall altered mental status TECHNIQUE: Noncontrast 3 mm thick sections acquired from the skull base to the T4 level. Sagittal and coronal reformats were then constructed. For radiation dose reduction, the following was used: automated exposure control, adjustment of mA and/or kV according to patient size. COMPARISON: None. FINDINGS: Image quality: Excellent. Bones: There are motion artifacts the level of C4. No fractures or dislocations. A nondisplaced temporal styloid process fracture is noted. Visualized superior ribs are intact. Soft tissues: Prevertebral soft tissues are normal in thickness. No paravertebral hematomas. No apical pneumothoraces. IMPRESSION: 1. Suboptimal exam secondary to motion artifacts. 2. A nondisplaced temporal styloid process fracture. 3. No definite fractures is cervical spine. Dictated by: Isabela Nunez M.D. on 01/03/2018 at 7:59 Approved by: Isabela Nunez M.D. on 01/03/2018 at 8:08 CT scan - head: Radiologist's impression: PROCEDURE: CT HEAD/BRAIN WO CON INDICATIONS: Fall altered mental status TECHNIQUE: Noncontrast 4.5 mm thick angled axial sections acquired from the foramen magnum to the vertex, with coronal and sagittal reformats. For radiation dose reduction, the following was used: automated exposure control, adjustment of mA and/or kV according to patient size. COMPARISON: [facility], CT, CT HEAD/BRAIN WO CON, 11/24/2017, 14:32. FINDINGS: Image quality: Excellent. CSF spaces: Hyperdense acute extra-axial blood seen at the anterior left temporal lobe, along the right frontoparietal region. There are punctate hemorrhages seen within the anterior right temporal lobe. Additional subcentimeter hyperdensity seen in the right parietal lobe white matter image 25 series 2 also suspicious for acute parenchymal bleed. There is a questionable lucent focus, possibly air, seen in the anterior right frontal region image 22 series 3 Brain: No midline shift. No intracranial masses or hemorrhage. Geller-white matter interface is normal. Skull and face: Calvarium and visualized facial bones are intact, without suspicious lesions. Severe left parietal scalp hematoma Sinuses: There is complete opacification of the right maxillary sinus and fluid opacification involving the left maxillary and left sphenoid sinus. A suspected fracture of the lateral wall of the left orbit. IMPRESSION: Small, multifocal intra-parenchymal and extra-axial areas of acute intracranial hemorrhage as detailed above. No evidence of midline shift or herniation Severe opacification of the paranasal sinuses, which may represent chronic sinus disease as above this was apparent on the prior CT from 11/24/17 although if clinically warranted, maxillofacial CT could be performed. Of note, there is a tiny possible focus of air in the anterior right frontal region which could be related to skull or facial fracture. Recommend maxillofacial CT Severe left parietal scalp hematoma Critical findings and recommendations were immediately and personally telephoned to Dr. Beth in the emergency department at 0803 hours on 01/03/18. Dictated by: Antonio Bhat M.D. on 01/03/2018 at 7:52 Approved by: Antonio Bhat M.D. on 01/03/2018 at 8:04 ECG Data Attestation: I personally reviewed and interpreted this ECG as follows: Prior ECG tracings: available for review Interpretation: Sinus tachycardia Ventricular rate of 150 Normal axis Normal QRS Normal QTC Nonspecific ST T wave changes comparison EKG dated 11/20/2017 Sinus tachycardia Ventricular rate of 121 Normal axis Normal QTC Nonspecific ST T wave changes Today's EKG unchanged from prior MDM Narrative Medical decision making narrative: Have an unknown mechanism of injury however I have a strong suspicion that the patient fell. We are suspecting that this was secondary to alcohol use however his alcohol level is not back currently. Upon arrival patient had no external signs of injury except for a left-sided scalp contusion. He was sent for head CT which shows intraparenchymal and also extra-axial blood. There is also suspicion for a facial fractures. Upon returning from the CT scan he did develop a contusion around his left eye. Upon returning from the CT patient became combative and was thrashing around. For very short period of time he had to be restrained. We attempted 50 of Benadryl 5 of Haldol and 2 of Ativan. I then repeated another 2 of Ativan. This did not seem to calm the patient down. He was not directable. Secondary to his known injuries and also how combative he was I felt the need to intubate the patient for sedation to protect both himself and staff members. He was intubated using 20 of etomidate and 120 of succinylcholine. Sedation was maintained with propofol. Follow-up post intubation chest x-ray shows the ET tube in a good position. Secured at 23 at the teeth. Images were pushed to [facility]. I discussed the case with Dr. Tang who accepts the patient in transport. Secondary to the reported seizure prior to arrival here in the emergency department and also his intracranial hemorrhaging patient was given 1 g of Keppra IV. Most of the labs were pending at the time of completion of this note. Will transport the patient by air if able. If unable will transport by ALS ground transport. Patient's was here for a very short period of time. She was informed of the need for the intubation and also the need for the transport. She expressed understanding and agreement. Discharge Plan Departure Patient Disposition: [facility] Clinical Impression: Intracranial hemorrhage, Closed fracture of maxillary bone, Contusion of scalp, Fall, Altered mental status Prescriptions: No Action thiamine HCl (vitamin B1) 100 mg Tablet 100 mg PO DAILY Qty: 30 RF: 0 pantoprazole 20 mg Tablet,Delayed Release (Dr/Ec) 20 mg PO 0700 Qty: 30 RF: 0 sertraline 50 mg tablet 50 mg PO DAILY Qty: 30 RF: 0
--- NOTE | 2018-01-03 07:29 | ED_ITS ---
HPI - Fall General Chief Complaint: Trauma Stated Complaint: seizure/ETOH Time Seen by Provider: 01/03/18 07:25 Source: EMS Mode of arrival: EMS Limitations: altered mental status History of Present Illness HPI Narrative: 42-year-old male brought in by EMS after they were called for the patient being found down on the side of the road. This was an unwitnessed fall. He was found by people passing by. When EMS arrived they noted the patient to be a known alcoholic and known to have had alcohol withdrawal seizures. Patient did have a hematoma on the left side of his head. They placed him in a cervical collar. On the way to the hospital the patient appeared to have seizure-like activity. He was given 5 mg of Versed IV which stop the activity. Unknown length of time patient was down. Related Data Previous Rx's Medication Instructions Recorded pantoprazole 20 mg PO 0700 #30 tab 11/27/17 sertraline 50 mg PO DAILY #30 tab 11/27/17 thiamine HCl (vitamin B1) 100 mg PO DAILY #30 tab 11/27/17 Allergies Allergy/AdvReac Type Severity Reaction Status Date / Time No Known Drug Allergies Allergy Verified 01/03/18 07:28 Review of Systems Review of Systems unobtainable due to mental condition Exam Initial Vital Signs Initial Vital Signs: Vital Signs Temperature 98.5 F 01/03/18 07:29 Pulse Rate 148 H 01/03/18 07:29 Respiratory Rate 26 H 01/03/18 07:29 Blood Pressure 146/70 H 01/03/18 07:29 Pulse Oximetry 96 01/03/18 07:29 Const General: well developed and well groomed Orientation: obtunded Limitations: altered mental status HENMT Head: contusion (5 cm round contusion left parietal area. Abrasions overlying this area. No active bleeding.) and No palpable skull fracture Ears: TM's normal bilaterally Nose: external nose normal Mouth: moist mucous membranes Eyes Other: Pupils 4 mm minimally reactive bilateral Neck Other: In cervical collar placed by EMS Chest Chest: No crepitus Resp Effort & Inspection: normal respiratory effort Auscultation: rhonchi (Bilateral) Other: Patient is maintaining airway on his own. Cardio Rate: tachycardic Rhythm: regular rhythm Pulses: radial pulses present bilaterally GI Inspection: non-distended Palpation: soft and No rigid Other: Somewhat decreased rectal tone which could be secondary to the Versed. No gross blood External: normal external exam and circumcised Back/Spine/Pelvis Back: No crepitance Cervical Spine: No step off deformity Thoracic/Lumbar Spine: other (No step-off deformities) Skin Trauma: abrasion (Left parietal region of scalp) Neuro Other: Patient is nonresponsive to painful stimuli. Has not moved his extremities to command or spontaneously. Extrem General: capillary refill normal Other: No gross deformities Psych Appearance: grossly normal [facility] Medical History Alcoholism (Acute) Surgical History No pertinent past surgical history (Acute) Social History household members: significant other, family, children and other Smoking Status: Unknown if ever smoked alcohol intake: current Procedures Intubation Time out performed: Yes sedative: Etomidate Mg Given: 20 paralytic: Succinylcholine Mg Given: 120 Laryngoscope: Titus ET Tube Size: 7.5 ET Tube Uncuffed: No Tube Secured Depth (cm): 23 Tube Secured Location: teeth Tube Placement Confirmation: Visualized tube passing through cords, Equal breath sounds bilaterally, No breath sounds over epigastrium, Confirmation by capnometry and Chest Xray Patient Tolerated Procedure: Well and No complications Intubation Complications: none Scores GCS Vijay coma scale eye opening: None Vijay coma scale verbal response: Sounds Sophia coma scale motor response: None Sophia coma scale total score: 4 Course Orders Ordered: ED Orders 01/03/18 07:25 XR chest 1V Stat 01/03/18 07:30 CT cervical spine wo con Stat CT head/brain wo con Stat 01/03/18 07:31 EKG-12 Lead Stat 01/03/18 08:01 CT facial bones wo con Stat 01/03/18 08:36 XR chest 1V Stat 01/03/18 08:40 Acetaminophen Stat Arterial Blood Gas Stat Complete Blood Count AUTO DIFF Stat Comprehensive Metabolic Panel Stat Ethanol (ETOH) Stat Lipase Stat Partial Thromboplastin Time Stat Prothrombin Time INR Stat Salicylate Stat Type and Screen Stat Discontinued Medications Sodium Chloride (Normal Saline 0.9%) 1,000 mls @ 1,000 mls/hr IV BOLUS ONE Stop: 01/03/18 08:15 Last Admin: 01/03/18 07:42 Dose: 1,000 mls/hr Vital Signs - 8 hr 01/03/18 07:29 01/03/18 08:00 01/03/18 08:15 Temperature 98.5 F Pulse Rate 148 H 122 H 119 H Respiratory Rate 26 H 25 H 22 Blood Pressure 146/70 H Blood Pressure [Left Arm] 179/89 H 164/66 H Pulse Oximetry 96 98 MDM - Fall Medical Records Attestation: I reviewed the patient's medical records. Lab Data Result diagrams: 01/03/18 08:40 01/03/18 08:40 Imaging Data Chest x-ray: Radiologist's impression: [address] [address] XRay Report Signed Patient: Geovani Melendez [facility]#: [id number] : 1975Acct:[id number] Age/Sex: 42 / MDate of Service: 01/03/18 Loc: ED Accession Number: [id number] Procedure: XR chest 1V Ordering Provider: Prince Beth D.O. PROCEDURE: XR CHEST 1V INDICATIONS: fall TECHNIQUE: One view of the chest was acquired. COMPARISON: None. FINDINGS: Surgical changes and devices: None. Lungs and pleura: No pleural effusions or pneumothorax. Lungs are clear. Mediastinum: Mediastinal contours appear normal. Heart size is normal. Bones and chest wall: No suspicious bony lesions. Overlying soft tissues appear unremarkable. IMPRESSION: No acute process. Dictated by: Anthony Monteiro M.D. on 01/03/2018 at 8:24 Approved by: Anthony Monteiro M.D. on 01/03/2018 at 8:24 CT cervical spine: Radiologist's impression: [address] [address] [address] Scan Report Signed Patient: Geovani Melendez [facility]#: [id number] : 1975Acct:[id number] Age/Sex: 42 / MDate of Service: 01/03/18 Loc: ED Accession Number: [id number] Procedure: CT cervical spine wo con Ordering Provider: Prince Beth D.O. PROCEDURE: CT CERVICAL SPINE WO CON INDICATIONS: Fall altered mental status TECHNIQUE: Noncontrast 3 mm thick sections acquired from the skull base to the T4 level. Sagittal and coronal reformats were then constructed. For radiation dose reduction, the following was used: automated exposure control, adjustment of mA and/or kV according to patient size. COMPARISON: None. FINDINGS: Image quality: Excellent. Bones: There are motion artifacts the level of C4. No fractures or dislocations. A nondisplaced temporal styloid process fracture is noted. Visualized superior ribs are intact. Soft tissues: Prevertebral soft tissues are normal in thickness. No paravertebral hematomas. No apical pneumothoraces. IMPRESSION: 1. Suboptimal exam secondary to motion artifacts. 2. A nondisplaced temporal styloid process fracture. 3. No definite fractures is cervical spine. Dictated by: Isabela Nunez M.D. on 01/03/2018 at 7:59 Approved by: Isabela Nunez M.D. on 01/03/2018 at 8:08 CT scan - head: Radiologist's impression: PROCEDURE: CT HEAD/BRAIN WO CON INDICATIONS: Fall altered mental status TECHNIQUE: Noncontrast 4.5 mm thick angled axial sections acquired from the foramen magnum to the vertex, with coronal and sagittal reformats. For radiation dose reduction, the following was used: automated exposure control, adjustment of mA and/or kV according to patient size. COMPARISON: [facility], CT, CT HEAD/BRAIN WO CON, 11/24/2017, 14:32. FINDINGS: Image quality: Excellent. CSF spaces: Hyperdense acute extra-axial blood seen at the anterior left temporal lobe, along the right frontoparietal region. There are punctate hemorrhages seen within the anterior right temporal lobe. Additional subcentimeter hyperdensity seen in the right parietal lobe white matter image 25 series 2 also suspicious for acute parenchymal bleed. There is a questionable lucent focus, possibly air, seen in the anterior right frontal region image 22 series 3 Brain: No midline shift. No intracranial masses or hemorrhage. Geller-white matter interface is normal. Skull and face: Calvarium and visualized facial bones are intact, without suspicious lesions. Severe left parietal scalp hematoma Sinuses: There is complete opacification of the right maxillary sinus and fluid opacification involving the left maxillary and left sphenoid sinus. A suspected fracture of the lateral wall of the left orbit. IMPRESSION: Small, multifocal intra-parenchymal and extra-axial areas of acute intracranial hemorrhage as detailed above. No evidence of midline shift or herniation Severe opacification of the paranasal sinuses, which may represent chronic sinus disease as above this was apparent on the prior CT from 11/24/17 although if clinically warranted, maxillofacial CT could be performed. Of note, there is a tiny possible focus of air in the anterior right frontal region which could be related to skull or facial fracture. Recommend maxillofacial CT Severe left parietal scalp hematoma Critical findings and recommendations were immediately and personally telephoned to Dr. Beth in the emergency department at 0803 hours on 01/03/18. Dictated by: Antonio Bhat M.D. on 01/03/2018 at 7:52 Approved by: Antonio Bhat M.D. on 01/03/2018 at 8:04 ECG Data Attestation: I personally reviewed and interpreted this ECG as follows: Prior ECG tracings: available for review Interpretation: Sinus tachycardia Ventricular rate of 150 Normal axis Normal QRS Normal QTC Nonspecific ST T wave changes comparison EKG dated 11/20/2017 Sinus tachycardia Ventricular rate of 121 Normal axis Normal QTC Nonspecific ST T wave changes Today's EKG unchanged from prior MDM Narrative Medical decision making narrative: Have an unknown mechanism of injury however I have a strong suspicion that the patient fell. We are suspecting that this was secondary to alcohol use however his alcohol level is not back currently. Upon arrival patient had no external signs of injury except for a left-sided scalp contusion. He was sent for head CT which shows intraparenchymal and also extra-axial blood. There is also suspicion for a facial fractures. Upon returning from the CT scan he did develop a contusion around his left eye. Upon returning from the CT patient became combative and was thrashing around. For very short period of time he had to be restrained. We attempted 50 of Benadryl 5 of Haldol and 2 of Ativan. I then repeated another 2 of Ativan. This did not seem to calm the patient down. He was not directable. Secondary to his known injuries and also how combative he was I felt the need to intubate the patient for sedation to protect both himself and staff members. He was intubated using 20 of etomidate and 120 of succinylcholine. Sedation was maintained with propofol. Follow-up post intubation chest x-ray shows the ET tube in a good position. Secured at 23 at the teeth. Images were pushed to [facility]. I discussed the case with Dr. Tang who accepts the patient in transport. Secondary to the reported seizure prior to arrival here in the emergency department and also his intracranial hemorrhaging patient was given 1 g of Keppra IV. Most of the labs were pending at the time of completion of this note. Will transport the patient by air if able. If unable will transport by ALS ground transport. Patient's was here for a very short period of time. She was informed of the need for the intubation and also the need for the transport. She expressed understanding and agreement. Discharge Plan Departure Patient Disposition: [facility] Clinical Impression: Intracranial hemorrhage, Closed fracture of maxillary bone, Contusion of scalp , Fall, Altered mental status Prescriptions: No Action thiamine HCl (vitamin B1) 100 mg Tablet 100 mg PO DAILY Qty: 30 RF: 0 pantoprazole 20 mg Tablet,Delayed Release (Dr/Ec) 20 mg PO 0700 Qty: 30 RF: 0 sertraline 50 mg tablet 50 mg PO DAILY Qty: 30 RF: 0
[2018-01-03] MEDS: SODIUM CHLORIDE 0.9% 1,000 ML 1000 ML IV (07:42)
[2018-01-03] MEDS: LORazepam 2 MG/ML SYRINGE IV (08:00)
[2018-01-03] MEDS: diphenhydrAMINE 50 MG/ML VIAL IM (08:15)
[2018-01-03] MEDS: HALOPERIDOL 5 MG/ML VIAL IM (08:20)
[2018-01-03] MEDS: LORazepam 2 MG/ML SYRINGE IM (08:25)
--- NOTE | 2018-01-03 08:36 | DI.RAD.S_ITS ---
PROCEDURE: XR CHEST 1V INDICATIONS: post intubation TECHNIQUE: One view of the chest was acquired. COMPARISON: [facility], CR, XR CHEST 1V, 01/03/2018, 7:18. FINDINGS: Surgical changes and devices: The tip of the endotracheal tube is 5.5 cm above ashleigh. Lungs and pleura: No pleural effusions or pneumothorax. Lungs are clear. Mediastinum: Mediastinal contours appear normal. Heart size is normal. Bones and chest wall: No suspicious bony lesions. Overlying soft tissues appear unremarkable. IMPRESSION: The endotracheal tube tip is 5.5 cm above ashleigh. Dictated by: Isabela Nunez M.D. on 01/03/2018 at 9:05 Approved by: Isabela Nunez M.D. on 01/03/2018 at 9:06
[2018-01-03] MEDS: ETOMIDATE 2 MG/ML VIAL 20 MG IV (08:45)
[2018-01-03] MEDS: SUCCINYLCHOLINE 200 MG/10 ML VIAL 120 MG IV (08:46)
[2018-01-03] MEDS: PROPOFOL 1,000 MG/100 ML VIAL 2.1 MG IV (08:47)
[2018-01-03 09:08] LABS: Hematocrit 26.1 % (41-53); Hemoglobin 8.5 g/dL (13.5-17.5); Mean Corpuscular HGB Conc 32.5 % (30-36); Mean Corpuscular Hemoglobin 26.4 PG (26-34); Mean Corpuscular Volume 81.1 fL (80-100); Red Blood Cell Count 3.22 X10^6/uL (4.5-5.9); Red Cell Distribution Width 22.6 % (11.6-14.8); White Blood Cell Count 9.2 X10^3/uL (4.5-11.0)
[2018-01-03 09:15] LABS: Add Manual Diff / Slide Review YES
[2018-01-03 09:17] LABS: Acetaminophen < 10 ug/mL (10-30); Alanine Aminotransferase 135 IU/L (21-72); Albumin 3.5 g/dL (3.5-5.0); Albumin Globulin Ratio 0.9 (1.0-2.8); Alkaline Phosphatase 93 U/L (38-126); Aspartate Aminotransferase 300 IU/L (17-59); BUN Creatinine Ratio 12.5 (6-22); Bilirubin Total 3.4 mg/dL (0.2-1.3); Blood Urea Nitrogen 10 mg/dL (9-20); Calcium 8.5 mg/dL (8.4-10.2); Carbon Dioxide 16 mmol/L (22-32); Chloride 103 mmol/L (98-107); Estimated Glomerular Filt Rate > 60.0 mL/min (>60); Ethanol (ETOH) < 10 mg/dL; Glucose 126 mg/dL (70-100); HEMOLYSIS < 15 (0-50); Lipase 300 U/L (23-300); Potassium 3.8 mmol/L (3.4-5.1); Sodium 139 mmol/L (137-145); Total Protein 7.5 g/dL (6.3-8.2)
[2018-01-03 09:18] LABS: Salicylate < 1.0 mg/dL (<20)
--- NOTE | 2018-01-03 09:20 | PC.NURSE ---
Patient became compative and wrestless trying to climb out of bed. MD was called to bedside. 4 staff at bedside trying to obtain blood. MD 2 Ativan IV given- no change, 5mg Haldol given with 50mg benadryl- no change, 2mg Ativan given- no change. MD request intubation. 20mg Etomidate and 120 of Succ given during intubation. RT at assisting, code cart at bedside, two RNs in room. Positive color change and good lung sounds with intubation.
[2018-01-03 09:28] LABS: INR 2.8 (0.9-1.3); Prothrombin Time 30.7 SECONDS (10.1-12.7)
[2018-01-03 09:29] LABS: HCO3 ABG 20 mmol/L (23-27); PCO2 ABG 36.9 mmHg (35-45); TCO2 ABG 21 mmol/L (23-27); pH ABG 7.34 (7.35-7.45)
[2018-01-03 09:30] LABS: Fractionated Inspired Oxygen 75; Oxygen Saturation ABG 100 % (95-100)
[2018-01-03 09:31] LABS: PTT Partial Thromboplastin Tim 27 SECONDS (26.4-36.2)
[2018-01-03] MEDS: levETIRAcetam 1,000 MG in SODIUM CHLORIDE 0.9% 100 ML 440 ML IV (09:40)
--- NOTE | 2018-01-03 09:49 | PC.NURSE ---
Propofolol titrationL 0847 5mg/kg 0855 10mg/kg 0915 25 mcg/kg 0930 30mcg/kg 0930 45mcg/kg 0940 50mcg/kg 0950 65mcg/kg
[2018-01-03 10:02] LABS: Neutrophils Absolute Manual 7268 /uL (3000-5900); Total Cells Counted 100
[2018-01-03 10:07] LABS: Anisocytosis 2+; Hypochromasia 2+; Polychromasia 1+; Target Cells 1+
[2018-01-03 10:10] LABS: Poikilocytosis 1+
[2018-01-03 10:31] LABS: Platelet Count 47 X10^3/uL (150-400)
[2018-01-10 12:13] LABS: PO2 ABG 356 mmHg (80-105)
== END 2018-01-03 10:25 | disposition short-term general hospital (02) ==
PROVIDERS: Emergency Provider Emergency Medicine
DX: I62.9 Nontraumatic intracranial hemorrhage, unspecified (principal); S02.401A Maxillary fracture, unspecified side, initial encounter for closed fracture; S00.03XA Contusion of scalp, initial encounter; R41.82 Altered mental status, unspecified; W19.XXXA Unspecified fall, initial encounter
CPT/HCPCS: 36415; 36600; 70450; 71045; 72125; 80053; 80320; 80329; 82805; 83690; 85025; 85610; 85730; 86850; 86900; 86901; 93005; 94799; 96361; 96365; 96366; 96368; 96372; 96375; 99285; 99291; 99292; G0390; G0480; J0330; J1200; J1630; J1953; J2060; J2704

== ENCOUNTER 2018-01-29 17:23 | Emergency (ER) | payer SELFPAY ==
[2017-11-20 13:53] VITALS: BMI 27.4
[2018-01-03 09:01] VITALS: PULSE 83; RESP 18; O2SAT 98
[2018-01-29] VITALS (11 sets, daily range): BP systolic 93–161; BP diastolic 49–95; PULSE 84–154; RESP 8–25; TEMP 36.7–37.3; O2SAT 99–100; BMI 27.8
--- NOTE | 2018-01-29 20:07 | DI.CT.S_ITS ---
PROCEDURE: CT HEAD/BRAIN WO CON INDICATIONS: recent seizure with head injury, hx of recent intracranial TECHNIQUE: Noncontrast 4.5 mm thick angled axial sections acquired from the foramen magnum to the vertex, with coronal and sagittal reformats. For radiation dose reduction, the following was used: automated exposure control, adjustment of mA and/or kV according to patient size. COMPARISON: [facility], CT, CT HEAD/BRAIN WO CON, 01/03/2018, 7:30. FINDINGS: Image quality: Excellent. CSF spaces: Basal cisterns are patent. No extra-axial fluid collections. Ventricles are normal in size and shape. Brain: Compared to previous study, there is interval development of 8 mm hyperdense area involving the high right frontoparietal region near vertex with moderate amount of surrounding vasogenic edema suggestive of acute intraparenchymal hemorrhage in this region. There is hypodensity involving right temporal lobe within right middle cranial fossa with ill-defined areas of hyperdensity suggestive of acute to subacute hematoma in this area with surrounding vasogenic edema. There is no midline shift. Geller-white matter interface is normal. Skull and face: Calvarium and visualized facial bones are intact, without suspicious lesions. Sinuses: Visualized sinuses and mastoids are clear. IMPRESSION: 1. Interval development of acute appearing intraparenchymal hematoma involving superior right frontal parietal region with moderate amount of surrounding vasogenic edema. 2. Acute to subacute appearing hematoma involving posterior lateral aspect of right temporal lobe with moderate amount of surrounding vasogenic edema. 3. Previously described extra-axial blood in anterior left temporal lobe and along right frontoparietal region are no longer seen. 4. There is no midline shift. No gross intraventricular hemorrhage. Dictated by: Miguel Beauchamp M.D. on 01/29/2018 at 20:58 Approved by: Miguel Beauchamp M.D. on 01/29/2018 at 21:06
[2018-01-29] MEDS: LORazepam 2 MG/ML SYRINGE IV ×2 (20:09→23:04)
[2018-01-29] MEDS: SODIUM CHLORIDE 0.9% 1,000 ML 1000 ML IV (20:15)
--- NOTE | 2018-01-29 20:15 | ED.ALCOHOL ---
HPI - Alcohol General Chief Complaint: Toxicology Problem Stated Complaint: ETOH withdraw Time Seen by Provider: 01/29/18 20:06 Source: patient and family Mode of arrival: ambulatory History of Present Illness HPI narrative: 42-year-old heavy drinker presents with significant other in the chief complaint of withdrawal type symptoms including confusion as well as auditory and visual hallucinations. The patient drinks 1 pt of whiskey daily and his last drink was 5 days ago. Since then he has had multiple falls and is a terrible historian, it is unclear if he has injured his head. He was recently seen under relatively similar circumstances and had intraparenchymal hemorrhage and was subsequently intubated and flown to [facility] for management. Patient reports a seizure 2 days ago MD complaint: alcohol withdrawal Last drink: days (ago) Chronic alcohol use: Yes Previous visits for alcohol intoxication: Yes Recent trauma: Yes Associated symptoms: nausea, seizure, diaphoresis and tremors Treatments prior to arrival: none Related Data Home Medications Medication Instructions Recorded Confirmed acetaminophen 500 mg capsule 500 mg PO Q6H PRN 01/15/18 01/15/18 ferrous sulfate 324 mg (65 mg 324 mg PO DAILY tab 01/15/18 01/15/18 iron) tablet,delayed release melatonin 3 mg tablet 6 mg PO BEDTIME PRN tab 01/15/18 01/15/18 ocular lubricant preserved 1 drop OPHTHALMIC (EYE) .COMPLEX 01/15/18 01/15/18 opthalmic solution pantoprazole 20 mg tablet,delayed 40 mg PO Q12H tab 01/15/18 release polyethylene glycol 3350 17 gram 17 gram PO DAILY 01/15/18 01/15/18 oral powder packet 1 tab PO DAILY 01/15/18 01/15/18 vitamin,calcium,gwxakywu-oumk-xjzup acid tablet sennosides 8.6 mg tablet 17.2 mg PO DAILY PRN tab 01/15/18 01/15/18 trazodone 100 mg tablet 100 mg PO .COMPLEX 01/15/18 01/15/18 Previous Rx's Medication Instructions Recorded tramadol 50 mg tablet 100 mg PO QID PRN 21 Days #168 tab 01/15/18 Allergies Allergy/AdvReac Type Severity Reaction Status Date / Time No Known Drug Allergies Allergy Verified 01/29/18 17:46 Review of Systems Review of Systems All systems reviewed & are unremarkable except as noted in HPI and below Constitutional Denies chills, Denies fever(s), Reports frequent falls, Reports headache(s), Denies lethargy, Reports poor appetite and Denies weakness Eyes Denies change in vision, Denies eye discharge, Denies irritation and Denies loss of vision ENT Ears, Nose, Mouth, and Throat: Denies change in voice, Reports headache(s), Denies neck pain and Denies sore throat Cardiovascular Denies chest pain, Denies irregular heart rhythm, Denies lightheadedness, Reports palpitations, Denies dyspnea, Denies dyspnea on exertion and Denies orthopnea Respiratory Denies cough, Denies dyspnea, Denies dyspnea on exertion and Denies wheezing Gastrointestinal Gastrointestinal: Reports abdominal pain, Denies change in bowel habits, Denies diarrhea, Denies nausea and Reports vomiting Genitourinary Denies hematuria, Denies flank pain, Denies urinary incontinence and Denies urinary urgency Musculoskeletal Reports abnormal gait and Denies neck pain Integumentary/Breasts Denies pruritus, Denies erythema, Denies rash and Denies wounds Neurologic Reports abnormal gait, Denies confusion, Reports frequent falls, Reports headache(s), Denies loss of vision and Denies weakness Psychiatric Denies anxiety, Denies confusion, Denies depression, Denies homicidal ideation and Denies suicidal ideation Endocrine Reports palpitations Hematologic/Lymphatic Reports easy bruising Allergic/Immunologic Denies wheezing [facility] Medical History Alcoholism (Acute) Surgical History No pertinent past surgical history (Acute) Social History household members: significant other, family, children and other Smoking Status: Current every day smoker alcohol intake: former Exam Narrative Exam Narrative: AOx3, GCS 15, agitated. Initial Vital Signs Initial Vital Signs: Vital Signs Temperature 99.1 F 01/29/18 17:40 Pulse Rate 100 H 01/29/18 17:40 Respiratory Rate 24 01/29/18 17:40 Blood Pressure 128/66 01/29/18 17:40 Pulse Oximetry 100 01/29/18 17:40 Const General: well developed, acute distress and disheveled Nutritional Appearance: well nourished Orientation: alert, awake, oriented x3 and not confused HENKY Head: normocephalic and atraumatic Ears: external ears normal and TM's normal bilaterally Nose: external nose normal and No nasal discharge Face and sinus: sinuses nontender, face symmetric, no sinus tenderness and No dry mucous membranes Mouth: oral mucosae normal, moist mucous membranes and malodorous breath Teeth and gingiva: poor dentition Throat: tonsils normal and uvula midline Eyes General: appearance normal, both eyes and all related structures Eyelids: eyelids normal Conjunctivae: conjunctivae normal Sclera: sclerae normal Pupils: PERRL EOM: EOM intact bilaterally Neck Neck: normal visual inspection, trachea midline, No lymphadenopathy, No midline deformity and No JVD Lymphatic: No lymphedema Chest Chest: normal inspection of the chest Resp Effort & Inspection: normal respiratory effort, able to speak in complete sentences, no respiratory distress and no use of accessory muscles Auscultation: clear to auscultation bilaterally, no rales, no rhonchi and no wheezes Cardio Rate: regular rate Rhythm: regular rhythm Heart Sounds: no click, no gallops, no murmurs and no rubs Pulses: normal peripheral pulses GI Inspection: non-distended Palpation: soft, no hepatosplenomegaly, No guarding, No pulsatile mass and No tender Auscultation: normal bowel sounds Back/Spine/Pelvis Back: No CVA tenderness Cervical Spine: cervical ROM normal and No pain with cervical ROM Thoracic/Lumbar Spine: thoracic and lumbar spine normal to inspection Skin General: no rashes or lesions noted, No jaundice and No petechiae Trauma: no lacerations or abrasions Other: multiple purple/red bruises on left side Neuro General: alert, oriented x3, gait normal and no focal motor deficits Speech: speech normal Gait: normal gait Extrem General: full ROM, no clubbing, cyanosis or edema, no pedal edema and no calf tenderness Psych Appearance: well kempt Mental Status: mental status grossly normal Attitude: cooperative Thought Content: normal and suicidality Judgment: judgment good Procedures Intubation Time out performed: Yes sedative: Ketamine Mg Given: 85 paralytic: Rocuronium Mg Given: 85 Laryngoscope: other (GlideScope) ET Tube Size: 7.5 ET Tube Uncuffed: No Tube Secured Depth (cm): 24 Tube Secured Location: lips Tube Placement Confirmation: Visualized tube passing through cords, Equal breath sounds bilaterally, No breath sounds over epigastrium, Confirmation by capnometry and Chest Xray Patient Tolerated Procedure: Well Intubation Complications: none Course Additional Information: [place] for Alcohol Withdrawal from [employer] on 01/29/2018 All calculations should be rechecked by clinician prior to use RESULT SUMMARY: 21 points Patients with scores ?20 frequently require medication for withdrawal, and may also require admission to the ICU for observation for seizures or development of delirium tremens, and more frequent medication dosing. INPUTS: Nausea/vomiting ?> 3 = (More severe symptoms) Tremor ?> 2 = (More severe symptoms) Paroxysmal sweats ?> 2 = (More severe symptoms) Anxiety ?> 2 = (More severe symptoms) Agitation ?> 2 = (More severe symptoms) Tactile disturbances ?> 2 = Mild itching, pin and needles, burning, or numbness Auditory disturbances ?> 2 = Mild harshness or ability or frighten Visual disturbances ?> 2 = Mild sensitivity Headache/fullness in head ?> 3 = Moderate Orientation/clouding of sensorium ?> 1 = Can't do serial additions or is uncertain about date Orders Ordered: ED Orders 01/29/18 20:07 CT head/brain wo con Stat 01/29/18 20:10 Complete Blood Count AUTO DIFF Stat Comprehensive Metabolic Panel Stat Ethanol (ETOH) Stat Hepatic (Liver) Panel Stat Lipase Stat Magnesium Stat 01/29/18 20:55 Urinalysis and Microscopic Stat Urine Drug Screen, Rapid Stat 01/29/18 22:45 XR chest 1V Stat 01/29/18 22:46 Type and Screen Stat Discontinued Medications Fentanyl (Sublimaze) 100 mcg IV NOW ONE Stop: 01/29/18 23:40 Last Admin: 01/29/18 23:44 Dose: 100 mcg Sodium Chloride (Normal Saline 0.9%) 1,000 mls @ 1,000 mls/hr IV BOLUS ONE Stop: 01/29/18 21:05 Last Admin: 01/29/18 20:15 Dose: 1,000 mls/hr Thiamine HCl 100 mg/ Dextrose 51 mls @ 204 mls/hr IV NOW ONE Stop: 01/29/18 20:07 Last Infusion: 01/29/18 21:25 Dose: 0 mls/hr Admin: 01/29/18 21:03 Dose: 204 mls/hr Levetiracetam 1,000 mg/ Sodium (Chloride) 110 mls @ 440 mls/hr IV NOW ONE Stop: 01/29/18 22:34 Last Infusion: 01/29/18 23:57 Dose: 0 mls/hr Admin: 01/29/18 23:44 Dose: 440 mls/hr Propofol (Propofol) 1,000 mg in 100 mls @ 2.572 mls/hr IV TITRATE GREER; Protocol Last Titration: 01/30/18 01:17 Dose: 0 mcg/kg/min, 0 mls/hr Admin: 01/29/18 22:55 Dose: 20 mcg/kg/min, 10.287 mls/hr Ketamine HCl (Ketalar) 85 mg 1 mg/kg (85 mg) IV NOW ONE Stop: 01/29/18 23:40 Last Admin: 01/29/18 23:44 Dose: 85 mg Lorazepam (Ativan) 1 mg IV NOW ONE Stop: 01/29/18 20:08 Last Admin: 01/29/18 20:11 Dose: Lorazepam (Ativan) 2 mg IV NOW ONE Stop: 01/29/18 20:07 Last Admin: 01/29/18 20:09 Dose: 2 mg Lorazepam (Ativan) 2 mg IV NOW ONE Stop: 01/29/18 21:47 Last Admin: 01/29/18 23:04 Dose: 2 mg Propofol (Diprivan) 100 mg IV NOW ONE Stop: 01/30/18 01:31 Last Admin: 01/30/18 01:32 Dose: 100 mg Rocuronium Xenia (Zemuron) 85 mg IV NOW ONE Stop: 01/30/18 00:02 Last Admin: 01/30/18 01:13 Dose: 85 mg Vital Signs - 8 hr 01/29/18 21:01 01/29/18 22:15 01/29/18 22:17 Temperature Pulse Rate 84 89 154 H Respiratory Rate 20 18 8 L Blood Pressure Blood Pressure [Left Arm] 130/62 128/68 128/65 Pulse Oximetry 100 99 100 01/29/18 22:30 01/29/18 22:44 01/29/18 22:45 Temperature Pulse Rate 135 H 124 H 122 H Respiratory Rate 18 25 H 25 H Blood Pressure Blood Pressure [Left Arm] 161/95 H 149/93 H 146/86 H Pulse Oximetry 100 100 100 01/29/18 23:13 01/29/18 23:30 01/29/18 23:45 Temperature Pulse Rate 114 H 114 H 87 Respiratory Rate 25 H 25 H 25 H Blood Pressure Blood Pressure [Left Arm] 113/63 139/93 H 93/49 L Pulse Oximetry 100 100 100 01/29/18 23:58 01/30/18 00:00 01/30/18 00:15 Temperature 98.0 F Pulse Rate 88 89 85 Respiratory Rate 25 H 25 H 25 H Blood Pressure 101/58 L Blood Pressure [Left Arm] 94/56 L 102/53 L Pulse Oximetry 100 100 01/30/18 01:00 01/30/18 01:15 01/30/18 01:28 Temperature Pulse Rate 156 H 108 H 79 Respiratory Rate 25 H 25 H 25 H Blood Pressure Blood Pressure [Left Arm] 171/92 H 113/63 88/51 L Pulse Oximetry 100 100 100 MDM - Alcohol Differential Diagnosis Differential diagnosis: Likely alcohol withdrawal delirium, alcohol withdrawal syndrome and alcohol withdrawal seizure Medical Records Attestation: I reviewed the patient's medical records. Lab Data Attestation: I reviewed the patient's lab results. Result diagrams: 01/29/18 20:10 01/29/18 20:10 Labs: Lab Results 01/29/18 01/29/18 01/29/18 Range/Units 20:10 20:10 20:55 WBC 5.8 (4.5-11.0) X10^3/uL RBC 2.76 L (4.5-5.9) X10^6/uL Hgb 8.5 L (13.5-17.5) g/dL Hct 25.1 L (41-53) % MCV 90.7 (80-100) fL MCH 30.7 (26-34) PG MCHC 33.8 (30-36) % RDW 30.7 H (11.6-14.8) % Plt Count 52 L (150-400) X10^3/uL Neut % (Auto) 54.9 (50-75) % Lymph % (Auto) 28.5 (25-40) % [place] % (Auto) 12.9 (3-14) % Eos % (Auto) 2.9 (2-4) % Baso % (Auto) 0.8 (0-2) % Neut # (Auto) 3200 (5805-8826) /uL Platelet Estimate Decreased on smear RBC Morphology See below Dimorphic RBCs 2+ Polychromasia 1+ H Hypochromasia 1+ H Microcytosis 1+ H Macrocytosis 2+ H Sodium 139 (137-145) mmol/L Potassium 3.5 (3.4-5.1) mmol/L Chloride 102 (98-107) mmol/L Carbon Dioxide 29 (22-32) mmol/L BUN 12 (9-20) mg/dL Creatinine 0.60 L (0.66-1.25) mg/dL Estimated GFR > 60.0 (>60) mL/min BUN/Creatinine Ratio 20.0 (6-22) Glucose 103 H (70-100) mg/dL Calcium 8.3 L (8.4-10.2) mg/dL Magnesium 1.8 (1.6-2.3) mg/dL Total Bilirubin 1.8 H (0.2-1.3) mg/dL Conjugated Bilirubin 0.0 (0.0-0.3) md/dL Unconjugated Bilirubin 0.9 (0.0-1.1) mg/dL AST 282 H (17-59) IU/L ALT 121 H (21-72) IU/L Alkaline Phosphatase 112 (38-126) U/L Total Protein 7.1 (6.3-8.2) g/dL Albumin 3.2 L (3.5-5.0) g/dL Globulin 3.9 (1.7-4.1) g/dL Albumin/Globulin Ratio 0.8 L (1.0-2.8) Lipase 251 (23-300) U/L Urine Color Urine Appearance Urine pH (4.5-8.0) Ur Specific [place] (1.000-1.035) Urine Protein (Negative) Urine Glucose (UA) (Normal) g/dL Urine Ketones (NEGATIVE) Urine Occult Blood (Negative) Urine Nitrate (Negative) Urine Bilirubin (NEGATIVE) Urine Urobilinogen (0.2) E.U./dL Ur Leukocyte Esterase (NEGATIVE) Urine RBC (0-5/HPF) Urine WBC (0-5/HPF) Urine Bacteria (None) Ur Culture Indicated? Micro UA Comment Urine Opiates Screen Negative (Negative) Ur Oxycodone Screen Negative (Negative) Urine Methadone Screen Negative (Negative) Ur Barbiturates Screen Negative (Negative) U Tricyclic Antidepress Negative (Negative) Ur Phencyclidine Scrn Negative (Negative) Ur Amphetamines Screen Negative (Negative) U Methamphetamines Scrn Negative (Negative) Ur MDMA Scrn (Ecstasy) Negative (Negative) U Benzodiazepines Scrn Positive H (Negative) Urine Cocaine Screen Negative (Negative) U Marijuana (THC) Screen Positive H (Negative) Ethyl Alcohol < 10 mg/dL Blood Type Antibody Screen 01/29/18 01/29/18 Range/Units 20:55 22:46 WBC (4.5-11.0) X10^3/uL RBC (4.5-5.9) X10^6/uL Hgb (13.5-17.5) g/dL Hct (41-53) % MCV (80-100) fL MCH (26-34) PG MCHC (30-36) % RDW (11.6-14.8) % Plt Count (150-400) X10^3/uL Neut % (Auto) (50-75) % Lymph % (Auto) (25-40) % [place] % (Auto) (3-14) % Eos % (Auto) (2-4) % Baso % (Auto) (0-2) % Neut # (Auto) (7566-8810) /uL Platelet Estimate RBC Morphology Dimorphic RBCs Polychromasia Hypochromasia Microcytosis Macrocytosis Sodium (137-145) mmol/L Potassium (3.4-5.1) mmol/L Chloride (98-107) mmol/L Carbon Dioxide (22-32) mmol/L BUN (9-20) mg/dL Creatinine (0.66-1.25) mg/dL Estimated GFR (>60) mL/min BUN/Creatinine Ratio (6-22) Glucose (70-100) mg/dL Calcium (8.4-10.2) mg/dL Magnesium (1.6-2.3) mg/dL Total Bilirubin (0.2-1.3) mg/dL Conjugated Bilirubin (0.0-0.3) md/dL Unconjugated Bilirubin (0.0-1.1) mg/dL AST (17-59) IU/L ALT (21-72) IU/L Alkaline Phosphatase (38-126) U/L Total Protein (6.3-8.2) g/dL Albumin (3.5-5.0) g/dL Globulin (1.7-4.1) g/dL Albumin/Globulin Ratio (1.0-2.8) Lipase (23-300) U/L Urine Color Yellow Urine Appearance Clear Urine pH 6.0 (4.5-8.0) Ur Specific [place] 1.010 (1.000-1.035) Urine Protein Negative (Negative) Urine Glucose (UA) Negative (Normal) g/dL Urine Ketones Negative (NEGATIVE) Urine Occult Blood Negative (Negative) Urine Nitrate Negative (Negative) Urine Bilirubin Negative (NEGATIVE) Urine Urobilinogen >=8.0 (0.2) E.U./dL Ur Leukocyte Esterase Negative (NEGATIVE) Urine RBC None seen (0-5/HPF) Urine WBC 0-1/hpf (0-5/HPF) Urine Bacteria None seen (None) Ur Culture Indicated? Cult not indicated Micro UA Comment Not Reportable Urine Opiates Screen (Negative) Ur Oxycodone Screen (Negative) Urine Methadone Screen (Negative) Ur Barbiturates Screen (Negative) U Tricyclic Antidepress (Negative) Ur Phencyclidine Scrn (Negative) Ur Amphetamines Screen (Negative) U Methamphetamines Scrn (Negative) Ur MDMA Scrn (Ecstasy) (Negative) U Benzodiazepines Scrn (Negative) Urine Cocaine Screen (Negative) U Marijuana (THC) Screen (Negative) Ethyl Alcohol mg/dL Blood Type A Positive Antibody Screen Negative Imaging Data CT scan - head: Radiologist's impression: [address] [address] [address] Scan Report Signed Patient: Geovani Melendez [facility]#: [id number] : 1975Acct:[id number] Age/Sex: 42 / MDate of Service: 01/29/18 Loc: ED Accession Number: [id number] Procedure: CT head/brain wo con Ordering Provider: Cade Quintana D.O. PROCEDURE: CT HEAD/BRAIN WO CON INDICATIONS: recent seizure with head injury, hx of recent intracranial TECHNIQUE: Noncontrast 4.5 mm thick angled axial sections acquired from the foramen magnum to the vertex, with coronal and sagittal reformats. For radiation dose reduction, the following was used: automated exposure control, adjustment of mA and/or kV according to patient size. COMPARISON: [facility], CT, CT HEAD/BRAIN WO CON, 01/03/2018, 7:30. FINDINGS: Image quality: Excellent. CSF spaces: Basal cisterns are patent. No extra-axial fluid collections. Ventricles are normal in size and shape. Brain: Compared to previous study, there is interval development of 8 mm hyperdense area involving the high right frontoparietal region near vertex with moderate amount of surrounding vasogenic edema suggestive of acute intraparenchymal hemorrhage in this region. There is hypodensity involving right temporal lobe within right middle cranial fossa with ill-defined areas of hyperdensity suggestive of acute to subacute hematoma in this area with surrounding vasogenic edema. There is no midline shift. Geller-white matter interface is normal. Skull and face: Calvarium and visualized facial bones are intact, without suspicious lesions. Sinuses: Visualized sinuses and mastoids are clear. IMPRESSION: 1. Interval development of acute appearing intraparenchymal hematoma involving superior right frontal parietal region with moderate amount of surrounding vasogenic edema. 2. Acute to subacute appearing hematoma involving posterior lateral aspect of right temporal lobe with moderate amount of surrounding vasogenic edema. 3. Previously described extra-axial blood in anterior left temporal lobe and along right frontoparietal region are no longer seen. 4. There is no midline shift. No gross intraventricular hemorrhage. Dictated by: Miguel Beauchamp M.D. on 01/29/2018 at 20:58 Approved by: Miguel Beauchamp M.D. on 01/29/2018 at 21:06 MDM Narrative Medical decision making narrative: patient denies injury. He states he fell a few days ago, he admits to seizure which is not uncommon for him during withdrawal. During visit he becomes increasingly agitated. Requires multiple doses of ativan and continues to be hard to control. CIWA 21. Head CT notes new bleed. Unclear if increasing agitation is due to bleed or withdrawal, though 5 days into drinking cessation would suggest perhaps the bleed is contributing. Decision to intubate made due to need to control airway and safely transport patient. Discussion at bedside with significant other, she understands. [facility] unable to fly due to fog. [facility] available in just over an hour. Ongoing sedation with Propofol and occasional fentanyl Discharge Plan Departure Patient Disposition: [facility] Clinical Impression: Intraparenchymal hematoma of brain Discharge Date/Time: 01/30/18 00:45 Interventions: ED Discharge Assessment Last Done: 01/30/18 00:45 Prescriptions: No Action ferrous sulfate 324 mg (65 mg iron) tablet,delayed release (DR/EC) 324 mg PO DAILY RF: 0 melatonin 3 mg tablet 6 mg PO BEDTIME PRNRF: 0 prenat.vits,abdoulaye,bep-nhgq-stirj tablet 1 tab PO DAILY RF: 0 ocular lubricant preserved opthalmic solution 1 drop ophthalmic (eye) .COMPLEX RF: 0 pantoprazole 20 mg tablet,delayed release (DR/EC) 40 mg PO Q12H RF: 0 acetaminophen 500 mg capsule 500 mg PO Q6H PRNRF: 0 polyethylene glycol 3350 17 gram powder in packet 17 gram PO DAILY RF: 0 sennosides [Senna Lax] 8.6 mg tablet 17.2 mg PO DAILY PRNRF: 0 trazodone 100 mg tablet 100 mg PO .COMPLEX RF: 0 tramadol 50 mg tablet 100 mg PO QID PRN (Reason: pain) 21 Days Qty: 168 RF: 0
[2018-01-29 20:16] LABS: Add Manual Diff / Slide Review NO; Basophils Percent Auto 0.8 % (0-2); Eosinophils Percent Auto 2.9 % (2-4); Hematocrit 25.1 % (41-53); Hemoglobin 8.5 g/dL (13.5-17.5); Lymphocytes Percent Auto 28.5 % (25-40); Mean Corpuscular HGB Conc 33.8 % (30-36); Mean Corpuscular Hemoglobin 30.7 PG (26-34); Mean Corpuscular Volume 90.7 fL (80-100); Monocytes Percent Auto 12.9 % (3-14); Neutrophils Absolute Auto 3200 /uL (3000-5900); Neutrophils Percent Auto 54.9 % (50-75); Platelet Count 52 X10^3/uL (150-400); Red Blood Cell Count 2.76 X10^6/uL (4.5-5.9); Red Cell Distribution Width 30.7 % (11.6-14.8); White Blood Cell Count 5.8 X10^3/uL (4.5-11.0)
[2018-01-29 20:34] LABS: Alanine Aminotransferase 121 IU/L (21-72); Albumin 3.2 g/dL (3.5-5.0); Albumin Globulin Ratio 0.8 (1.0-2.8); Alkaline Phosphatase 112 U/L (38-126); Aspartate Aminotransferase 282 IU/L (17-59); Bilirubin Total 1.8 mg/dL (0.2-1.3); Bilirubin Unconjugated 0.9 mg/dL (0.0-1.1); Blood Urea Nitrogen 12 mg/dL (9-20); Calcium 8.3 mg/dL (8.4-10.2); Carbon Dioxide 29 mmol/L (22-32); Chloride 102 mmol/L (98-107); Estimated Glomerular Filt Rate > 60.0 mL/min (>60); Ethanol (ETOH) < 10 mg/dL; Globulin 3.9 g/dL (1.7-4.1); Glucose 103 mg/dL (70-100); HEMOLYSIS < 15 (0-50); Lipase 251 U/L (23-300); Magnesium 1.8 mg/dL (1.6-2.3); Potassium 3.5 mmol/L (3.4-5.1); Sodium 139 mmol/L (137-145); Total Protein 7.1 g/dL (6.3-8.2)
[2018-01-29 20:35] LABS: Dimorphic RBC 2+; Hypochromasia 1+; Macrocytosis 2+; Microcytosis 1+; Platelet Estimate Decreased on smear; Polychromasia 1+
[2018-01-29 21:03] LABS: Bacteria Urine None Seen; RBC Urine None Seen (0-5/HPF)
[2018-01-29] MEDS: THIAMINE 100 MG in DEXTROSE 5 % IN WATER 50 ML 204 ML IV (21:03)
[2018-01-29 21:09] LABS: Urine Amphetamines Negative (Negative); Urine Barbiturates Negative (Negative); Urine Benzodiazepines Positive (Negative); Urine Cocaine Negative (Negative); Urine MDMA Negative (Negative); Urine Methadone Negative (Negative); Urine Methamphetamines Negative (Negative); Urine Morphine/Opi cutoff 2000 Negative (Negative); Urine Oxycodone Negative (Negative); Urine Phencyclidine Negative (Negative); Urine Tetrahydrocannabinol Positive (Negative); Urine Tricyclic Antidepressant Negative (Negative)
[2018-01-29 21:11] LABS: Appearance Urine UA CLEAR; Bilirubin Urine UA NEGATIVE (NEGATIVE); Color Urine UA YELLOW; Glucose Urine UA NEGATIVE (Normal); Ketones Urine UA NEGATIVE (NEGATIVE); Leukocyte Esterase Urine UA NEGATIVE (NEGATIVE); Nitrite Urine UA NEGATIVE (Negative); Occult Blood Urine UA NEGATIVE (Negative); Protein Urine UA NEGATIVE (Negative); Urobilinogen Urine UA >=8.0 E.U./dL (0.2)
[2018-01-29 21:16] LABS: Culture Indicated Urine Cult Not Indicated; WBC Urine 0-1/HPF (0-5/HPF)
--- NOTE | 2018-01-29 22:45 | DI.RAD.S_ITS ---
PROCEDURE: XR CHEST 1V INDICATIONS: tube placement TECHNIQUE: One view of the chest was acquired. COMPARISON: None. FINDINGS: Surgical changes and devices: Endotracheal and esophagogastric tubes in normal position. Lungs and pleura: No pleural effusions or pneumothorax. Lungs are clear. Mediastinum: Mediastinal contours appear normal. Heart size is normal. Bones and chest wall: No suspicious bony lesions. Overlying soft tissues appear unremarkable. IMPRESSION: Mildly reduced inspiratory volume. Endotracheal and esophagogastric tube positioning normal. Dictated by: Shukri Huntley M.D. on 01/30/2018 at 8:09 Approved by: Shukri Huntley M.D. on 01/30/2018 at 8:09
[2018-01-29] MEDS: PROPOFOL 1,000 MG/100 ML VIAL 10.287 MG IV (22:55)
--- NOTE | 2018-01-29 23:16 | PC.NURSE ---
Addendum entered by Jared Ross R.N. 01/29/18 23:27: entry 2199 100 mcg Fentanyl IVP should read 2250 100 mcg Fentanyl IVP Original Note: 2199 pt moved into room 2 in preperation for intubation. 2206 85mg ketamine, RAC IPV by Buzz POZO. 2208 85mg Aleksey, RAC IVP by Buzz POZO 2211 Intubated by CURJ, 7.5 tube at 24 at teeth. Bilat lung sounds present. tube secured. RT set up vent [address] by this nurse in LAC, secured with tegaderm and tape, Patent. 2229 Greene placed, 16fr, 10ml baloon, placed by this nurse. 2234 14fr [place] sump og tube placed by this nurse, 100ml bile collected in canister, tube secured to ET tube. 0 100mcg Fentanyl IVP RAC by his nurse. 2300 50mg propafol bolus and infusion set at 20ml/hr LAC
[2018-01-29] MEDS: levETIRAcetam 1,000 MG in SODIUM CHLORIDE 0.9% 100 ML 440 ML IV (23:44)
[2018-01-29] MEDS: KETAMINE 500 MG/5 ML INJ 85 MG IV (23:44)
[2018-01-29] MEDS: fentaNYL 100 MCG/2 ML INJ IV (23:44)
[2018-01-30] VITALS: BP 94/56; PULSE 89; RESP 25; O2SAT 100
[2018-01-30 00:15] VITALS: BP 102/53; PULSE 85; RESP 25; O2SAT 100
[2018-01-30 01:00] VITALS: BP 171/92; PULSE 156; RESP 25; O2SAT 100
[2018-01-30] MEDS: ROCURONIUM 50 MG/5 ML VIAL 85 MG IV (01:13)
[2018-01-30 01:15] VITALS: BP 113/63; PULSE 108; RESP 25; O2SAT 100
--- NOTE | 2018-01-30 01:18 | PC.NURSE ---
propofol continued in transort to [facility]
[2018-01-30 01:28] VITALS: BP 88/51; PULSE 79; RESP 25; O2SAT 100
--- NOTE | 2018-01-30 01:29 | PC.NURSE ---
FFP would not scan. NADIA verbally stopped order, did not want to delay transfer
[2018-01-30] MEDS: PROPOFOL 200 MG/20 ML VIAL 100 MG IV (01:32)
--- NOTE | 2018-01-30 01:33 | PC.NURSE ---
Radiology report came back with intraarenchymal hemmorage. Pt moved to rm 2 and intubated using Aleksey and Ketamine. Jane Houser CURJ and this nurse present for intubation. Propofol hung for sedation and fentanyl given for ain controll. Pt arms restrained with soft restraints to prevent pulling at tubes. Greene placed with 350 output. Ng placed. Xray confirmed tube placment. Keppra given. Transport arrived and pt moved to [facility] stretcher, monitors, IV pump and vent.
== END 2018-01-30 00:45 | disposition short-term general hospital (02) ==
PROVIDERS: Emergency Provider Emergency Medicine
DX: S06.360A Traumatic hemorrhage of cerebrum, unspecified, without loss of consciousness, initial encounter (principal); W19.XXXA Unspecified fall, initial encounter
CPT/HCPCS: 31500; 36415; 36591; 70450; 71045; 80053; 80076; 80305; 80320; 81001; 83690; 83735; 85025; 86850; 86900; 86901; 86927; 94002; 94799; 96361; 96365; 96366; 96375; 96376; 99285; 99291; 99292; J1953; J2060; J2704; J3010

== ENCOUNTER 2018-11-03 19:40 | Emergency (ER) | payer OTHER, MEDICAID, SELFPAY ==
[2017-11-20 13:53] VITALS: BMI 27.4
[2018-01-29 22:44] VITALS: PULSE 129; RESP 25; O2SAT 100
[2018-11-03 19:40] VITALS: BP 135/69; PULSE 122; RESP 17; TEMP 37.1; O2SAT 97; BMI 33.7
--- NOTE | 2018-11-03 19:45 | ED_ITS ---
HPI - Seizure General Chief Complaint: Seizure Stated Complaint: Seizure Time Seen by Provider: 11/03/18 19:42 Source: patient and EMS Mode of arrival: EMS Limitations: no limitations History of Present Illness HPI Narrative: Patient is a 42-year-old male brought in by EMS after it was reported that he had a seizure at the dog park here in [facility]. When EMS arrived they stated that he was confused and postictal becoming somewhat agitated. He was having some midline neck tenderness so he was placed in a cervical collar. EMS reports that he told them that he has had seizures in the past. Related Data Home Medications Medication Instructions Recorded Confirmed acetaminophen 500 mg capsule 500 mg PO Q6H PRN 01/15/18 01/15/18 ferrous sulfate 324 mg (65 mg 324 mg PO DAILY tab 01/15/18 01/15/18 iron) tablet,delayed release melatonin 3 mg tablet 6 mg PO BEDTIME PRN tab 01/15/18 01/15/18 ocular lubricant preserved 1 drop OPHTHALMIC (EYE) .COMPLEX 01/15/18 01/15/18 opthalmic solution pantoprazole 20 mg tablet,delayed 40 mg PO Q12H tab 01/15/18 release polyethylene glycol 3350 17 gram 17 gram PO DAILY 01/15/18 01/15/18 oral powder packet 1 tab PO DAILY 01/15/18 01/15/18 vitamin,calcium,ngoxiizf-nhkq-artif acid tablet sennosides 8.6 mg tablet 17.2 mg PO DAILY PRN tab 01/15/18 01/15/18 trazodone 100 mg tablet 100 mg PO .COMPLEX 01/15/18 01/15/18 Allergies Allergy/AdvReac Type Severity Reaction Status Date / Time No Known Drug Allergies Allergy Verified 11/03/18 19:51 Review of Systems Constitutional Denies fever(s) and Denies headache(s) Eyes Denies blurry vision and Denies change in vision ENT Ears, Nose, Mouth, and Throat: Denies vertigo, Denies dizziness, Denies headache(s) and Denies disequilibrium Cardiovascular Denies chest pain, Denies syncope and Denies dyspnea Respiratory Denies dyspnea Gastrointestinal Gastrointestinal: Denies abdominal pain Musculoskeletal Denies myalgias and Denies arthralgias Integumentary/Breasts Comments: Abrasions to the left knee Neurologic Denies vertigo, Denies dizziness, Denies syncope, Denies headache(s), Reports seizure-like activity, Denies paresthesias and Denies disequilibrium Hematologic/Lymphatic Denies easy bleeding and Denies easy bruising FOR[facility]LY [facility] Medical History Alcoholism (Chronic) Anemia (Chronic) GI bleeding (Chronic 2018) Hepatitis C (Chronic 2018) Liver disease (Chronic 2018) Seizures (Chronic 2017) Substance abuse (Chronic) Chicken pox (Resolved 1983) Fractures (Resolved) Surgical History (Updated 03/19/18 @ 13:28 by Marce Davies) No pertinent past surgical history (Resolved) Family History (Updated 03/19/18 @ 13:25 by Marce Davies) Father Heart attack Mother Mental health problem Grandfather Stomach cancer Grandmother GI bleed Social History household members: significant other, family, children and other Smoking Status: Current every day smoker alcohol intake: former Social History household members: significant other, family, children and other Smoking Status: Current every day smoker alcohol intake: former Exam Initial Vital Signs Initial Vital Signs: Vital Signs Temperature 98.7 F 11/03/18 19:40 Pulse Rate 122 H 11/03/18 19:40 Respiratory Rate 17 11/03/18 19:40 Blood Pressure 135/69 11/03/18 19:40 Pulse Oximetry 97 11/03/18 19:40 Const General: cooperative, comfortable, well developed, well groomed and No acute distress Orientation: alert, awake and oriented x3 HENMT Head: normal to inspection and normocephalic Ears: hearing grossly normal bilaterally Face and sinus: normal facial exam Eyes Pupils: PERRL Resp Effort & Inspection: normal respiratory effort Auscultation: clear to auscultation bilaterally Cardio Rate: tachycardic Rhythm: regular rhythm Pulses: radial pulses present Back/Spine/Pelvis Cervical Spine: No cervical spinal tenderness and No step off deformity Thoracic/Lumbar Spine: No thoraco-lumbar spasm and No thoracic spinal tenderness Skin Other: Superficial abrasion to the left anterior knee Neuro General: alert, awake and oriented x3 Cranial Nerves: CN's II-XI intact bilaterally Cognition: normal cognition Speech: speech normal Gait: normal gait Motor: muscle tone normal throughout Sensory Exam: no sensory deficits noted Extrem General: normal to inspection and capillary refill normal Psych Appearance: grossly normal and well kempt Scores GCS [place] coma scale eye opening: Spontaneous [place] coma scale verbal response: Orientated [place] coma scale motor response: Obey commands [place] coma scale total score: 15 Nexus Score for C-Spine Focal Neurologic deficit present: No Midline spinal tenderness present: No Altered level of conciousness present: No Intoxication present: No Distracting Injury Present: No Nexus Criteria for C-spine: 0 Course Vital Signs - 8 hr 11/03/18 19:40 11/03/18 20:41 Temperature 98.7 F Pulse Rate 122 H 92 H Respiratory Rate 17 11 L Blood Pressure 135/69 Blood Pressure [Right Arm] 137/70 Pulse Oximetry 97 99 MDM - Seizure MDM Narrative Medical decision making narrative: Patient was alert and oriented x3 upon arrival here to the emergency department. His cervical collar was removed after he was cleared by nexus criteria. Review the patient's chart does appear that he potentially has had seizures in the past but it looks like they were attributed to alcohol withdrawal. Patient stated that he was never started on anti seizure medications. Does appear that he has had a intracerebral hemorrhage in the past. Here in the emergency department patient was A&O x3. GCS of 15. Had a normal neurologic exam. Was not clinically intoxicated. He stated that he has not drank alcohol in ?months ?is afebrile. Heart rate improved here in the ER. No other signs of toxic ingestions. Given his normal exam will hold on any radiologic studies for now. He was observed here in the emergency department for period of time without any return of seizure activity. His heart rate did improve. He was instructed that he cannot drive until he is cleared by his primary doctor or neurology. He was given a phone number to establish a primary provider here in the area. Will hold on any anti seizure medications for now. It appears and all of his prior seizures have been associated with alcohol withdrawal. This appears to be his 1st seizure not associated with alcohol. He was given return precautions and follow-up instructions. He expressed understanding and agreement with plan. Discharge Plan Departure Patient Disposition: Home Clinical Impression: Seizure Discharge Date/Time: 11/03/18 22:02 Interventions: ED Discharge Assessment Last Done: 11/03/18 22:01 Instructions: DI for Seizure Disorder -- Adult Activity Restrictions/Additional Instructions: I recommend that you continue to abstain from alcohol. Your not allowed to drive into your cleared by your primary provider or a neurologist. On Monday contact [phone]. This is the health corporate director of human resources here at the hospital who will help you establishing a primary provider. Return to the emergency department for any new or worsening symptoms Prescriptions: No Action ferrous sulfate 324 mg (65 mg iron) tablet,delayed release (DR/EC) 324 mg PO DAILY RF: 0 melatonin 3 mg tablet 6 mg PO BEDTIME PRNRF: 0 prenat.vits,abdoulaye,sio-pozn-ajkca tablet 1 tab PO DAILY RF: 0 ocular lubricant preserved opthalmic solution 1 drop ophthalmic (eye) .COMPLEX RF: 0 pantoprazole 20 mg tablet,delayed release (DR/EC) 40 mg PO Q12H RF: 0 acetaminophen 500 mg capsule 500 mg PO Q6H PRNRF: 0 polyethylene glycol 3350 17 gram powder in packet 17 gram PO DAILY RF: 0 sennosides [Senna Lax] 8.6 mg tablet 17.2 mg PO DAILY PRNRF: 0 trazodone 100 mg tablet 100 mg PO .COMPLEX RF: 0
[2018-11-03 20:41] VITALS: BP 137/70; PULSE 92; RESP 11; O2SAT 99
== END 2018-11-03 22:02 | disposition home or self-care (01) ==
PROVIDERS: Emergency Provider Emergency Medicine
DX: R56.9 Unspecified convulsions (principal)
CPT/HCPCS: 36591; 99282

== ENCOUNTER 2019-06-18 22:27 | Emergency (ER) | payer OTHER, MEDICAID, SELFPAY ==
[2017-11-20 13:53] VITALS: BMI 27.4
[2018-01-29 22:44] VITALS: PULSE 129; RESP 25; O2SAT 100
[2019-06-18 22:27] VITALS: BP 107/59; PULSE 115; RESP 18; TEMP 37.6; O2SAT 94; BMI 29.7
--- NOTE | 2019-06-18 22:30 | DI.CT.S_ITS ---
PROCEDURE: CT HEAD/BRAIN WO CON INDICATIONS: seizure activity, etoh use. TECHNIQUE: Noncontrast 4.5 mm thick angled axial sections acquired from the foramen magnum to the vertex, with coronal and sagittal reformats. For radiation dose reduction, the following was used: automated exposure control, adjustment of mA and/or kV according to patient size. COMPARISON: [facility], CT, CT HEAD/BRAIN WO CON, 01/29/2018, 20:26. [facility], CT, CT HEAD/BRAIN WO CON, 01/03/2018, 7:30. FINDINGS: Image quality: Excellent. CSF spaces: Basal cisterns are patent. No extra-axial fluid collections. Ventricles are normal in size and shape. Brain: No midline shift. No intracranial masses or hemorrhage. Geller-white matter interface is normal. Skull and face: Calvarium and visualized facial bones are intact, without suspicious lesions. Sinuses: Mild right maxillary sinus mucosal thickening. The mastoids are clear. IMPRESSION: 1. No acute intracranial abnormalities. No significant discrepancy with the shift production supervisor radiology preliminary report. Dictated by: Isabela Nunez M.D. on 06/19/2019 at 7:14 Approved by: Isabela Nunez M.D. on 06/19/2019 at 7:16
--- NOTE | 2019-06-18 22:30 | ED.SEIZURE ---
HPI - Seizure General Chief Complaint: Seizure Stated Complaint: seizure Time Seen by Provider: 06/18/19 22:30 Source: patient and EMS Mode of arrival: EMS Limitations: no limitations History of Present Illness HPI Narrative: This is a 43-year-old male who is brought to the emergency department via EMS. Patient was brought in for seizure activity which was witnessed by patient's she witnessed about 20-30 seconds of tonic-clonic activity. The patient has a known seizure disorder. He also has a history of alcohol use, patient denies any recent alcohol use but his told EMS that he had been drinking at least up until yesterday. She did not know feet any alcohol today. Patient alert, appropriate and cooperative here. He does not remember today's events. EMS states that he did have a classic postictal type consciousness which has been improving during their transportation. Patient states he does take a medication he does not remember the name of his seizure medication. He denies taking any other medications regularly. He denies any other current medical issues. He denies any surgeries. He denies any allergies to medications. States he does smoke daily, denies any illicit. At this time he denies any headache, vision changes, no chest pain or shortness of breath, denies any nausea vomiting, no loss of bowel or bladder control. He denies any injuries or pain. He does not believe that he has cut or bit his tongue and does not have any other complaints currently. Related Data Home Medications Medication Instructions Recorded Confirmed acetaminophen 500 mg capsule 500 mg PO Q6H PRN 01/15/18 02/01/19 ferrous sulfate 324 mg (65 mg 324 mg PO DAILY tab 01/15/18 02/01/19 iron) tablet,delayed release melatonin 3 mg tablet 6 mg PO BEDTIME PRN tab 01/15/18 02/01/19 ocular lubricant preserved 1 drop OPHTHALMIC (EYE) .COMPLEX 01/15/18 02/01/19 opthalmic solution pantoprazole 20 mg tablet,delayed 40 mg PO Q12H tab 01/15/18 02/01/19 release polyethylene glycol 3350 17 gram 17 gram PO DAILY 01/15/18 02/01/19 oral powder packet prenat.vits,abdoulaye,yyz-vcjp-wgjdi 1 tab PO DAILY 01/15/18 02/01/19 sennosides 8.6 mg tablet 17.2 mg PO DAILY PRN tab 01/15/18 02/01/19 trazodone 100 mg tablet 100 mg PO .COMPLEX 01/15/18 02/01/19 Allergies Allergy/AdvReac Type Severity Reaction Status Date / Time No Known Drug Allergies Allergy Unverified 06/18/19 22:27 Review of Systems Review of Systems ROS Unobtainable: All systems reviewed & are unremarkable except as noted in HPI and below Patient History Medical History Alcoholism (Chronic) Anemia (Chronic) Chicken pox (Resolved 1983) Fractures (Resolved) GI bleeding (Chronic 2017) Hepatitis C (Chronic 2018) Liver disease (Chronic 2017) Seizures (Chronic 2017) Substance abuse (Chronic) Surgical History No pertinent past surgical history (Resolved) Social History household members: significant other, family, children and other Smoking Status: Current every day smoker alcohol intake: former Smoking Status: Current every day smoker alcohol intake frequency: 3 or more drinks per day Substance Use Type: marijuana Exam Narrative Exam Narrative: GEN: well nourished, well appearing male, alert and oriented x 3, patient appears to be in mild distress. HEENT: Atraumatic, pupils are equal round reactive to light, extraocular movements are intact, nares are clear, TMs are clear with no fluid, there is no conjunctival pallor. Throat is clear without any exudates, erythema, tonsillar enlargement or uvular deviation, no oral lacerations noted. No dental injury. HEART: Regular rate and rhythm without murmur, clicks, rubs. Pulses are equal in upper and lower extremities LUNGS:Lungs clear to auscultation, no wheezes, rales, crackles, chest moves symmetrically, no tachypnea accessory muscle use. ABD:bowel sounds normal, soft, non-tender, no guarding, rebound, rigidity, no masses noted, no hepatosplenomegaly :No CVA tenderness MSCL: Non-tender, no muscle atrophy, muscles strength 5/5 upper and lower extremities, full range of motion. NEURO:CN 2-12 intact, sensation normal, reflexes 2/4 upper and lower extremities SKIN: No rash, no erythema or other skin changes. Initial Vital Signs Initial Vital Signs: Vital Signs Temperature 99.7 F H 06/18/19 22:27 Pulse Rate 115 H 06/18/19 22:27 Respiratory Rate 18 06/18/19 22:27 Blood Pressure 107/59 L 06/18/19 22:27 Pulse Oximetry 94 06/18/19 22:27 Scores GCS [place] coma scale eye opening: Spontaneous [place] coma scale verbal response: Orientated [place] coma scale motor response: Obey commands [place] coma scale total score: 15 Course Orders Ordered: ED Orders 06/18/19 22:15 Basic Metabolic Panel Stat Complete Blood Count AUTO DIFF Stat Ethanol (ETOH) Stat Magnesium Stat Prolactin Stat 06/18/19 22:30 CT head/brain wo con Stat EKG-12 Lead Stat 06/19/19 00:15 Urinalysis and Microscopic Stat Urine Drug Screen, Rapid Stat Discontinued Medications Sodium Chloride (Normal Saline 0.9%) 1,000 mls @ 1,000 mls/hr IV BOLUS ONE Stop: 06/18/19 23:29 Last Infusion: 06/18/19 23:48 Dose: 0 mls/hr Documented by: Admin: 06/18/19 22:39 Dose: 1,000 mls/hr Documented by: SONDRA Vital Signs Vital signs: Vital Signs - 8 hr 06/18/19 22:27 06/18/19 23:50 06/19/19 01:05 Temperature 99.7 F H 99.4 F Pulse Rate 115 H 92 H 92 H Respiratory Rate 18 12 18 Blood Pressure 107/59 L Blood Pressure [Left Arm] 107/59 L 107/59 L Pulse Oximetry 94 96 96 MDM - Seizure Lab Data Attestation: I reviewed the patient's lab results. Result diagrams: 06/18/19 22:15 06/18/19 22:15 Labs: Lab Results 06/18/19 06/18/19 06/19/19 Range/Units 22:15 22:15 00:15 WBC 10.7 (4.5-11.0) X10^3/uL RBC 4.69 (4.5-5.9) X10^6/uL Hgb 15.7 (13.5-17.5) g/dL Hct 46.2 (41-53) % MCV 98.4 (80-100) fL MCH 33.4 (26-34) PG MCHC 33.9 (30-36) % RDW 15.0 H (11.6-14.8) % Plt Count 127 L (150-400) X10^3/uL Neut % (Auto) 46.9 L (50-75) % Lymph % (Auto) 40.8 H (25-40) % Pepin % (Auto) 9.6 (3-14) % Eos % (Auto) 1.5 L (2-4) % Baso % (Auto) 1.2 (0-2) % Neut # (Auto) 5000 (7893-5953) /uL Lymph # (Auto) 4400 (0969-6932) /uL [place] # (Auto) 1000 H (0-900) /uL Eos # (Auto) 200 (0-450) /uL Baso # (Auto) 100 (0-100) /uL Sodium 139 (137-145) mmol/L Potassium 3.6 (3.4-5.1) mmol/L Chloride 100 (98-107) mmol/L Carbon Dioxide 16 L (22-32) mmol/L BUN 12 (9-20) mg/dL Creatinine 0.73 (0.66-1.25) mg/dL Estimated GFR > 60.0 (>60) mL/min BUN/Creatinine Ratio 16.4 (6-22) Glucose 128 H (70-100) mg/dL Calcium 10.1 (8.4-10.2) mg/dL Magnesium 1.8 (1.6-2.3) mg/dL Prolactin 85.3 H (3.7-17.9) ng/mL Urine Color Yellow Urine Appearance Clear Urine pH 7.0 (4.5-8.0) Ur Specific [place] 1.025 (1.000-1.035) Urine Protein 2+ H (Negative) Urine Glucose (UA) Negative (Negative) g/dL Urine Ketones Trace H (NEGATIVE) Urine Occult Blood Negative (Negative) Urine Nitrate Negative (Negative) Urine Bilirubin Negative (NEGATIVE) Urine Urobilinogen 0.2 (0.2) E.U./dL Ur Leukocyte Esterase Negative (NEGATIVE) Urine RBC 0-1/hpf (0-5/HPF) Urine WBC 1-5/hpf (0-5/HPF) Ur Squamous Epith Cells 0-1 /hpf (0-5/HPF) Urine Bacteria Few (2-10) H (None) Hyaline Casts 1-5/lpf (None) Urine Mucus 1+ H (Negative) Urine Sperm Present Ur Culture Indicated? Cult not indicated U Opiates 300ng/mL cut (Negative) Ur Oxycodone Screen (Negative) Urine Methadone Screen (Negative) Ur Barbiturates Screen (Negative) U Tricyclic Antidepress (Negative) Ur Phencyclidine Scrn (Negative) Ur Amphetamines Screen (Negative) U Methamphetamines Scrn (Negative) Ur MDMA Scrn (Ecstasy) (Negative) U Benzodiazepines Scrn (Negative) Urine Cocaine Screen (Negative) U Marijuana (THC) Screen (Negative) Ethyl Alcohol < 10 ( - 10) mg/dL 06/19/19 Range/Units 00:15 WBC (4.5-11.0) X10^3/uL RBC (4.5-5.9) X10^6/uL Hgb (13.5-17.5) g/dL Hct (41-53) % MCV (80-100) fL MCH (26-34) PG MCHC (30-36) % RDW (11.6-14.8) % Plt Count (150-400) X10^3/uL Neut % (Auto) (50-75) % Lymph % (Auto) (25-40) % Pepin % (Auto) (3-14) % Eos % (Auto) (2-4) % Baso % (Auto) (0-2) % Neut # (Auto) (2673-8218) /uL Lymph # (Auto) (4684-8368) /uL [place]in # (Auto) (0-900) /uL Eos # (Auto) (0-450) /uL Baso # (Auto) (0-100) /uL Sodium (137-145) mmol/L Potassium (3.4-5.1) mmol/L Chloride (98-107) mmol/L Carbon Dioxide (22-32) mmol/L BUN (9-20) mg/dL Creatinine (0.66-1.25) mg/dL Estimated GFR (>60) mL/min BUN/Creatinine Ratio (6-22) Glucose (70-100) mg/dL Calcium (8.4-10.2) mg/dL Magnesium (1.6-2.3) mg/dL Prolactin (3.7-17.9) ng/mL Urine Color Urine Appearance Urine pH (4.5-8.0) Ur Specific [place] (1.000-1.035) Urine Protein (Negative) Urine Glucose (UA) (Negative) g/dL Urine Ketones (NEGATIVE) Urine Occult Blood (Negative) Urine Nitrate (Negative) Urine Bilirubin (NEGATIVE) Urine Urobilinogen (0.2) E.U./dL Ur Leukocyte Esterase (NEGATIVE) Urine RBC (0-5/HPF) Urine WBC (0-5/HPF) Ur Squamous Epith Cells (0-5/HPF) Urine Bacteria (None) Hyaline Casts (None) Urine Mucus (Negative) Urine Sperm Ur Culture Indicated? U Opiates 300ng/mL cut Negative (Negative) Ur Oxycodone Screen Negative (Negative) Urine Methadone Screen Negative (Negative) Ur Barbiturates Screen Negative (Negative) U Tricyclic Antidepress Negative (Negative) Ur Phencyclidine Scrn Negative (Negative) Ur Amphetamines Screen Negative (Negative) U Methamphetamines Scrn Negative (Negative) Ur MDMA Scrn (Ecstasy) Negative (Negative) U Benzodiazepines Scrn Negative (Negative) Urine Cocaine Screen Negative (Negative) U Marijuana (THC) Screen Negative (Negative) Ethyl Alcohol ( - 10) mg/dL Imaging Data CT scan - head: Radiologist's Impression: No acute disease. Paraspinal sinus disease noted. ECG Data Attestation: I personally reviewed and interpreted this ECG as follows: Prior ECG tracings: available for review Interpretation: Sinus rhythm rate of 99 NV 169 QRS of 103 QTC of 414. No ST elevation appreciated. Patient has some depression in lateral leads V4 through 6. Patient has prior from 01/03/2018 which appears similar. [facility] Narrative Medical decision making narrative: Patient comes in with witnessed seizure activity per EMS. Family was not at bedside but patient history supports. Patient states he takes an antiepileptic but cannot remember name. Asymptomatic in the department. Patient is alert, appropriate and at baseline. Patient does not have neurologist but states he does have a primary care physician. Discharge Plan Departure Patient Disposition: Home Clinical Impression: Seizure Discharge Date/Time: 06/19/19 01:14 Instructions: DI for Seizure Disorder -- Adult Activity Restrictions/Additional Instructions: Follow up with your physician. Continue to avoid alcohol. Take your seizure medication regularly. Return to the ER for new or worsening symptoms, altered mental status, new confusion, chest pain shortness of breath, persistent vomiting, black or bloody stools, fevers greater 100.4 F or other or concerning symptoms. Prescriptions: No Action ferrous sulfate 324 mg (65 mg iron) tablet,delayed release (DR/EC) 324 mg PO DAILY RF: 0 melatonin 3 mg tablet 6 mg PO BEDTIME PRNRF: 0 prenat.vits,abdoulaye,wzu-mqgd-bnkqn tablet 1 tab PO DAILY RF: 0 ocular lubricant preserved opthalmic solution 1 drop ophthalmic (eye) .COMPLEX RF: 0 pantoprazole 20 mg tablet,delayed release (DR/EC) 40 mg PO Q12H RF: 0 acetaminophen 500 mg capsule 500 mg PO Q6H PRNRF: 0 polyethylene glycol 3350 17 gram powder in packet 17 gram PO DAILY RF: 0 sennosides [Senna Lax] 8.6 mg tablet 17.2 mg PO DAILY PRNRF: 0 trazodone 100 mg tablet 100 mg PO .COMPLEX RF: 0
[2019-06-18] MEDS: SODIUM CHLORIDE 0.9% 1,000 ML 1000 ML IV (22:39)
[2019-06-18 22:40] LABS: Add Manual Diff / Slide Review NO; Basophils Absolute Auto 100 /uL (0-100); Basophils Percent Auto 1.2 % (0-2); Eosinophils Absolute Auto 200 /uL (0-450); Eosinophils Percent Auto 1.5 % (2-4); Hematocrit 46.2 % (41-53); Hemoglobin 15.7 g/dL (13.5-17.5); Lymphocytes Absolute Auto 4400 /uL (1100-4500); Lymphocytes Percent Auto 40.8 % (25-40); Mean Corpuscular HGB Conc 33.9 % (30-36); Mean Corpuscular Hemoglobin 33.4 PG (26-34); Mean Corpuscular Volume 98.4 fL (80-100); Monocytes Absolute Auto 1000 /uL (0-900); Monocytes Percent Auto 9.6 % (3-14); Neutrophils Absolute Auto 5000 /uL (1500-7000); Neutrophils Percent Auto 46.9 % (50-75); Platelet Count 127 X10^3/uL (150-400); Red Blood Cell Count 4.69 X10^6/uL (4.5-5.9); White Blood Cell Count 10.7 X10^3/uL (4.5-11.0)
[2019-06-18 22:50] LABS: BUN Creatinine Ratio 16.4 (6-22); Blood Urea Nitrogen 12 mg/dL (9-20); Calcium 10.1 mg/dL (8.4-10.2); Carbon Dioxide 16 mmol/L (22-32); Chloride 100 mmol/L (98-107); Estimated Glomerular Filt Rate > 60.0 mL/min (>60); Glucose 128 mg/dL (70-100); Magnesium 1.8 mg/dL (1.6-2.3); Sodium 139 mmol/L (137-145)
[2019-06-18 22:52] LABS: Potassium 3.6 mmol/L (3.4-5.1)
[2019-06-18 23:05] LABS: Ethanol (ETOH) < 10 mg/dL
[2019-06-18 23:31] LABS: Prolactin 85.3 ng/mL (3.7-17.9)
[2019-06-18 23:33] LABS: HEMOLYSIS 66 (0-50)
[2019-06-18 23:50] VITALS: BP 107/59; PULSE 92; RESP 12; O2SAT 96
[2019-06-19 00:28] LABS: Appearance Urine UA CLEAR; Bilirubin Urine UA NEGATIVE (NEGATIVE); Color Urine UA YELLOW; Glucose Urine UA NEGATIVE (Negative); Ketones Urine UA TRACE (NEGATIVE); Leukocyte Esterase Urine UA NEGATIVE (NEGATIVE); Nitrite Urine UA NEGATIVE (Negative); Occult Blood Urine UA NEGATIVE (Negative); Protein Urine UA 2+ (Negative); Specific Gravity Urine UA 1.025 (1.000-1.035); Urobilinogen Urine UA 0.2 E.U./dL (0.2)
[2019-06-19 00:30] LABS: Bacteria Urine Few (2-10); Hyaline Casts Urine 1-5/LPF; Mucus Urine 1+ (Negative); RBC Urine 0-1/HPF (0-5/HPF); Squamous Epithelial Cell Urine 0-1 /HPF (0-5/HPF); WBC Urine 1-5/HPF (0-5/HPF)
[2019-06-19 00:31] LABS: Culture Indicated Urine Cult Not Indicated; Sperm Urine PRESENT; UR Morphine/Opiate cutoff 300 Negative (Negative); Ur Creatinine Normal (Normal); Ur Specific Gravity Normal (Normal); Urine Amphetamines Negative (Negative); Urine Barbiturates Negative (Negative); Urine Benzodiazepines Negative (Negative); Urine Cocaine Negative (Negative); Urine MDMA Negative (Negative); Urine Methadone Negative (Negative); Urine Methamphetamines Negative (Negative); Urine Phencyclidine Negative (Negative); Urine Tetrahydrocannabinol Negative (Negative); Urine Tricyclic Antidepressant Negative (Negative); Urine pH Normal (Normal)
[2019-06-19 00:32] LABS: Urine Oxycodone Negative (Negative)
[2019-06-19 01:05] VITALS: BP 107/59; PULSE 92; RESP 18; TEMP 37.4; O2SAT 96
--- NOTE | 2019-06-19 01:14 | PC.NURSE ---
Pt discharged, sent home on foot, unable to reach . Verified with provider, pt ok to walk self home.
== END 2019-06-19 01:14 | disposition home or self-care (01) ==
PROVIDERS: Emergency Provider Emergency Medicine
DX: R56.9 Unspecified convulsions (principal); D64.9 Anemia, unspecified
CPT/HCPCS: 36415; 70450; 80048; 80305; 80320; 81001; 83735; 84146; 85025; 93005; 93010; 96360; 99284

== ENCOUNTER 2019-11-23 07:42 | Inpatient (IN) | payer OTHER, MEDICAID, SELFPAY ==
[2017-11-20 13:53] VITALS: BMI 27.4
[2018-01-29 22:44] VITALS: PULSE 129; RESP 25; O2SAT 100
[2019-11-23] VITALS (45 sets, daily range): BP systolic 114–157; BP diastolic 11–90; PULSE 101–126; RESP 11–46; TEMP 37–37.5; O2SAT 96–100; BMI 29.9; BMI 29.8
--- NOTE | 2019-11-23 08:08 | DI.CT.S_ITS ---
PROCEDURE: CT CHEST ABD PEL W CON INDICATIONS: Trauma TECHNIQUE: After the administration of intravenous contrast, 5 mm thick sections acquired from the lung apices to the symphysis. 2.5 mm thick coronal and sagittal reformats were acquired. Additional 7 mm thick coronal maximum intensity projection (MIP) reformats acquired through the lungs. Optional 10-minute delayed imaging may be performed from the kidneys to the bladder. For radiation dose reduction, the following was used: automated exposure control, adjustment of mA and/or kV according to patient size. COMPARISON: [facility], CT, CT HEAD/BRAIN WO CON, 11/23/2019, 8:09. [facility], CT, CT CERVICAL SPINE WO CON, 11/23/2019, 8:09. FINDINGS: Image quality: Excellent. CHEST: Lungs: Within the right lower lobe, there is an ovoid pulmonary nodule measuring 12 by 7 mm, as on series 11, image 177. Within the inferior aspect of the right upper lobe, there is an additional pulmonary nodule seen, as on series 11, image 190 measuring 5 x 4 mm. Within the left upper lobe, there is a pulmonary nodule seen measuring 6 x 4 mm, as on series 11, image 145. 4 an additional potential pulmonary nodule is seen within the left lower lobe, as on series 11 image 219 measuring 5 mm. Within the lingula, there is a poorly defined pulmonary nodule that measures 6 x 4 mm, as on series 11, image 223. More inferiorly within the lingula, there is a 4 mm nodule, as on series 11, image 239. No pulmonary contusions or lacerations. No acute airspace opacities. No pneumothorax or hemothorax. Central and peripheral airways appear patent and normal in caliber. Mediastinum: No mediastinal hematomas. Heart size is normal. No pericardial effusion. Thoracic aorta and pulmonary arteries demonstrate normal size and enhancement. No mediastinal or hilar adenopathy. Esophagus is normal in caliber. No hiatal hernia. Chest wall: There are fractures on the right involving the anterolateral 6th, 7th, and 8th ribs. There is associated soft tissue hematoma seen. No subcutaneous emphysema. No axillary or supraclavicular adenopathy. Thyroid gland demonstrates no significant abnormality. ABDOMEN: Solid organs: Liver is normal in size and enhancement, without lacerations. Diffuse fatty liver infiltration is noted. Gallbladder wall is not thickened. Biliary system is non-dilated. Pancreas enhances normally, without transection. Spleen is normal in size and enhancement, without lacerations. No adrenal hematomas. Both kidneys enhance normally, without hydronephrosis or lacerations. Peritoneum and bowel: No free fluid or air. Unenhanced bowel loops demonstrate normal wall thickness and caliber. Mild sigmoid diverticulosis is seen, without findings of active diverticulitis. Nodes and vessels: No retroperitoneal or mesenteric adenopathy. Aorta and inferior vena cava are normal in size and enhancement. Miscellaneous: No ventral hernias. PELVIS: Genitourinary: Bladder wall thickness is normal. Miscellaneous: No inguinal hernias or adenopathy. Bones: Pelvic ring and hip joints appear intact. No vertebral compression fractures. Focal L4-5 degenerative changes seen, with vacuum disc phenomenon. Milder degenerative changes are seen elsewhere. IMPRESSION: Right anterolateral rib fractures, with associated soft tissue hematoma. No associated pneumothorax. No significant additional acute post-traumatic abnormality is detected. Numerous pulmonary nodules are seen. In this young patient, a benign cause such as granulomatous exposure is statistically the most likely. However, metastatic disease is possible. Please consider a dedicated PET-CT for further evaluation. Incidental note is made of: Fatty liver infiltration Focal L4-5 degenerative change Diverticulosis, without active diverticulitis Note: Findings and recommendations discussed by telephone with Dr. Kaur at 8:14 a.m. [place] time on November 23, 2019. Dictated by: Mario Alberto Hall M.D. on 11/23/2019 at 8:04 Approved by: Mario Alberto Hall M.D. on 11/23/2019 at 8:16
--- NOTE | 2019-11-23 08:08 | DI.CT.S_ITS ---
PROCEDURE: CT CERVICAL SPINE WO CON INDICATIONS: Trauma TECHNIQUE: Noncontrast 3 mm thick sections acquired from the skull base to the T4 level. Sagittal and coronal reformats were then constructed. For radiation dose reduction, the following was used: automated exposure control, adjustment of mA and/or kV according to patient size. COMPARISON: [facility], CT, CT CERVICAL SPINE WO CON, 01/03/2018, 7:30. FINDINGS: Image quality: Excellent. Bones: No fractures or dislocations. Visualized superior ribs are intact. Cervical spondylosis. Prominent bilateral uncovertebral joint hypertrophy at C4-C5, C5-C6 and C6-C7 with associated bilateral foraminal narrowing. Canal stenosis at C4-C5 through C6-C7. Soft tissues: Prevertebral soft tissues are normal in thickness. No paravertebral hematomas. No apical pneumothoraces. IMPRESSION: 1. No evidence of acute cervical fracture or dislocation. 2. Cervical spondylitic change. Multilevel canal stenosis. Multilevel foraminal stenosis. Dictated by: David Renee M.D. on 11/23/2019 at 8:54 Approved by: David Renee M.D. on 11/23/2019 at 8:57
--- NOTE | 2019-11-23 08:08 | DI.CT.S_ITS ---
PROCEDURE: CT HEAD/BRAIN WO CON INDICATIONS: Trauma TECHNIQUE: Noncontrast 4.5 mm thick angled axial sections acquired from the foramen magnum to the vertex, with coronal and sagittal reformats. For radiation dose reduction, the following was used: automated exposure control, adjustment of mA and/or kV according to patient size. COMPARISON: [facility], CT, CT HEAD/BRAIN WO CON, 06/18/2019, 22:54. FINDINGS: Image quality: Excellent. CSF spaces: Basal cisterns are patent. No extra-axial fluid collections. Ventricles are normal in size and shape. Brain: No midline shift. No intracranial masses or hemorrhage. Geller-white matter interface is normal. Skull and face: Calvarium and visualized facial bones are intact, without suspicious lesions. Sinuses: Small bilateral maxillary sinus mucous retention cysts. Visualized sinuses and mastoids are otherwise clear. IMPRESSION: Negative for acute stroke, hemorrhage, or mass. No evidence of significant intracranial sequelae of acute trauma. Dictated by: David Renee M.D. on 11/23/2019 at 8:53 Approved by: David Renee M.D. on 11/23/2019 at 8:54
[2019-11-23 08:18] LABS: INR 1.4 (0.9-1.3); Prothrombin Time 16.4 SECONDS (10.1-12.7)
--- NOTE | 2019-11-23 08:19 | ED_ITS ---
HPI - Trauma General Chief Complaint: Trauma Stated Complaint: Put a hole all the way through my tongue Time Seen by Provider: 11/23/19 07:50 Source: patient Mode of arrival: Ambulatory Limitations: no limitations History of Present Illness HPI narrative: Patient is a 44-year-old male who presents with a variety of complaints. He feels initially like something is stuck in his tongue he did it hard to eat yesterday he thinks well he fell off of a roof about 19 ft. He was trying to put in a window when he lost his balance and fell backwards. He possibly hit his head and lost consciousness unknown for how long. He complains of both his shoulders hurting and his tongue. He denies any nausea or vomiting he now says his abdomen tenses up when he tries to move. His right ribs also hurt. complaint: fall Onset (ago): day(s) Loss of Consciousness: yes Related Data Home Medications Medication Instructions Recorded Confirmed acetaminophen 500 mg capsule 500 mg PO Q6H PRN 01/15/18 11/23/19 ferrous sulfate 324 mg (65 mg 324 mg PO DAILY tab 01/15/18 11/23/19 iron) tablet,delayed release ocular lubricant preserved 1 drop OPHTHALMIC (EYE) .COMPLEX 01/15/18 11/23/19 opthalmic solution Allergies Allergy/AdvReac Type Severity Reaction Status Date / Time No Known Drug Allergies Allergy Unverified 06/18/19 22:27 Review of Systems Review of Systems ROS Unobtainable: All systems reviewed & are unremarkable except as noted in HPI and below Constitutional Constitutional: Denies chills, Denies fever(s), Denies headache(s), Denies lethargy and Denies weakness ENT Ears, Nose, Mouth, and Throat: Reports as per HPI, Denies dysphagia, Denies otalgia, Denies facial pain, Denies headache(s), Reports mouth lesions, Reports mouth pain and Denies nasal trauma Cardiovascular Cardiovascular: Denies chest pain, Denies irregular heart rhythm, Denies lightheadedness, Denies palpitations and Denies orthopnea Respiratory Respiratory: Reports pain on inspiration Gastrointestinal Gastrointestinal: Reports abdominal pain, Denies constipation, Denies dysphagia, Denies nausea and Denies vomiting Musculoskeletal Musculoskeletal: Reports as per HPI, Denies back pain, Denies myalgias and Reports arthralgias (Bilateral shoulders) Integumentary/Breasts Skin/Breast: Denies pruritus, Denies erythema, Denies rash and Denies wounds Neurologic Neurologic: Denies headache(s) and Denies weakness Endocrine Endocrine: Denies palpitations Patient History Medical History (Updated 11/23/19 @ 13:59 by Blank Kaur DO) Alcoholism (Chronic) Anemia (Chronic) Chicken pox (Resolved 1983) Fractures (Resolved) GI bleeding (Chronic 2017) Hepatitis C (Chronic 2018) Liver disease (Chronic 2018) Seizures (Chronic 2018) Substance abuse (Chronic) Surgical History No pertinent past surgical history (Resolved) Family History (Updated 03/19/18 @ 13:25 by Marce Davies) Father Heart attack Mother Mental health problem Grandfather Stomach cancer Grandmother GI bleed Social History household members: significant other, family, children and other Smoking Status: Current every day smoker alcohol intake: former Smoking Status: Current every day smoker alcohol intake frequency: 3 or more drinks per day Substance Use Type: marijuana Exam Initial Vital Signs Initial Vital Signs: Vital Signs Temperature 98.6 F 11/23/19 07:55 Pulse Rate 126 H 11/23/19 07:55 Respiratory Rate 18 11/23/19 07:55 Blood Pressure 138/90 11/23/19 07:55 Pulse Oximetry 97 11/23/19 07:55 GENERAL: Alert well-appearing male and in no acute distress. HEENT: Head atraumatic,EOMI, pupils reactive, face symmetric, tongue is quite enlarged and appears to have been bitten on the left side, dried blood noted in the left external ear no hemotympanum noted bilaterally. Neck: Full flexion extension and rotation without [id number] placed Tongue has significant amount of swelling on the left side no laceration no acute bleeding CARDIOVASCULAR: Tachycardic regular without murmurs, rubs or gallops. RESPIRATORY: Breath sounds equal bilaterally, no wheezes rales or rhonchi. No paradoxical movement right posterior ribs 7-9 have contusion ABDOMEN: Soft, nontender. Normoactive bowel sounds all 4 quadrants. No guarding or rebound. Back: No vertebral tenderness or step-off EXTREMITIES: Normal range of motion, no clubbing or edema. Neurovascularly intact. Decreased range of motion to shoulders bilaterally however no clavicle step-offs sensation over deltoid intact bilaterally NEUROLOGICAL: Alert and oriented x4.Normal gait and speech. Cranial nerves II through XII grossly intact. Barrel Rifler Broach strength equal SKIN: Abrasions noted is on his left flank and right posterior ribs at level 6 Course Orders Ordered: ED Orders 11/23/19 08:00 Complete Blood Count AUTO DIFF Stat Comprehensive Metabolic Panel Stat Creatine Kinase Stat Ethanol (ETOH) Stat Lipase Stat Partial Thromboplastin Time Stat Prothrombin Time INR Stat Type and Screen Stat 11/23/19 08:07 EKG-12 Lead Stat 11/23/19 08:08 CT cervical spine wo con Stat CT chest abd pel w con Stat CT head/brain wo con Stat 11/23/19 09:18 XR shoulder LT min 2V Stat XR shoulder RT min 2V Stat 11/23/19 09:21 Ictotest Urine Stat Urinalysis and Microscopic Stat Urine Culture Stat Sodium Chloride (Normal Saline 0.9%) 1,000 mls @ 150 mls/hr IV CONT GREER Last Infusion: 11/23/19 11:42 Dose: 150 mls/hr Documented by: Admin: 11/23/19 09:13 Dose: 150 mls/hr Documented by: FLY Consultations Consultation #1: Dr. Esquivel agrees to consultation Time: 10:41 Consultation #2: Dr. Martinez accepts patient for admission Vital Signs Vital signs: Vital Signs - 8 hr 11/23/19 07:55 11/23/19 08:35 11/23/19 08:39 Temperature 98.6 F Pulse Rate 126 H 109 H 111 H Respiratory Rate 18 14 13 Blood Pressure 138/90 145/82 H 114/58 L Pulse Oximetry 97 100 98 11/23/19 08:40 11/23/19 08:45 11/23/19 08:50 Temperature Pulse Rate 109 H 109 H 109 H Respiratory Rate 13 15 14 Blood Pressure 142/79 H 138/81 136/85 Pulse Oximetry 99 100 99 11/23/19 08:55 11/23/19 09:00 11/23/19 09:05 Temperature Pulse Rate 108 H 108 H 107 H Respiratory Rate 14 13 32 H Blood Pressure 143/83 H 146/88 H Pulse Oximetry 100 100 100 11/23/19 09:10 11/23/19 09:15 11/23/19 09:20 Temperature Pulse Rate 111 H 108 H 117 H Respiratory Rate 23 14 14 Blood Pressure Pulse Oximetry 99 100 99 11/23/19 09:25 11/23/19 09:30 11/23/19 09:35 Temperature Pulse Rate 109 H 106 H 103 H Respiratory Rate 14 14 Blood Pressure Pulse Oximetry 100 100 96 11/23/19 09:40 11/23/19 09:45 11/23/19 09:50 Temperature Pulse Rate 103 H 110 H 124 H Respiratory Rate 15 13 18 Blood Pressure Pulse Oximetry 100 100 99 11/23/19 09:55 Temperature Pulse Rate 110 H Respiratory Rate 20 Blood Pressure Pulse Oximetry 99 MDM - Trauma Lab Data Attestation: I reviewed the patient's lab results. Result diagrams: 11/23/19 08:00 11/23/19 08:00 Labs: Lab Results 11/23/19 11/23/19 11/23/19 Range/Units 08:00 08:00 08:00 WBC 17.4 H (4.5-11.0) X10^3/uL RBC 4.25 L (4.5-5.9) X10^6/uL Hgb 14.4 (13.5-17.5) g/dL Hct 41.1 (41-53) % MCV 96.8 (80-100) fL MCH 33.8 (26-34) PG MCHC 34.9 (30-36) % RDW 13.9 (11.6-14.8) % Plt Count 67 L (150-400) X10^3/uL Neut % (Auto) Not Reportable Lymph % (Auto) Not Reportable [place] % (Auto) Not Reportable Eos % (Auto) Not Reportable Baso % (Auto) Not Reportable Lymph # (Auto) Not Reportable [place] # (Auto) Not Reportable Baso # (Auto) Not Reportable Total Counted 100 Seg Neutrophils % 49.0 (38-70) % Band Neutrophils % 37.0 H (3-7) % Lymphocytes % (Manual) 4.0 L (25-45) % Monocytes % (Manual) 10.0 (2-11) % Neutrophils # (Manual) 04696 H (3116-5708) /uL Toxic Vacuolation Present H Dohle Bodies 3+ H Platelet Estimate Decreased on smear RBC Morphology Normal morphology PT 16.4 H (10.1-12.7) SECONDS INR 1.4 H (0.9-1.3) APTT 27 (26.4-36.2) SECONDS Sodium 128 L (137-145) mmol/L Potassium 3.3 L (3.4-5.1) mmol/L Chloride 88 L (98-107) mmol/L Carbon Dioxide 30 (22-32) mmol/L BUN 19 (9-20) mg/dL Creatinine 1.06 (0.66-1.25) mg/dL Estimated GFR > 60.0 (>60) mL/min BUN/Creatinine Ratio 17.9 (6-22) Glucose 181 H (70-100) mg/dL Calcium 8.9 (8.4-10.2) mg/dL Total Bilirubin 3.6 H (0.2-1.3) mg/dL AST 904 H (17-59) IU/L ALT 294 H (<50) IU/L Alkaline Phosphatase 100 (38-126) U/L Total Creatine Kinase (55-170) U/L Total Protein 7.8 (6.3-8.2) g/dL Albumin 3.8 (3.5-5.0) g/dL Globulin 4.0 (1.7-4.1) g/dL Albumin/Globulin Ratio 1.0 (1.0-2.8) Lipase 270 (23-300) U/L Urine Color Urine Appearance Urine pH (4.5-8.0) Ur Specific Jones (1.000-1.035) Urine Protein (Negative) Urine Glucose (UA) (Negative) g/dL Urine Ketones (NEGATIVE) Urine Occult Blood (Negative) Urine Nitrate (Negative) Urine Bilirubin (NEGATIVE) Ur Bilirubin Confirm (Negative) Urine Urobilinogen (0.2) E.U./dL Ur Leukocyte Esterase (NEGATIVE) Urine RBC (0-5/HPF) Urine WBC (0-5/HPF) Ur Squamous Epith Cells (0-5/HPF) Amorphous Sediment Urine Bacteria (None) Ur Culture Indicated? Ethyl Alcohol < 10 ( - 10) mg/dL Blood Type Antibody Screen 11/23/19 11/23/19 11/23/19 Range/Units 08:00 08:00 09:21 WBC (4.5-11.0) X10^3/uL RBC (4.5-5.9) X10^6/uL Hgb (13.5-17.5) g/dL Hct (41-53) % MCV (80-100) fL MCH (26-34) PG MCHC (30-36) % RDW (11.6-14.8) % Plt Count (150-400) X10^3/uL Neut % (Auto) Lymph % (Auto) [place] % (Auto) Eos % (Auto) Baso % (Auto) Lymph # (Auto) [place] # (Auto) Baso # (Auto) Total Counted Seg Neutrophils % (38-70) % Band Neutrophils % (3-7) % Lymphocytes % (Manual) (25-45) % Monocytes % (Manual) (2-11) % Neutrophils # (Manual) (9440-7096) /uL Toxic Vacuolation Dohle Bodies Platelet Estimate RBC Morphology PT (10.1-12.7) SECONDS INR (0.9-1.3) APTT (26.4-36.2) SECONDS Sodium (137-145) mmol/L Potassium (3.4-5.1) mmol/L Chloride (98-107) mmol/L Carbon Dioxide (22-32) mmol/L BUN (9-20) mg/dL Creatinine (0.66-1.25) mg/dL Estimated GFR (>60) mL/min BUN/Creatinine Ratio (6-22) Glucose (70-100) mg/dL Calcium (8.4-10.2) mg/dL Total Bilirubin (0.2-1.3) mg/dL AST (17-59) IU/L ALT (<50) IU/L Alkaline Phosphatase (38-126) U/L Total Creatine Kinase 22594 H (55-170) U/L Total Protein (6.3-8.2) g/dL Albumin (3.5-5.0) g/dL Globulin (1.7-4.1) g/dL Albumin/Globulin Ratio (1.0-2.8) Lipase (23-300) U/L Urine Color Dark yellow Urine Appearance Slightly cloudy Urine pH 6.5 (4.5-8.0) Ur Specific Jones <=1.005 (1.000-1.035) Urine Protein 2+ H (Negative) Urine Glucose (UA) Trace H (Negative) g/dL Urine Ketones Negative (NEGATIVE) Urine Occult Blood 3+ H (Negative) Urine Nitrate Negative (Negative) Urine Bilirubin 1+ H (NEGATIVE) Ur Bilirubin Confirm Positive H (Negative) Urine Urobilinogen 4.0 H (0.2) E.U./dL Ur Leukocyte Esterase Trace H (NEGATIVE) Urine RBC 0-1/hpf (0-5/HPF) Urine WBC 1-5/hpf (0-5/HPF) Ur Squamous Epith Cells 0-1 /hpf (0-5/HPF) Amorphous Sediment 1+ Urine Bacteria Few (2-10) H (None) Ur Culture Indicated? Specimen cultured Ethyl Alcohol ( - 10) mg/dL Blood Type A Positive Antibody Screen Negative Imaging Data CT scan - head: Radiologist's Impression: PROCEDURE: CT HEAD/BRAIN WO CON INDICATIONS: Trauma TECHNIQUE: Noncontrast 4.5 mm thick angled axial sections acquired from the foramen magnum to the vertex, with coronal and sagittal reformats. For radiation dose reduction, the following was used: automated exposure control, adjustment of mA and/or kV according to patient size. COMPARISON: [facility], CT, CT HEAD/BRAIN WO CON, 06/18/2019, 22:54. FINDINGS: Image quality: Excellent. CSF spaces: Basal cisterns are patent. No extra-axial fluid collections. Ventricles are normal in size and shape. Brain: No midline shift. No intracranial masses or hemorrhage. Geller-white matter interface is normal. Skull and face: Calvarium and visualized facial bones are intact, without suspicious lesions. Sinuses: Small bilateral maxillary sinus mucous retention cysts. Visualized sinuses and mastoids are otherwise clear. IMPRESSION: Negative for acute stroke, hemorrhage, or mass. No evidence of significant intracranial sequelae of acute trauma. Dictated by: David Renee M.D. on 11/23/2019 at 8:53 CT - cervical spine: Radiologist's Impression: PROCEDURE: CT CERVICAL SPINE WO CON INDICATIONS: Trauma TECHNIQUE: Noncontrast 3 mm thick sections acquired from the skull base to the T4 level. Sagittal and coronal reformats were then constructed. For radiation dose reduction, the following was used: automated exposure control, adjustment of mA and/or kV according to patient size. COMPARISON: [facility], CT, CT CERVICAL SPINE WO CON, 01/03/2018, 7:30. FINDINGS: Image quality: Excellent. Bones: No fractures or dislocations. Visualized superior ribs are intact. Cervical spondylosis. Prominent bilateral uncovertebral joint hypertrophy at C4-C5, C5- C6 and C6-C7 with associated bilateral foraminal narrowing. Canal stenosis at C4-C5 through C6-C7. Soft tissues: Prevertebral soft tissues are normal in thickness. No paraverte bral hematomas. No apical pneumothoraces. IMPRESSION: 1. No evidence of acute cervical fracture or dislocation. 2. Cervical spondylitic change. Multilevel canal stenosis. Multilevel foraminal stenosis. Dictated by: David Renee M.D. on 11/23/2019 at 8:54 Approved by: David Renee M.D. on 11/23/2019 at 8:57 CT scan - abdomen/pelvis: Radiologist's Impression: PROCEDURE: CT CHEST ABD PEL W CON INDICATIONS: Trauma TECHNIQUE: After the administration of intravenous contrast, 5 mm thick sections acquired from the lung apices to the symphysis. 2.5 mm thick coronal and sagittal reformats were acquired. Additional 7 mm thick coronal maximum intensity projection (MIP) reformats acquired through the lungs. Optional 10-minute delayed imaging may be performed from the kidneys to the bladder. For radiation dose reduction, the following was used: automated exposure control, adjustment of mA and/or kV according to patient size. COMPARISON: [facility], CT, CT HEAD/BRAIN WO CON, 11/23/2019, 8:09. [facility], CT, CT CERVICAL SPINE WO CON, 11/23/2019, 8:09. FINDINGS: Image quality: Excellent. CHEST: Lungs: Within the right lower lobe, there is an ovoid pulmonary nodule measuring 12 by 7 mm, as on series 11, image 177. Within the inferior aspect of the right upper lobe, there is an additional pulmonary nodule seen, as on series 11, image 190 measuring 5 x 4 mm. Within the left upper lobe, there is a pulmonary nodule seen measuring 6 x 4 mm, as on series 11, image 145. 4 an additional potential pulmonary nodule is seen within the left lower lobe, as on series 11 image 219 measuring 5 mm. Within the lingula, there is a poorly defined pulmonary nodule that measures 6 x 4 mm, as on series 11, image 223. More inferiorly within the lingula, there is a 4 mm nodule, as on series 11, image 239. No pulmonary contusions or lacerations. No acute airspace opacities. No pneumothorax or hemothorax. Central and peripheral airways appear patent and normal in caliber. Mediastinum: No mediastinal hematomas. Heart size is normal. No pericardial effusion. Thoracic aorta and pulmonary arteries demonstrate normal size and enhancement. No mediastinal or hilar adenopathy. Esophagus is normal in caliber. No hiatal hernia. Chest wall: There are fractures on the right involving the anterolateral 6th, 7th, and 8th ribs. There is associated soft tissue hematoma seen. No subcutaneous emphysema. No axillary or supraclavicular adenopathy. Thyroid gland demonstrates no significant abnormality. ABDOMEN: Solid organs: Liver is normal in size and enhancement, without lacerations. Diffuse fatty liver infiltration is noted. Gallbladder wall is not thickened. Biliary system is non-dilated. Pancreas enhances normally, without transection. Spleen is normal in size and enhancement, without lacerations. No adrenal hematomas. Both kidneys en gi normally, without hydronephrosis or lacerations. Peritoneum and bowel: No free fluid or air. Unenhanced bowel loops demonstrate normal wall thickness and caliber. Mild sigmoid diverticulosis is seen, without findings of active diverticulitis. Nodes and vessels: No retroperitoneal or mesenteric adenopathy. Aorta and inferior vena cava are normal in size and enhancement. Miscellaneous: No ventral hernias. PELVIS: Genitourinary: Bladder wall thickness is normal. Miscellaneous: No inguinal hernias or adenopathy. Bones: Pelvic ring and hip joints appear intact. No vertebral compression fractures. Focal L4-5 degenerative changes seen, with vacuum disc phenomenon. Milder degenerative changes are seen elsewhere. IMPRESSION: Right anterolateral rib fractures, with associated soft tissue hematoma. No associated pneumothorax. No significant additional acute post-traumatic abnormality is detected. Numerous pulmonary nodules are seen. In this young patient, a benign cause such as granulomatous exposure is statistically the most likely. However, metastatic disease is possible. Please consider a dedicated PET-CT for further evaluation. Incidental note is made of: Fatty liver infiltration Focal L4-5 degenerative change Diverticulosis, without active diverticulitis Note: Findings and recommendations discussed by telephone with Dr. Kaur at 8:14 a.m. [place] time on November 23, 2019. Dictated by: Mario Alberto Hall M.D. on 11/23/2019 at 8:04 Extremity x-ray #1: Radiologist's Impression: PROCEDURE: XR SHOULDER LT MIN 2V INDICATIONS: pain fall TECHNIQUE: 2 views of the shoulder were acquired. COMPARISON: [facility], CR, XR SHOULDER RT MIN 2V, 11/23/2019, 9:51. [facility], CT, CT CHEST ABD PEL W CON, 11/23/2019, 8:09. FINDINGS: Bones: No fractures or dislocations. No suspicious bony lesions. Visualized ribs appear intact. Soft tissues: No suspicious soft tissue calcifications. The visualized lung demonstrates an unremarkable appearance. IMPRESSION: Unremarkable plain films for age. Dictated by: Mario Alberto Hall M.D. on 11/23/2019 at 9:34 Approved by: Mario Alberto Hall M.D. on 11/23/2019 at 9:34 Extremity x-ray #2: Radiologist's Impression: PROCEDURE: XR SHOULDER RT MIN 2V INDICATIONS: pain fall TECHNIQUE: 2 views of the shoulder were acquired. COMPARISON: [facility], CT, CT CHEST ABD PEL W CON, 11/23/2019, 8:09. [facility], CR, XR SHOULDER LT MIN 2V, 11/23/2019, 9:51. FINDINGS: Bones: No fractures or dislocations. No suspicious bony lesions. Visualized ribs appear intact. The known right-sided rib fractures are not definitely seen on this study. Soft tissues: No suspicious soft tissue calcifications. The visualized lung demonstrates an unremarkable appearance. IMPRESSION: Normal plain films, without fracture or dislocation. Dictated by: Mario Alberto Hall M.D. on 11/23/2019 at 9:32 Approved by: Mario Alberto Hall M.D. on 11/23/2019 at 9:34 ECG Data Attestation: I personally reviewed and interpreted this ECG as follows: Prior ECG tracings: available for review Interpretation: Sinus tachycardia rate 132 p.r. interval 150 QRS [address] changes mild artifact noted MDM Narrative Medical decision making narrative: The patient initially complained of a hole in his tongue while eating sausage, eventually became to he fell 19 ft off his roof yesterday. He is found to have rib fractures 6 7 and 8 and also rhabdomyolysis with a CPK of 60,000. He complains mostly of shoulder pain with difficulty raising his arms x-rays are negative I suspect this pain is due to rh abdomyolysis. Patient also has a history of alcohol abuse and previous alcohol withdrawal seizures. Unclear if patient had seizure yesterday when he fell although he adamantly denies. He states his last drink was 3 days ago. He is also found to be slightly hyponatremic with a sodium of 128 previously he had normal sodium levels. Patient is started on normal saline of 150 an hour. And agrees to stay in the hospital. Discharge Plan Departure Patient Disposition: Admitted As Inpatient Clinical Impression: Traumatic rhabdomyolysis Qualifiers: Encounter type: initial encounter Qualified Code(s): T79.6XXA - Traumatic ischemia of muscle, initial encounter Fracture of rib Qualifiers: Encounter type: initial encounter Rib fracture type: multiple ribs Fracture type: closed Laterality: right Qualified Code(s): S22.41XA - Multiple fractures of ribs, right side, initial encounter for closed fracture Discharge Date/Time: 11/23/19 11:45 Admit Date/Time: 11/23/19 11:35 Admit Provider: Sadie Martinez
--- NOTE | 2019-11-23 08:20 | PC.NURSE ---
Patient initial complaint, hole in his tounge, appears to be related to his fall. He states he did not notice it until eating sausage this morning and food was compacted in the hole and it was bleeding.
[2019-11-23 08:21] LABS: PTT Partial Thromboplastin Tim 27 SECONDS (26.4-36.2)
[2019-11-23 08:22] LABS: Hematocrit 41.1 % (41-53); Hemoglobin 14.4 g/dL (13.5-17.5); Mean Corpuscular HGB Conc 34.9 % (30-36); Mean Corpuscular Hemoglobin 33.8 PG (26-34); Mean Corpuscular Volume 96.8 fL (80-100); Platelet Count 67 X10^3/uL (150-400); Red Blood Cell Count 4.25 X10^6/uL (4.5-5.9); Red Cell Distribution Width 13.9 % (11.6-14.8); White Blood Cell Count 17.4 X10^3/uL (4.5-11.0)
[2019-11-23 08:24] LABS: Add Manual Diff / Slide Review YES
[2019-11-23 08:25] LABS: Alanine Aminotransferase 294 IU/L (<50); Albumin 3.8 g/dL (3.5-5.0); Alkaline Phosphatase 100 U/L (38-126); BUN Creatinine Ratio 17.9 (6-22); Bilirubin Total 3.6 mg/dL (0.2-1.3); Blood Urea Nitrogen 19 mg/dL (9-20); Calcium 8.9 mg/dL (8.4-10.2); Carbon Dioxide 30 mmol/L (22-32); Chloride 88 mmol/L (98-107); Estimated Glomerular Filt Rate > 60.0 mL/min (>60); Ethanol (ETOH) < 10 mg/dL; Glucose 181 mg/dL (70-100); HEMOLYSIS < 15 (0-50); Lipase 270 U/L (23-300); Potassium 3.3 mmol/L (3.4-5.1); Sodium 128 mmol/L (137-145); Total Protein 7.8 g/dL (6.3-8.2)
[2019-11-23 08:34] LABS: Aspartate Aminotransferase 904 IU/L (17-59)
--- NOTE | 2019-11-23 08:38 | PC.NURSE ---
denies c,t,l spine tenderness upon palpation when log rolled with provider and three staff. Patient remains in collar.
--- NOTE | 2019-11-23 08:47 | PC.NURSE ---
seizure precautions initiated due to patient history and presentation. Known history of ETOH withdrawl symptoms including seizure. Reports three days since last drink.
[2019-11-23 09:02] LABS: Dohle Bodies 3+; Neutrophils Absolute Manual 14964 /uL (3000-5900); Platelet Estimate Decreased on smear; RBC Morphology Normal Morphology; Total Cells Counted 100; Toxic Vacuolation Present
--- NOTE | 2019-11-23 09:09 | PC.NURSE ---
c collar cleared by Dr Venegas [id number], patient demonstrated full range of motion and reports no pain.
[2019-11-23] MEDS: SODIUM CHLORIDE 0.9% 1,000 ML 150 ML IV (09:13)
--- NOTE | 2019-11-23 09:18 | DI.RAD.S_ITS ---
PROCEDURE: XR SHOULDER RT MIN 2V INDICATIONS: pain fall TECHNIQUE: 2 views of the shoulder were acquired. COMPARISON: [facility], CT, CT CHEST ABD PEL W CON, 11/23/2019, 8:09. [facility], CR, XR SHOULDER LT MIN 2V, 11/23/2019, 9:51. FINDINGS: Bones: No fractures or dislocations. No suspicious bony lesions. Visualized ribs appear intact. The known right-sided rib fractures are not definitely seen on this study. Soft tissues: No suspicious soft tissue calcifications. The visualized lung demonstrates an unremarkable appearance. IMPRESSION: Normal plain films, without fracture or dislocation. Dictated by: Mario Alberto Hall M.D. on 11/23/2019 at 9:32 Approved by: Mario Alberto Hall M.D. on 11/23/2019 at 9:34
--- NOTE | 2019-11-23 09:18 | DI.RAD.S_ITS ---
PROCEDURE: XR SHOULDER LT MIN 2V INDICATIONS: pain fall TECHNIQUE: 2 views of the shoulder were acquired. COMPARISON: [facility], CR, XR SHOULDER RT MIN 2V, 11/23/2019, 9:51. [facility], CT, CT CHEST ABD PEL W CON, 11/23/2019, 8:09. FINDINGS: Bones: No fractures or dislocations. No suspicious bony lesions. Visualized ribs appear intact. Soft tissues: No suspicious soft tissue calcifications. The visualized lung demonstrates an unremarkable appearance. IMPRESSION: Unremarkable plain films for age. Dictated by: Mario Alberto Hall M.D. on 11/23/2019 at 9:34 Approved by: Mario Alberto Hall M.D. on 11/23/2019 at 9:34
[2019-11-23 09:30] LABS: Bilirubin Urine UA 1+ (NEGATIVE); Glucose Urine UA TRACE g/dL (Negative); Ketones Urine UA NEGATIVE (NEGATIVE); Leukocyte Esterase Urine UA TRACE (NEGATIVE); Nitrite Urine UA NEGATIVE (Negative); Occult Blood Urine UA 3+ (Negative); Protein Urine UA 2+ (Negative); Specific Gravity Urine UA <=1.005 (1.000-1.035); pH Urine UA 6.5 (4.5-8.0)
[2019-11-23 09:34] LABS: Color Urine UA Dark Yellow
[2019-11-23 09:35] LABS: Appearance Urine UA Slightly Cloudy
[2019-11-23 09:39] LABS: Amorphous Sediment Urine 1+; Ictotest Urine Positive (Negative); RBC Urine 0-1/HPF (0-5/HPF); Squamous Epithelial Cell Urine 0-1 /HPF (0-5/HPF); WBC Urine 1-5/HPF (0-5/HPF)
[2019-11-23 09:40] LABS: Bacteria Urine Few (2-10); Culture Indicated Urine Specimen Cultured
[2019-11-23 10:22] LABS: Creatine Kinase 60392 U/L (55-170)
--- NOTE | 2019-11-23 12:15 | P.CONS_ITS ---
History of Present Illness Consult details Date Patient Seen: 11/23/19 Time Patient Seen: 12:16 Chief complaint: Put a hole all the way through my tongue Reason for consult: Trauma, rib fractures Requesting provider: Blank Kaur Narrative: This is a 44-year-old man who presented to the ER with c/o tongue swelling. He says he fell from a ladder on the day prior, landed on his right shoulder and bit a hole through his tongue. In the ER he was found to have a damaged and edematous tongue, three rib fractures, transaminitis, hyperbilirubinemia, and evidence of rhabomyolysis (CK 60,392). He is being admitted for rhabdo. He denies any pain in his ribs or SOB. He says both of his shoulder caps hurt quite a bit, right greater than left. ROS: Constitutional: Denies chills, Denies fever(s), Denies headache(s), Denies lethargy and Denies weakness Ears, Nose, Mouth, and Throat: Reports as per HPI, Denies dysphagia, Denies otalgia, Denies facial pain, Denies headache(s), Reports mouth lesions, Reports mouth pain and Denies nasal trauma Cardiovascular: Denies chest pain, Denies irregular heart rhythm, Denies lightheadedness, Denies palpitations and Denies orthopnea Respiratory: Denies SOB, minimal discomfort with deep inspiration Gastrointestinal: Denies abdominal pain, Denies constipation, Denies dysphagia, Denies nausea and Denies vomiting Musculoskeletal: Reports as per HPI, Denies back pain, Denies myalgias and Reports arthralgias (Bilateral shoulders) Skin/Breast: Denies pruritus, Denies erythema, Denies rash and Denies wounds Neurologic: Denies headache(s) and Denies weakness Endocrine: Denies palpitations PE: GENERAL: Alert well-appearing male and in no acute distress. HEENT: Head atraumatic,EOMI, pupils reactive, face symmetric, moist mucous membranes, dried blood noted in the left external ear Neck: Full flexion extension and rotation without pain Tongue has significant amount of swelling and maceration on the left side no lacerations and no acute bleeding CARDIOVASCULAR: Tachycardic regular without murmurs, rubs or gallops. RESPIRATORY: Breathing comfortably on room air; no TTP on bilateral chest wall palpation. ABDOMEN: Soft, nontender. Normoactive bowel sounds all 4 quadrants. Non distended. No surgical scars. Back: No vertebral tenderness or step-off EXTREMITIES: Normal range of motion, no clubbing or edema. Neurovascularly intact. Decreased range of motion to shoulders bilaterally however no clavicle step-offs sensation over deltoid intact bilaterally NEUROLOGICAL: Alert and oriented x4.Normal gait and speech. Cranial nerves II through XII grossly intact. Engineering Writer strength equal SKIN: Warm, dry, no laceration, no petechiae, no rashes or lesions. Meds Home Medications and Allergies Home Medications Medication Instructions Recorded Confirmed Type acetaminophen 500 mg capsule 500 mg PO Q6H PRN 01/15/18 02/01/19 History ferrous sulfate 324 mg (65 mg 324 mg PO DAILY tab 01/15/18 02/01/19 History iron) tablet,delayed release melatonin 3 mg tablet 6 mg PO BEDTIME PRN tab 01/15/18 02/01/19 History ocular lubricant preserved 1 drop OPHTHALMIC (EYE) .COMPLEX 01/15/18 02/01/19 History opthalmic solution pantoprazole 20 mg tablet,delayed 40 mg PO Q12H tab 01/15/18 02/01/19 History release polyethylene glycol 3350 17 gram 17 gram PO DAILY 01/15/18 02/01/19 History oral powder packet prenat.vits,abdoulaye,cuy-aail-vbrjt 1 tab PO DAILY 01/15/18 02/01/19 History sennosides 8.6 mg tablet 17.2 mg PO DAILY PRN tab 01/15/18 02/01/19 History trazodone 100 mg tablet 100 mg PO .COMPLEX 01/15/18 02/01/19 History Allergies Allergy/AdvReac Type Severity Reaction Status Date / Time No Known Drug Allergies Allergy Unverified 06/18/19 22:27 Exam Vital Signs (past 8 hours): - 11/23/19 07:55 11/23/19 08:35 11/23/19 08:39 Temperature 98.6 F Pulse Rate 126 H 109 H 111 H Respiratory Rate 18 14 13 Blood Pressure 138/90 145/82 H 114/58 L Pulse Oximetry 97 100 98 11/23/19 08:40 11/23/19 08:45 11/23/19 08:50 Temperature Pulse Rate 109 H 109 H 109 H Respiratory Rate 13 15 14 Blood Pressure 142/79 H 138/81 136/85 Pulse Oximetry 99 100 99 11/23/19 08:55 11/23/19 09:00 11/23/19 09:05 Temperature Pulse Rate 108 H 108 H 107 H Respiratory Rate 14 13 32 H Blood Pressure 143/83 H 146/88 H Pulse Oximetry 100 100 100 11/23/19 09:10 11/23/19 09:15 11/23/19 09:20 Temperature Pulse Rate 111 H 108 H 117 H Respiratory Rate 23 14 14 Blood Pressure Pulse Oximetry 99 100 99 11/23/19 09:25 11/23/19 09:30 11/23/19 09:35 Temperature Pulse Rate 109 H 106 H 103 H Respiratory Rate 14 14 Blood Pressure Pulse Oximetry 100 100 96 11/23/19 09:40 11/23/19 09:45 11/23/19 09:50 Temperature Pulse Rate 103 H 110 H 124 H Respiratory Rate 15 13 18 Blood Pressure Pulse Oximetry 100 100 99 11/23/19 09:55 Temperature Pulse Rate 110 H Respiratory Rate 20 Blood Pressure Pulse Oximetry 99 Oxygen Delivery Method Room Air Objective Imaging CT scan - head: Radiologist's impression: CT scan - head: Radiologist's Impression: PROCEDURE: CT HEAD/BRAIN WO CON INDICATIONS: Trauma TECHNIQUE: Noncontrast 4.5 mm thick angled axial sections acquired from the foramen magnum to the vertex, with coronal and sagittal reformats. For radiation dose reduction, the following was used: automated exposure control, adjustment of mA and/or kV according to patient size. COMPARISON: [facility], CT, CT HEAD/BRAIN WO CON, 06/18/2019, 22:54. FINDINGS: Image quality: Excellent. CSF spaces: Basal cisterns are patent. No extra-axial fluid collections. Vent ricles are normal in size and shape. Brain: No midline shift. No intracranial masses or hemorrhage. Geller-white matter interface is normal. Skull and face: Calvarium and visualized facial bones are intact, without suspicious lesions. Sinuses: Small bilateral maxillary sinus mucous retention cysts. Visualized sinuses and mastoids are otherwise clear. IMPRESSION: Negative for acute stroke, hemorrhage, or mass. No evidence of significant intracranial sequelae of acute trauma. Dictated by: David Renee M.D. on 11/23/2019 at 8:53 CT - cervical spine: Radiologist's Impression: PROCEDURE: CT CERVICAL SPINE WO CON INDICATIONS: Trauma TECHNIQUE: Noncontrast 3 mm thick sections acquired from the skull base to the T4 level. Sagittal and coronal reformats were then constructed. For radiation dose reduction, the following was used: automated exposure control, adjustment of mA and/or kV according to patient size. COMPARISON: [facility], CT, CT CERVICAL SPINE WO CON, 01/03/2018, 7:30. FINDINGS: Image quality: Excellent. Bones: No fractures or dislocations. Visualized superior ribs are intact. Cervical spondylosis. Prominent bilateral uncovertebral joint hypertrophy at C4-C5, C5- C6 and C6-C7 with associated bilateral foraminal narrowing. Canal stenosis at C4-C5 through C6-C7. Soft tissues: Prevertebral soft tissues are normal in thickness. No paravertebral hematomas. No apical pneumothoraces. IMPRESSION: 1. No evidence of acute cervical fracture or dislocation. 2. Cervical spondylitic change. Multilevel canal stenosis. Multilevel foraminal stenosis. Dictated by: David Renee M.D. on 11/23/2019 at 8:54 Approved by: David Renee M.D. on 11/23/2019 at 8:57 ECG Data Attestation: I personally reviewed and interpreted this ECG as follows: Prior ECG tracings: available for review Interpretation: Sinus tachycardia rate 132 p.r. interval 150 QRS [address] changes mild artifact noted Labs Result Diagrams: 11/23/19 08:00 11/23/19 08:00 Labs: Laboratory Results - last 24 hr 11/23/19 11/23/19 11/23/19 08:00 08:00 08:00 WBC 17.4 H RBC 4.25 L Hgb 14.4 Hct 41.1 MCV 96.8 MCH 33.8 MCHC 34.9 RDW 13.9 Plt Count 67 L Neut % (Auto) Not Reportable Lymph % (Auto) Not Reportable [place] % (Auto) Not Reportable Eos % (Auto) Not Reportable Baso % (Auto) Not Reportable Lymph # (Auto) Not Reportable [place] # (Auto) Not Reportable Baso # (Auto) Not Reportable Total Counted 100 Seg Neutrophils % 49.0 Band Neutrophils % 37.0 H Lymphocytes % (Manual) 4.0 L Monocytes % (Manual) 10.0 Neutrophils # (Manual) 10938 H Toxic Vacuolation Present H Dohle Bodies 3+ H Platelet Estimate Decreased on smear RBC Morphology Normal morphology PT 16.4 H INR 1.4 H APTT 27 Sodium 128 L Potassium 3.3 L Chloride 88 L Carbon Dioxide 30 BUN 19 Creatinine 1.06 Estimated GFR > 60.0 BUN/Creatinine Ratio 17.9 Glucose 181 H Calcium 8.9 Total Bilirubin 3.6 H AST 904 H ALT 294 H Alkaline Phosphatase 100 Total Creatine Kinase Total Protein 7.8 Albumin 3.8 Globulin 4.0 Albumin/Globulin Ratio 1.0 Lipase 270 Urine Color Urine Appearance Urine pH Ur Specific [place] Urine Protein Urine Glucose (UA) Urine Ketones Urine Occult Blood Urine Nitrate Urine Bilirubin Ur Bilirubin Confirm Urine Urobilinogen Ur Leukocyte Esterase Urine RBC Urine WBC Ur Squamous Epith Cells Amorphous Sediment Urine Bacteria Ur Culture Indicated? Ethyl Alcohol < 10 Blood Type Antibody Screen 11/23/19 11/23/19 11/23/19 08:00 08:00 09:21 WBC RBC Hgb Hct MCV MCH MCHC RDW Plt Count Neut % (Auto) Lymph % (Auto) [place] % (Auto) Eos % (Auto) Baso % (Auto) Lymph # (Auto) [place] # (Auto) Baso # (Auto) Total Counted Seg Neutrophils % Band Neutrophils % Lymphocytes % (Manual) Monocytes % (Manual) Neutrophils # (Manual) Toxic Vacuolation Dohle Bodies Platelet Estimate RBC Morphology PT INR APTT Sodium Potassium Chloride Carbon Dioxide BUN Creatinine Estimated GFR BUN/Creatinine Ratio Glucose Calcium Total Bilirubin AST ALT Alkaline Phosphatase Total Creatine Kinase 42287 H Total Protein Albumin Globulin Albumin/Globulin Ratio Lipase Urine Color Dark yellow Urine Appearance Slightly cloudy Urine pH 6.5 Ur Specific [place] <=1.005 Urine Protein 2+ H Urine Glucose (UA) Trace H Urine Ketones Negative Urine Occult Blood 3+ H Urine Nitrate Negative Urine Bilirubin 1+ H Ur Bilirubin Confirm Positive H Urine Urobilinogen 4.0 H Ur Leukocyte Esterase Trace H Urine RBC 0-1/hpf Urine WBC 1-5/hpf Ur Squamous Epith Cells 0-1 /hpf Amorphous Sediment 1+ Urine Bacteria Few (2-10) H Ur Culture Indicated? Specimen cultured Ethyl Alcohol Blood Type A Positive Antibody Screen Negative Assessment & Plan Assessment and plan (1) Traumatic rhabdomyolysis: Qualifiers: Encounter type: initial encounter Qualified Code(s): T79.6XXA - Traumatic ischemia of muscle, initial encounter Status: Acute (2) Hepatitis C: Status: Chronic (3) Transaminitis: Status: Acute (4) Hyperbilirubinemia: Status: Acute (5) Rib fractures: Status: Acute (6) Injury of tongue: Status: Acute Assessment & Plan narrative: 44 yo man with history of hepatitis C, who came into the ER due to a fall from ladder one day ago, presents with c/o tongue injury, found to have rib fractures, transaminitis, and rhabdomyolysis. Plan: Agree with admit to medicine for rhabdo, hydration Ok for gen diet and DVT ppx from surgical standpoint Ambulate as tolerated Rib fracture protocol (monitor sats; encourage cough and deep breathing, incentive spirometer, PO/IV pain med and lidocaine patches for pain control) COVID-19 COVID-19 status: Result pending Result date/Date tested (Pos, Neg/Pending): 11/23/19 Time Spent With Patient Time with patient: 25 - 35 minutes
--- NOTE | 2019-11-23 13:14 | PC.ADMIT ---
Addendum entered by Nataliya Wade R.N. 11/23/19 13:23: STATES HE DOESN'T HAVE A PCP. I WAS SUPPOSED TO FIND ONE WHEN I DISCHARGED LAST TIME AND I DIDN'T. Original Note: [address] Admission Note: The patient,Geovani Melendez,44 y/o, was given written information regarding hospital policies, unit procedures and contact persons. Patient's smoking status: Current every day smoker. Vital Signs - 8 hr 11/23/19 07:55 11/23/19 08:35 11/23/19 08:39 Temperature 98.6 F Pulse Rate 126 H 109 H 111 H Respiratory Rate 18 14 13 Blood Pressure 138/90 145/82 H 114/58 L Pulse Oximetry 97 100 98 11/23/19 08:40 11/23/19 08:45 11/23/19 08:50 Temperature Pulse Rate 109 H 109 H 109 H Respiratory Rate 13 15 14 Blood Pressure 142/79 H 138/81 136/85 Pulse Oximetry 99 100 99 11/23/19 08:55 11/23/19 09:00 11/23/19 09:05 Temperature Pulse Rate 108 H 108 H 107 H Respiratory Rate 14 13 32 H Blood Pressure 143/83 H 146/88 H Pulse Oximetry 100 100 100 11/23/19 09:10 11/23/19 09:15 11/23/19 09:20 Temperature Pulse Rate 111 H 108 H 117 H Respiratory Rate 23 14 14 Blood Pressure Pulse Oximetry 99 100 99 11/23/19 09:25 11/23/19 09:30 11/23/19 09:35 Temperature Pulse Rate 109 H 106 H 103 H Respiratory Rate 14 14 Blood Pressure Pulse Oximetry 100 100 96 11/23/19 09:40 11/23/19 09:45 11/23/19 09:50 Temperature Pulse Rate 103 H 110 H 124 H Respiratory Rate 15 13 18 Blood Pressure Pulse Oximetry 100 100 99 11/23/19 09:55 Temperature Pulse Rate 110 H Respiratory Rate 20 Blood Pressure Pulse Oximetry 99 PATIENT ADMITTED TO 206. HE IS ALERT, CONVERSANT, PLEASANT AND COOPERATIVE. STATES HE FELL OFF HIS 19FT ROOF YESTERDAY. THEN, WHEN ASKED IF HE'S HAD ANY VISION CHANGES, STATES HE DID FOR A COUPLE DAYS AFTER THE FALL, BUT IT HAS RESOLVED. DENIES HEADACHE. STATES HE DID HIT HIS HEAD AND LOST CONSCIOUSNESS FOR ABOUT 15-20 MIN. HE HAS A SMALL SCAB ON THE TOP RIGHT SIDE OF HEAD. HR IS REGULAR, DENIES CP, DENIES DIFFICULTY BREATHING. HAS RIB FX'S WHICH HURT ONLY WHEN HE MOVES, DENIES WORSENING PAIN WITH DEEP BREATHS. HE HAS MULTIPLE BRUISES AND ABRASIONS. SEE SKIN ASSESSMENT. HE STATES HIS ARMS AND LEGS HURT 5/10 AT REST UP TO 10/10 W/ MVMT. SEIZURE PADS ARE IN PLACE. HE STATED THAT HIS LAST DRINK WAS MONDAY. RE-ORIENTED TO TODAY IS MONDAY, STATES IT CAN'T BE MONDAY! THEN STATES, IT WAS LAST MONDAY THEN. IN REPORT FROM ER, LAST DRINK WAS 3 DAYS AGO. PATIENT STATES HE HAS CUT DOWN TO 1-2 BEERS A DAY. BED ALARM IS ON. IVF INFUSING. REPORT GIVEN TO PRIMARY NURSE RENNY.
--- NOTE | 2019-11-23 14:15 | PM.HP.1 ---
History of Present Illness History of Present Illness Date Patient Seen: 11/23/19 Chief complaint: Put a hole all the way through my tongue Narrative: The patient is a 44-year-old male with a history of seizure disorder, substance abuse, anemia who was working on a roof a week ago when he fell off the roof. He believes it was about 19 ft high. The patient was on the ground for 20 minutes following the fall. He says his head hit the ground twice. He bit his tongue fairly hard. Over the past week he has had significant pain including pain of the tongue pain involving his right ribs as well as generalized aching. He has not taken any medications for this. Patient apparently did into something today and had excruciating pain with bleeding. His encouraged him to come into the emergency room for evaluation. In the emergency room the patient had an extensive incomplete workup to include a head CT which was negative. Cervical spine CT which showed no evidence of fracture. X-rays of both shoulders which showed no fractures. CT of the chest abdomen and pelvis which was significant for right rib fractures involving the 6 7th and 8th rib with associated hematoma. There was no intra-abdominal pathology noted. Patient was found to have significant laceration of the right tongue. In addition his CPK was markedly elevated at over 60,000. the patient is admitted to the hospital at this time for acute rhabdomyolysis. Patient denies any headache blurred vision or double vision. He denies any shortness of breath or chest pain. He has no nausea vomiting or diarrhea. He denies any hematemesis melena or bright red blood per rectum. His major complaint is pain over the mouth and generalized aching with pain over the right ribs. Patient History Medical History Alcoholism (Chronic) Anemia (Chronic) Chicken pox (Resolved 1983) Fractures (Resolved) GI bleeding (Chronic 2017) Hepatitis C (Chronic 2017) Liver disease (Chronic 2017) Seizures (Chronic 2017) Substance abuse (Chronic) Surgical History No pertinent past surgical history (Resolved) Family & Social History Family History Father Heart attack Mother Mental health problem Grandfather Stomach cancer Grandmother GI bleed Social History: household members significant other,family,other,children Prior Living Arrangements Apartment/Condo Safety & Behavioral: Feels Safe in Current Yes Environment Been Physically Hurt or No Threatened By a Person Suicidal Ideation Description None Suicide Plan Description No Plan Tobacco & Substance use: Tobacco type cigarettes Smoking Status Current every day smoker Smoking packs per day 0.5 alcohol intake former alcohol intake frequency 3 or more drinks per day Substance Use Type marijuana Meds Home Medications and Allergies Home Medications Medication Instructions Recorded Confirmed Type acetaminophen 500 mg capsule 500 mg PO Q6H PRN 01/15/18 11/23/19 History ferrous sulfate 324 mg (65 mg 324 mg PO DAILY tab 01/15/18 11/23/19 History iron) tablet,delayed release ocular lubricant preserved 1 drop OPHTHALMIC (EYE) .COMPLEX 01/15/18 11/23/19 History opthalmic solution Allergies Allergy/AdvReac Type Severity Reaction Status Date / Time No Known Drug Allergies Allergy Unverified 06/18/19 22:27 Review of Systems Review of Systems ROS: Yes All systems reviewed with the patient and are negative except as otherwise documented Exam Vital Signs (past 8 hours): - 11/23/19 07:55 11/23/19 08:35 11/23/19 08:39 Temperature 98.6 F Pulse Rate 126 H 109 H 111 H Respiratory Rate 18 14 13 Blood Pressure 138/90 145/82 H 114/58 L Pulse Oximetry 97 100 98 11/23/19 08:40 11/23/19 08:45 11/23/19 08:50 Temperature Pulse Rate 109 H 109 H 109 H Respiratory Rate 13 15 14 Blood Pressure 142/79 H 138/81 136/85 Pulse Oximetry 99 100 99 11/23/19 08:55 11/23/19 09:00 11/23/19 09:05 Temperature Pulse Rate 108 H 108 H 107 H Respiratory Rate 14 13 32 H Blood Pressure 143/83 H 146/88 H Pulse Oximetry 100 100 100 11/23/19 09:10 11/23/19 09:15 11/23/19 09:20 Temperature Pulse Rate 111 H 108 H 117 H Respiratory Rate 23 14 14 Blood Pressure Pulse Oximetry 99 100 99 11/23/19 09:25 11/23/19 09:30 11/23/19 09:35 Temperature Pulse Rate 109 H 106 H 103 H Respiratory Rate 14 14 Blood Pressure Pulse Oximetry 100 100 96 11/23/19 09:40 11/23/19 09:45 11/23/19 09:50 Temperature Pulse Rate 103 H 110 H 124 H Respiratory Rate 15 13 18 Blood Pressure Pulse Oximetry 100 100 99 11/23/19 09:55 11/23/19 13:21 Temperature 98.6 F Pulse Rate 110 H 104 H Respiratory Rate 20 16 Blood Pressure 152/90 H Pulse Oximetry 99 100 Oxygen Delivery Method Room Air Oxygen Flow Rate 0 Narrative Exam Narrative: pleasant white male lying in bed somewhat uncomfortable HEENT: Normocephalic atraumatic, extraocular muscles are intact, oropharynx reveals maceration bruising of the tongue. There is blistering and multiple abrasions with ulceration on the left lateral portion of the time neck: Supple without adenopathy lungs: Clear to auscultation cardiac exam tachycardic, regular rate and rhythm normal S1-S2 abdomen: Soft, nontender, nondistended, without hepatosplenomegaly extremities: No edema skin exam: The patient has an abrasion over the right knee, multiple bruises over the right back and right lateral back as well. There is minimal abrasion over the epigastric area. Neuro exam: His cranial nerves are intact, speech is fluent, strength is symmetric equal, sensation is grossly intact, gait is not assessed Objective Labs Result Diagrams: 11/23/19 08:00 11/23/19 08:00 Labs: Laboratory Results - last 24 hr 11/23/19 11/23/19 11/23/19 08:00 08:00 08:00 WBC 17.4 H RBC 4.25 L Hgb 14.4 Hct 41.1 MCV 96.8 MCH 33.8 MCHC 34.9 RDW 13.9 Plt Count 67 L Neut % (Auto) Not Reportable Lymph % (Auto) Not Reportable [place] % (Auto) Not Reportable Eos % (Auto) Not Reportable Baso % (Auto) Not Reportable Lymph # (Auto) Not Reportable [place] # (Auto) Not Reportable Baso # (Auto) Not Reportable Total Counted 100 Seg Neutrophils % 49.0 Band Neutrophils % 37.0 H Lymphocytes % (Manual) 4.0 L Monocytes % (Manual) 10.0 Neutrophils # (Manual) 51388 H Toxic Vacuolation Present H Dohle Bodies 3+ H Platelet Estimate Decreased on smear RBC Morphology Normal morphology PT 16.4 H INR 1.4 H APTT 27 Sodium 128 L Potassium 3.3 L Chloride 88 L Carbon Dioxide 30 BUN 19 Creatinine 1.06 Estimated GFR > 60.0 BUN/Creatinine Ratio 17.9 Glucose 181 H Calcium 8.9 Total Bilirubin 3.6 H AST 904 H ALT 294 H Alkaline Phosphatase 100 Total Creatine Kinase Total Protein 7.8 Albumin 3.8 Globulin 4.0 Albumin/Globulin Ratio 1.0 Lipase 270 Urine Color Urine Appearance Urine pH Ur Specific [place] Urine Protein Urine Glucose (UA) Urine Ketones Urine Occult Blood Urine Nitrate Urine Bilirubin Ur Bilirubin Confirm Urine Urobilinogen Ur Leukocyte Esterase Urine RBC Urine WBC Ur Squamous Epith Cells Amorphous Sediment Urine Bacteria Ur Culture Indicated? Ethyl Alcohol < 10 Blood Type Antibody Screen 11/23/19 11/23/19 11/23/19 08:00 08:00 09:21 WBC RBC Hgb Hct MCV MCH MCHC RDW Plt Count Neut % (Auto) Lymph % (Auto) [place] % (Auto) Eos % (Auto) Baso % (Auto) Lymph # (Auto) [place] # (Auto) Baso # (Auto) Total Counted Seg Neutrophils % Band Neutrophils % Lymphocytes % (Manual) Monocytes % (Manual) Neutrophils # (Manual) Toxic Vacuolation Dohle Bodies Platelet Estimate RBC Morphology PT INR APTT Sodium Potassium Chloride Carbon Dioxide BUN Creatinine Estimated GFR BUN/Creatinine Ratio Glucose Calcium Total Bilirubin AST ALT Alkaline Phosphatase Total Creatine Kinase 72480 H Total Protein Albumin Globulin Albumin/Globulin Ratio Lipase Urine Color Dark yellow Urine Appearance Slightly cloudy Urine pH 6.5 Ur Specific [place] <=1.005 Urine Protein 2+ H Urine Glucose (UA) Trace H Urine Ketones Negative Urine Occult Blood 3+ H Urine Nitrate Negative Urine Bilirubin 1+ H Ur Bilirubin Confirm Positive H Urine Urobilinogen 4.0 H Ur Leukocyte Esterase Trace H Urine RBC 0-1/hpf Urine WBC 1-5/hpf Ur Squamous Epith Cells 0-1 /hpf Amorphous Sediment 1+ Urine Bacteria Few (2-10) H Ur Culture Indicated? Specimen cultured Ethyl Alcohol Blood Type A Positive Antibody Screen Negative Assessment & Plan Assessment & Plan narrative: impression 1. 44-year-old male status post fall from a roof admitted to the hospital with acute rhabdomyolysis - patient with a markedly elevated CPK of 60,000 - currently on IV hydration with normal saline - consider bicarbonate if serum bicarb is less than 30 and pH is 7.5 or less - will check ABG to confirm and consider IV bicarb - will monitor CPK - goal is to continue IV hydration until CPK is less than 5,000 - creatinine is normal, UA does reveal hematuria, will continue to monitor 2. status post fall from a roof - patient with rib fractures involving 6 7 and 8 on the right - no cervical injury, no intra-abdominal injury, no shoulder injury - continue tylenol, and as needed low-dose narcotic for pain - given rib fracture, will start incentive spirometry, encourage deep breathing, add lidocaine patch per surgery 3. hyponatremia - etiology unclear - continue IV hydration with normal saline, will follow-up serum sodium in the morning 4. hypokalemia - will replace 5. tongue laceration - likely related to fall - mechanical soft diet - Magic mouthwash for pain 6. nicotine dependent - smoking cessation counseling offered - patient declines nicotine patch at this time 7. will start Lovenox for DVT prophylaxis, patient reports he is a full code, his is his surrogate decision maker. Patient will be admitted as an inpatient, anticipate IV hydration and correction of rhabdo to take greater than 2 days.
[2019-11-23 14:36] LABS: HCO3 ABG 27 mmol/L (22-26); PCO2 ABG 28.1 mmHg (35-45); PO2 ABG 83 mmHg (80-100); TCO2 ABG 28 mmol/L (21-31); pH ABG 7.59 (7.35-7.45)
[2019-11-23 14:37] LABS: Fractionated Inspired Oxygen 21; Oxygen Saturation ABG 98 % (95-100)
[2019-11-23] MEDS: POTASSIUM CHLORIDE 20 MEQ/15 ML UDC 40 MEQ PO (14:45)
[2019-11-23] MEDS: LIDOCAINE PATCH 1 EACH ADH..PATCH TOP (14:45)
[2019-11-23] MEDS: ENOXAPARIN 40 MG/0.4 ML SYRINGE SUBCUT (14:45)
[2019-11-23] MEDS: KCL 40 MEQ IN NS 1,000 ML 84 MEQ IV (14:46)
[2019-11-23 17:33] LABS: COVID19 -Nasal RAPID Negative (Negative)
[2019-11-23 18:05] LABS: Creatine Kinase 36694 U/L (55-170)
[2019-11-23] MEDS: HYDROCODONE/ACET 5/325 TABLET 1 TAB PO (20:15)
--- NOTE | 2019-11-23 22:02 | PC.NURSE ---
notified physician regarding patient's CIWA 5 and HR 115-120. pt has been refusing pain meds and finally he got up to the bathroom and was in excruciating pain. facial grimace and moaning. HR 150's. pt was put back to bed. pt took norco for pain. heart rate is currently 106-115.
[2019-11-24] VITALS (27 sets, daily range): BP systolic 94–147; BP diastolic 58–94; PULSE 114–145; RESP 14–21; TEMP 36.6–39.1; O2SAT 95–100
[2019-11-24] MEDS: IBUPROFEN 600 MG TABLET PO (01:16)
--- NOTE | 2019-11-24 01:48 | PC.NURSE ---
Patient ripped off telemetry unit got out of bed wandering in [address] looking for the picnic table I sleep under. Unable to redirect. ICU called reported that patient heart rate up into the 170's prior to taking off the telemetry. Shukri LANGE notified of patients increased confusion and heart rate and is currently with patient. Stat EKG ordered. 1:1 sitter assigned. Per Nurse Kiah patient had ripped out IV about an hour ago and she was unable to get restarted, another nurse will be starting IV.
--- NOTE | 2019-11-24 02:10 | PC.NURSE ---
Patient back in bed. STAT EKG done. IV restarted and IV fluids restarted. Telemetry reattached. 1:1 staff with patient.
[2019-11-24] MEDS: SODIUM CHLORIDE 0.9% 500 ML IV ×3 (03:02→23:53)
[2019-11-24] MEDS: LORazepam 1 MG TABLET PO ×2 (05:30→07:01)
[2019-11-24 06:36] LABS: Hematocrit 36.7 % (41-53); Hemoglobin 12.6 g/dL (13.5-17.5); Mean Corpuscular HGB Conc 34.5 % (30-36); Mean Corpuscular Hemoglobin 33.4 PG (26-34); Mean Corpuscular Volume 96.9 fL (80-100); Red Blood Cell Count 3.79 X10^6/uL (4.5-5.9); Red Cell Distribution Width 14.6 % (11.6-14.8); White Blood Cell Count 11.4 X10^3/uL (4.5-11.0)
[2019-11-24 06:38] LABS: Add Manual Diff / Slide Review YES
[2019-11-24 06:59] LABS: Alanine Aminotransferase 200 IU/L (<50); Albumin Globulin Ratio 0.9 (1.0-2.8); Alkaline Phosphatase 95 U/L (38-126); Aspartate Aminotransferase 540 IU/L (17-59); BUN Creatinine Ratio 20.8 (6-22); Blood Urea Nitrogen 16 mg/dL (9-20); Carbon Dioxide 26 mmol/L (22-32); Chloride 95 mmol/L (98-107); Estimated Glomerular Filt Rate > 60.0 mL/min (>60); Globulin 3.4 g/dL (1.7-4.1); Glucose 124 mg/dL (70-100); HEMOLYSIS < 15 (0-50); Potassium 3.8 mmol/L (3.4-5.1); Sodium 129 mmol/L (137-145); Total Protein 6.4 g/dL (6.3-8.2)
[2019-11-24] MEDS: LORazepam 2 MG/ML INJ IV ×6 (07:15→12:03)
[2019-11-24 07:19] LABS: Neutrophils Absolute Manual 9576 /uL (3000-5900); RBC Morphology Normal Morphology; Total Cells Counted 100
[2019-11-24 07:20] LABS: Dohle Bodies 3+; Platelet Estimate Decreased on smear; Toxic Granulation Present; Toxic Vacuolation Present
[2019-11-24 07:33] LABS: Platelet Count 70 X10^3/uL (150-400)
[2019-11-24] MEDS: KCL 40 MEQ IN NS 1,000 ML 84 MEQ IV (08:24)
[2019-11-24] MEDS: ENOXAPARIN 40 MG/0.4 ML SYRINGE SUBCUT (09:48)
[2019-11-24] MEDS: LIDOCAINE PATCH 1 EACH ADH..PATCH TOP (09:49)
--- NOTE | 2019-11-24 10:10 | PM.PN.1 ---
Subjective Subjective Date Patient Seen: 11/24/19 Time Patient Seen: 10:11 Interval history: No acute events over night. The patient is sound asleep right now, and has just received a significant dose of Ativan per his CIWA scale. The nurse tells me he was awake and alert about an hour prior to my visit, and was complaining of no rib pain. He was complaining of shoulder pain, and acid the lidocaine patch could be placed on a shoulder rather than his ribs. Exam Vital Signs (past 8 hours): - 11/24/19 02:18 11/24/19 05:30 11/24/19 06:00 Temperature 98.9 F Pulse Rate 126 H 123 H 129 H Respiratory Rate 20 20 Blood Pressure 127/86 130/78 141/90 H Pulse Oximetry 99 11/24/19 07:30 11/24/19 07:45 11/24/19 07:49 Temperature 99.2 F Pulse Rate 138 H 135 H 135 H Respiratory Rate 20 18 14 Blood Pressure 129/78 132/73 132/73 Pulse Oximetry 96 11/24/19 07:50 11/24/19 08:06 11/24/19 08:18 Temperature Pulse Rate 135 H 136 H Respiratory Rate 14 Blood Pressure 132/73 113/62 Pulse Oximetry 96 11/24/19 08:20 11/24/19 09:04 Temperature Pulse Rate 136 H 135 H Respiratory Rate 14 14 Blood Pressure 113/62 137/65 Pulse Oximetry Oxygen Delivery Method Room Air Oxygen Flow Rate 0 Narrative Exam Narrative: PE: GENERAL: Sound asleep, breathing comfortably, satting well on room air HEENT: Head atraumatic,EOMI, face symmetric, moist mucous membranes; poor dentition Neck: Atraumatic, symmetric CARDIOVASCULAR: Tachycardic regular rate and rhythm RESPIRATORY: Breathing comfortably on room air; no TTP on bilateral chest wall palpation. ABDOMEN: Soft, nontender. Non distended. No surgical scars. EXTREMITIES: No lower extremity edema, no visible ecchymoses SKIN: Warm, dry, no laceration, no petechiae, no rashes or lesions. Objective Labs Result Diagrams: 11/24/19 06:00 11/24/19 06:00 Labs: Laboratory Results - last 24 hr 11/23/19 11/23/19 11/23/19 08:00 14:23 16:25 WBC RBC Hgb Hct MCV MCH MCHC RDW Plt Count Neut % (Auto) Lymph % (Auto) Stephenson % (Auto) Eos % (Auto) Baso % (Auto) Lymph # (Auto) Stephenson # (Auto) Baso # (Auto) Total Counted Seg Neutrophils % Band Neutrophils % Lymphocytes % (Manual) Monocytes % (Manual) Metamyelocytes % Neutrophils # (Manual) Toxic Granulation Toxic Vacuolation Dohle Bodies Platelet Estimate Plt Morphology Comment RBC Morphology ABG pH 7.59 H ABG pCO2 28.1 L ABG pO2 83 ABG HCO3 27 H ABG Total CO2 28 ABG O2 Saturation 98 ABG Base Excess 5.0 H FiO2 21 Sodium Potassium Chloride Carbon Dioxide BUN Creatinine Estimated GFR BUN/Creatinine Ratio Glucose Calcium Total Bilirubin AST ALT Alkaline Phosphatase Total Creatine Kinase 22885 H Total Protein Albumin Globulin Albumin/Globulin Ratio COVID-19 PCR Negative 11/23/19 11/23/19 11/24/19 17:09 17:09 06:00 WBC 11.4 H RBC 3.79 L Hgb 12.6 L Hct 36.7 L MCV 96.9 MCH 33.4 MCHC 34.5 RDW 14.6 Plt Count 70 L Neut % (Auto) Not Reportable Lymph % (Auto) Not Reportable Stephenson % (Auto) Not Reportable Eos % (Auto) Not Reportable Baso % (Auto) Not Reportable Lymph # (Auto) Not Reportable Stephenson # (Auto) Not Reportable Baso # (Auto) Not Reportable Total Counted 100 Seg Neutrophils % 31.0 L Band Neutrophils % 53.0 H Lymphocytes % (Manual) 7.0 L Monocytes % (Manual) 8.0 Metamyelocytes % 1.0 H Neutrophils # (Manual) 9576 H Toxic Granulation Present H Toxic Vacuolation Present H Dohle Bodies 3+ H Platelet Estimate Decreased on smear Plt Morphology Comment RBC Morphology Normal morphology ABG pH ABG pCO2 ABG pO2 ABG HCO3 ABG Total CO2 ABG O2 Saturation ABG Base Excess FiO2 Sodium Potassium Chloride Carbon Dioxide BUN Creatinine Estimated GFR BUN/Creatinine Ratio Glucose Calcium Total Bilirubin AST ALT Alkaline Phosphatase Total Creatine Kinase Cancelled 52052 H Total Protein Albumin Globulin Albumin/Globulin Ratio COVID-19 PCR 11/24/19 06:00 WBC RBC Hgb Hct MCV MCH MCHC RDW Plt Count Neut % (Auto) Lymph % (Auto) Stephenson % (Auto) Eos % (Auto) Baso % (Auto) Lymph # (Auto) Stephenson # (Auto) Baso # (Auto) Total Counted Seg Neutrophils % Band Neutrophils % Lymphocytes % (Manual) Monocytes % (Manual) Metamyelocytes % Neutrophils # (Manual) Toxic Granulation Toxic Vacuolation Dohle Bodies Platelet Estimate Plt Morphology Comment RBC Morphology ABG pH ABG pCO2 ABG pO2 ABG HCO3 ABG Total CO2 ABG O2 Saturation ABG Base Excess FiO2 Sodium 129 L Potassium 3.8 Chloride 95 L Carbon Dioxide 26 BUN 16 Creatinine 0.77 Estimated GFR > 60.0 BUN/Creatinine Ratio 20.8 Glucose 124 H Calcium 8.0 L Total Bilirubin 3.0 H AST 540 H ALT 200 H Alkaline Phosphatase 95 Total Creatine Kinase Total Protein 6.4 Albumin 3.0 L Globulin 3.4 Albumin/Globulin Ratio 0.9 L COVID-19 PCR Assessment & Plan Assessment and plan (1) Traumatic rhabdomyolysis: Qualifiers: Encounter type: initial encounter Qualified Code(s): T79.6XXA - Traumatic ischemia of muscle, initial encounter Status: Acute (2) Hepatitis C: Status: Chronic (3) Transaminitis: Status: Acute (4) Hyperbilirubinemia: Status: Acute (5) Rib fractures: Status: Acute (6) Injury of tongue: Status: Acute Assessment & Plan narrative: 44 yo man with history of hepatitis C, who came into the ER due to a fall from ladder presenting with c/o tongue injury, found to have rib fractures, transaminitis, and rhabdomyolysis. Plan: Hydration and rhabdo management per hospitalist Ok for gen diet and DVT ppx from surgical standpoint Ambulate as tolerated Rib fracture protocol (monitor sats; encourage cough and deep breathing, incentive spirometer, PO/IV pain med and lidocaine patches for pain control) No need to keep the patient in the hospital for his rib fractures, as he is having no pain and no respiratory compromise. Once he is stable in terms of his rhabdomyolysis he may be discharged, with close follow up to his primary doctor COVID-19 COVID-19 status: Result pending Result date/Date tested (Pos, Neg/Pending): 11/23/19 Time Spent With Patient Time with patient: 25 - 35 minutes
--- NOTE | 2019-11-24 10:48 | CM.DANOTE ---
DCP Brief Assessment: EMR reviewed: Patient was admitted for rhabdomyolysis. PCP is not listed. CM/RN attempted to meet with patient at the bedside by patient was disoriented and unable to participate in CM/RN evaluation. CM/Rn spoke with patients nurse and reviewed patients EMR. patient currently lives with his Jyoti Melendez in there home here in [place]. Patient is currently going threw Alcohol withdrawal and has a CIWA score of 16. Patient is sleeping due to large adivan dose. CM department will need to follow up with patient for detailed D/C plan once patient is further out of withdrawal process. CM/Rn attempted to call patients - was unable to reach but left VM to call CM back. I: [facility] healthy options and medicaid. Plan: Unknown at this time will depend on process of Alcohol withdrawal. Susan Hart RN Discharge Planning/Care Management CM Discharge Assessment Start: 11/24/19 10:44 Freq: Status: Active Protocol: Document 11/24/19 10:44 HS (Rec: 11/24/19 10:48 HS [id number]) Discharge Planning Assessment Assigned Health Psychologist Susan Hart RN DPOA/Assigned Designee Name Jyoti Melendez (Spouse) Contact Information [phone] Advance Directives? No History Provided By Medical Record Has Patient been admitted in last 30 No days? Prior Living Arrangements Apartment/Condo Household Members significant other Type of transporation used prior to Drives own vehicle admit Independent with ADL's Yes Is patient alert and oriented? No: Patients CIWA score 16- pt disorented Caregiver for Another No Comment Unknow will need to evaluate when patient is farther out of withdrawl from Alcohol Discharge Plan Home Whiteboard Updated in Patient Room with Yes name and ext. # of Health Psychologist Review Status In Process Next Review Type Continued Stay Review
--- NOTE | 2019-11-24 11:34 | PC.NURSE ---
Addendum entered by Mary Britt R.N. 11/24/19 15:21: Dr. Martinez notified of Patient's Vital signs 94/53 P 143. No change in medications. I was able to give the Librium at 1400. Original Note: On shift change, patient very combative, aggravated, confused and hallucinating. Patient had CIWA 0f 12, 14. Patient has been given mulitiple doses of IV ativan 2-4mg. Patient is resting, but when awake, patient is agitate. New IV Started in Right AC. Patient is alert to self and age. He states, I am trying to give them my credit cards, pulling at the call light. Patient BP 101/63 HR 140's. Patient has no nausea or pain. Patients hands are tremulous. Patient has a 1:1 sitter. Lung sounds Dim in the bases, patient is on room air at 96%. Dr. Martinez notified of patient's VS. Dr. Martinez has initiated Librium, not able to give medication yet due to patient sleeping.
[2019-11-24] MEDS: SODIUM CHLORIDE 0.9% FLUSH 10 ML IV ×2 (12:06→12:20)
[2019-11-24] MEDS: KCL 40 MEQ IN NS 1,000 ML 125 MEQ IV (12:19)
[2019-11-24] MEDS: chlordiazePOXIDE 25 MG CAPSULE 50 MG PO ×2 (14:03→20:34)
[2019-11-24] MEDS: PHENobarbital 130 MG/ML VIAL IV (14:46)
[2019-11-24] MEDS: MAGNESIUM SULFATE 2 GM, FOLIC ACID 1 MG, THIAMINE 100 MG, MULTIVITAMIN 10 ML in SODIUM ... IV (16:14)
--- NOTE | 2019-11-24 16:24 | DI.RAD.S_ITS ---
PROCEDURE: XR CHEST 1V INDICATIONS: fever TECHNIQUE: One view of the chest was acquired. COMPARISON: Merged With [facility], CT, CT CHEST ABD PEL W CON, 11/23/2019, 8:09. Merged With [facility], CR, XR CHEST 1V, 01/29/2018, 22:54. FINDINGS: Surgical changes and devices: None. Lungs and pleura: An incomplete inspiratory result is noted, causing a crowded appearance to the lung markings. No focal infiltrates are seen. No pneumothorax or significant pleural effusions are seen. Mediastinum: Mediastinal contours appear normal. Heart size is normal. Bones and chest wall: No suspicious bony lesions. Age-appropriate bony degenerative changes are seen. The known right-sided rib fractures are not well seen on this study. Overlying soft tissues appear unremarkable. IMPRESSION: Limited portable chest examination, without a significant cardiopulmonary abnormality identified. If clinically appropriate, a short-term followup chest series (with PA and lateral views) performed in deep inspiration is suggested for further evaluation. Dictated by: Mario Alberto Hall M.D. on 11/24/2019 at 15:48 Approved by: Mario Alberto Hall M.D. on 11/24/2019 at 15:49
[2019-11-24] MEDS: ACETAMINOPHEN 325 MG TABLET 650 MG PO (16:29)
[2019-11-24] MEDS: HYDROCODONE/ACET 5/325 TABLET 1 TAB PO (17:14)
[2019-11-24 17:31] LABS: Lactate (Lactic Acid) 2.8 mmol/L (0.7-2.1)
[2019-11-24 17:33] LABS: Alanine Aminotransferase 186 IU/L (<50); Albumin 3.1 g/dL (3.5-5.0); Albumin Globulin Ratio 0.9 (1.0-2.8); Alkaline Phosphatase 91 U/L (38-126); Aspartate Aminotransferase 408 IU/L (17-59); BUN Creatinine Ratio 24.1 (6-22); Blood Urea Nitrogen 19 mg/dL (9-20); Carbon Dioxide 23 mmol/L (22-32); Chloride 98 mmol/L (98-107); Estimated Glomerular Filt Rate > 60.0 mL/min (>60); Globulin 3.5 g/dL (1.7-4.1); Glucose 112 mg/dL (70-100); HEMOLYSIS < 15 (0-50); Potassium 3.8 mmol/L (3.4-5.1); Sodium 132 mmol/L (137-145); Total Protein 6.6 g/dL (6.3-8.2)
[2019-11-24 17:36] LABS: Add Manual Diff / Slide Review YES; Hematocrit 37.6 % (41-53); Mean Corpuscular HGB Conc 34.5 % (30-36); Mean Corpuscular Hemoglobin 33.5 PG (26-34); Mean Corpuscular Volume 96.9 fL (80-100); Platelet Count 80 X10^3/uL (150-400); Red Blood Cell Count 3.88 X10^6/uL (4.5-5.9); Red Cell Distribution Width 14.3 % (11.6-14.8); White Blood Cell Count 12.2 X10^3/uL (4.5-11.0)
[2019-11-24 17:47] LABS: Creatine Kinase 11661 U/L (55-170)
--- NOTE | 2019-11-24 17:56 | P.PN_ITS ---
Subjective Subjective Date Patient Seen: 11/24/19 Interval history: The patient is a 44-year-old male admitted to the hospital 1 week following a fall from a 19 ft roof. Sustained rib fractures on the left, shoulder pain, significant rhabdomyolysis. Overnight the patient developed delirium tremens. He has been confused, agitated, tachycardic most of the day. Patient spiked a fever to 101. He has been intermittently awake. Patient has received several doses of Ativan and remains tachycardic he developed hypotension and is currently receiving IV hydration P Exam Vital Signs (past 8 hours): - 11/24/19 10:41 11/24/19 11:19 11/24/19 11:25 Temperature Pulse Rate 145 H 142 H Respiratory Rate 14 Blood Pressure 112/70 112/62 101/60 Pulse Oximetry 11/24/19 11:26 11/24/19 11:35 11/24/19 11:50 Temperature 99.8 F H Pulse Rate 142 H 140 H 143 H Respiratory Rate 14 16 Blood Pressure 101/61 101/61 94/72 Pulse Oximetry 96 11/24/19 12:13 11/24/19 12:21 11/24/19 12:23 Temperature 98.9 F Pulse Rate 140 H 140 H Respiratory Rate 16 16 Blood Pressure 104/71 104/71 Pulse Oximetry 95 95 11/24/19 14:15 11/24/19 14:45 11/24/19 15:17 Temperature 100 F H 102.3 F H Pulse Rate 133 H 129 H 132 H Respiratory Rate 20 20 20 Blood Pressure 109/58 L 103/59 L 102/60 Pulse Oximetry 97 97 97 11/24/19 16:50 Temperature 99.3 F Pulse Rate Respiratory Rate Blood Pressure Pulse Oximetry Oxygen Delivery Method Room Air Oxygen Flow Rate 0 Narrative Exam Narrative: Ill-appearing male confused and at times agitated Lungs: Decreased breath sounds bilaterally Cardiac exam: Tachycardic regular rate and rhythm normal S1-S2 Abdomen: Soft and nontender Flank: Right flank with bruising, left arm with bruising, tender to palpation Extremities: No edema Objective Labs Result Diagrams: 11/24/19 17:06 11/24/19 17:06 Labs: Laboratory Results - last 24 hr 11/23/19 11/24/19 11/24/19 17:09 06:00 06:00 WBC 11.4 H RBC 3.79 L Hgb 12.6 L Hct 36.7 L MCV 96.9 MCH 33.4 MCHC 34.5 RDW 14.6 Plt Count 70 L Neut % (Auto) Not Reportable Lymph % (Auto) Not Reportable [place] % (Auto) Not Reportable Eos % (Auto) Not Reportable Baso % (Auto) Not Reportable Lymph # (Auto) Not Reportable [place] # (Auto) Not Reportable Baso # (Auto) Not Reportable Total Counted 100 Seg Neutrophils % 31.0 L Band Neutrophils % 53.0 H Lymphocytes % (Manual) 7.0 L Monocytes % (Manual) 8.0 Metamyelocytes % 1.0 H Neutrophils # (Manual) 9576 H Toxic Granulation Present H Toxic Vacuolation Present H Dohle Bodies 3+ H Platelet Estimate Decreased on smear Plt Morphology Comment RBC Morphology Normal morphology Sodium 129 L Potassium 3.8 Chloride 95 L Carbon Dioxide 26 BUN 16 Creatinine 0.77 Estimated GFR > 60.0 BUN/Creatinine Ratio 20.8 Glucose 124 H Lactate Calcium 8.0 L Total Bilirubin 3.0 H AST 540 H ALT 200 H Alkaline Phosphatase 95 Total Creatine Kinase 84655 H Total Protein 6.4 Albumin 3.0 L Globulin 3.4 Albumin/Globulin Ratio 0.9 L 11/24/19 11/24/19 11/24/19 17:06 17:06 17:06 WBC 12.2 H RBC 3.88 L Hgb 13.0 L Hct 37.6 L MCV 96.9 MCH 33.5 MCHC 34.5 RDW 14.3 Plt Count 80 L Neut % (Auto) Not Reportable Lymph % (Auto) Not Reportable [place] % (Auto) Not Reportable Eos % (Auto) Not Reportable Baso % (Auto) Not Reportable Lymph # (Auto) Not Reportable [place] # (Auto) Not Reportable Baso # (Auto) Not Reportable Total Counted Seg Neutrophils % Band Neutrophils % Lymphocytes % (Manual) Monocytes % (Manual) Metamyelocytes % Neutrophils # (Manual) Toxic Granulation Toxic Vacuolation Dohle Bodies Platelet Estimate Plt Morphology Comment RBC Morphology Sodium 132 L Potassium 3.8 Chloride 98 Carbon Dioxide 23 BUN 19 Creatinine 0.79 Estimated GFR > 60.0 BUN/Creatinine Ratio 24.1 H Glucose 112 H Lactate 2.8 H Calcium 8.0 L Total Bilirubin 3.0 H AST 408 H ALT 186 H Alkaline Phosphatase 91 Total Creatine Kinase Total Protein 6.6 Albumin 3.1 L Globulin 3.5 Albumin/Globulin Ratio 0.9 L 11/24/19 17:06 WBC RBC Hgb Hct MCV MCH MCHC RDW Plt Count Neut % (Auto) Lymph % (Auto) [place] % (Auto) Eos % (Auto) Baso % (Auto) Lymph # (Auto) [place] # (Auto) Baso # (Auto) Total Counted Seg Neutrophils % Band Neutrophils % Lymphocytes % (Manual) Monocytes % (Manual) Metamyelocytes % Neutrophils # (Manual) Toxic Granulation Toxic Vacuolation Dohle Bodies Platelet Estimate Plt Morphology Comment RBC Morphology Sodium Potassium Chloride Carbon Dioxide BUN Creatinine Estimated GFR BUN/Creatinine Ratio Glucose Lactate Calcium Total Bilirubin AST ALT Alkaline Phosphatase Total Creatine Kinase 93516 H D Total Protein Albumin Globulin Albumin/Globulin Ratio Assessment & Plan Assessment & Plan narrative: Impression 1. 44-year-old male admitted to the hospital following a fall from a 19 ft Room -patient sustained multiple rib fracture, -head CT negative, cervical spine CT negative for acute fracture, CT of abdomen and pelvis showed no intra-abdominal pathology, shoulder xrays no evidence of fracture. Fall is over 1 week ago -repeat chest x-ray shows no evidence of pneumonia -patient spiked a fever today to 101 -lactate elevated at 2.8 -patient was hypotensive and tachycardic earlier today -blood cultures pending, initial urine culture suggest Staph aureus 10, 000 CFU, final culture pending -start Zosyn 3.375 IV q.6, bolus 1 L of fluid, continue Tylenol, await culture, repeat lactate 2. Rhabdomyolysis -CPK down to 11,000 from 60,000 -continue aggressive IV hydration -follow electrolytes and creatinine closely 3. Alcohol withdrawal with delirium tremens/acute metabolic encephalopathy -continue Librium 50 Q 6 -continue Ativan 2 mg q.4 hours as needed -patient received 1 dose phenobarbital with no significant improvement -will continue to monitor closely -banana bag 4. History of hepatitis-C -LFTs elevated, now improving -will continue to monitor closely 5. Seizure disorder -will continue alcohol withdrawal protocol based on CIWA scoring as above - no seizures during this admission 6. History of polysubstance abuse -will continue to monitor closely 7. Tongue laceration following fall -continue Magic mouthwash 8. Anemia -continue iron sulfate
[2019-11-24] MEDS: LACTATED RINGERS 500 ML 1000 ML IV ×2 (17:58→17:59)
[2019-11-24] MEDS: PIPERACILLIN-TAZO 3.375 GM/50 ML FROZ.PIGGY IV ×2 (18:03→23:30)
[2019-11-24 18:05] LABS: Neutrophils Absolute Manual 9638 /uL (3000-5900); RBC Morphology Normal Morphology; Total Cells Counted 100
[2019-11-24 19:12] LABS: Reflexed Lactate in 2 Hours Y
[2019-11-24 19:30] LABS: Lactate 2HR (Lactic Acid Rflx) 2.7 mmol/L (0.7-2.1)
--- NOTE | 2019-11-24 21:49 | PC.NURSE ---
pt has been mostly asleep all day. He ate his dinner then he quickly went back to sleep with heart rate still lingering in 130's. Pt was given 1L LR bolus per . he was also given norco for Lt. arm pain. around 2029 he woke up and started to remove his tele, administered librium and he quickly went back to sleep. pt is incontinent. seizure precautions. febrile, administered tylenol. Lt. foot erythema and warm to touch, Dr. Martinez aware. 1:1. bed alarm active.
[2019-11-24 21:56] LABS: Lactate (Lactic Acid) 2.1 mmol/L (0.7-2.1)
[2019-11-24 22:14] LABS: Procalcitonin 3.49 ng/mL (<0.5)
[2019-11-25] VITALS (49 sets, daily range): BP systolic 85–141; BP diastolic 48–65; PULSE 100–138; RESP 7–223; TEMP 36.3–37.9; O2SAT 91–100
--- NOTE | 2019-11-25 00:38 | PM.EVENT ---
Event Note Date Patient Seen: 11/24/19 Time Patient Seen: 23:00 Event Note: Patient re-evaluation: 11/24/2019 at 11:00 p.m. The patient remains minimally responsive, will open eyes and complained of pain with movement of his left arm, he has redness of the left foot with a developing swelling over the distal metatarsal. The patient remains consistently sinus tachycardia in the 130s up to 140s. He has received a 500 cc IV bolus with no improvement in heart rate. Patient spiked a temperature up to 102.3 earlier this afternoon is 98.5 at time of assessment. Repeat labs at 5:00 p.m. find elevating white blood cell count at 12.2 with a bandemia improving from 50 % to 43 % with meta myelocytes, myelocytes elevated neutrophils, toxic granulation, toxic vacuolization and Dohle bodies. Repeat lactated 1900 was 2.7 and was again repeated repeated at 2100 and was down to 2.1. Procalcitonin assessed at the same time and found to be 3.49. Severe sepsis with end-organ dysfunction, including cardiovascular and neurological systems. -patient dropped his blood pressure the course of the morning dropping to 94/71 at 11:00 a.m. responsive to fluid resuscitation. -patient with persistent sinus tachycardia into the 130s to 140s, no longer responsive to fluid resuscitation. The patient's presentation is complicated by trauma and repeat chest x-ray this afternoon was of limited quality due to the patient's lack deep inspiration secondary to chest wall pain from fractured ribs however notes crowded appearance but no acute cardiopulmonary findings. -patient's altered mental status multifactorial related to toxic metabolic encephalopathy secondary to sepsis, ETOH withdrawal on receiving Librium and phenobarbital and lorazepam. -the patient has received 500 cc bolus with no change in heart rate however improvement in blood pressure from 110s to 140s, will repeat incremental 500 boluses x1 L and reassess. -patient is transferred to the ICU for close monitoring. Cellulitis with abscess left foot -redness and warmth dorsum left foot with swelling with apparent flocculent fluid collection over the distal 1st metatarsal that have developed within the last 24 hours. -blood cultures have been drawn in the patient is receiving Zosyn 3.375 g IV every 6 hours. -procalcitonin at 9:00 p.m. is 3.49, rule repeat in the morning. -will request Podiatry consult. Current smoker, chronic -patient with wheezing on examination, maintaining adequate oxygenation. -chest x-ray reveals no evidence of pulmonary edema or infiltrates. -will reassess post 500 cc boluses for worsening pulmonary congestion. -request respiratory therapy consult to evaluate and treat -ordered Xopenex nebulizer every 2 hours as needed for shortness of breath or wheezing.
--- NOTE | 2019-11-25 00:52 | PC.NURSE ---
Transferred to ICU, bedside report to Tiana POZO. Transferred by stretcher, patient not awake or alert. Did cuss when straightening his arm for IVF , but no other verballizing to me.
[2019-11-25] MEDS: LACTATED RINGERS 500 ML 1000 ML IV (00:53)
--- NOTE | 2019-11-25 00:54 | PC.NURSE ---
Addendum entered by Alba Bowie R.N. 11/25/19 02:47: 0245 Lab called to notify this nurse that pt MRSA results came back positive. Contact isolation initiated, cart place at door, provider and charge nurse updated on pt status. Bed low and locked, call light within reach, will continue to monitor. Original Note: 0025 Pt arrived to ICU via bed from Room 206, Provider Isidro GARDNER requested move to ICU status due to s/s of sepsis. HR 143 BP 141/59 temp 99.8. Pt sleeping currently but rouses to voice. LR infusing 500 bolus as ordered. Pt connected to monitoring, seizure pads in place, report received from SÁNCHEZ Dupont. Bed low and locked, call light within reach, will continue to treat and monitor as ordered.
[2019-11-25] MEDS: LACTATED RINGERS 1,000 ML 1000 ML IV (01:10)
[2019-11-25] MEDS: LEVALBUTEROL 1.25 MG/0.5 ML NEB INH (01:12)
[2019-11-25] MEDS: chlordiazePOXIDE 25 MG CAPSULE 50 MG PO ×3 (02:20→14:51)
[2019-11-25] MEDS: LACTATED RINGERS 1,000 ML 150 ML IV (02:32)
[2019-11-25] MEDS: IBUPROFEN 600 MG TABLET PO ×2 (04:08→12:45)
[2019-11-25] MEDS: LORazepam 1 MG TABLET PO (04:08)
[2019-11-25] MEDS: HYDROCODONE/ACET 5/325 TABLET 1 TAB PO ×2 (04:09→08:45)
[2019-11-25 04:45] LABS: Hematocrit 33.4 % (41-53); Hemoglobin 11.4 g/dL (13.5-17.5); Mean Corpuscular HGB Conc 34.1 % (30-36); Mean Corpuscular Hemoglobin 33.2 PG (26-34); Mean Corpuscular Volume 97.3 fL (80-100); Platelet Count 76 X10^3/uL (150-400); Red Blood Cell Count 3.44 X10^6/uL (4.5-5.9); Red Cell Distribution Width 14.9 % (11.6-14.8); White Blood Cell Count 13.2 X10^3/uL (4.5-11.0)
[2019-11-25 04:47] LABS: Add Manual Diff / Slide Review YES
[2019-11-25 04:52] LABS: Alanine Aminotransferase 138 IU/L (<50); Albumin 2.4 g/dL (3.5-5.0); Albumin Globulin Ratio 0.8 (1.0-2.8); Alkaline Phosphatase 88 U/L (38-126); Aspartate Aminotransferase 275 IU/L (17-59); BUN Creatinine Ratio 24.4 (6-22); Bilirubin Total 3.1 mg/dL (0.2-1.3); Blood Urea Nitrogen 19 mg/dL (9-20); Calcium 7.3 mg/dL (8.4-10.2); Carbon Dioxide 22 mmol/L (22-32); Chloride 99 mmol/L (98-107); Estimated Glomerular Filt Rate > 60.0 mL/min (>60); Globulin 3.1 g/dL (1.7-4.1); Glucose 93 mg/dL (70-100); HEMOLYSIS < 15 (0-50); Magnesium 1.8 mg/dL (1.6-2.3); Potassium 3.4 mmol/L (3.4-5.1); Sodium 129 mmol/L (137-145); Total Protein 5.5 g/dL (6.3-8.2)
[2019-11-25 05:09] LABS: Procalcitonin 4.22 ng/mL (<0.5)
[2019-11-25] MEDS: PIPERACILLIN-TAZO 3.375 GM/50 ML FROZ.PIGGY IV ×3 (06:02→18:31)
[2019-11-25 06:51] LABS: Enterococcus species Not Detected (Not Detect); Listeria monocytogenes Not Detected (Not Detect); Staphylococcus species Detected (Not Detect)
[2019-11-25 06:53] LABS: Acinetobacter baumannii Not Detected (Not Detect); Candida albicans Not Detected (Not Detect); Candida glabrata Not Detected (Not Detect); Candida krusei Not Detected (Not Detect); Candida parapsilosis Not Detected (Not Detect); Candida tropicalis Not Detected (Not Detect); E. coli Not Detected (Not Detect); Enterobacter cloacae complex Not Detected (Not Detect); Enterobacteriaceae species Not Detected (Not Detect); Haemophilus influenzae Not Detected (Not Detect); Methicillin-resistant gene Detected (Not Detect); Neisseria meningitidis Not Detected (Not Detect); Proteus species Not Detected (Not Detect); Pseudomonas aeruginosa Not Detected (Not Detect); Serratia marcescens Not Detected (Not Detect); Streptococcus agalactiae (Gr B Not Detected (Not Detect); Streptococcus pneumonia Not Detected (Not Detect); Streptococcus pyogenes (Gr A) Not Detected (Not Detect); Streptococcus species Not Detected (Not Detect)
[2019-11-25 07:14] LABS: Neutrophils Absolute Manual 11220 /uL (3000-5900); Total Cells Counted 100
[2019-11-25 07:15] LABS: Dohle Bodies 3+; RBC Morphology Normal Morphology; Toxic Granulation Present
--- NOTE | 2019-11-25 08:37 | DI.CT.S_ITS ---
PROCEDURE: CT LE LT W CON INDICATIONS: Left foot abscess/LE cellulitis TECHNIQUE: Noncontrast 1-1.5 mm axial sections acquired from above the knee joint to the bottom of the calcaneus, with coronal and sagittal reformats. COMPARISON: [facility], CR, XR CHEST 1V, 11/24/2019, 16:26. FINDINGS: Image quality: Excellent. Bones: No acute fracture dislocation. No plain film evidence of osteomyelitis. Soft tissues: Edematous change in the foot. No obvious abscess. No soft tissue gas no radiopaque foreign body. IMPRESSION: Cellulitic change. No obvious abscess. No CT evidence of osteomyelitis Comment: Consider left foot MRI with without contrast. Dictated by: David Renee M.D. on 11/25/2019 at 8:55 Approved by: David Renee M.D. on 11/25/2019 at 8:59
[2019-11-25] MEDS: LIDOCAINE PATCH 1 EACH ADH..PATCH TOP (08:44)
[2019-11-25] MEDS: FOLIC ACID 1 MG TABLET PO (08:45)
[2019-11-25] MEDS: MULTIVITAMIN 1 TABLET 1 TAB PO (08:45)
[2019-11-25] MEDS: THIAMINE 100 MG TABLET PO (08:45)
[2019-11-25] MEDS: VANCOMYCIN 1,000 MG/200 ML PIGGYBACK 200 MG IV ×2 (08:47→16:15)
--- NOTE | 2019-11-25 08:47 | P.CONS_ITS ---
History of Present Illness Consult details Date Patient Seen: 11/25/19 Time Patient Seen: 08:47 Chief complaint: Put a hole all the way through my tongue Reason for consult: dorsal foot abscess, left Requesting provider: Theresa Coker Narrative: 44-year-old male with a complex presentation approximately 1 week after a fall from height. He presented to the ER with pain and was found to have rhabdomyolysis. This found to have rib fractures. Mental status was fluctuating in the hospital with concern for alcohol withdrawal possibly complicating the picture. CKs have improved. However his white cell count and fever bumped yesterday. He is also having hypertension. And then last night was found to have a new development of the swelling and cellulitis over the dorsum of the foot at the 1st metatarsal on the left foot with of fluctuance consistent with an abscess. Previously was found to have Staph in his blood. He has been started on Zosyn. A CT scan of his left foot was ordered by the hospitalist team. This is currently pending. Orthopedic surgery was consulted for possible irrigation richar ridement. Patient is awake lying in bed. He is able to answer some minimal questions endorses some soreness over his left foot in the area of the swelling. An as shortness in his shoulders. Previous radiographs and CT scan negative for fracture of his extremities. Otherwise history from patient is very limited Meds Home Medications and Allergies Home Medications Medication Instructions Recorded Confirmed Type acetaminophen 500 mg capsule 500 mg PO Q6H PRN 01/15/18 11/23/19 History ferrous sulfate 324 mg (65 mg 324 mg PO DAILY tab 01/15/18 11/23/19 History iron) tablet,delayed release ocular lubricant preserved 1 drop OPHTHALMIC (EYE) .COMPLEX 01/15/18 11/23/19 History opthalmic solution Allergies Allergy/AdvReac Type Severity Reaction Status Date / Time No Known Drug Allergies Allergy Unverified 06/18/19 22:27 Review of Systems Review of Systems ROS: Yes unobtainable due to mental status Exam Vital Signs (past 8 hours): - 11/25/19 01:14 11/25/19 02:11 11/25/19 02:15 Temperature Pulse Rate 136 H 134 H 137 H Respiratory Rate 14 14 15 Blood Pressure 122/60 116/58 L Pulse Oximetry 98 97 95 11/25/19 02:20 11/25/19 02:25 11/25/19 02:30 Temperature Pulse Rate 136 H 138 H 135 H Respiratory Rate 14 15 12 Blood Pressure 116/58 L Pulse Oximetry 94 96 98 11/25/19 03:00 11/25/19 03:30 11/25/19 04:00 Temperature 100.3 F H Pulse Rate 134 H 136 H 129 H Respiratory Rate 20 18 13 Blood Pressure 90/61 103/55 L 103/55 L Pulse Oximetry 96 94 95 11/25/19 04:40 11/25/19 04:53 11/25/19 05:01 Temperature Pulse Rate 126 H 124 H Respiratory Rate 14 12 12 Blood Pressure 107/56 L 107/56 L 101/54 L Pulse Oximetry 98 96 11/25/19 06:01 11/25/19 07:00 11/25/19 08:00 Temperature 98.9 F Pulse Rate 121 H 123 H 124 H Respiratory Rate 11 L 19 13 Blood Pressure 106/55 L 111/56 L 114/58 L Pulse Oximetry 96 96 97 Oxygen Delivery Method Room Air Oxygen Flow Rate 0 Narrative Exam Narrative: HEENT exam. Normocephalic patient lying in bed. Weakly answers questions with minimal response but does demonstrate some ankle and arm range of motion when asked. Endorses tenderness the area of swelling on his left foot dorsum Respiratory exam unlabored on room air CV exam sinus tachycardia Musculoskeletal exam: Endorses upper extremity soreness is able to lift his arm up to shoulder height. Nurses tenderness to palpation over his shoulders left g reater than right. No deformities. No step-offs. Demonstrates wrist flexion and extension sensation grossly intact Bilateral lower extremities. Demonstrates right ankle dorsiflexion plantar flexion. No swelling of the right lower extremity. Nontender to palpation. Left lower extremity demonstrates the swelling a faint erythema and fluctuance over the 1st metatarsal shaft. Patient demonstrates active extension and flexion at the 1st MTP joint without difficulty. No wounds. No ascending cellulitis. Demonstrates dorsiflexion plantar flexion of the ankle. Calves are soft. No erythema at the knee or thigh. Objective Imaging CT left lower extremity: Radiologist's impression: IMPRESSION: Cellulitic change. No obvious abscess. No CT evidence of osteomyelitis Comment: Consider left foot MRI with without contrast. Dictated by: David Renee M.D. on 11/25/2019 at 8:55 Approved by: David Renee M.D. on 11/25/2019 at 8:59 Labs Result Diagrams: 11/25/19 04:30 11/25/19 04:30 Labs: Laboratory Results - last 24 hr 11/24/19 11/24/19 11/24/19 16:57 17:06 17:06 WBC 12.2 H RBC 3.88 L Hgb 13.0 L Hct 37.6 L MCV 96.9 MCH 33.5 MCHC 34.5 RDW 14.3 Plt Count 80 L Neut % (Auto) Not Reportable Lymph % (Auto) Not Reportable [place] % (Auto) Not Reportable Eos % (Auto) Not Reportable Baso % (Auto) Not Reportable Lymph # (Auto) Not Reportable [place] # (Auto) Not Reportable Baso # (Auto) Not Reportable Total Counted 100 Seg Neutrophils % 37.0 L Band Neutrophils % 42.0 H Lymphocytes % (Manual) 5.0 L Atypical Lymphs % 1.0 H Monocytes % (Manual) 6.0 Eosinophils % (Manual) 2.0 Metamyelocytes % 6.0 H Myelocytes % 1.0 H Neutrophils # (Manual) 9638 H Toxic Granulation Dohle Bodies RBC Morphology Normal morphology Sodium 132 L Potassium 3.8 Chloride 98 Carbon Dioxide 23 BUN 19 Creatinine 0.79 Estimated GFR > 60.0 BUN/Creatinine Ratio 24.1 H Glucose 112 H Lactate Calcium 8.0 L Magnesium Total Bilirubin 3.0 H AST 408 H ALT 186 H Alkaline Phosphatase 91 Total Creatine Kinase Total Protein 6.6 Albumin 3.1 L Globulin 3.5 Albumin/Globulin Ratio 0.9 L Procalcitonin Nasal Screen MRSA (PCR) A. baumannii (PCR) Not detected Christina albicans (PCR) Not detected C. glabrata (PCR) Not detected C. krusei (PCR) Not detected C. parapsilosis (PCR) Not detected C. tropicalis (PCR) Not detected Enterobacteriac sp PCR Not detected E. cloacae complex PCR Not detected Enterococcus sp PCR Not detected E. coli (PCR) Not detected H. influenzae (PCR) Not detected Klebsiella oxytoca PCR Not detected Klebsiella pneumoniae Not detected List. monocytogenes PCR Not detected N. meningitidis (PCR) Not detected Proteus species (PCR) Not detected Serratia marcescens PCR Not detected Staphylococcus sp PCR Detected H Staph aureus (PCR) Detected H mecA-Methicil Res Gene Detected H Streptococcus sp PCR Not detected Group A Strep (PCR) Not detected Strep agalactiae (PCR) Not detected Strep pneumoniae (PCR) Not detected P. aeruginosa (PCR) Not detected South/B-Vanco Res Genes Not Reportable KPC-Carbap Res Gene PCR Not Reportable 11/24/19 11/24/19 11/24/19 17:06 17:06 19:15 WBC RBC Hgb Hct MCV MCH MCHC RDW Plt Count Neut % (Auto) Lymph % (Auto) [place] % (Auto) Eos % (Auto) Baso % (Auto) Lymph # (Auto) [place] # (Auto) Baso # (Auto) Total Counted Seg Neutrophils % Band Neutrophils % Lymphocytes % (Manual) Atypical Lymphs % Monocytes % (Manual) Eosinophils % (Manual) Metamyelocytes % Myelocytes % Neutrophils # (Manual) Toxic Granulation Dohle Bodies RBC Morphology Sodium Potassium Chloride Carbon Dioxide BUN Creatinine Estimated GFR BUN/Creatinine Ratio Glucose Lactate 2.8 H 2.7 H Calcium Magnesium Total Bilirubin AST ALT Alkaline Phosphatase Total Creatine Kinase 86602 H D Total Protein Albumin Globulin Albumin/Globulin Ratio Procalcitonin Nasal Screen MRSA (PCR) A. baumannii (PCR) Christina albicans (PCR) C. glabrata (PCR) C. krusei (PCR) C. parapsilosis (PCR) C. tropicalis (PCR) Enterobacteriac sp PCR E. cloacae complex PCR Enterococcus sp PCR E. coli (PCR) H. influenzae (PCR) Klebsiella oxytoca PCR Klebsiella pneumoniae List. monocytogenes PCR N. meningitidis (PCR) Proteus species (PCR) Serratia marcescens PCR Staphylococcus sp PCR Staph aureus (PCR) mecA-Methicil Res Gene Streptococcus sp PCR Group A Strep (PCR) Strep agalactiae (PCR) Strep pneumoniae (PCR) P. aeruginosa (PCR) South/B-Vanco Res Genes KPC-Carbap Res Gene PCR 11/24/19 11/24/19 11/25/19 21:40 21:40 01:34 WBC RBC Hgb Hct MCV MCH MCHC RDW Plt Count Neut % (Auto) Lymph % (Auto) [place] % (Auto) Eos % (Auto) Baso % (Auto) Lymph # (Auto) [place] # (Auto) Baso # (Auto) Total Counted Seg Neutrophils % Band Neutrophils % Lymphocytes % (Manual) Atypical Lymphs % Monocytes % (Manual) Eosinophils % (Manual) Metamyelocytes % Myelocytes % Neutrophils # (Manual) Toxic Granulation Dohle Bodies RBC Morphology Sodium Potassium Chloride Carbon Dioxide BUN Creatinine Estimated GFR BUN/Creatinine Ratio Glucose Lactate 2.1 Calcium Magnesium Total Bilirubin AST ALT Alkaline Phosphatase Total Creatine Kinase Total Protein Albumin Globulin Albumin/Globulin Ratio Procalcitonin 3.49 H Nasal Screen MRSA (PCR) Positive for mrsa H A. baumannii (PCR) Christina albicans (PCR) C. glabrata (PCR) C. krusei (PCR) C. parapsilosis (PCR) C. tropicalis (PCR) Enterobacteriac sp PCR E. cloacae complex PCR Enterococcus sp PCR E. coli (PCR) H. influenzae (PCR) Klebsiella oxytoca PCR Klebsiella pneumoniae List. monocytogenes PCR N. meningitidis (PCR) Proteus species (PCR) Serratia marcescens PCR Staphylococcus sp PCR Staph aureus (PCR) mecA-Methicil Res Gene Streptococcus sp PCR Group A Strep (PCR) Strep agalactiae (PCR) Strep pneumoniae (PCR) P. aeruginosa (PCR) South/B-Vanco Res Genes KPC-Carbap Res Gene PCR 11/25/19 11/25/19 11/25/19 04:30 04:30 04:30 WBC 13.2 H RBC 3.44 L Hgb 11.4 L Hct 33.4 L MCV 97.3 MCH 33.2 MCHC 34.1 RDW 14.9 H Plt Count 76 L Neut % (Auto) Not Reportable Lymph % (Auto) Not Reportable [place] % (Auto) Not Reportable Eos % (Auto) Not Reportable Baso % (Auto) Not Reportable Lymph # (Auto) Not Reportable [place] # (Auto) Not Reportable Baso # (Auto) Not Reportable Total Counted 100 Seg Neutrophils % 18.0 L D Band Neutrophils % 67.0 H Lymphocytes % (Manual) 8.0 L Atypical Lymphs % Monocytes % (Manual) 6.0 Eosinophils % (Manual) Metamyelocytes % 1.0 H Myelocytes % Neutrophils # (Manual) 11365 H Toxic Granulation Present H Dohle Bodies 3+ H RBC Morphology Normal morphology Sodium 129 L Potassium 3.4 Chloride 99 Carbon Dioxide 22 BUN 19 Creatinine 0.78 Estimated GFR > 60.0 BUN/Creatinine Ratio 24.4 H Glucose 93 Lactate Calcium 7.3 L Magnesium 1.8 Total Bilirubin 3.1 H AST 275 H ALT 138 H Alkaline Phosphatase 88 Total Creatine Kinase Total Protein 5.5 L Albumin 2.4 L Globulin 3.1 Albumin/Globulin Ratio 0.8 L Procalcitonin 4.22 H Nasal Screen MRSA (PCR) A. baumannii (PCR) Christina albicans (PCR) C. glabrata (PCR) C. krusei (PCR) C. parapsilosis (PCR) C. tropicalis (PCR) Enterobacteriac sp PCR E. cloacae complex PCR Enterococcus sp PCR E. coli (PCR) H. influenzae (PCR) Klebsiella oxytoca PCR Klebsiella pneumoniae List. monocytogenes PCR N. meningitidis (PCR) Proteus species (PCR) Serratia marcescens PCR Staphylococcus sp PCR Staph aureus (PCR) mecA-Methicil Res Gene Streptococcus sp PCR Group A Strep (PCR) Strep agalactiae (PCR) Strep pneumoniae (PCR) P. aeruginosa (PCR) South/B-Vanco Res Genes KPC-Carbap Res Gene PCR Assessment & Plan Assessment and plan (1) Foot abscess, left: Problem details: Left foot dorsal abscess centered over the 1st metatarsal shaft. There is fluctuance faint erythema and tenderness. No ascending erythema. Demonstrates range of motion at the 1st MTP and the ankle. CT scan is pending. Depending on this would consider a bedside I and D versus operative debridement. Patient is ICU status. With superficial limited abscess proceed with bedside I and D and wet to dry dressing changes. Symptoms worsen consider further operative debridement. --CT scan showed no definite abscess however patient has fluctuance small area over the dorsal 1st metatarsal on examination. High suspicion for a small abscess in this area. Elected for bedside I and D. Verbal consent obtained from the patient. This was performed at bedside. Patient tolerated well. Gross purulence was encountered. Cultures were sent. The area was irrigated with sterile saline and packed with iodoform gauze. Recommend daily nursing dressing packing changes. adjust antibiotics for cultures as indicated. May have diet. No further surgery anticipated at this time. Status: Acute
--- NOTE | 2019-11-25 09:47 | PM.PROC.1 ---
Procedures Date/Time Date of procedure: 11/25/19 Time of procedure: 09:48 Abscess I/D Site: foot (Left dorsal foot centered over 1st metatarsal) Side (if applicable): left Anesthetic used: lidocaine 1% (3cc) Technique: incised with #11 blade Amount of fluid (mL): 5 Irrigation: Yes Packing used?: iodoform
--- NOTE | 2019-11-25 12:41 | PC.NURSE ---
CALL FROM [employer] CHECKING ON PT- THEY WISH TO BE OF ASSISTANCE UPON DISCHARGE FROM HOSPITAL AND CAN BE REACHED AT THIS # PAY STATION DEPARTMENT MANAGER IS DEREK
--- NOTE | 2019-11-25 15:02 | OT.IP.EVAL ---
Current Diagnoses Unspecified viral hepatitis C without hepatic coma (11/23/19) Other disorders of bilirubin metabolism (11/23/19) Cutaneous abscess of left foot (11/23/19) Nonspecific elevation of levels of transaminase and lactic acid dehydrogenase [LDH] (11/23/19) Unspecified injury of face, initial encounter (11/23/19) Fracture of one rib, unspecified side, initial encounter for closed fracture (11/23/19) Traumatic ischemia of muscle, initial encounter (11/23/19) Past Medical History (Last Reviewed 11/25/19 @ 08:51 by Charity Damon MD) Alcoholism (Chronic) Anemia (Chronic) Chicken pox (Resolved 1983) Fractures (Resolved) GI bleeding (Chronic 2017) Hepatitis C (Chronic 2017) Liver disease (Chronic 2017) Seizures (Chronic 2017) Substance abuse (Chronic) Surgical History (Last Reviewed 11/25/19 @ 08:51 by Charity Damon MD) No pertinent past surgical history (Resolved) Occupational Therapy Inpatient Evaluation/Re-Eval M1 PT/OT-IP Prior Functional Status Start: 11/25/19 13:10 Freq: NEEDED Status: Active Protocol: Document 11/25/19 15:56 CGR (Rec: 11/25/19 16:19 CGR [email or web address]) Medical Review Prior Functional Status Medical History Reviewed Yes Communication Pt is slow to respond and needs verbal cues to answer questions but is able to verbally respond. Mobility and Gait Pt was likely IND in all functional mobility per chart and pts description of getting onto the roof last week. Activities of Daily Living and IADL's Pt was likely IND in all ADLs and IADLs per chart. Social History Household Members significant other,children Living Arrangements Apartment/Condo Number of Floors (Floors) Two Floors Number of Stairs To Enter/Railing? It appears from google maps that pt can enter from the ground level or second level of the home but his bedroom is on the second level. One step to enter home on ground level from grass to concrete and a flight of stairs to enter top floor with rail on one side ( unsure of which side). Home Environment Standard Height Toilet,Walk in Shower Employment Status Unemployed Additional Social History Comment Pt states he is not currently working. Lives with his sig other (pt unable to give sig others name) and step daughter (Acacia). M2 OT-IP Current Condition Start: 11/25/19 15:56 Freq: Status: Active Protocol: Document 11/25/19 15:56 CGR (Rec: 11/25/19 16:19 CGR [email or web address]) Occupational Therapy Current Condition Current Condition Evaluation Date 11/25/19 Treatment Diagnosis fall from roof, L foot abcess, R rib fx, AMS, laceration of the tongue Diagnosis Onset Date 11/23/19 M3 OT- IP Subjective and Pain Start: 11/25/19 15:56 Freq: Status: Active Protocol: Document 11/25/19 15:56 CGR (Rec: 11/25/19 16:19 CGR [email or web address]) OT- Subjective Occupational Therapy Visit Type Type Initial Evaluation Visit Start Time 14:36 Visit Stop Time 15:02 Total Visit Minutes 26 Notes co-eval with P.T. OT Pain Assessment Pain When Pain Assessed During Mobility Pain Present Pain Present Pain Reported Location Bilateral Leg Scale Used Unable to rate Pain Behaviors Facial Grimacing,Guarding, Wincing Management Techniques Distraction,Modification of Treatment,Re-positioning Bilateral Arm Scale Used uanble to rate Pain Behaviors Facial Grimacing,Guarding, Wincing Management Techniques Modification of Treatment,Re- positioning M4 OT- IP ADL's Start: 11/25/19 15:56 Freq: Status: Active Protocol: Document 11/25/19 15:56 CGR (Rec: 11/25/19 16:19 CGR [email or web address]) OT [id number]-[id number] General Evaluation Self-Feeding Ability Maximum Assistance Areas Needing Assistance Drinking From Cup/Glass Comments OT Self-Feeding Comments Pt needed assist getting pills and water to mouth OT ADL-Grooming Comments OT Grooming Comments Not performed on this date OT ADL-Oral Care Comments Oral Care Comments Not performed on this date OT ADL-Dressing General Eval Upper Body Dressing Ability Maximum Assistance Lower Body Dressing Ability Total Assistance Areas Needing Assistance Socks Comments OT Dressing Comments socks and hospital gown OT ADL-Toileting General Evaluation Toileting Ability Minimal Assistance Devices Toileting Assistive Devices Urinal Comments OT Toileting Comments use of urinal seated in chair. Pt was able to position it with extra time and minimal leaking. OT ADL-Bathing Comments OT Bathing Comments not performed M5 OT- IP IADL's Start: 11/25/19 15:56 Freq: Status: Active Protocol: Document 11/25/19 15:56 CGR (Rec: 11/25/19 16:19 CGR [email or web address]) OT-Instrumental Activities of Daily Living Deficits IADL Deficits Identified Deficits Home Safety Awareness Awareness of Need for Assistance at Home Decreased Awareness Ability to Problem Solve Emergency Unable to Problem Solve Situations M6 OT- IP Functional Cognition Start: 11/25/19 15:56 Freq: Status: Active Protocol: Document 11/25/19 15:56 CGR (Rec: 11/25/19 16:19 CGR [email or web address]) Cognitive Factors Limiting Selfcare Function Cognitive Ability Level of Alertness Alert,Confusional State Patient Orientation Name,Month,Year,Place, Situation Attention Span Ability Capable of Focused Attention, Unable to Sustain Attention Ability to Follow Commands Able to Follow One Step Commands with Increased Time, Able to Follow One Step Commands with Repetition Cognitive Comments Cognitive Assessment Comments Pt is very lethargic throughout session. Formal cog assessment if necessary when pt is more able to stay awake. OT- Vision and Hearing OT- Hearing Assessment OT- Hearing Assessment WFL OT- Vision Assessment Visual Acuity WFL Vision Assessment Comments Pt unable to follow commands for visual testing. M7 OT- IP Mobility and Balance Start: 11/25/19 15:56 Freq: Status: Active Protocol: Document 11/25/19 15:56 CGR (Rec: 11/25/19 16:19 CGR [email or web address]) OT- Bed Mobility Assessment Supine to Sit Supine to Sit Assist Minimal Assistance,2 Person Assistance,Head of Bed Elevated,Bedrails Scooting Scooting to Edge of Bed Minimal Assistance,1 Person Assistance,Head of Bed Elevated,Bedrails OT-Transfer Assessment Sit to and From Stand Sit to and from Stand Maximum Assistance,2 Person Assistance Transfers Transfer Ability Maximum Assistance,2 Person Assistance Technique Transfer Destination Bed,Chair Transfer Technique Stand Step Pivot Devices Transfer Assistive Devices Gait Belt,Front Wheeled Walker Comments Mobility Comments Pt with difficulty standing then unable to coordinate steps and poor safety throughout. OT- Gait Assessment Comments Gait Ability Comments Unable to assess at this time. OT- Balance Assessment Sitting Balance and Reactions Static Sitting Balance Ability Fair Dynamic Sitting Balance Ability Poor M8 OT- IP Objective Assessments Start: 11/25/19 15:56 Freq: Status: Active Protocol: Document 11/25/19 15:56 CGR (Rec: 11/25/19 16:19 CGR [email or web address]) OT Gross Range of Motion Upper Extremity Range of Motion Assessment Bilaterally Impaired ROM Impairments Pt states pain to B shlds R worse than left d/t pain. OT Strength Upper Extremity Strength Assessment Bilaterally Impaired Comments Strength Comments grossly 3+/5 with shld pain noted OT- Coordination Assessment Upper Extremity Finger to Nose Test Bilateral UE Impaired Finger Tapping Test Bilateral UE Impaired Comments Coordination Comments Pt unable to perform coordination activities at this time. OT-Muscle Tone Assessment Muscle Tone WNL Yes OT Sensation Assessment Comments Summary Comments unable to assess sensation d/t pt's cognition at this time. Edema Edema Absent M9 OT- IP Assessment and Plan Start: 11/25/19 15:56 Freq: Status: Active Protocol: Document 11/25/19 15:56 CGR (Rec: 11/25/19 16:19 CGR [email or web address]) OT Summary Assessment and Plan Potential Rehabilitation Potential Good Analytic Complexity at Evaluation High Summary OT Impairments Pain,Range of Motion,Strength, Balance,Coordination, Functional Cognition, Functional Mobility,Self- Feeding,Grooming,Dressing, Toileting,Bathing,Toilet Transfers,Shower Transfers, Activity Tolerance Progress Towards Goals Slow Progress due to Medical Issues,Slow Progress due to Cognition Assessment Summary Pt presents as a high complexity evaluation s/p recent fall from roof, R rib fx 6,7, and 8 with hematoma, laceration of the tongue, dorsal foot abscess now s/p bedside I & D. Pt will benefit from continued OT services. Given pt's age and his PLOF, pt is likely to progress well once his cognition clears. Discharge recommendation at this time would be for SNF but likely to progress to home with assist as pt's condition improves. Goals Self-Feeding Goal Independent Grooming Goal Independent Dressing Goal Independent Toileting Goal Independent Bathing Goal Independent Toilet Transfer Goal Independent Shower Transfer Goal Independent Days to Meet Goals 5 Frequency of Treatment Frequency Of Treatment Once a Day Treatment Plan OT Treatment Plan ADL Training,Functional Cognition Training,Functional Mobility,Patient/Family Education,Discharge Planning Other Treatment Recommendations and Next TBD based on cog level. Treatment Focus Discharge Recommendations OT Discharge Recommendations SNF Rehab Other Discharge Recommendations SNF recommendation at this time but pt is likley to progress quickly once his cognition clears and will likely to appropriate for home with assist. Transportation Needs at Discharge Wheelchair/Cabulance
--- NOTE | 2019-11-25 16:11 | P.PN_ITS ---
Subjective Subjective Date Patient Seen: 11/25/19 Interval history: Geovani Melendez is a 44-year-old male with a past medical history significant for alcohol and hepatitis-C induced liver cirrhosis, seizure disorder, nicotine dependence, and history of polysubstance abuse who presented to the ED complaining of multiple complaints including: Tongue pain and myalgias after a traumatic fall from fall from a roof 19 ft roof 1 week prior to admission. Patient is resting comfortably in bed. He is severely somnolent but easily arousable and will answer questions appropriately and follow commands but then quickly falls back asleep. Patient has MRSA UTI and probable MRSA bacteremia. He developed a abscess on his left foot for which Orthopedic surgery performed and I&D today with wound culture. Continue mechanical soft diet due to tongue injury. Patient is voiding and eliminating without difficulty. Exam Vital Signs (past 8 hours): - 11/25/19 09:00 11/25/19 09:12 11/25/19 10:00 Temperature Pulse Rate 113 H 123 H 113 H Respiratory Rate 12 Blood Pressure 107/58 L Pulse Oximetry 94 96 11/25/19 11:12 11/25/19 11:37 11/25/19 12:00 Temperature 98.3 F Pulse Rate 116 H 120 H 112 H Respiratory Rate 12 14 10 L Blood Pressure 105/58 L Pulse Oximetry 96 98 94 11/25/19 14:11 11/25/19 15:00 11/25/19 15:25 Temperature 97.4 F L Pulse Rate 111 H 113 H 113 H Respiratory Rate 9 L 9 L Blood Pressure 108/58 L 96/55 L 96/55 L Pulse Oximetry 94 96 95 Oxygen Delivery Method Room Air Oxygen Flow Rate 0 Narrative Exam Narrative: General: Middle-aged male lying in bed and in no acute distress, slightly disheveled with poor hygiene, significant somnolence but arousable for 1-2 minutes and falls asleep. HEENT: Normocephalic, atraumatic. External ears without defect. Pupils equal, round, and reactive to light. Anicteric sclerae, moist conjunctivae, and no lid lag. Poor dentition. Neck: Supple with full range of motion. No jugular venous distension. No lymphadenopathy or thyromegaly. Cardiovascular: Regular rhythm, tachycardic, without murmurs, rubs, or gallops appreciated. Pulmonary: Diminished throughout the anterior lung tim but clear to auscultation bilaterally without crackles, wheezes, or rhonchi. Normal r espiratory effort with no use of accessory muscles. Abdomen: Soft, bowel sounds present, nontender, nondistended. Hepatosplenomegaly appreciated. Extremities: No clubbing or cyanosis. Left lower extremity with dressing in place C/D/I status post I&D with erythema and edema surrounding. Skin: Normal temperature, turgor, and texture; no rash, ulcers, or subcutaneous nodules appreciated. Neurological: Significant somnolence but arousable for 1-2 minutes and falls asleep. Answers questions appropriate when aroused and AxO x 3. Objective Labs Result Diagrams: 11/26/19 04:30 11/26/19 04:30 Labs: Laboratory Results - last 24 hr 11/24/19 11/24/19 11/24/19 16:57 17:06 17:06 WBC 12.2 H RBC 3.88 L Hgb 13.0 L Hct 37.6 L MCV 96.9 MCH 33.5 MCHC 34.5 RDW 14.3 Plt Count 80 L Neut % (Auto) Not Reportable Lymph % (Auto) Not Reportable [place] % (Auto) Not Reportable Eos % (Auto) Not Reportable Baso % (Auto) Not Reportable Lymph # (Auto) Not Reportable [place] # (Auto) Not Reportable Baso # (Auto) Not Reportable Total Counted 100 Seg Neutrophils % 37.0 L Band Neutrophils % 42.0 H Lymphocytes % (Manual) 5.0 L Atypical Lymphs % 1.0 H Monocytes % (Manual) 6.0 Eosinophils % (Manual) 2.0 Metamyelocytes % 6.0 H Myelocytes % 1.0 H Neutrophils # (Manual) 9638 H Toxic Granulation Dohle Bodies RBC Morphology Normal morphology Sodium 132 L Potassium 3.8 Chloride 98 Carbon Dioxide 23 BUN 19 Creatinine 0.79 Estimated GFR > 60.0 BUN/Creatinine Ratio 24.1 H Glucose 112 H Lactate Calcium 8.0 L Magnesium Total Bilirubin 3.0 H AST 408 H ALT 186 H Alkaline Phosphatase 91 Total Creatine Kinase Total Protein 6.6 Albumin 3.1 L Globulin 3.5 Albumin/Globulin Ratio 0.9 L Procalcitonin Nasal Screen MRSA (PCR) A. baumannii (PCR) Not detected Christina albicans (PCR) Not detected C. glabrata (PCR) Not detected C. krusei (PCR) Not detected C. parapsilosis (PCR) Not detected C. tropicalis (PCR) Not detected Enterobacteriac sp PCR Not detected E. cloacae complex PCR Not detected Enterococcus sp PCR Not detected E. coli (PCR) Not detected H. influenzae (PCR) Not detected Klebsiella oxytoca PCR Not detected Klebsiella pneumoniae Not detected List. monocytogenes PCR Not detected N. meningitidis (PCR) Not detected Proteus species (PCR) Not detected Serratia marcescens PCR Not detected Staphylococcus sp PCR Detected H Staph aureus (PCR) Detected H mecA-Methicil Res Gene Detected H Streptococcus sp PCR Not detected Group A Strep (PCR) Not detected Strep agalactiae (PCR) Not detected Strep pneumoniae (PCR) Not detected P. aeruginosa (PCR) Not detected South/B-Vanco Res Genes Not Reportable KPC-Carbap Res Gene PCR Not Reportable 11/24/19 11/24/19 11/24/19 17:06 17:06 19:15 WBC RBC Hgb Hct MCV MCH MCHC RDW Plt Count Neut % (Auto) Lymph % (Auto) [place] % (Auto) Eos % (Auto) Baso % (Auto) Lymph # (Auto) [place] # (Auto) Baso # (Auto) Total Counted Seg Neutrophils % Band Neutrophils % Lymphocytes % (Manual) Atypical Lymphs % Monocytes % (Manual) Eosinophils % (Manual) Metamyelocytes % Myelocytes % Neutrophils # (Manual) Toxic Granulation Dohle Bodies RBC Morphology Sodium Potassium Chloride Carbon Dioxide BUN Creatinine Estimated GFR BUN/Creatinine Ratio Glucose Lactate 2.8 H 2.7 H Calcium Magnesium Total Bilirubin AST ALT Alkaline Phosphatase Total Creatine Kinase 37857 H D Total Protein Albumin Globulin Albumin/Globulin Ratio Procalcitonin Nasal Screen MRSA (PCR) A. baumannii (PCR) Christina albicans (PCR) C. glabrata (PCR) C. krusei (PCR) C. parapsilosis (PCR) C. tropicalis (PCR) Enterobacteriac sp PCR E. cloacae complex PCR Enterococcus sp PCR E. coli (PCR) H. influenzae (PCR) Klebsiella oxytoca PCR Klebsiella pneumoniae List. monocytogenes PCR N. meningitidis (PCR) Proteus species (PCR) Serratia marcescens PCR Staphylococcus sp PCR Staph aureus (PCR) mecA-Methicil Res Gene Streptococcus sp PCR Group A Strep (PCR) Strep agalactiae (PCR) Strep pneumoniae (PCR) P. aeruginosa (PCR) South/B-Vanco Res Genes KPC-Carbap Res Gene PCR 11/24/19 11/24/19 11/25/19 21:40 21:40 01:34 WBC RBC Hgb Hct MCV MCH MCHC RDW Plt Count Neut % (Auto) Lymph % (Auto) [place] % (Auto) Eos % (Auto) Baso % (Auto) Lymph # (Auto) [place] # (Auto) Baso # (Auto) Total Counted Seg Neutrophils % Band Neutrophils % Lymphocytes % (Manual) Atypical Lymphs % Monocytes % (Manual) Eosinophils % (Manual) Metamyelocytes % Myelocytes % Neutrophils # (Manual) Toxic Granulation Dohle Bodies RBC Morphology Sodium Potassium Chloride Carbon Dioxide BUN Creatinine Estimated GFR BUN/Creatinine Ratio Glucose Lactate 2.1 Calcium Magnesium Total Bilirubin AST ALT Alkaline Phosphatase Total Creatine Kinase Total Protein Albumin Globulin Albumin/Globulin Ratio Procalcitonin 3.49 H Nasal Screen MRSA (PCR) Positive for mrsa H A. baumannii (PCR) Christina albicans (PCR) C. glabrata (PCR) C. krusei (PCR) C. parapsilosis (PCR) C. tropicalis (PCR) Enterobacteriac sp PCR E. cloacae complex PCR Enterococcus sp PCR E. coli (PCR) H. influenzae (PCR) Klebsiella oxytoca PCR Klebsiella pneumoniae List. monocytogenes PCR N. meningitidis (PCR) Proteus species (PCR) Serratia marcescens PCR Staphylococcus sp PCR Staph aureus (PCR) mecA-Methicil Res Gene Streptococcus sp PCR Group A Strep (PCR) Strep agalactiae (PCR) Strep pneumoniae (PCR) P. aeruginosa (PCR) South/B-Vanco Res Genes KPC-Carbap Res Gene PCR 11/25/19 11/25/19 11/25/19 04:30 04:30 04:30 WBC 13.2 H RBC 3.44 L Hgb 11.4 L Hct 33.4 L MCV 97.3 MCH 33.2 MCHC 34.1 RDW 14.9 H Plt Count 76 L Neut % (Auto) Not Reportable Lymph % (Auto) Not Reportable [place] % (Auto) Not Reportable Eos % (Auto) Not Reportable Baso % (Auto) Not Reportable Lymph # (Auto) Not Reportable [place] # (Auto) Not Reportable Baso # (Auto) Not Reportable Total Counted 100 Seg Neutrophils % 18.0 L D Band Neutrophils % 67.0 H Lymphocytes % (Manual) 8.0 L Atypical Lymphs % Monocytes % (Manual) 6.0 Eosinophils % (Manual) Metamyelocytes % 1.0 H Myelocytes % Neutrophils # (Manual) 46815 H Toxic Granulation Present H Dohle Bodies 3+ H RBC Morphology Normal morphology Sodium 129 L Potassium 3.4 Chloride 99 Carbon Dioxide 22 BUN 19 Creatinine 0.78 Estimated GFR > 60.0 BUN/Creatinine Ratio 24.4 H Glucose 93 Lactate Calcium 7.3 L Magnesium 1.8 Total Bilirubin 3.1 H AST 275 H ALT 138 H Alkaline Phosphatase 88 Total Creatine Kinase Total Protein 5.5 L Albumin 2.4 L Globulin 3.1 Albumin/Globulin Ratio 0.8 L Procalcitonin 4.22 H Nasal Screen MRSA (PCR) A. baumannii (PCR) Christina albicans (PCR) C. glabrata (PCR) C. krusei (PCR) C. parapsilosis (PCR) C. tropicalis (PCR) Enterobacteriac sp PCR E. cloacae complex PCR Enterococcus sp PCR E. coli (PCR) H. influenzae (PCR) Klebsiella oxytoca PCR Klebsiella pneumoniae List. monocytogenes PCR N. meningitidis (PCR) Proteus species (PCR) Serratia marcescens PCR Staphylococcus sp PCR Staph aureus (PCR) mecA-Methicil Res Gene Streptococcus sp PCR Group A Strep (PCR) Strep agalactiae (PCR) Strep pneumoniae (PCR) P. aeruginosa (PCR) South/B-Vanco Res Genes KPC-Carbap Res Gene PCR Assessment & Plan Assessment & Plan narrative: Geovani Melendez is a 44-year-old male with a past medical history significant for alcohol and hepatitis-C induced liver cirrhosis, seizure disorder, nicotine dependence, and history of polysubstance abuse who presented to the ED complaining of multiple complaints including: Tongue pain and myalgias after a traumatic fall from fall from a roof 19 ft roof 1 week prior to admission. 1. Acute sepsis, not present on admission. Resolving. -Patient with worsening leukocytosis with bandemia and procalcitonin, febrile 102.3 F, tachycardic, lactic acidosis 2.8 with end organ dysfunction of metabolic encephalopathy and hypotension responsive to fluids with source MRSA UTI and probable MRSA bacteremia and left foot abscess. -Received early goal directed therapy with IV fluid resuscitation and broad spectrum IV antibiotics. -Continued to trend lactate until normalized. 2. Acute MRSA bacteremia with seeding in urinary tract and left foot with abscess status post I&D, present on admission. Active. -Initial WBC 17.4 trended down and now trending back up to 13.2. Procalcitonin elevated and trending up now 4.22. -Blood cultures preliminarily positive 4:4 bottled for staph likely MRSA. Ordered repeat blood culture daily until infection clearing blood stream and blood cultures negative. -MRSA bacteremia seeding both urine and left foot. Urine culture grew MRSA 10,000 CFU and later 100,000 CFU. Left foot cellulitis with abscess formation and I&D with culture pending performed by ortho. Consulted Orthopedic surgery, Dr. Damon, who performed I&D and we appreciate orthopedic surgery time and recommendation. -Started and continue vancomycin with dosing per pharmacist and continue Zosyn 3.375 IV every 6 hours for now pending foot wound culture. Plan to contact Infectious Disease for further recommendations. 3. Acute rhabdomyolysis, present on admission. Resolving. -Initial CPK 73812. CPK trending down now 2204. -Continue IV fluid hydration with?normal saline 100 mL/hr. -Continue?to monitor electrolytes and creatinine closely. 4. Acute traumatic fall from 19 ft, present on admission. Active.-Patient sustained multiple rib fractures. -CT brain without contrast did not demonstrate any acute intracranial process. -CT cervical spine without contrast did not demonstrate?any evidence of acute cervical fracture or dislocation.?Noted, cervical spondylitic change, multilevel canal stenosis, and multilevel foraminal?stenosis. -CT abdomen and pelvis with contrast did not demonstrate any intra-abdominal pathology with right rib fractures involving the 6th, 7th and 8th ribs with associated hematoma. -X-ray bilateral shoulders with no evidence of fractures. -General surgery was consulted, Dr. Pruitt, who recommendedrib fracture protocol and will continue to: monitor sats; encourage cough and deep breathing, incentive spirometer, PO/IV pain meds and lidocaine patches for pain control, and ambulate as tolerated. We appreciate her time and recommendations. -Continue physical and occupational therapy evaluation and treatment if patient mentating appropriately.?? 5. Alcohol withdrawal with delirium tremens and metabolic encephalopathy, present on admission. -Patient has delirium likely due to metabolic encephalopathy from infection with some secondary contribution from alcohol withdrawal. -Continue CIWA protocol and seizure precautions. Continued Librium taper decreased from 50 mg every 6 hours to every 12 hours then discontinued due to decreased mentation and somnolence. Discontinued as needed ativan for now due to metabolic encephalopathy and increased somnolence. -Continue multivitamin daily, folic acid 1 mg daily and thiamine 100 mg daily. -Received banana bag.?Continue IV fluid hydration with normal saline at 100 mL/hr. As above. 6. History of hepatitis-C and alcohol induced liver cirrhosis, chronic, present on admission. Stable. -Patient has associated thrombocytopenia, hypoalbunemia, and elevated INR. -Initial LFTs elevated with: Total bilirubin 3.6, AST 904, ALT 294, and Alk phos 100. LFTs improving with cessation of alcohol and IV fluid hydration. -Continue to monitor LFTs closely. -Recommend outpatient referral to hepatology or GI. 7. History of seizure disorder. -Patient is not currently on any antiepileptics. Possibly previous alcohol withdrawal seizure? -Continue alcohol withdrawal protocol based on CIWA scoring as above. -No seizures during this admission. 8. History of polysubstance abuse. -Continue to monitor closely. -Counseled patient on cessation of alcohol use.? 9. Acute tongue laceration, secondary to traumatic fall, present on admission. Stable.?? -Continue Magic mouthwash 10. Anemia, present on admission. Stable.?? -Held iron due to acute infection and ? 11. Nicotine dependence, chronic, present on admission. Stable. -Previous provider counseled patient on smoking cessation. -Patient declines nicotine patch at this time. Code status: Full Code,?designates as his surrogate decision maker VTE prophylaxis: Enoxaparin Disposition: Patient remains hospitalized for severe MRSA infection.
[2019-11-25] MEDS: LACTATED RINGERS 1,000 ML 100 ML IV (16:16)
--- NOTE | 2019-11-25 16:20 | PT.IIE ---
Current Diagnoses Unspecified viral hepatitis C without hepatic coma (11/23/19) Other disorders of bilirubin metabolism (11/23/19) Cutaneous abscess of left foot (11/23/19) Nonspecific elevation of levels of transaminase and lactic acid dehydrogenase [LDH] (11/23/19) Unspecified injury of face, initial encounter (11/23/19) Fracture of one rib, unspecified side, initial encounter for closed fracture (11/23/19) Traumatic ischemia of muscle, initial encounter (11/23/19) Surgical History (Last Reviewed 11/25/19 @ 08:51 by Charity Damon MD) No pertinent past surgical history (Resolved) Medical History (Last Reviewed 11/25/19 @ 08:51 by Charity Damon MD) Alcoholism (Chronic) Anemia (Chronic) Chicken pox (Resolved 1983) Fractures (Resolved) GI bleeding (Chronic 2017) Hepatitis C (Chronic 2017) Liver disease (Chronic 2017) Seizures (Chronic 2017) Substance abuse (Chronic) Physical Therapy Inpatient Evaluation/Re-Eval M1 PT/OT-IP Prior Functional Status Start: 11/25/19 13:10 Freq: NEEDED Status: Active Protocol: Document 11/25/19 15:56 CGR (Rec: 11/25/19 16:19 CGR [id number]) Medical Review Prior Functional Status Medical History Reviewed Yes Communication Pt is slow to respond and needs verbal cues to answer questions but is able to verbally respond. Mobility and Gait Pt was likely IND in all functional mobility per chart and pts description of getting onto the roof last week. Activities of Daily Living and IADL's Pt was likely IND in all ADLs and IADLs per chart. Social History Household Members significant other,children Living Arrangements Apartment/Condo Number of Floors (Floors) Two Floors Number of Stairs To Enter/Railing? It appears from google maps that pt can enter from the ground level or second level of the home but his bedroom is on the second level. One step to enter home on ground level from grass to concrete and a flight of stairs to enter top floor with rail on one side ( unsure of which side). Home Environment Standard Height Toilet,Walk in Shower Employment Status Unemployed Additional Social History Comment Pt states he is not currently working. Lives with his sig other (pt unable to give sig others name) and step daughter (Acacia). M2 PT-IP Current Condition Start: 11/25/19 13:10 Freq: NEEDED Status: Active Protocol: Document 11/25/19 15:35 AW (Rec: 11/25/19 16:20 AW [id number]) Physical Therapy Current Condition Current Condition Evaluation Date 11/25/19 Treatment Diagnosis rhabdomyolysis; sepsis; L foot abscess; R rib fractures; diff in walking Onset Date 11/23/19 Precautions Other Precautions seizure precautions; high falls risk M3 PT-IP Subjective Start: 11/25/19 13:10 Freq: NEEDED Status: Active Protocol: Document 11/25/19 15:35 AW (Rec: 11/25/19 16:20 AW [id number]) Subjective Physical Therapy Visit Type Type Initial Evaluation Visit Start Time 14:33 Visit Stop Time 15:02 Total Visit Minutes 29 Notes Co-eval with OT Number of ENTERTAINMENT MUSICIAN Visits 0 Physical Therapy Visit Comments Patient Comments Pt was difficult to rouse and had difficulty attending to task Therapy Pain Assessment Pain When Pain Assessed During Mobility Pain Present Pain Present Pain Reported Location Bilateral Arm Scale Used not quantified Description With Movement Pain Behaviors Facial Grimacing,Guarding, Wincing Pain Management Techniques Modification of Treatment,Re- positioning M4 PT-IP Mobility and Gait Start: 11/25/19 13:10 Freq: NEEDED Status: Active Protocol: Document 11/25/19 15:35 AW (Rec: 11/25/19 16:20 AW [id number]) PT-Bed Mobility Assessment Supine to Sit Supine to Sit Minimal Assistance,2 Person Assistance,Head of Bed Elevated Scooting Scooting to Edge of Bed Minimal Assistance PT-Transfer Assessment Sit to and From Stand Sit to and from Stand Maximum Assistance,2 Person Assistance Equipment Transfer Assistive Device Gait Belt,Front Wheeled Walker Orthotic/Prosthetic Devices or Brace: No Transfers Transfer Destination Chair Transfer Technique Stand Step Pivot Transfer Ability Level of Assist Maximum Assistance,2 Person Assistance Comments Mobility Comments Pt required frequent reorientation to task as he attempted to move to sitting EOB. He required min assist to move his legs as well as min assist to maintain sitting balance due to persistent posterior lean. Once sitting EOB, pt stood with max A x 2 using FWW. He required max verbal and tactile cues for quad activation bilaterally and max A x 2 for step pivot transfer to chair. Movement was poorly-coordinated, slightly ataxic. Pt was positioned in the chair with call light and all needs in reach. Nursing was advised to use a chair alarm. Gait Assessment Gait Gait Assistance Required: Maximum Assistance,2 Person Assist Distance (Feet) 3 Assistive Devices Assistive Device Gait Belt,Front Wheeled Walker Orthotic/Prosthetic Devices or Brace: No Gait Deviations General Gait Pattern Antalgic,Ataxic,Decreased Stride Length,Decreased Feet Clearance,Flexed Trunk,Narrow Based Gait Factors Limiting Gait Function Factors Limiting Gait Function Decreased Activity Tolerance, Decreased Sensation,Decreased Strength,Difficulty Following Directions,Incoordination,Pain ,Poor Balance,Poor Safety Awareness Comments Gait Comments Transfer only. See mobility comments for details. Stair Climbing Assessment Comments Stair Climbing Comments Not assessed. PT-Balance Assessment Sitting Balance and Reactions Static Sitting Balance Ability Fair Dynamic Sitting Balance Ability Fair Standing Balance and Reactions Static Standing Balance Ability Poor Dynamic Standing Balance Ability Poor Device Used FWW M5 PT-IP Objective Assessments Start: 11/25/19 13:10 Freq: NEEDED Status: Active Protocol: Document 11/25/19 15:35 AW (Rec: 11/25/19 16:20 AW [id number]) Orientation Orientation/Cognition Level of Alertness Confusional State Orientation Name,Month,Year,Place Safety Awareness Decreased Safety Awareness Memory Description Short Term Impaired,Correction Impaired Comments Pt not oriented to date and can not recall his 's name . He did recall step-daughter, Acacia'skinny, name. Gross Range of Motion Upper Extremity ROM Assessment Bilaterally Impaired Impairments Shoulder flexion and abduction limited by pain Lower Extremity ROM Assessment Bilaterally Impaired Strength Upper Extremity Strength Assessment Bilaterally Impaired Lower Extremity Strength Assessment Bilaterally Impaired Hip 3-/5 Knee 3+/5 Ankle 3+/5 Comments Strength Comments Limited exam due to pt's poor ability to follow simple commands. Pt unable to perform straight leg raise in supine. Coordination Assessment Gross Coordination Gross Coordination Impaired Sensation Assessment Sensation Gross Sensation WNL Comments Sensation Comments Pt states sensation normal in BLE and BUE but unclear if pt understands the question. M6 PT-IP Treatment Start: 11/25/19 13:10 Freq: NEEDED Status: Active Protocol: Document 11/25/19 15:35 AW (Rec: 11/25/19 16:20 AW [id number]) Physical Therapy Treatment Education Education Provided Safety Other Treatments Other Treatment Performed Discussed plan of care with pt and attempted to teach safety with FWW M7 PT-IP Assessment and Plan Start: 11/25/19 13:10 Freq: NEEDED Status: Active Protocol: Document 11/25/19 15:35 AW (Rec: 11/25/19 16:20 AW [id number]) PT Summary Assessment and Plan Potential Rehabilitation Potential Fair Status of Condition at Evaluation Evolving Summary Impairments Pain,ROM,Strength,Balance, Coordination,Cognition,Bed Mobility,Transfers,Gait, Activity Tolerance Assessment Summary Shukri is a 44yo man seen for PT evaluation 2 days after being admitted following a fall from a ladder resulting in rhabdomyolysis, right-sided rib fractures (ribs 6-8), bilateral shoulder pain. In addition, pt has left foot abscess and underwent I&D of left dorsal 1st metatarsal this morning. Pt is an unreliable historian at this time but is presumed to have been independent with all mobility and ADL's prior to this fall. He was treated at this facility two years ago for alcohol detox and has similar presentation at this current episode of care but possibly related to sepsis. On evaluation, he is confused and lethargic with difficulty following directions. His movement is poorly-coordinated and requires two-person max assist to stand and to transfer. This represents a significant decline compared with baseline function. Home is not a safe discharge plan at this time as pt will require 24/7 assist with all mobility. He may improve significantly as his medical status stabilizes and he clears cognitively. PT will continue to assess and refine recommendation. Goals Bed Mobility Goal Independent Transfer Goal Independent Gait Goal Independent Gait Distance 200 Other Goals - up/down one flight of stairs with unilateral railing IND Days to Meet Goals 10 Frequency of Treatment Frequency Of Treatment Once a Day Treatment Plan Physical Therapy Treatment Plan Bed Mobility Training,Transfer Training,Gait Training, Therapeutic Exercise,Balance Retraining,Discharge Planning, Hot or Cold Pack,Neuromuscular Re-ed,Coordination Retraining Other Recommendations and Next Treatment bed mobility; transfers; gait Focus with FWW and chair follow if able Recommendations To Nursing Amount of Assist Needed 2 Person Assist Discharge Recommendations PT Discharge Recommendations SNF Rehab Other Discharge Recommendations SNF rehab vs home with 24/7 assist and HH Transportation Needs at Discharge Wheelchair/Cabulance
[2019-11-25] MEDS: MAGNESIUM SULFATE 2 GM/50 ML PIGGYBACK IV (19:46)
[2019-11-25 19:50] LABS: UR Morphine/Opiate cutoff 300 Negative (Negative); Ur Creatinine Normal (Normal); Ur Specific Gravity Normal (Normal); Urine Amphetamines Negative (Negative); Urine Barbiturates Negative (Negative); Urine Benzodiazepines Negative (Negative); Urine Cocaine Negative (Negative); Urine MDMA Negative (Negative); Urine Methadone Negative (Negative); Urine Methamphetamines Negative (Negative); Urine Oxycodone Negative (Negative); Urine Phencyclidine Negative (Negative); Urine Tetrahydrocannabinol Negative (Negative); Urine Tricyclic Antidepressant Negative (Negative); Urine pH Normal (Normal)
[2019-11-25] MEDS: POTASSIUM CHLORIDE 40 MEQ in SODIUM CHLORIDE 0.9% 500 ML 130 ML IV (20:42)
[2019-11-25] MEDS: SODIUM CHLORIDE 0.9% 1,000 ML 100 ML IV (21:05)
[2019-11-25] MEDS: SODIUM CHLORIDE 0.9% FLUSH 10 ML IV (21:06)
[2019-11-25 21:14] LABS: Creatine Kinase 2204 U/L (55-170)
[2019-11-25 21:24] LABS: Hemoglobin A1C% w Est Avg Glu 5.2 % (4.0-6.0)
[2019-11-26] VITALS (99 sets, daily range): BP systolic 84–120; BP diastolic 51–66; PULSE 98–118; RESP 6–26; TEMP 36.8; O2SAT 87–99
[2019-11-26] MEDS: PIPERACILLIN-TAZO 3.375 GM/50 ML FROZ.PIGGY IV ×2 (00:43→05:48)
[2019-11-26] MEDS: SODIUM CHLORIDE 0.9% 500 ML 1000 ML IV (01:08)
[2019-11-26] MEDS: VANCOMYCIN 1,000 MG/200 ML PIGGYBACK 200 MG IV ×2 (01:16→09:25)
--- NOTE | 2019-11-26 06:18 | PC.NURSE ---
Auditor/Quality Note-Patient is drowsy and fatigued, oriented to person, place, and situation, cooperative and follows directions, CIWA = 5. ST 100-115, BP remains 90s/50s MAP >65, see vital trends, placed on 2L overnight for apnea SpO2 <92%, lung sounds coarse Lt anterior, has loose cough. NS @ 100ml/hr, 500ml bolus given, K+ rider complete at midnight, scheduled abx given. Assist with urinal while in bed, voided 750ml clear orange urine.
[2019-11-26 06:30] LABS: Hematocrit 31.8 % (41-53); Hemoglobin 10.6 g/dL (13.5-17.5); Mean Corpuscular HGB Conc 33.4 % (30-36); Mean Corpuscular Hemoglobin 33.4 PG (26-34); Mean Corpuscular Volume 100.1 fL (80-100); Platelet Count 84 X10^3/uL (150-400); Red Blood Cell Count 3.17 X10^6/uL (4.5-5.9); Red Cell Distribution Width 15.3 % (11.6-14.8); White Blood Cell Count 16.7 X10^3/uL (4.5-11.0)
[2019-11-26 06:31] LABS: Alanine Aminotransferase 112 IU/L (<50); Albumin 2.2 g/dL (3.5-5.0); Albumin Globulin Ratio 0.7 (1.0-2.8); Alkaline Phosphatase 180 U/L (38-126); Aspartate Aminotransferase 201 IU/L (17-59); BUN Creatinine Ratio 27.9 (6-22); Bilirubin Total 2.5 mg/dL (0.2-1.3); Blood Urea Nitrogen 29 mg/dL (9-20); Calcium 7.3 mg/dL (8.4-10.2); Carbon Dioxide 24 mmol/L (22-32); Chloride 103 mmol/L (98-107); Estimated Glomerular Filt Rate > 60.0 mL/min (>60); Globulin 3.1 g/dL (1.7-4.1); Glucose 73 mg/dL (70-100); HEMOLYSIS < 15 (0-50); Potassium 3.4 mmol/L (3.4-5.1); Sodium 133 mmol/L (137-145); Total Protein 5.3 g/dL (6.3-8.2)
[2019-11-26 06:33] LABS: Add Manual Diff / Slide Review YES
[2019-11-26 07:05] LABS: Procalcitonin 4.55 ng/mL (<0.5)
[2019-11-26 07:08] LABS: Dohle Bodies 3+; Neutrophils Absolute Manual 13360 /uL (3000-5900); Total Cells Counted 100
[2019-11-26 07:09] LABS: Toxic Granulation Present
--- NOTE | 2019-11-26 07:22 | DI.ECHO.S_ITS ---
[facility] +---------+ Hospital +---------+ : : [address] : : : : [id number] : : : : Phone: [phone] Echocardiogram Report + + :Name: VINCE LAUREANO Study Date: 11/26/2019 Height: 71 in : :Hospital Weight: 186 lb : : Gender: Male BSA: 2.0 m2 : :: 1975 Age: 44 yrs BP: 103/54 mmHg: :Reason For Study: MRSA, BACTEREMIA : :Ordering Physician: Ezequiel : :Hospitalist Performed By: Veronique Molina : :Referring: RAJ MIRANDA : + + Interpretation Summary 1) Normal left ventricular size, thickness, wall motion, and systolic function (EF 55-60%). 2) Mildly increased right ventricular size with normal function. 3) No significant valvular abnormalities. No obvious vegetations noted. 4) No prior Echo avaliable for comparison. Procedure: A two-dimensional transthoracic echocardiogram with color flow and Doppler was performed. The study quality was technically adequate. There is no prior echocardiogram noted for this patient. The patient was in sinus tachycardia with heart rates between 104-107 bpm during the exam. Left Ventricle: The left ventricle is normal in size and wall thickness. The ejection fraction is estimated to be 55-60%. Left ventricular global longitudinal strain average is 21.1%. Diastolic function could not be accurately assessed due to tachycardia. Right Ventricle: The right ventricle is mildly dilated. The right ventricular systolic function is normal. Atria: The left atrium is mildly dilated. Right atrial size is normal. Mitral Valve: The mitral valve is normal in structure and function. There is trace mitral regurgitation. Aortic Valve: The aortic valve opens well. There is mild aortic valve sclerosis. There is no aortic valve stenosis. No aortic regurgitation is present. Tricuspid Valve: The tricuspid valve is normal in structure and function. The right ventricular systolic pressure is estimated to be at least 33 mmHg based on an estimated right atrial pressure of 15 mm Hg. There is a trace or physiologic amount of tricuspid regurgitation. Pulmonic Valve: The pulmonic valve is not well visualized. There is no pulmonic valvular regurgitation. Great Vessels: The aortic root is normal size. The dimensions of the ascending aorta are normal. The IVC is dilated (diameter is greater than 2.1 cm) and it collapses less than 50% with a sniff. This suggests a high right atrial pressure of 15 mm Hg. Pericardium/ Pleura There is no pericardial effusion. There is no pleural effusion. MMode/2D Measurements & Calculations LVIDd: 5.2 cm LVOT diam: 2.2 cm LVIDs: 3.7 cm Ao root diam: 2.7 cm FS: 29.0 % asc Aorta Diam: 2.5 cm EPSS: 0.84 cm Ao Arch Diam (Prox Trans): 2.7 cm IVSd: 1.0 cm LVPWd: 0.96 cm LV nunez. diameter/BSA (cm/m^2): 2.6 LV sys. diameter/BSA (cm/m^2): 1.8 LA A2 area: 26.5 cm2 RA long axis: 4.9 cm LA A4 area: 17.4 cm2 RA area: 17.2 cm2 LA length (vol): 5.1 cm RA vol: 51.8 ml LA vol: 76.5 ml RA : 25.3 ml/m2 LA vol index: 37.4 ml/m2 IVC diam: 2.1 cm RVD1 (basal): 4.2 cm TAPSE: 2.6 cm Doppler Measurements & Calculations Ao V2 max: 146.7 cm/sec LVOT Max Levi: 121.3 cm/sec Ao V2 mean: 100.7 cm/sec LV V1 max P.9 mmHg Ao max P.6 mmHg LV V1 VTI: 21.4 cm Ao mean P.7 mmHg MARYANNE(I,D): 3.1 cm2 Ao V2 VTI: 26.2 cm MARYANNE(V,D): 3.1 cm2 sev ratio: 0.82 MARYANNE indexed to BSA (cm^2/m^2): 1.5 MV E max levi: 104.1 cm/sec TR max levi: 265.3 cm/sec Med Peak E' Levi: 11.8 cm/sec TR max P.1 mmHg E/E' med: 8.8 PA V2 max: 90.3 cm/sec Lat Peak E' Levi: 11.0 cm/sec PA V2 mean: 64.1 cm/sec E/E' lat: 9.5 PA mean P.8 mmHg E/e' average: 9.1 PA pr(Accel): 36.6 mmHg SV(LVOT): 79.8 ml Reading Physician:10:09 AM
[2019-11-26 07:35] LABS: Creatine Kinase 1368 U/L (55-170)
[2019-11-26 09:10] LABS: Vancomycin Trough 10.6 ug/mL (10-20)
[2019-11-26] MEDS: ACETAMINOPHEN 325 MG TABLET 650 MG PO (09:25)
[2019-11-26] MEDS: THIAMINE 100 MG TABLET PO (09:25)
[2019-11-26] MEDS: MULTIVITAMIN 1 TABLET 1 TAB PO (09:26)
[2019-11-26] MEDS: SODIUM CHLORIDE 0.9% 1,000 ML 100 ML IV (09:27)
[2019-11-26] MEDS: SODIUM CHLORIDE 0.9% FLUSH 10 ML IV (09:28)
[2019-11-26] MEDS: FOLIC ACID 1 MG TABLET PO (09:28)
[2019-11-26] MEDS: LIDOCAINE PATCH 1 EACH ADH..PATCH TOP (09:29)
[2019-11-26] MEDS: ENOXAPARIN 40 MG/0.4 ML SYRINGE SUBCUT (10:05)
--- NOTE | 2019-11-26 10:33 | CM.DANOTE ---
DCP/Continued: Reviewed chart. Attended AM rounds, Dr. Coker reports that at this time patient requiring higher level of care for infections process. Provider requesting spouse/Jyoti be notified. Placed call to spouse at # [phone] explained role. Spouse agreeable to transfer patient to higher level of care but would like to get medical updated from provider. Dr. Coker notified and provided with contact number for spouse. Spouse does report patient has h/o alcoholism. Spouse reports that patient very sneaky so she is unsure when he had his last drink. Patient has been actively detoxing. Patient also appears to be septic requiring Infectious Disease expertise. P: Anticipate transfer to higher level of care when bed found. ODALIS Cabrera
--- NOTE | 2019-11-26 10:36 | PC.NURSE ---
Addendum entered by Antonio Barlow R.N. 11/26/19 12:50: Called and notified spouse that pt left at 1245 with ALS transport team en route to [facility]. She verbalizes understanding. Addendum entered by Antonio Barlow R.N. 11/26/19 12:47: 1245- Pt left via ALS ground with IVFs infusing on drop wirer at 1245. Report given to marine transport professionals. Called report to SÁNCHEZ Whittington at [facility]. Addendum entered by Antonio Barlow R.N. 11/26/19 11:57: 1105- Rec'd pt back to room from MRI. Per transporter, pt unable to tolerate. States I can't breathe. Relates this to the surgical mask he has to wear. VSS. RA SPO2 96%. RR 18. Called to Dr Coker and updated. Original Note: Pt to MRI via stretcher with DI transporter. VSS. RA. Reviewed with Dr. Coker- pt can go unmonitored to MRI.
--- NOTE | 2019-11-26 11:17 | OT.IPNOTE ---
Pt looking to be transferred to higher level of care, therefore hold from OT treatment.
--- NOTE | 2019-11-26 11:32 | PM.DS.1 ---
History of Present Illness History of Present Illness Date Patient Seen: 11/23/19 Chief complaint: Put a hole all the way through my tongue Narrative: Written by Dr. Martinez: The patient is a 44-year-old male with a history of seizure disorder, substance abuse, anemia who was working on a roof a week ago when he fell off the roof. He believes it was about 19 ft high. The patient was on the ground for 20 minutes following the fall. He says his head hit the ground twice. He bit his tongue fairly hard. Over the past week he has had significant pain including pain of the tongue pain involving his right ribs as well as generalized aching. He has not taken any medications for this. Patient apparently did into something today and had excruciating pain with bleeding. His encouraged him to come into the emergency room for evaluation. In the emergency room the patient had an extensive incomplete workup to include a head CT which was negative. Cervical spine CT which showed no evidence of fracture. X-rays of both shoulders which showed no fractures. CT of the chest abdomen and pelvis which was significant for right rib fractures involving the 6 7th and 8th rib with associated hematoma. There was no intra-abdominal pathology noted. Patient was found to have significant laceration of the right tongue. In addition his CPK was markedly elevated at over 60,000. the patient is admitted to the hospital at this time for acute rhabdomyolysis. Patient denies any headache blurred vision or double vision. He denies any shortness of breath or chest pain. He has no nausea vomiting or diarrhea. He denies any hematemesis melena or bright red blood per rectum. His major complaint is pain over the mouth and generalized aching with pain over the right ribs. Discharge Providers Provider Date of admission: 11/23/19 11:35 Discharge Date: 11/26/19 Consults: 11/24/19 23:45 Consult to Respiratory Therapy Evaluate & Treat Comment: Rib fractures, wheezing, smoker Physician Instructions: Evaluate and treat 11/25/19 02:48 Consult to Orthopedic Surgery Routine Comment: Consulting Provider: Charity Damon Reason for consultation: Cellulitis with abscess left foot Has provider been notified: No 11/25/19 09:51 Consult to Occupational Therapy Evaluate & Treat Comment: Physician Instructions: Evaluate and treat Consult to Physical Therapy Evaluate & Treat Comment: Physician Instructions: Evaluate and Treat Discharge provider: Theresa Coker DO Summary Hospital Course Discharge Diagnosis: 1. Acute sepsis, not present on admission. Resolving. 2. Acute MRSA bacteremia with left foot with abscess status post I&D and UTI, present on admission. Active. 3. Acute rhabdomyolysis, present on admission. Resolving. 4. Acute metabolic encephalopathy with possible alcohol withdrawal and DTs, present on admission. Improving. 5. Acute traumatic fall from 19 ft, present on admission. Stable. 6. History of hepatitis-C and alcohol induced liver cirrhosis with alcoholic hepatitis, acute on chronic, present on admission. Alcoholic hepatitis resolving and cirrhosis stable. 7. History of alcohol withdrawal seizure. 8. History of polysubstance abuse. 9. Acute tongue laceration, secondary to traumatic fall, present on admission. Stable. 10. Anemia, present on admission. Stable. 11. Nicotine dependence, chronic, present on admission. Stable. Hospital Course: Geovani Melendez is a 44-year-old male with a past medical history significant for alcohol and hepatitis-C induced liver cirrhosis, seizure disorder, nicotine dependence, and history of polysubstance abuse who presented to the ED complaining of multiple complaints including: Tongue pain and myalgias after a traumatic fall from fall from a roof 19 ft roof 1 week prior to admission. 1. Acute sepsis, not present on admission. Resolving. -Patient with worsening leukocytosis with bandemia and procalcitonin, febrile 102.3 F, tachycardic, lactic acidosis 2.8 with end organ dysfunction of metabolic encephalopathy and hypotension responsive to fluids with source MRSA bacteremia with left foot abscess and cellulitis of urine and foot and left foot abscess. -Received early goal directed therapy with IV fluid resuscitation and broad spectrum IV antibiotics. -Continued to trend lactate until normalized. 2. Acute MRSA bacteremia with left foot with abscess status post I&D and UTI, present on admission. Active. -Unclear etiology but possibly secondary to left foot cellulitis and abscess versus other source. Patient denies recent IV drug use. Patient's spouse endorses IV drug use remotely 20 years ago. She does not believe he has used IV drugs recently but is unsure and reports it is possible that he has used again as he is ?sneaky.? -Initial WBC 17.4 which was thought initially to be reactive and trended down to 11.4. WBC then spiked and is trending up now 16.7 (likely peaking). Procalcitonin was not obtained on admission but was elevated on 2nd day of admission 11/23 at 3.45 and trending up now 4.55 (likely peaking). -Blood cultures preliminarily positive 4:4 bottled for staph likely MRSA. Blood cultures from 11/25/2019 have no growth to date. Continue to perform repeat blood cultures daily until infection cleared from blood stream and blood cultures are negative. -MRSA bacteremia possibly secondary to left foot cellulitis and abscess versus other source with seeding of urine and UTI. Urine culture grew MRSA 10,000 CFU and later 100,000 CFU. Left foot cellulitis with abscess formation that started 11/23 and I&D with culture preliminarily growing staph aureus performed by ortho. Consulted Orthopedic surgery, Dr. Damon, who performed I&D and we appreciate orthopedic surgery time and recommendation. -Started and continue vancomycin with dosing per pharmacist. Discontinued Zosyn. Discussed case with Infectious Disease at [facility] who recommended transthoracic echocardiogram which did not demonstrate any obvious vegetations and to transfer the patient for higher level of care for infectious disease workup to include: Transesophageal echocardiogram to rule out endocarditis, PET-CT to assess seeding of musculature, and addition of ceftaroline 600 mg every 6 hours in addition to vancomycin. Patient was transferred to [facility] for higher level of care. 3. Acute rhabdomyolysis, present on admission. Resolving. -Initial CPK 67198. CPK trending down now 1368. -Continued aggressive IV fluid hydration. Now on normal saline 100 mL/hr. -Continued to closely monitor creatinine and electrolytes with repletion as necessary. 4. Acute metabolic encephalopathy secondary to infection which and alcohol withdrawal and DTs, present on admission. Improving. -Patient became delirious on 11/23 likely due to metabolic encephalopathy from infection and likely some secondary contribution from alcohol withdrawal with DTs. Patient is rather somnolent but will arouse is alert oriented x3 without focal neurological deficit. Of note, patient's reports he has a closet drinker and has been to inpatient alcohol treatment several times. -Patient reports 2 whiskey (greater than 4 oz) drinks a day. Continued CIWA protocol and seizure precautions. Continued Librium taper decreased from 50 mg every 6 hours to every 12 hours then discontinued, as well as, as needed Ativan due to low CIWA scores and increased somnolence which is now improving. -Continued multivitamin daily, folic acid 1 mg daily and thiamine 100 mg daily. -Received banana bag. Continued IV fluid hydration with normal saline at 100 mL/hr as above. -Continued to treat infection as above. Infectious disease at [facility] recommended MRI brain with and without contrast to assess for septic emboli which was not able to be obtained. 5. Acute traumatic fall from 19 ft, present on admission. Stable. -CT brain without contrast did not demonstrate any acute intracranial process. -CT cervical spine without contrast did not demonstrate any evidence of acute cervical fracture or dislocation. Noted, cervical spondylitic change, multilevel canal stenosis, and multilevel foraminal stenosis. -CT abdomen and pelvis with contrast did not demonstrate any intra-abdominal pathology with right rib fractures involving the 6th, 7th and 8th ribs with associated hematoma. -X-ray bilateral shoulders with no evidence of fractures. -General surgery was consulted, Dr. Pruitt, who recommendedrib fracture protocol and will continue to: monitor sats; encourage cough and deep breathing, incentive spirometer, PO/IV pain meds and lidocaine patches for pain control, and ambulate as tolerated. We appreciate her time and recommendations. -Continued physical and occupational therapy evaluation and treatment if patient mentating appropriately. 6. History of hepatitis-C and alcohol induced liver cirrhosis with alcoholic hepatitis, acute on chronic, present on admission. Alcoholic hepatitis resolving and cirrhosis stable. -Patient has associated thrombocytopenia, hypoalbunemia, and elevated INR. -Initial LFTs elevated with: Total bilirubin 3.6, AST 904, ALT 294, and Alk phos 100. LFTs improving with cessation of alcohol and IV fluid hydration. -Continued to monitor LFTs closely. -Recommend outpatient referral to hepatology or GI. 7. History of alcohol withdrawal seizure. -Patient is not currently on any antiepileptics. -Continued alcohol withdrawal protocol based on CIWA scoring as above. -No seizures during this admission. 8. History of polysubstance abuse. -Patient denies any recent IV drug use. Patient has a history of IV drug use remotely 20 years ago per spouse. She does not believe he has used IV drugs recently but is unsure and reports it is possible that he has used again as he is ?sneaky. ? -Continue to monitor closely. -Counseled patient on cessation of alcohol use. 9. Acute tongue laceration, secondary to traumatic fall, present on admission. Stable. -Continued Magic mouthwash. 10. Anemia, present on admission. Stable. -Held iron due to acute infection and acute phase reactant. 11. Nicotine dependence, chronic, present on admission. Stable. -Counseled patient on smoking cessation. -Patient declined nicotine patch at this time. Exam Vital Signs (past 8 hours): - 11/26/19 03:35 11/26/19 03:40 11/26/19 03:45 Pulse Rate 111 H 113 H 106 H Respiratory Rate 26 H 16 11 L Blood Pressure Pulse Oximetry 97 96 96 11/26/19 03:50 11/26/19 03:55 11/26/19 04:00 Pulse Rate 106 H 115 H 108 H Respiratory Rate 11 L 16 8 L Blood Pressure 94/57 L Pulse Oximetry 96 99 98 11/26/19 04:05 11/26/19 04:10 11/26/19 04:15 Pulse Rate 106 H 107 H 107 H Respiratory Rate 9 L 8 L 8 L Blood Pressure Pulse Oximetry 98 98 98 11/26/19 04:20 11/26/19 04:25 11/26/19 04:30 Pulse Rate 106 H 105 H 107 H Respiratory Rate 10 L 7 L 11 L Blood Pressure Pulse Oximetry 96 96 97 11/26/19 04:35 11/26/19 04:40 11/26/19 04:45 Pulse Rate 106 H 110 H 108 H Respiratory Rate 8 L 12 8 L Blood Pressure Pulse Oximetry 97 97 96 11/26/19 04:50 11/26/19 04:55 11/26/19 05:00 Pulse Rate 106 H 108 H 109 H Respiratory Rate 8 L 11 L 10 L Blood Pressure 99/56 L Pulse Oximetry 97 96 96 11/26/19 05:05 11/26/19 05:10 11/26/19 05:15 Pulse Rate 109 H 108 H 107 H Respiratory Rate 13 12 10 L Blood Pressure Pulse Oximetry 96 96 96 11/26/19 05:20 11/26/19 05:25 11/26/19 05:30 Pulse Rate 105 H 105 H 103 H Respiratory Rate 9 L 8 L 9 L Blood Pressure Pulse Oximetry 95 96 97 11/26/19 05:35 11/26/19 05:40 11/26/19 05:45 Pulse Rate 115 H 109 H 118 H Respiratory Rate 22 21 18 Blood Pressure Pulse Oximetry 96 97 95 11/26/19 05:50 11/26/19 05:55 11/26/19 06:00 Pulse Rate 109 H 105 H 104 H Respiratory Rate 17 9 L 8 L Blood Pressure 109/56 L Pulse Oximetry 96 96 96 11/26/19 06:05 11/26/19 06:10 11/26/19 06:15 Pulse Rate 105 H 105 H 111 H Respiratory Rate 7 L 7 L 16 Blood Pressure Pulse Oximetry 96 96 96 11/26/19 06:20 11/26/19 06:25 11/26/19 06:30 Pulse Rate 103 H 102 H 99 H Respiratory Rate 9 L 7 L 7 L Blood Pressure Pulse Oximetry 96 96 96 11/26/19 06:35 11/26/19 06:40 11/26/19 06:45 Pulse Rate 99 H 100 H 98 H Respiratory Rate 6 L 6 L 8 L Blood Pressure Pulse Oximetry 95 95 95 11/26/19 06:50 11/26/19 06:55 11/26/19 07:00 Pulse Rate 99 H 99 H 108 H Respiratory Rate 6 L 7 L 9 L Blood Pressure Pulse Oximetry 95 95 11/26/19 07:45 11/26/19 08:00 11/26/19 08:45 Pulse Rate 100 H 107 H 115 H Respiratory Rate 7 L 8 L 11 L Blood Pressure Pulse Oximetry 97 11/26/19 09:00 11/26/19 10:00 11/26/19 10:05 Pulse Rate 109 H 102 H 100 H Respiratory Rate 13 7 L 8 L Blood Pressure 102/58 L Pulse Oximetry 94 94 11/26/19 10:32 Pulse Rate 106 H Respiratory Rate 10 L Blood Pressure Pulse Oximetry 96 Oxygen Delivery Method Room Air Oxygen Flow Rate 0 Narrative Exam Narrative: General: Middle-aged male sitting in bedside chair and in no acute distress, slightly disheveled with poor hygiene, laryngitis with slowed mentation but appropriately interactive. HEENT: Normocephalic, atraumatic. External ears without defect. Pupils equal, round, and reactive to light. Anicteric sclerae, moist conjunctivae, and no lid lag. Poor dentition. Laceration of left lateral tongue does not appear to be infected. Neck: Supple with full range of motion. No jugular venous distension. No lymphadenopathy or thyromegaly. Cardiovascular: Regular rhythm, tachycardic, without murmurs, rubs, or gallops appreciated. Pulmonary: Diminished throughout the anterior lung tim but clear to auscultation bilaterally without crackles, wheezes, or rhonchi. Normal respiratory effort with no use of accessory muscles. Abdomen: Soft, bowel sounds present, nontender, nondistended. Hepatosplenomegaly appreciated. Extremities: No clubbing or cyanosis. Left lower extremity with dressing in place C/D/I status post I&D with erythema and edema surrounding no further fluctuance or abscesses. Scattered bruises and abrasions throughout entire body that do not appear to be infected. Tenderness to palpation of right AC joint without obvious infection or abscess formation. Skin: Normal temperature, turgor, and texture; no rash, ulcers, or subcutaneous nodules appreciated. Neurological: Patient is alert oriented x3. His mentation is slowed but clearing and cooperative. Objective Labs Result Diagrams: 11/26/19 04:30 11/26/19 04:30 Labs: Laboratory Results - last 24 hr 11/23/19 11/25/19 11/25/19 09:21 20:43 20:43 WBC RBC Hgb Hct MCV MCH MCHC RDW Plt Count Neut % (Auto) Lymph % (Auto) [place] % (Auto) Eos % (Auto) Baso % (Auto) Lymph # (Auto) [place] # (Auto) Baso # (Auto) Total Counted Seg Neutrophils % Band Neutrophils % Lymphocytes % (Manual) Atypical Lymphs % Monocytes % (Manual) Eosinophils % (Manual) Metamyelocytes % Neutrophils # (Manual) Toxic Granulation Dohle Bodies RBC Morphology Sodium Potassium Chloride Carbon Dioxide BUN Creatinine Estimated GFR BUN/Creatinine Ratio Glucose Hemoglobin A1c 5.2 Calcium Total Bilirubin AST ALT Alkaline Phosphatase Total Creatine Kinase 2204 H D Total Protein Albumin Globulin Albumin/Globulin Ratio Procalcitonin Vancomycin Trough U Opiates 300ng/mL cut Negative Ur Oxycodone Screen Negative Urine Methadone Screen Negative Ur Barbiturates Screen Negative U Tricyclic Antidepress Negative Ur Phencyclidine Scrn Negative Ur Amphetamines Screen Negative U Methamphetamines Scrn Negative Ur MDMA Scrn (Ecstasy) Negative U Benzodiazepines Scrn Negative Urine Cocaine Screen Negative U Marijuana (THC) Screen Negative 11/26/19 11/26/19 11/26/19 04:30 04:30 04:30 WBC 16.7 H RBC 3.17 L Hgb 10.6 L Hct 31.8 L MCV 100.1 H MCH 33.4 MCHC 33.4 RDW 15.3 H Plt Count 84 L Neut % (Auto) Not Reportable Lymph % (Auto) Not Reportable [place] % (Auto) Not Reportable Eos % (Auto) Not Reportable Baso % (Auto) Not Reportable Lymph # (Auto) Not Reportable Willacy # (Auto) Not Reportable Baso # (Auto) Not Reportable Total Counted 100 Seg Neutrophils % 59.0 D Band Neutrophils % 21.0 H Lymphocytes % (Manual) 7.0 L Atypical Lymphs % 1.0 H Monocytes % (Manual) 6.0 Eosinophils % (Manual) 1.0 L Metamyelocytes % 5.0 H Neutrophils # (Manual) 81688 H Toxic Granulation Present H Dohle Bodies 3+ H RBC Morphology See below Sodium 133 L Potassium 3.4 Chloride 103 Carbon Dioxide 24 BUN 29 H Creatinine 1.04 Estimated GFR > 60.0 BUN/Creatinine Ratio 27.9 H Glucose 73 Hemoglobin A1c Calcium 7.3 L Total Bilirubin 2.5 H AST 201 H ALT 112 H Alkaline Phosphatase 180 H D Total Creatine Kinase Total Protein 5.3 L Albumin 2.2 L Globulin 3.1 Albumin/Globulin Ratio 0.7 L Procalcitonin 4.55 H Vancomycin Trough U Opiates 300ng/mL cut Ur Oxycodone Screen Urine Methadone Screen Ur Barbiturates Screen U Tricyclic Antidepress Ur Phencyclidine Scrn Ur Amphetamines Screen U Methamphetamines Scrn Ur MDMA Scrn (Ecstasy) U Benzodiazepines Scrn Urine Cocaine Screen U Marijuana (THC) Screen 11/26/19 11/26/19 04:30 08:15 WBC RBC Hgb Hct MCV MCH MCHC RDW Plt Count Neut % (Auto) Lymph % (Auto) Willacy % (Auto) Eos % (Auto) Baso % (Auto) Lymph # (Auto) Will[place] # (Auto) Baso # (Auto) Total Counted Seg Neutrophils % Band Neutrophils % Lymphocytes % (Manual) Atypical Lymphs % Monocytes % (Manual) Eosinophils % (Manual) Metamyelocytes % Neutrophils # (Manual) Toxic Granulation Dohle Bodies RBC Morphology Sodium Potassium Chloride Carbon Dioxide BUN Creatinine Estimated GFR BUN/Creatinine Ratio Glucose Hemoglobin A1c Calcium Total Bilirubin AST ALT Alkaline Phosphatase Total Creatine Kinase 1368 H Total Protein Albumin Globulin Albumin/Globulin Ratio Procalcitonin Vancomycin Trough 10.6 U Opiates 300ng/mL cut Ur Oxycodone Screen Urine Methadone Screen Ur Barbiturates Screen U Tricyclic Antidepress Ur Phencyclidine Scrn Ur Amphetamines Screen U Methamphetamines Scrn Ur MDMA Scrn (Ecstasy) U Benzodiazepines Scrn Urine Cocaine Screen U Marijuana (THC) Screen Discharge Plan [facility]
--- NOTE | 2019-11-26 12:06 | PT-IP ANOTE ---
Pt being transferred to higher level of care today. Hold PT treatment.
--- NOTE | 2019-11-26 12:09 | PM.PN.1 ---
Subjective Subjective Date Patient Seen: 11/26/19 Time Patient Seen: 12:09 Interval history: 44-year-old male with as Staph MRSA bacteremia. Previous history of IV drug use-unclear whether any of this was recent. He is 1 day status post bedside drainage of left dorsal foot abscess. This is also growing back Staph. He has been switched to vancomycin. He is getting daily packing changes to the left foot. Will be transferred to [facility] for ongoing treatment regarding his bacteremia by the internal medicine team. Exam Vital Signs (past 8 hours): - 11/26/19 04:10 11/26/19 04:15 11/26/19 04:20 Pulse Rate 107 H 107 H 106 H Respiratory Rate 8 L 8 L 10 L Blood Pressure Pulse Oximetry 98 98 96 11/26/19 04:25 11/26/19 04:30 11/26/19 04:35 Pulse Rate 105 H 107 H 106 H Respiratory Rate 7 L 11 L 8 L Blood Pressure Pulse Oximetry 96 97 97 11/26/19 04:40 11/26/19 04:45 11/26/19 04:50 Pulse Rate 110 H 108 H 106 H Respiratory Rate 12 8 L 8 L Blood Pressure Pulse Oximetry 97 96 97 11/26/19 04:55 11/26/19 05:00 11/26/19 05:05 Pulse Rate 108 H 109 H 109 H Respiratory Rate 11 L 10 L 13 Blood Pressure 99/56 L Pulse Oximetry 96 96 96 11/26/19 05:10 11/26/19 05:15 11/26/19 05:20 Pulse Rate 108 H 107 H 105 H Respiratory Rate 12 10 L 9 L Blood Pressure Pulse Oximetry 96 96 95 11/26/19 05:25 11/26/19 05:30 11/26/19 05:35 Pulse Rate 105 H 103 H 115 H Respiratory Rate 8 L 9 L 22 Blood Pressure Pulse Oximetry 96 97 96 11/26/19 05:40 11/26/19 05:45 11/26/19 05:50 Pulse Rate 109 H 118 H 109 H Respiratory Rate 21 18 17 Blood Pressure Pulse Oximetry 97 95 96 11/26/19 05:55 11/26/19 06:00 11/26/19 06:05 Pulse Rate 105 H 104 H 105 H Respiratory Rate 9 L 8 L 7 L Blood Pressure 109/56 L Pulse Oximetry 96 96 96 11/26/19 06:10 11/26/19 06:15 11/26/19 06:20 Pulse Rate 105 H 111 H 103 H Respiratory Rate 7 L 16 9 L Blood Pressure Pulse Oximetry 96 96 96 11/26/19 06:25 11/26/19 06:30 11/26/19 06:35 Pulse Rate 102 H 99 H 99 H Respiratory Rate 7 L 7 L 6 L Blood Pressure Pulse Oximetry 96 96 95 11/26/19 06:40 11/26/19 06:45 11/26/19 06:50 Pulse Rate 100 H 98 H 99 H Respiratory Rate 6 L 8 L 6 L Blood Pressure Pulse Oximetry 95 95 95 11/26/19 06:55 11/26/19 07:00 11/26/19 07:45 Pulse Rate 99 H 108 H 100 H Respiratory Rate 7 L 9 L 7 L Blood Pressure Pulse Oximetry 95 97 11/26/19 08:00 11/26/19 08:45 11/26/19 09:00 Pulse Rate 107 H 115 H 109 H Respiratory Rate 8 L 11 L 13 Blood Pressure Pulse Oximetry 11/26/19 10:00 11/26/19 10:05 11/26/19 10:32 Pulse Rate 102 H 100 H 106 H Respiratory Rate 7 L 8 L 10 L Blood Pressure 102/58 L Pulse Oximetry 94 94 96 Oxygen Delivery Method Room Air Oxygen Flow Rate 0 Narrative Exam Narrative: General sitting in the bedside chair. Answer simple questions otherwise minimally interactive HEENT unchanged Respiratory exam unlabored on room air Musculoskeletal exam: Reduced range of motion of the shoulders and no swelling or erythema. Moving better today than yesterday. bilateral lower extremities. Right lower extremity full range of motion no swelling. There is black subacute eschar from a abrasions over the knee. Demonstrates 5/5 dorsiflexion plantar flexion of the ankle. Demonstrates knee flexion extension Calf is soft SCD in place Left lower extremity. There is an incision over the dorsum of the 1st metatarsal from the I&D. There is scant purulence drainage. Dorsal foot edema and cellulitis. No cellulitis tracking above the ankle. Demonstrates active dorsiflexion plantar flexion. Calf is soft. Knee without effusion. Good knee flexion extension. Thigh is soft. Packing changed replaced at dorsal incision Objective Labs Result Diagrams: 11/26/19 04:30 11/26/19 04:30 Labs: Laboratory Results - last 24 hr 11/23/19 11/25/19 11/25/19 09:21 20:43 20:43 WBC RBC Hgb Hct MCV MCH MCHC RDW Plt Count Neut % (Auto) Lymph % (Auto) [place] % (Auto) Eos % (Auto) Baso % (Auto) Lymph # (Auto) [place] # (Auto) Baso # (Auto) Total Counted Seg Neutrophils % Band Neutrophils % Lymphocytes % (Manual) Atypical Lymphs % Monocytes % (Manual) Eosinophils % (Manual) Metamyelocytes % Neutrophils # (Manual) Toxic Granulation Dohle Bodies RBC Morphology Sodium Potassium Chloride Carbon Dioxide BUN Creatinine Estimated GFR BUN/Creatinine Ratio Glucose Hemoglobin A1c 5.2 Calcium Total Bilirubin AST ALT Alkaline Phosphatase Total Creatine Kinase 2204 H D Total Protein Albumin Globulin Albumin/Globulin Ratio Procalcitonin Vancomycin Trough U Opiates 300ng/mL cut Negative Ur Oxycodone Screen Negative Urine Methadone Screen Negative Ur Barbiturates Screen Negative U Tricyclic Antidepress Negative Ur Phencyclidine Scrn Negative Ur Amphetamines Screen Negative U Methamphetamines Scrn Negative Ur MDMA Scrn (Ecstasy) Negative U Benzodiazepines Scrn Negative Urine Cocaine Screen Negative U Marijuana (THC) Screen Negative 11/26/19 11/26/19 11/26/19 04:30 04:30 04:30 WBC 16.7 H RBC 3.17 L Hgb 10.6 L Hct 31.8 L MCV 100.1 H MCH 33.4 MCHC 33.4 RDW 15.3 H Plt Count 84 L Neut % (Auto) Not Reportable Lymph % (Auto) Not Reportable [place] % (Auto) Not Reportable Eos % (Auto) Not Reportable Baso % (Auto) Not Reportable Lymph # (Auto) Not Reportable [place] # (Auto) Not Reportable Baso # (Auto) Not Reportable Total Counted 100 Seg Neutrophils % 59.0 D Band Neutrophils % 21.0 H Lymphocytes % (Manual) 7.0 L Atypical Lymphs % 1.0 H Monocytes % (Manual) 6.0 Eosinophils % (Manual) 1.0 L Metamyelocytes % 5.0 H Neutrophils # (Manual) 01705 H Toxic Granulation Present H Dohle Bodies 3+ H RBC Morphology See below Sodium 133 L Potassium 3.4 Chloride 103 Carbon Dioxide 24 BUN 29 H Creatinine 1.04 Estimated GFR > 60.0 BUN/Creatinine Ratio 27.9 H Glucose 73 Hemoglobin A1c Calcium 7.3 L Total Bilirubin 2.5 H AST 201 H ALT 112 H Alkaline Phosphatase 180 H D Total Creatine Kinase Total Protein 5.3 L Albumin 2.2 L Globulin 3.1 Albumin/Globulin Ratio 0.7 L Procalcitonin 4.55 H Vancomycin Trough U Opiates 300ng/mL cut Ur Oxycodone Screen Urine Methadone Screen Ur Barbiturates Screen U Tricyclic Antidepress Ur Phencyclidine Scrn Ur Amphetamines Screen U Methamphetamines Scrn Ur MDMA Scrn (Ecstasy) U Benzodiazepines Scrn Urine Cocaine Screen U Marijuana (THC) Screen 11/26/19 11/26/19 04:30 08:15 WBC RBC Hgb Hct MCV MCH MCHC RDW Plt Count Neut % (Auto) Lymph % (Auto) [place] % (Auto) Eos % (Auto) Baso % (Auto) Lymph # (Auto) [place] # (Auto) Baso # (Auto) Total Counted Seg Neutrophils % Band Neutrophils % Lymphocytes % (Manual) Atypical Lymphs % Monocytes % (Manual) Eosinophils % (Manual) Metamyelocytes % Neutrophils # (Manual) Toxic Granulation Dohle Bodies RBC Morphology Sodium Potassium Chloride Carbon Dioxide BUN Creatinine Estimated GFR BUN/Creatinine Ratio Glucose Hemoglobin A1c Calcium Total Bilirubin AST ALT Alkaline Phosphatase Total Creatine Kinase 1368 H Total Protein Albumin Globulin Albumin/Globulin Ratio Procalcitonin Vancomycin Trough 10.6 U Opiates 300ng/mL cut Ur Oxycodone Screen Urine Methadone Screen Ur Barbiturates Screen U Tricyclic Antidepress Ur Phencyclidine Scrn Ur Amphetamines Screen U Methamphetamines Scrn Ur MDMA Scrn (Ecstasy) U Benzodiazepines Scrn Urine Cocaine Screen U Marijuana (THC) Screen Assessment & Plan Assessment & Plan narrative: Staph bacteremia and left dorsal foot abscess growing Staph. Edema along the dorsal foot on the left. No further significant purulence expressed from the incision. Patient is on appropriate antibiotics for Staph abscess. Recommend continued packing changes to foot. At this time a surveillance of other joints does not demonstrate any obvious additional sites of infection or abscess but with bacteremia and unknown present history of drug use would continue surveillance for this. If dorsal left foot not improving may require additional debridement/and or additional imaging MRI with without contrast to evaluate for any deeper or other loculated abscess Time Spent With Patient Time with patient: less than 15 minutes
== END 2019-11-26 12:45 | disposition short-term general hospital (02) | DRG 351 ==
LOC: ED 10:43 → AC 11:36 → ICU 11-25 08:36 → AC 11-26 14:35
PROVIDERS: Internal Medicine; Nurse Practitioner Adult Health; Admitting Provider Internal Medicine; Emergency Provider Emergency Medicine; Referring Provider Emergency Medicine; Visit Provider Internal Medicine
DX: T79.6XXA Traumatic ischemia of muscle, initial encounter (principal); S22.41XA Multiple fractures of ribs, right side, initial encounter for closed fracture; E87.1 Hypo-osmolality and hyponatremia; E87.6 Hypokalemia; A41.02 Sepsis due to Methicillin resistant Staphylococcus aureus; L03.116 Cellulitis of left lower limb; R65.20 Severe sepsis without septic shock; G93.41 Metabolic encephalopathy; F10.231 Alcohol dependence with withdrawal delirium; I95.9 Hypotension, unspecified; N39.0 Urinary tract infection, site not specified; K70.9 Alcoholic liver disease, unspecified; B18.2 Chronic viral hepatitis C; S01.512A Laceration without foreign body of oral cavity, initial encounter; D64.9 Anemia, unspecified; L02.612 Cutaneous abscess of left foot; F17.210 Nicotine dependence, cigarettes, uncomplicated; W17.89XA Other fall from one level to another, initial encounter
CPT/HCPCS: 36415; 36600; 70450; 71045; 71260; 72125; 73030; 73700; 74177; 80053; 80202; 80305; 80320; 81001; 82550; 82805; 82962; 83036; 83605; 83690; 83735; 84145; 85025; 85610; 85730; 86850; 86900; 86901; 87040; 87070; 87075; 87077; 87086; 87147; 87150; 87186; 87205; 87635; 87797; 93005; 93010; 93306; 94640; 94760; 94762; 96360; 96361; 97163; 97167; 97535; 99284; 99291; 99406; J1650; J2060; J2543; J2560; J3475; J3480; J7614